=== PATIENT | female | born 1955 | race African-American/Black ===

== ENCOUNTER 2016-12-08 09:07 | Day surgery (SDC) | payer OTHER ==
[~2016-12-08] VITALS: Ht 172.7 cm; Wt 68.2 kg
[~2016-12-08 09:07] MED LIST: PERC5TAB12 PO
[2016-12-08 09:21] VITALS: BP 139/84; PULSE 86; RESP 20; TEMP 98.1; O2SAT 94
[2016-12-08] MEDS ORDERED: SODIUM CHLOR 0.9% 1000 ML INJ 1,000 ML IV SCH (10:30)
[2016-12-08] MEDS ORDERED: LIDOCAINE 1%/EPINEPHrine 1:100,000 SOLN 20 ML VIAL ONE (10:45)
[2016-12-08] MEDS ORDERED: fentaNYL CITRATE 250 MCG/5 ML AMP ONE (10:57)
[2016-12-08] MEDS ORDERED: MIDAZOLAM HCL 5 MG/5 ML VIAL ONE (10:58)
[2016-12-08] MEDS ORDERED: GELATIN 12 MM/7 MM FOAM ONE ×2 (11:31→13:24)
--- NOTE | 2016-12-08 11:42 | PD.RAD ---
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 Full dictated report to follow See PACS Report for procedural detail/treatment Néstor Grubbs MD Dec 08, 2016 11:42
[2016-12-08] MEDS ORDERED: THROMBIN (TOPICAL) 5,000 UNIT VIAL ONE (11:46)
[2016-12-08 12:00] VITALS: BP 127/79; PULSE 79; RESP 20; TEMP 98; O2SAT 91
[2016-12-08 12:15] VITALS: BP 130/76; PULSE 89; RESP 20; O2SAT 92
[2016-12-08 12:45] VITALS: BP 109/62; PULSE 86; RESP 20; O2SAT 90
[2016-12-08] MEDS: MORPHINE SULFATE 4 MG/ML INJ IV PRN ×2 (12:49→13:45)
[2016-12-08 13:15] VITALS: BP 124/80; PULSE 85; RESP 20; O2SAT 92
--- NOTE | 2016-12-08 13:23 | RADRPT ---
EXAM DATE/TIME: 12/08/2016 11:05 [facility] COMPARISON: CT SIMULATION, July 16, 2014, 15:09. INDICATIONS : Pelvic mass. History of endometrial cancer. SEDATION TIME: 15 minutes BIOPSY SITE: Left Pelvis MEDICATION(S): 1.) 2.5 mg midazolam (Versed) IV 2.) 150 mcg fentanyl (Sublimaze) IV DEVICE(S): 1.) 18 gauge Carrillo blunt needle 2.) 20 gauge Temno core biopsy needle 3.) Gelfoam MEDICAL HISTORY : Endometrial cancer. SURGICAL HISTORY : Open heart surgery for congenital defect. ENCOUNTER: Initial ACUITY: 1 day PAIN SCORE: 0/10 LOCATION: Left pelvis A total of three core specimen(s) were obtained and sent to the laboratory for pathologic evaluation. PROCEDURE: 1. CT guided pelvic biopsy. 2. Conscious sedation with continuous EKG and oximetry monitoring. 3. EKG and oximetry remained stable throughout the procedure. Prior to the procedure informed consent was obtained. Any appropriate prior imaging studies were rev iewed. Using automated exposure control and adjustment of the mA and/or kV according to patient size, radiat ion dose was kept as low as reasonably achievable to obtain optimal diagnostic quality images. The site was prepped in a sterile fashion. Full sterile technique was used, including cap, mask, niki rile gloves and gown and a large sterile sheet. Hand hygiene and 2% chlorhexidine and/or betadine/al cohol prep was utilized per protocol for cutaneous antisepsis. The skin and subcutaneous tissues wer e infiltrated with local anesthetic solution. With CT guidance the previously identified target was localized. An 18 gauge Carrillo blunt was advanc ed down to the surface of the pelvic mass in the left lower quadrant. A 20 gauge Temno needle was adv anced through the Carrillo blunt. Multiple core biopsies were taken. There was a small amount of hemor rhage emanating from the Carrillo blunt needle cannula. Approximately 3 cc of Gelfoam and thrombin wer e administered through the cannula along the surface of the mass. Adequate hemostasis was obtained w ith compression at the puncture site. Follow-up CT scan reveals no hemorrhage. The patient tolerated the procedure well and there were no complications. The patient was returned to the Radiology Outpatient Unit in stable condition. CONCLUSION: Uncomplicated CT guided biopsy. Néstor Grubbs MD on December 08, 2016 at 13:21 Board Certified Radiologist. This report was verified electronically.
== END 2016-12-08 16:00 | disposition home or self-care (01) ==
LOC: HRAD 09:07 → HRIP 09:11 → HRAD 16:00
PROVIDERS: ATTEND Obstetrics & Gynecology Gynecologic Oncology
DX: C55 Malignant neoplasm of uterus, part unspecified (principal); Z85.42 Personal history of malignant neoplasm of other parts of uterus
CPT/HCPCS: 49180; 77012; 88305; 88341; 88342; 99151; J2250; J2270; J3010; J7030; 99152

== ENCOUNTER 2017-05-21 16:46 | Inpatient (IN) | payer OTHER ==
[~2017-05-21] VITALS: Ht 172.7 cm; Wt 69.6 kg
[2017-05-21 16:49] VITALS: BP 117/65; PULSE 115; RESP 17; TEMP 98.4; O2SAT 96
--- NOTE | 2017-05-21 17:42 | PD ---
HPI Chief Complaint: GI Complaint Time Seen by Provider: 17:41 Travel History International Travel<30 days: No Contact w/Intl Traveler<30days: No Traveled to known affect area: No History of Present Illness HPI 61 YO F with PMH of PFSH Past Medical History Arthritis: Yes (right knee) Anxiety: No Depression: No Cancer: Yes (uterine or ovarian (pt unsure)) Cardiovascular Problems: No Diabetes: No Endocrine: No Genitourinary: No Hepatitis: No Hiatal Hernia: No Immune Disorder: No Musculoskeletal: Yes (OCCASIONAL PAIN IN KNEES) Neurologic: No Psychiatric: No Reproductive: No Respiratory: No Immunizations Current: No Thyroid Disease: No ?: Not : 0 Para: 0 Past Surgical History AICD: No Cardiac Surgery: Yes (at age 11, pt had a hole fixed in her heart) Hysterectomy: Yes Joint Replacement: No Pacemaker: No Social History Alcohol Use: No Tobacco Use: No Substance Use: No Allergies-Medications (Allergen,Severity, Reaction): Coded Allergies: No Known Allergies (Verified , 12/08/16) Reported Meds & Prescriptions Reported Meds & Active Scripts Active Reported Potassium Chloride ER (Potassium Chloride) 20 Meq Tab 20 Meq PO DAILY [place] (Hydrocodone-Acetaminophen) 10-325 Mg Tab 1 Tab PO Q4H PRN Tramadol (Tramadol HCl) 50 Mg Tab 50 Mg PO Q8H PRN Miralax Powder (Polyethylene Glycol 3350 Powder) 17 Gm Powd 17 Gm PO DAILY Mix and dissolve one measuring cap-ful (17 grams) in water or juice. Data Data Last Documented VS Vital Signs Date Time Temp Pulse Resp B/P (MAP) Pulse Ox O2 Delivery O2 Flow Rate FiO2 05/21/17 17:47 18 05/21/17 17:46 98 Room Air 05/21/17 17:46 05/21/17 16:49 98.4 115 Orders Orders Complete Blood Count With Diff (05/21/17 17:06) Comprehensive Metabolic Panel (05/21/17 17:06) Urinalysis - C+S If Indicated (05/21/17 17:06) Iv Access Insert/Monitor (05/21/17 17:06) Oxygen Administration (05/21/17 17:06) Oximetry (05/21/17 17:06) Lipase (05/21/17 17:06) Urine Culture (05/21/17 17:25) Ct Abd/Pel W Iv Contrast(Rout) (05/21/17 18:00) Ondansetron Inj (Zofran Inj) (05/21/17 18:00) Hydromorphone Pf Inj (Dilaudid Pf Inj) (05/21/17 18:00) Labs Laboratory Tests Test 05/21/17 17:25 05/21/17 17:40 Urine Color YELLOW Urine Turbidity HAZY Urine pH 5.5 Urine Specific [place] 1.021 Urine Protein 30 mg/dL Urine Glucose (UA) NEG mg/dL Urine Ketones NEG mg/dL Urine Occult Blood NEG Urine Nitrite NEG Urine Bilirubin NEG Urine Urobilinogen 2.0 MG/DL Urine Leukocyte Esterase LARGE Urine RBC 1 /hpf Urine WBC 12 /hpf Urine Squamous Epithelial Cells 3 /hpf Urine Transitional Epithelial Cells <1 /hpf Urine Bacteria OCC /hpf Urine Hyaline Casts 10 /lpf Urine Mucus FEW /lpf Microscopic Urinalysis Comment CULTURE INDICATED White Blood Count 8.6 TH/MM3 Red Blood Count 4.10 MIL/MM3 Hemoglobin 10.1 GM/DL Hematocrit 31.2 % Mean Corpuscular Volume 76.1 FL Mean Corpuscular Hemoglobin 24.5 PG Mean Corpuscular Hemoglobin Concent 32.3 % Red Cell Distribution Width 21.1 % Platelet Count 472 TH/MM3 Mean Platelet Volume 8.1 FL Neutrophils (%) (Auto) 69.7 % Lymphocytes (%) (Auto) 15.5 % Monocytes (%) (Auto) 14.1 % Eosinophils (%) (Auto) 0.2 % Basophils (%) (Auto) 0.5 % Neutrophils # (Auto) 6.0 TH/MM3 Lymphocytes # (Auto) 1.3 TH/MM3 Monocytes # (Auto) 1.2 TH/MM3 Eosinophils # (Auto) 0.0 TH/MM3 Basophils # (Auto) 0.0 TH/MM3 CBC Comment AUTO DIFF Conchita Barba May 21, 2017 17:42
[2017-05-21 17:46] VITALS: RESP 18; O2SAT 98
[2017-05-21] MEDS ORDERED: MIRA3350 PO (17:50)
[2017-05-21 17:52] LABS: BACTERIA, URINE OCC /hpf; BLOOD, URINE NEG (NEG); COMMENT (UR) CULTURE INDICATED; CULTURE IF INDICATED CULTURE INDICATED; GLUCOSE,URINE NEG (NEG); HYALINE CAST, URINE 10 /lpf (RARE); KETONE, URINE NEG (NEG); MUCUS URINE FEW /lpf (OCC); NITRITE,URINE NEG (NEG); PH, URINE 5.5 (5.0-8.5); SQUAMOUS EPITHELIAL CELL URINE 3 /hpf (0-5); TRANSITIONAL EPI CELLS, URINE <1 /hpf; URINE COLOR YELLOW (YELLW/STRAW)
[2017-05-21] MEDS ORDERED: POTA-163 PO (17:53)
[2017-05-21] MEDS ORDERED: TRAM50TA PO (17:53)
[2017-05-21] MEDS ORDERED: HYDR-3366 PO (17:53)
[2017-05-21 17:59] LABS: BASOPHIL % 0.5 % (0.0-2.0); EOSINOPHIL % 0.2 % (0.0-4.0); HEMATOCRIT 31.2 % (35.0-46.0); LYMPH % 15.5 % (9.0-44.0); LYMPHOCYTE # 1.3 TH/MM3 (1.0-4.8); MEAN CELL VOLUME 76.1 FL (80.0-100.0); MEAN CORPUSCULAR HEMOGLOBIN 24.5 PG (27.0-34.0); MEAN CORPUSCULAR HGB CONC 32.3 % (32.0-36.0); MONO % 14.1 % (0.0-8.0); NEUT % 69.7 % (16.0-70.0); PLATELET COUNT 472 TH/MM3 (150-450); RED CELL DISTRIBUTION WIDTH 21.1 % (11.6-17.2); WHITE BLOOD COUNT 8.6 TH/MM3 (4.0-11.0)
[2017-05-21] MEDS ORDERED: HYDROmorphone HCL PF 1 MG/ML VIAL IVS ONE (18:00)
[2017-05-21] MEDS ORDERED: ONDANSETRON HCL 4 MG/2 ML VIAL IVP ONE (18:00)
[2017-05-21 18:03] LABS: HEMO FLAGS AUTO DIFF
[2017-05-21 18:24] LABS: ALKALINE PHOSPHATASE 114 U/L (45-117); ALT (GPT) 20 U/L (10-53); ANION GAP 10 MEQ/L (5-15); AST (GOT) 30 U/L (15-37); BICARBONATE 26.6 MEQ/L (21.0-32.0); BLOOD UREA NITROGEN 24 MG/DL (7-18); CHLORIDE 98 MEQ/L (98-107); GLOMERULAR FILTRATION RATE 55 ML/MIN (>89); SODIUM (NA) 135 MEQ/L (136-145); TOTAL BILIRUBIN ADULT 0.6 MG/DL (0.2-1.0)
--- NOTE | 2017-05-21 18:50 | PD ---
HPI Chief Complaint: GI Complaint Time Seen by Provider: 17:41 Travel History International Travel<30 days: No Contact w/Intl Traveler<30days: No Traveled to known affect area: No History of Present Illness HPI Miss Boston is a very pleasant 61-year-old female in unfortunate history of recurrent uterine cancer, who presents here today with complaint of abdominal pain with associated nausea vomiting. She states that she is currently having nausea with lower abdominal pain. She denies any fevers, chills and she states that this morning she had pain in her lower abdomen. She states she tried heat however shortly thereafter she threw up the surgical that she had eaten earlier. She reports minimal bowel movement this morning. She denies any dysuria, urgency, frequency. She is status post hysterectomy and denies any vaginal bleeding or vaginal discharge. There are no other complaints time my examination. 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[place], port upper rt chest) Anxiety: No Depression: No Cancer: Yes (uterine or ovarian (pt unsure)) Cardiovascular Problems: No Diabetes: No Endocrine: No Gastrointestinal Disorders: No Genitourinary: No Hepatitis: No Hiatal Hernia: No Hypertension: No Immune Disorder: No Medical other: No Musculoskeletal: Yes (OCCASIONAL PAIN IN KNEES) Neurologic: No Psychiatric: No Reproductive: No Respiratory: No Immunizations Current: No Thyroid Disease: No ?: Not : 0 Para: 0 Past Surgical History AICD: No Cardiac Surgery: Yes (at age 11, pt had a hole fixed in her heart) Hysterectomy: Yes Joint Replacement: No Pacemaker: No Other Surgery: Yes Social History Alcohol Use: No Tobacco Use: No Substance Use: No Allergies-Medications (Allergen,Severity, Reaction): Coded Allergies: No Known Allergies (Verified , 12/08/16) Reported Meds & Prescriptions Reported Meds & Active Scripts Active Reported Potassium Chloride ER (Potassium Chloride) 20 Meq Tab 20 Meq PO DAILY [place] (Hydrocodone-Acetaminophen) 10-325 Mg Tab 1 Tab PO Q4H PRN Tramadol (Tramadol HCl) 50 Mg Tab 50 Mg PO Q8H PRN Miralax Powder (Polyethylene Glycol 3350 Powder) 17 Gm Powd 17 Gm PO DAILY Mix and dissolve one measuring cap-ful (17 grams) in water or juice. Review of Systems General / Constitutional: No: Fever, Chills HENT: No: Headaches, Lightheadedness Cardiovascular: No: Chest Pain or Discomfort, Palpitations Respiratory: No: Cough, Shortness of Breath Gastrointestinal: Positive: Nausea, Vomiting, Abdominal Pain, Constipation, No : Diarrhea Genitourinary: No: Frequency, Dysuria Musculoskeletal: Positive: Weakness, No: Pain Neurologic: Positive: Weakness (generalized generalized), No: Dizziness, Headache Physical Exam Narrative GENERAL: Thin ill appearing female in no acute respiratory distress. SKIN: Focused skin assessment warm/dry. HEAD: Atraumatic. Normocephalic. EYES: No scleral icterus. No injection or drainage. ENT: No nasal bleeding or discharge. Mucous membranes pink and moist. NECK: Trachea midline. Supple. CARDIOVASCULAR: Regular rate and rhythm. No murmur appreciated. RESPIRATORY: No accessory muscle use. Clear to auscultation. Breath sounds equal bilaterally. GASTROINTESTINAL: Abdomen thin cachectic. The patient has tenderness to palpation in her lower pelvic segment. There is no rebound or guarding. MUSCULOSKELETAL: No obvious deformities. No clubbing. No cyanosis. No edema. NEUROLOGICAL: Awake and alert. No obvious cranial nerve deficits. Motor grossly within normal limits. Normal speech. Data Data Last Documented VS Vital Signs Date Time Temp Pulse Resp B/P (MAP) Pulse Ox O2 Delivery O2 Flow Rate FiO2 05/21/17 17:47 18 05/21/17 17:46 98 Room Air 05/21/17 17:46 05/21/17 16:49 98.4 115 Orders Orders Complete Blood Count With Diff (05/21/17 17:06) Comprehensive Metabolic Panel (05/21/17 17:06) Urinalysis - C+S If Indicated (05/21/17 17:06) Iv Access Insert/Monitor (05/21/17 17:06) Oxygen Administration (05/21/17 17:06) Oximetry (05/21/17 17:06) Lipase (05/21/17 17:06) Urine Culture (05/21/17 17:25) Ct Abd/Pel W Iv Contrast(Rout) (05/21/17 18:00) Ondansetron Inj (Zofran Inj) (05/21/17 18:00) Hydromorphone Pf Inj (Dilaudid Pf Inj) (05/21/17 18:00) Labs Laboratory Tests Test 05/21/17 17:25 05/21/17 17:40 Urine Color YELLOW Urine Turbidity HAZY Urine pH 5.5 Urine Specific [place] 1.021 Urine Protein 30 mg/dL Urine Glucose (UA) NEG mg/dL Urine Ketones NEG mg/dL Urine Occult Blood NEG Urine Nitrite NEG Urine Bilirubin NEG Urine Urobilinogen 2.0 MG/DL Urine Leukocyte Esterase LARGE Urine RBC 1 /hpf Urine WBC 12 /hpf Urine Squamous Epithelial Cells 3 /hpf Urine Transitional Epithelial Cells <1 /hpf Urine Bacteria OCC /hpf Urine Hyaline Casts 10 /lpf Urine Mucus FEW /lpf Microscopic Urinalysis Comment CULTURE INDICATED White Blood Count 8.6 TH/MM3 Red Blood Count 4.10 MIL/MM3 Hemoglobin 10.1 GM/DL Hematocrit 31.2 % Mean Corpuscular Volume 76.1 FL Mean Corpuscular Hemoglobin 24.5 PG Mean Corpuscular Hemoglobin Concent 32.3 % Red Cell Distribution Width 21.1 % Platelet Count 472 TH/MM3 Mean Platelet Volume 8.1 FL Neutrophils (%) (Auto) 69.7 % Lymphocytes (%) (Auto) 15.5 % Monocytes (%) (Auto) 14.1 % Eosinophils (%) (Auto) 0.2 % Basophils (%) (Auto) 0.5 % Neutrophils # (Auto) 6.0 TH/MM3 Lymphocytes # (Auto) 1.3 TH/MM3 Monocytes # (Auto) 1.2 TH/MM3 Eosinophils # (Auto) 0.0 TH/MM3 Basophils # (Auto) 0.0 TH/MM3 CBC Comment AUTO DIFF Blood Urea Nitrogen 24 MG/DL Creatinine 1.20 MG/DL Random Glucose 100 MG/DL Total Protein 8.8 GM/DL Albumin 4.3 GM/DL Calcium Level 10.4 MG/DL Alkaline Phosphatase 114 U/L Aspartate Amino Transf (AST/SGOT) 30 U/L Alanine Aminotransferase (ALT/SGPT) 20 U/L Total Bilirubin 0.6 MG/DL Sodium Level 135 MEQ/L Potassium Level 4.0 MEQ/L Chloride Level 98 MEQ/L Carbon Dioxide Level 26.6 MEQ/L Anion Gap 10 MEQ/L Estimat Glomerular Filtration Rate 55 ML/MIN Lipase 87 U/L MDM Medical Decision Making Medical Screen Exam Complete: Yes Emergency Medical Condition: Yes Differential Diagnosis Bowel obstruction versus obstipation versus constipation versus ileus. Narrative Course 61-year-old female with history of recurrent uterine cancer, presents today with lower abdominal pain with associated nausea vomiting. The patient states that she had a small bowel movement this morning but shortly thereafter threw up her breakfast which was cereal. She denies any fevers, chills. She denies any dysuria, urgency, frequency. Labs and CT scan are pending. She'll be signed out to Dr. Ross who was replacing me at change of shift. Disposition will be per her. Diagnosis Primary Impression: Abdominal pain Additional Impressions: Nausea & vomiting History of uterine cancer Wolfgang Wray MD May 21, 2017 18:50
[2017-05-21 19:14] LABS: PLATELET ESTIMATE SMEAR HIGH (NORMAL); PLATELET MORPHOLOGY NORMAL (NORMAL); SCAN/DIFF AUTO DIFF CONFIRMED
--- NOTE | 2017-05-21 19:21 | RADRPT ---
EXAM DATE/TIME: 05/21/2017 18:51 [facility] COMPARISON: CT ABDOMEN & PELVIS W CONTRAST, July 11, 2014, 21:34. INDICATIONS : Constipation and lower abdomen pain for two days. IV CONTRAST: 75 cc Omnipaque 350 (iohexol) IV ORAL CONTRAST: No oral contrast ingested. RADIATION DOSE: 4.51 CTDIvol (mGy) MEDICAL HISTORY : uterine/ovarian cancer SURGICAL HISTORY : Hysterectomy. ENCOUNTER: Initial ACUITY: 2 days PAIN SCALE: 7/10 LOCATION: Bilateral lower quadrant TECHNIQUE: Volumetric scanning of the abdomen and pelvis was performed. Using automated exposure control and ad justment of the mA and/or kV according to patient size, radiation dose was kept as low as reasonably achievable to obtain optimal diagnostic quality images. DICOM format image data is available electro nically for review and comparison. FINDINGS: 6.4 cm heterogeneously enhancing mass in the left hepatic lobe new and compatible with a metastatic l esion. There is also extensive omental/peritoneal/serosal metastatic disease. Anteriorly in the left lower quadrant is a 6.2 x 14.6 cm area of peritoneal caking. In the posterior pelvic cavity is an felipe roximately 6.2 x 11.2 cm area and with associated moderate right hydronephrosis/hydroureter. In the l ateral left midabdomen is a 3.6 x 5.2 cm peritoneal mass. Interestingly, no ascites. Moderately distended fluid and air-filled small bowel seen but I believe a fairly normal caliber term inal ileum. The colon is decompressed. Stool is present in the rectum. Lung bases are clear. No lytic or sclerotic lesion seen of the visualized osseous structures. Chronic L5 pars defects with grade 2 L5/S1 spondylolisthesis again noted. CONCLUSION: 1. Liver and widespread peritoneal/omental/serosal metastatic disease. 2. Apparent early or partial distal small bowel obstruction. 3. Obstruction of the distal right ureter. 4. Clear lung bases. Estiven Boyd MD on May 21, 2017 at 19:12 Board Certified Radiologist. This report was verified electronically.
--- NOTE | 2017-05-21 19:39 | PD ---
Physical Exam Narrative General: The patient is a well-developed thin appearing female in no acute distress. Head and Neck exam: Head is normocephalic atraumatic. Eyes: EOMI, pupils are equal round and reactive to light. Nose: Midline septum with pink mucous membranes Mouth: Moist mucus membranes. Posterior oropharynx is not erythematous. No tonsillar hypertrophy. Uvula midline. Airway patent. Neck: No palpable lymphadenopathy. No nuchal rigidity. No thyromegaly. Cardiovascular: Regular rate and rhythm with a 2/6 systolic murmur. No gallops or rubs. The patient reports a history of a heart murmur. Lungs: Clear to auscultation bilaterally. No wheezes, rhonchi, or rales. Abdomen: Soft, with tenderness on palpation along the suprapubic area and left lower quadrant of the abdomen with a palpable mass/area of firmness. No guarding, rebound, or rigidity. Normal bowel sounds are audible. No tenderness on palpation of McBurney's point. Extremities: No clubbing, cyanosis, or edema. 2+ pulses in all 4 extremities. No calf tenderness on palpation. Back: No costovertebral angle tenderness to palpation. Neurologic Exam: Grossly nonfocal. Skin Exam: No rash noted. Intact skin that is warm and dry. Data Data Last Documented VS Vital Signs Date Time Temp Pulse Resp B/P (MAP) Pulse Ox O2 Delivery O2 Flow Rate FiO2 05/21/17 17:47 18 05/21/17 17:46 98 Room Air 05/21/17 17:46 05/21/17 16:49 98.4 115 Orders Orders Complete Blood Count With Diff (05/21/17 17:06) Comprehensive Metabolic Panel (05/21/17 17:06) Urinalysis - C+S If Indicated (05/21/17 17:06) Iv Access Insert/Monitor (05/21/17 17:06) Oxygen Administration (05/21/17 17:06) Oximetry (05/21/17 17:06) Lipase (05/21/17 17:06) Urine Culture (05/21/17 17:25) Ct Abd/Pel W Iv Contrast(Rout) (05/21/17 18:00) Ondansetron Inj (Zofran Inj) (05/21/17 18:00) Hydromorphone Pf Inj (Dilaudid Pf Inj) (05/21/17 18:00) Iohexol 350 Inj (Omnipaque 350 Inj) (05/21/17 19:40) Sodium Chlor 0.9% 1000 Ml Inj (Ns 1000 M (05/21/17 19:45) Admit Order (Ed Use Only) (05/21/17 19:56) Labs Laboratory Tests Test 05/21/17 17:25 05/21/17 17:40 Urine Color YELLOW Urine Turbidity HAZY Urine pH 5.5 Urine Specific [place] 1.021 Urine Protein 30 mg/dL Urine Glucose (UA) NEG mg/dL Urine Ketones NEG mg/dL Urine Occult Blood NEG Urine Nitrite NEG Urine Bilirubin NEG Urine Urobilinogen 2.0 MG/DL Urine Leukocyte Esterase LARGE Urine RBC 1 /hpf Urine WBC 12 /hpf Urine Squamous Epithelial Cells 3 /hpf Urine Transitional Epithelial Cells <1 /hpf Urine Bacteria OCC /hpf Urine Hyaline Casts 10 /lpf Urine Mucus FEW /lpf Microscopic Urinalysis Comment CULTURE INDICATED White Blood Count 8.6 TH/MM3 Red Blood Count 4.10 MIL/MM3 Hemoglobin 10.1 GM/DL Hematocrit 31.2 % Mean Corpuscular Volume 76.1 FL Mean Corpuscular Hemoglobin 24.5 PG Mean Corpuscular Hemoglobin Concent 32.3 % Red Cell Distribution Width 21.1 % Platelet Count 472 TH/MM3 Mean Platelet Volume 8.1 FL Neutrophils (%) (Auto) 69.7 % Lymphocytes (%) (Auto) 15.5 % Monocytes (%) (Auto) 14.1 % Eosinophils (%) (Auto) 0.2 % Basophils (%) (Auto) 0.5 % Neutrophils # (Auto) 6.0 TH/MM3 Lymphocytes # (Auto) 1.3 TH/MM3 Monocytes # (Auto) 1.2 TH/MM3 Eosinophils # (Auto) 0.0 TH/MM3 Basophils # (Auto) 0.0 TH/MM3 CBC Comment AUTO DIFF Differential Comment AUTO DIFF CONFIRMED Platelet Estimate HIGH Platelet Morphology Comment NORMAL Red Cell Morphology Comment NORMAL Blood Urea Nitrogen 24 MG/DL Creatinine 1.20 MG/DL Random Glucose 100 MG/DL Total Protein 8.8 GM/DL Albumin 4.3 GM/DL Calcium Level 10.4 MG/DL Alkaline Phosphatase 114 U/L Aspartate Amino Transf (AST/SGOT) 30 U/L Alanine Aminotransferase (ALT/SGPT) 20 U/L Total Bilirubin 0.6 MG/DL Sodium Level 135 MEQ/L Potassium Level 4.0 MEQ/L Chloride Level 98 MEQ/L Carbon Dioxide Level 26.6 MEQ/L Anion Gap 10 MEQ/L Estimat Glomerular Filtration Rate 55 ML/MIN Lipase 87 U/L [facility] Medical Record Reviewed: Yes Supervised Visit with CANDI: No Interpretation(s) Last Impressions Abdomen/Pelvis CT 05/21/17 1800 Signed Impressions: Service Date/Time: Sunday, May 21, 2017 18:51 - CONCLUSION: 1. Liver and widespread peritoneal/omental/serosal metastatic disease. 2. Apparent early or partial distal small bowel obstruction. 3. Obstruction of the distal right ureter. 4. Clear lung bases. Estiven Boyd MD Narrative Course During the course of the patients emergency department visit, the patients history, examination, and differential diagnosis were reviewed with the patient. The patient had IV access obtained and blood work sent for analysis. The patient's case is checked out to me by Dr. Wray. Please see his complete history and physical. The patient's case was checked out to me at the conclusion of his shift. The patient was initially provided hydromorphone 0.5 mg IV, Zofran 4 mg IV provided for pain and nausea by Dr. Wray. The patients laboratory studies were reviewed and remarkable for a white count of 8.6, hemoglobin 10.1, platelets 472 with 14.1 monocytes, CMP is remarkable for sodium of 135, BUN 24, creatinine 1.20, calcium 10.4, total protein 8.8, lipase 87, urinalysis shows 30 protein, large leukocyte esterase, 12 wbc's, occasional bacteria, culture indicated per Radiology studies were reviewed and remarkable for a CT scan of the abdomen and pelvis that reveals liver and widespread peritoneal omental serosal metastatic disease, apparent early or partial distal small bowel obstruction. Obstruction of the distal right ureter, clear lung bases. Given these findings, the patient will be admitted to the hospital for bowel rest, IV fluids, pain medication and consultation with her oncologist. The patients results were discussed with the patient, including the plan of care. I explained that further testing and/ or monitoring is indicated based on the patients history, examination, and/ or laboratory findings. Therefore, I recommended admission for additional evaluation. The patient expressed understanding and was agreeable with this plan. The patient was admitted to the hospital in stable condition and [facility] Physician Communication Physician Communication The patient's case is discussed with Dr. Fraga who did agree to admit the patient for further evaluation and treatment at this time. Diagnosis Primary Impression: Abdominal pain Qualified Codes: R10.30 - Lower abdominal pain, unspecified Additional Impressions: Nausea & vomiting Qualified Codes: R11.2 - Nausea with vomiting, unspecified History of uterine cancer Small bowel obstruction, partial Admitting Information Admitting Physician Requests: Brooklyn Storey MD May 21, 2017 19:39
[2017-05-21] MEDS ORDERED: IOHEXOL 350 MG/ML 10 ML VIAL (for RAD DIAG) IVCONTRAST ONE (19:40)
[2017-05-21] MEDS: SODIUM CHLOR 0.9% 1000 ML INJ 1,000 ML IV SCH ×2 (19:45→21:46)
--- NOTE | 2017-05-21 20:14 | HHI.HP ---
[facility] Service [facility] Primary Care Physician Stephie Chandler MD Admission Diagnosis Partial SBO, recurrence of gynecologic CA on chemotherapy Diagnoses: (1) Partial small bowel obstruction Diagnosis: Principal (2) Uterine cancer Diagnosis: Principal (3) Renal insufficiency Diagnosis: Principal (4) UTI (urinary tract infection) Diagnosis: Principal Travel History International Travel<30 Days: No Contact w/Intl Traveler <30 Da: No Traveled to Known Affected Are: No History of Present Illness This is a 61-year-old female with a PMH of Metastatic Uterine CA following with Dr. Saravia who presented to the ER w/ complaints of abdominal pain, nausea and vomiting starting earlier today. No fever, chills or diarrhea. On arrival, BP 117/65, HR 150, O2 sat 96% on RA, Afebrile. WBC normal. Cranial 1.20, previously 1.30 on 05/18/17. UA positive for UTI. CT Abd/Pelvis w/ liver and widespread peritoneal/omental/serosal metastatic disease, early or partial small bowel obstruction, obstruction of distal right ureter. NGT to be placed in ER, however nausea/vomiting resolved at this time. Review of Systems Except as stated in HPI: all other systems reviewed are Neg ROS: 14 point review of systems otherwise negative. Past Family Social History Past Medical History PMH: Metastatic Uterine CA Past Surgical History PAST SURGICAL HISTORY: Hysterectomy Allergies: Coded Allergies: No Known Allergies (Verified , 12/08/16) Family History PAST FAMILY HISTORY: Reviewed. No h/o DM or CAD Social History PAST SOCIAL HISTORY: Negative for alcohol, tobacco or drugs. Physical Exam Vital Signs Vital Signs Date Time Temp Pulse Resp B/P (MAP) Pulse Ox O2 Delivery O2 Flow Rate FiO2 05/21/17 17:47 18 05/21/17 17:46 98 Room Air 05/21/17 17:46 18 98 Room Air 05/21/17 16:49 98.4 115 17 117/65 (82) 96 Physical Exam PE: GENERAL: Middle-aged black female in no acute distress. HEENT: PERRLA, EOMI. No scleral icterus or conjunctival pallor. No lid lag or facial droop. CARDIOVASCULAR: Regular rate and rhythm. No obvious murmurs to auscultation. No chest tenderness to palpation. RESPIRATORY: No obvious rhonchi or wheezing. Clear to auscultation. Breath sounds equal bilaterally. GASTROINTESTINAL: Abdomen soft, generalized tenderness palpation, nondistended. BS normal. MUSCULOSKELETAL: Extremities without clubbing, cyanosis, or edema. No obvious deformities. NEUROLOGICAL: Awake, alert and oriented x4. No focal neurologic deficits. Moving both upper and lower extremities spontaneously. Laboratory Laboratory Tests Test 05/21/17 17:25 05/21/17 17:40 Urine Color YELLOW Urine Turbidity HAZY Urine pH 5.5 Urine Specific [place] 1.021 Urine Protein 30 Urine Glucose (UA) NEG Urine Ketones NEG Urine Occult Blood NEG Urine Nitrite NEG Urine Bilirubin NEG Urine Urobilinogen 2.0 Urine Leukocyte Esterase LARGE Urine RBC 1 Urine WBC 12 Urine Squamous Epithelial Cells 3 Urine Transitional Epithelial Cells <1 Urine Bacteria OCC Urine Hyaline Casts 10 Urine Mucus FEW Microscopic Urinalysis Comment CULTURE INDICATED White Blood Count 8.6 Red Blood Count 4.10 Hemoglobin 10.1 Hematocrit 31.2 Mean Corpuscular Volume 76.1 Mean Corpuscular Hemoglobin 24.5 Mean Corpuscular Hemoglobin Concent 32.3 Red Cell Distribution Width 21.1 Platelet Count 472 Mean Platelet Volume 8.1 Neutrophils (%) (Auto) 69.7 Lymphocytes (%) (Auto) 15.5 Monocytes (%) (Auto) 14.1 Eosinophils (%) (Auto) 0.2 Basophils (%) (Auto) 0.5 Neutrophils # (Auto) 6.0 Lymphocytes # (Auto) 1.3 Monocytes # (Auto) 1.2 Eosinophils # (Auto) 0.0 Basophils # (Auto) 0.0 CBC Comment AUTO DIFF Differential Comment AUTO DIFF CONFIRMED Platelet Estimate HIGH Platelet Morphology Comment NORMAL Red Cell Morphology Comment NORMAL Blood Urea Nitrogen 24 Creatinine 1.20 Random Glucose 100 Total Protein 8.8 Albumin 4.3 Calcium Level 10.4 Alkaline Phosphatase 114 Aspartate Amino Transf (AST/SGOT) 30 Alanine Aminotransferase (ALT/SGPT) 20 Total Bilirubin 0.6 Sodium Level 135 Potassium Level 4.0 Chloride Level 98 Carbon Dioxide Level 26.6 Anion Gap 10 Estimat Glomerular Filtration Rate 55 Lipase 87 Date/Time Source Procedure Growth Status 05/21/17 17:25 Urine Clean Catch Urine Culture Pending Worksheet Result Diagram: 05/21/17173905/21/171739 Caprini VTE Risk Assessment Caprini VTE Risk Assessment: Mod/High Risk (score >= 2) Caprini Risk Assessment Model Point Value = 1 Point Value = 2 Point Value = 3 Point Value = 5 Age 41-60 Minor surgery BMI > 25 kg/m2 Swollen legs Varicose veins or History of unexplained or recurrent spontaneous Oral contraceptives or hormone replacement Sepsis (< 1 month) Serious lung disease, including pneumonia (< 1 month) Abnormal pulmonary function Acute myocardial infarction Congestive heart failure (< 1 month) History of inflammatory bowel disease Medical patient at bed rest Age 61-74 Arthroscopic surgery Major open surgery (> 45 min) Laparoscopic surgery (> 45 min) Malignancy Confined to bed (> 72 hours) Immobilizing plaster cast Central venous access Age >= 75 History of VTE Family history of VTE Factor V Leiden Prothrombin [id number] Lupus anticoagulant Anticardiolipin antibodies Elevated serum homocysteine Heparin-induced thrombocytopenia Other congenital or acquired thrombophilia Stroke (< 1 month) Elective arthroplasty Hip, pelvis, or leg fracture Acute spinal cord injury (< 1 month) Prophylaxis Regimen Total Risk Factor Score Risk Level Prophylaxis Regimen 0-1 Low Early ambulation 2 Moderate Order ONE of the following: *Sequential Compression Device (SCD) *Heparin 5000 units SQ BID 3-4 Higher Order ONE of the following medications: *Heparin 5000 units SQ TID *Enoxaparin/Lovenox 40 mg SQ daily (WT < 150 kg, CrCl > 30 mL/min) *Enoxaparin/Lovenox 30 mg SQ daily (WT < 150 kg, CrCl > 10-29 mL/min) *Enoxaparin/Lovenox 30 mg SQ BID (WT < 150 kg, CrCl > 30 mL/min) AND/OR *Sequential Compression Device (SCD) 5 or more Highest Order ONE of the following medications: *Heparin 5000 units SQ TID (Preferred with Epidurals) *Enoxaparin/Lovenox 40 mg SQ daily (WT < 150 kg, CrCl > 30 mL/min) *Enoxaparin/Lovenox 30 mg SQ daily (WT < 150 kg, CrCl > 10-29 mL/min) *Enoxaparin/Lovenox 30 mg SQ BID (WT < 150 kg, CrCl > 30 mL/min) AND *Sequential Compression Device (SCD) Assessment and Plan Problem List: (1) Partial small bowel obstruction ICD Code: K56.69 - Other intestinal obstruction (2) Uterine cancer ICD Code: C55 - Malignant neoplasm of uterus, part unspecified (3) UTI (urinary tract infection) ICD Code: N39.0 - Urinary tract infection, site not specified (4) Renal insufficiency ICD Code: N28.9 - Disorder of kidney and ureter, unspecified Assessment and Plan A/P: 1. Partial SBO: acute onset of abdominal pain, nausea/vomiting, now resolved. CT Abd/Pelvis w/ extensive metastatic disease, early partial small bowel obstruction and obstructed distal right ureter, images reviewed by me. NPO, IVF. NGT to be placed in ER, however nausea/vomiting resolved, will monitor. Consult Gen Sx for further eval. Analgesics/antiemetics as needed. 2. Uterine CA: Metastatic. Following w/ Dr. Saravia as outpatient, will consult for further evaluation as SBO due to extensive metastatic disease. 3. Renal Insufficiency: Chronic. Creatinine 1.20, producing 1.30 on 05/18/17. IVF hydration. Repeat labs in a.m. 4. UTI: UA with UTI. Start on IV Cipro, IVF for hydration as above. 5. DVT Prophylaxis: SCD/teds. 6. line worker DC planning as needed. 7. Case discussed at length with ER physician. Physician Certification 2 Midnight Certification Type: Admission for Inpatient Services Order for Inpatient Services The services are ordered in accordance with Medicare regulations or non- Medicare payer requirements, as applicable. In the case of services not specified as inpatient-only, they are appropriately provided as inpatient services in accordance with the 2-midnight benchmark. Estimated LOS (days): 2 days is the estimated time the patient will need to remain in the hospital, assuming treatment plan goals are met and no additional complications. Post-Hospital Plan: Not yet determined Norma Fraga MD May 21, 2017 20:14
[2017-05-21] MEDS ORDERED: BISACODYL 10 MG SUPP RECTAL PRN (20:15)
[2017-05-21] MEDS ORDERED: MAGNESIUM HYDROXIDE SUSP 30 ML CUP PO PRN (20:15)
[2017-05-21] MEDS ORDERED: SENNOSIDES 8.6 MG TAB PO PRN (20:15)
[2017-05-21 21:46] VITALS: BP 118/66; PULSE 95; RESP 16; O2SAT 97
[2017-05-21] MEDS: SODIUM CHLORIDE 0.9% FLUSH 10 ML FLUSH IV FLUSH SCH (21:46)
[2017-05-21] MEDS: CIPROFLOXACIN 400 MG PREMIX 200 ML IV SCH (21:46)
[2017-05-21 23:00] VITALS: BP 125/76; PULSE 100; PULSE 101; RESP 16; TEMP 98.4; O2SAT 100
[2017-05-21] MEDS: DOCUSATE SODIUM 50 MG/SENNA 8.6 MG TAB PO SCH (23:10)
[2017-05-21] MEDS: MORPHINE SULFATE 4 MG/ML INJ IV PUSH PRN (23:11)
[2017-05-22] VITALS (23 sets, daily range): BP systolic 104–124; BP diastolic 69–80; PULSE 84–116; RESP 18–20; TEMP 98.3–99; O2SAT 95–100
[2017-05-22] MEDS: SODIUM CHLOR 0.9% 1000 ML INJ 1,000 ML IV SCH (05:45)
[2017-05-22 06:49] LABS: BASOPHIL % 0.4 % (0.0-2.0); EOSINOPHIL % 0.7 % (0.0-4.0); HEMATOCRIT 25.9 % (35.0-46.0); HEMO FLAGS DIFF FINAL; LYMPH % 18.8 % (9.0-44.0); LYMPHOCYTE # 1.2 TH/MM3 (1.0-4.8); MEAN CELL VOLUME 75.6 FL (80.0-100.0); MEAN CORPUSCULAR HEMOGLOBIN 24.5 PG (27.0-34.0); MEAN CORPUSCULAR HGB CONC 32.5 % (32.0-36.0); MONO % 16.9 % (0.0-8.0); NEUT % 63.2 % (16.0-70.0); PLATELET COUNT 384 TH/MM3 (150-450); RED BLOOD COUNT 3.43 MIL/MM3 (4.00-5.30); RED CELL DISTRIBUTION WIDTH 20.8 % (11.6-17.2); WHITE BLOOD COUNT 6.3 TH/MM3 (4.0-11.0)
[2017-05-22 07:08] LABS: ALKALINE PHOSPHATASE 86 U/L (45-117); ALT (GPT) 16 U/L (10-53); ANION GAP 7 MEQ/L (5-15); AST (GOT) 23 U/L (15-37); BICARBONATE 26.9 MEQ/L (21.0-32.0); BLOOD UREA NITROGEN 22 MG/DL (7-18); CHLORIDE 103 MEQ/L (98-107); GLOMERULAR FILTRATION RATE 67 ML/MIN (>89); POTASSIUM 3.5 MEQ/L (3.5-5.1); SODIUM (NA) 137 MEQ/L (136-145); TOTAL BILIRUBIN ADULT 0.5 MG/DL (0.2-1.0)
[2017-05-22] MEDS: SODIUM CHLORIDE 0.9% FLUSH 10 ML FLUSH IV FLUSH SCH ×2 (09:00→21:04)
--- NOTE | 2017-05-22 09:08 | RADRPT ---
EXAM DATE/TIME: 05/22/2017 08:10 [place] COMPARISON: CT ABDOMEN & PELVIS W CONTRAST, May 21, 2017, 18:51. INDICATIONS : Abdomen pain midline to left low quadrant pain since yesterday. MEDICAL HISTORY : Arthritis. Uterine/ovarian cancer. Anemia SURGICAL HISTORY : Cardiac surgery to fix hole in heart. ENCOUNTER: Subsequent ACUITY: 2 days PAIN SCORE: 9/10 LOCATION: Left lower quadrant FINDINGS: Contrast in right kidney with obstruction. Contrast in the bladder. Nonspecific bowel gas pattern. CONCLUSION: 1. Hydronephrosis right kidney 2. Nonspecific bowel gas pattern. Garcia Grubbs MD FACR on May 22, 2017 at 9:06 Board Certified Radiologist. This report was verified electronically.
[2017-05-22] MEDS: DOCUSATE SODIUM 50 MG/SENNA 8.6 MG TAB PO SCH ×2 (10:19→21:02)
[2017-05-22] MEDS: CIPROFLOXACIN 400 MG PREMIX 200 ML IV SCH ×2 (10:54→21:04)
--- NOTE | 2017-05-22 13:23 | HHI.PR ---
Subjective Subjective Notes Resting in bed Reports no BM or flatus Objective Vitals/I&O Vital Signs Date Time Temp Pulse Resp B/P (MAP) Pulse Ox O2 Delivery O2 Flow Rate FiO2 05/22/17 07:00 96 05/22/17 07:00 98.4 18 104/69 (81) 95 05/21/17 21:46 Room Air Labs Laboratory Tests Test 05/21/17 17:25 05/21/17 17:40 05/22/17 06:00 Urine Color YELLOW Urine Turbidity HAZY Urine pH 5.5 Urine Specific [place] 1.021 Urine Protein 30 Urine Glucose (UA) NEG Urine Ketones NEG Urine Occult Blood NEG Urine Nitrite NEG Urine Bilirubin NEG Urine Urobilinogen 2.0 Urine Leukocyte Esterase LARGE Urine RBC 1 Urine WBC 12 Urine Squamous Epithelial Cells 3 Urine Transitional Epithelial Cells <1 Urine Bacteria OCC Urine Hyaline Casts 10 Urine Mucus FEW Microscopic Urinalysis Comment CULTURE INDICATED White Blood Count 8.6 6.3 Red Blood Count 4.10 3.43 Hemoglobin 10.1 8.4 Hematocrit 31.2 25.9 Mean Corpuscular Volume 76.1 75.6 Mean Corpuscular Hemoglobin 24.5 24.5 Mean Corpuscular Hemoglobin Concent 32.3 32.5 Red Cell Distribution Width 21.1 20.8 Platelet Count 472 384 Mean Platelet Volume 8.1 7.7 Neutrophils (%) (Auto) 69.7 63.2 Lymphocytes (%) (Auto) 15.5 18.8 Monocytes (%) (Auto) 14.1 16.9 Eosinophils (%) (Auto) 0.2 0.7 Basophils (%) (Auto) 0.5 0.4 Neutrophils # (Auto) 6.0 4.0 Lymphocytes # (Auto) 1.3 1.2 Monocytes # (Auto) 1.2 1.1 Eosinophils # (Auto) 0.0 0.0 Basophils # (Auto) 0.0 0.0 CBC Comment AUTO DIFF DIFF FINAL Differential Comment AUTO DIFF CONFIRMED Platelet Estimate HIGH Platelet Morphology Comment NORMAL Red Cell Morphology Comment NORMAL Blood Urea Nitrogen 24 22 Creatinine 1.20 1.02 Random Glucose 100 75 Total Protein 8.8 7.0 Albumin 4.3 3.2 Calcium Level 10.4 8.9 Alkaline Phosphatase 114 86 Aspartate Amino Transf (AST/SGOT) 30 23 Alanine Aminotransferase (ALT/SGPT) 20 16 Total Bilirubin 0.6 0.5 Sodium Level 135 137 Potassium Level 4.0 3.5 Chloride Level 98 103 Carbon Dioxide Level 26.6 26.9 Anion Gap 10 7 Estimat Glomerular Filtration Rate 55 67 Lipase 87 Date/Time Source Procedure Growth Status 05/21/17 17:25 Urine Clean Catch Urine Culture - Preliminary IMMATURE GROWTH - REINCUBATE Resulted Cardiovascular: Regular Lungs: Clear Abdomen: Other (LLQ tenderness; non distended ) Extremities: No edema A/P Assessment and Plan 61 year old female with uterine cancer; SBO -KUB reviewed---shows some mildly dilated loops of small bowel -NPO -No NGT indicated unless n/v occur -Labs reviewed -Will follow---if patient's GI tract does not open on its own will look into dx lap -We will continue to follow Attending Statement patient seen at bedside advanced cancer, need to consider tx options encourage ng if continued vomiting Attestation The exam, history, and the medical decision-making described in the above note were completed with the assistance of the mid-level provider. I reviewed and agree with the findings presented. I attest that I had a [id number] encounter with the patient on the same day, and personally performed and documented my assessment and findings in the medical record. Yumiko Bolaños May 22, 2017 13:23 Octaviano Arcos MD May 25, 2017 21:41
--- NOTE | 2017-05-22 14:15 | HHI.PR ---
Subjective Remarks Follow up for partial SBO. Patient is resting in bed. No BM or flatus. Objective Vitals Vital Signs Date Time Temp Pulse Resp B/P (MAP) Pulse Ox O2 Delivery O2 Flow Rate FiO2 05/22/17 11:00 95 05/22/17 11:00 98.7 99 18 114/72 (86) 100 05/22/17 07:00 96 05/22/17 07:00 98.4 97 18 104/69 (81) 95 05/22/17 06:00 94 05/22/17 05:00 96 05/22/17 04:00 96 05/22/17 03:00 101 05/22/17 03:00 98.4 98 18 113/72 (86) 97 05/22/17 02:00 98 05/22/17 01:00 100 05/21/17 23:00 101 05/21/17 23:00 98.4 100 16 125/76 (92) 100 05/21/17 21:57 05/21/17 21:46 95 16 118/66 (83) 97 Room Air 05/21/17 17:47 18 05/21/17 17:46 98 Room Air 05/21/17 17:46 18 98 Room Air 05/21/17 16:49 98.4 115 17 117/65 (82) 96 I/O 05/21/17 05/21/17 05/21/17 05/22/17 05/22/17 05/22/17 07:00 15:00 23:00 07:00 15:00 23:00 Intake Total 940 ml Output Total 200 ml Balance 740 ml Intake Oral 240 ml IV Total 700 ml Output Urine Total 200 ml Result Diagram: 05/22/17 0600 05/22/17 0600 Imaging Last Impressions Abdomen X-Ray 05/22/17 0000 Signed Impressions: Service Date/Time: Monday, May 22, 2017 08:10 - CONCLUSION: 1. Hydronephrosis right kidney 2. Nonspecific bowel gas pattern. Garcia Grubbs MD FACR Abdomen/Pelvis CT 05/21/17 1800 Signed Impressions: Service Date/Time: Sunday, May 21, 2017 18:51 - CONCLUSION: 1. Liver and widespread peritoneal/omental/serosal metastatic disease. 2. Apparent early or partial distal small bowel obstruction. 3. Obstruction of the distal right ureter. 4. Clear lung bases. Estiven Boyd MD Objective Remarks GENERAL: Alert, NAD. SKIN: Warm and dry. HEAD: Normocephalic. EYES: No scleral icterus. No injection or drainage. NECK: Supple, trachea midline. No JVD or lymphadenopathy. CARDIOVASCULAR: Regular rate and rhythm without murmurs, gallops, or rubs. RESPIRATORY: Breath sounds equal bilaterally. No accessory muscle use. GASTROINTESTINAL: Abdomen distended, tender to palpation. MUSCULOSKELETAL: No cyanosis, or edema. BACK: Nontender without obvious deformity. No CVA tenderness. Procedures None. A/P Problem List: (1) Partial small bowel obstruction ICD Code: K56.69 - Other intestinal obstruction (2) Uterine cancer ICD Code: C55 - Malignant neoplasm of uterus, part unspecified (3) UTI (urinary tract infection) ICD Code: N39.0 - Urinary tract infection, site not specified (4) Renal insufficiency ICD Code: N28.9 - Disorder of kidney and ureter, unspecified Assessment and Plan This is a 61-year-old female with a PMH of Metastatic Uterine CA following with Dr. Saravia who presented to the ER w/ complaints of abdominal pain, nausea and vomiting. CT Abd/Pelvis w/ liver and widespread peritoneal/omental/serosal metastatic disease, early or partial small bowel obstruction, obstruction of distal right ureter. - Partial SBO - General surgery is following. - Continue normal saline at 100 cc per hour. - Electrolytes are within reasonable range - Na 137, K 3.5. - Uterine cancer - Dr. Saravia follows patient in the outpatient setting. - Acute kidney injury - Likely pre-renal.Creatinine improved from 1.20 --> 1.02. - Urinary tract infection - Continue Cipro IV Full code. Ambulation, Jack. Clarice Keith DO May 22, 2017 2:15 pm
--- NOTE | 2017-05-22 15:24 | MB ---
cc: SHERMAN CARTAGENA MD DATE OF CONSULTATION: 05/22/2017 REASON FOR CONSULTATION Partial bowel obstruction. HISTORY OF PRESENT ILLNESS The patient is a 61-year-old female with past medical history of metastatic uterine cancer status post resection in 2013 followed by chemotherapy with Dr. Saravia. The patient did relatively well; however, developed recurrence of her uterine cancer and is currently on chemotherapy with three more cycles to go. The patient developed acute onset of nausea, vomiting and abdominal pain which started 24 hours ago. The patient states the pain was 6/10, currently 7/10. It is located in the bilateral lower quadrants and midportion of the abdomen. It has continued to get worse, is dull in nature. She has vomited several times and has decreased p.o. intake. She has had several bowel movements, however, they had been very small in caliber. Surgery was consulted for further evaluation and management. On my exam the patient is resting comfortably. She is not currently vomiting but still has persistent pain. She denied any other obstruction previously. PAST MEDICAL HISTORY 1. Metastatic uterine cancer. 2. Rheumatoid arthritis. PAST SURGICAL HISTORY 1. Cardiac surgery. 2. Hysterectomy for uterine cancer. SOCIAL HISTORY Denies smoking, ETOH or IVDA. ALLERGIES Denies any allergies. MEDICATIONS See EMR. FAMILY HISTORY Denies diabetes or hypertension. REVIEW OF SYSTEMS GENERAL: Complains of metastatic cancer. HEENT: The patient denies eye pain or ear pain. NECK: Denies swelling or pain. LUNGS: Denies cough or wheeze. HEART: Denies palpitations, history of heart surgery. GI: Complaining of nausea, vomiting, abdominal pain. : Denies dysuria or hematuria. ENDOCRINE: Denies polyuria or polydipsia. MUSCULOSKELETAL: Denies arthralgias or myalgias. NEUROLOGIC: Denies numbness or tingling. PSYCH: Denies change in mood or sensorium. PHYSICAL EXAMINATION GENERAL: Patient in no acute distress. VITAL SIGNS: Temperature 98.4, pulse 115, respirations 17, blood pressure 117/65. Saturation 96% on room air. HEENT: Pupils equal, round and reactive. Normocephalic, atraumatic. NECK: Supple. Trachea midline. LUNGS: Bilateral expansion. Clear. HEART: S1, S2, regular. ABDOMEN: Soft. Positive tenderness to palpation in the bilateral lower quadrants. Positive palpable hard mass in the inferior lower quadrant. No rebound. No guarding. EXTREMITIES: Cachectic. Well-perfused. 5/5 motor in all extremities. GCS 15. LABORATORY DATA WBC 8.6, hemoglobin 10.1, hematocrit 31.2, platelets 472. Sodium 135, potassium 4, chloride 98, BUN 24, creatinine 1.2, calcium 10.4, AST 30, ALT 20, alk phos 114, lipase 87. IMAGING DATA CT scan reviewed by myself: Widespread peritoneal omental serosal metastatic disease, early partial distal small bowel obstruction noted. Obstructed right ureter ASSESSMENT The patient is a 61-year-old female with recurrence of metastatic uterine cancer on chemotherapy, now with partial bowel obstruction. PLAN After full clinical, radiologic and laboratory work-up, patient with above-named issues. The patient does have evidence of significant tumor burden with recurrence of metastatic uterine cancer. She does also have partial bowel obstruction. At this point if the patient's vomiting continues recommend NG tube placement. Check and correct electrolytes. Will obtain abdominal x-ray for tomorrow. We will initially try to treat this nonoperatively. If the patient becomes completely obstructed, of course we will consider operative intervention. Discussed with the patient regarding attempt at nonoperative management because surgery will involve multiple lysis of adhesions and given the significant tumor burden and the fact the patient is currently on chemotherapy it would delay treatment. Further discussion need to be considered regarding end of life and prognosis and possible palliation. She states understanding, agrees and would like to proceed. MD ALEXIS Rodriguez/SHERLYN /1:52 PM /3:10 PM MTDD
[2017-05-22] MEDS: MORPHINE SULFATE 4 MG/ML INJ IV PUSH PRN ×2 (21:03→23:53)
[2017-05-22] MEDS: LACTULOSE SYRUP 20 GM/30 ML CUP PO PRN (21:03)
[2017-05-22] MEDS: ONDANSETRON HCL 4 MG/2 ML VIAL IVP PRN (21:03)
[2017-05-23] VITALS (18 sets, daily range): BP systolic 117–140; BP diastolic 70–84; PULSE 96–108; RESP 14–18; TEMP 97–99.4; O2SAT 95–100
[2017-05-23] MEDS: MORPHINE SULFATE 4 MG/ML INJ IV PUSH PRN ×4 (04:25→20:05)
[2017-05-23] MEDS: ONDANSETRON HCL 4 MG/2 ML VIAL IVP PRN (07:00)
--- NOTE | 2017-05-23 08:35 | HHI.PR ---
Subjective Remarks Follow-up for small bowel obstruction, uterine cancer. Patient reports nausea but not much vomiting. She still has significant abdominal pain especially on her left side. No bowel movement or flatus. Objective Vitals Vital Signs Date Time Temp Pulse Resp B/P (MAP) Pulse Ox O2 Delivery O2 Flow Rate FiO2 05/23/17 08:06 18 05/23/17 07:54 98.5 102 18 126/79 (95) 95 05/23/17 07:00 103 05/23/17 06:00 100 05/23/17 05:00 102 05/23/17 04:00 99.1 101 14 126/84 (98) 97 05/23/17 04:00 99 05/23/17 03:00 98 05/23/17 02:00 102 05/23/17 01:00 102 05/23/17 00:00 100 05/22/17 23:00 101 05/22/17 23:00 99.0 104 20 119/80 (93) 96 05/22/17 22:00 102 05/22/17 21:00 106 05/22/17 20:00 116 05/22/17 19:00 100 05/22/17 19:00 98.3 101 18 124/77 (93) 98 05/22/17 18:00 95 05/22/17 17:00 102 05/22/17 16:00 100 05/22/17 15:00 101 05/22/17 15:00 98.5 98 18 113/71 (85) 97 05/22/17 14:00 94 05/22/17 13:00 94 05/22/17 12:00 98 05/22/17 11:00 95 05/22/17 11:00 98.7 99 18 114/72 (86) 100 05/22/17 10:00 94 05/22/17 09:00 92 I/O 05/22/17 05/22/17 05/22/17 05/23/17 05/23/17 05/23/17 07:00 15:00 23:00 07:00 15:00 23:00 Intake Total 940 ml 2327 ml 1000 ml Output Total 200 ml 590 ml 850 ml Balance 740 ml 1737 ml 150 ml Intake Oral 240 ml 200 ml IV Total 700 ml 2127 ml 1000 ml Output Urine Total 200 ml 590 ml 850 ml # Bowel Movements 0 Result Diagram: 05/22/17 0600 05/22/17 0600 Imaging Last Impressions Abdomen X-Ray 05/22/17 0000 Signed Impressions: Service Date/Time: Monday, May 22, 2017 08:10 - CONCLUSION: 1. Hydronephrosis right kidney 2. Nonspecific bowel gas pattern. Garcia Grubbs MD FACR Abdomen/Pelvis CT 05/21/17 1800 Signed Impressions: Service Date/Time: Sunday, May 21, 2017 18:51 - CONCLUSION: 1. Liver and widespread peritoneal/omental/serosal metastatic disease. 2. Apparent early or partial distal small bowel obstruction. 3. Obstruction of the distal right ureter. 4. Clear lung bases. Estiven Boyd MD Objective Remarks GENERAL: Alert, NAD SKIN: Warm and dry. HEAD: Normocephalic. EYES: No scleral icterus. No injection or drainage. NECK: Supple, trachea midline. No JVD or lymphadenopathy. CARDIOVASCULAR: Regular rhythm, tachycardic without murmurs, gallops, or rubs. RESPIRATORY: Breath sounds equal bilaterally. No accessory muscle use. GASTROINTESTINAL: Abdomen somewhat distended, exquisitely tender to palpation. MUSCULOSKELETAL: No cyanosis, or edema. BACK: Nontender without obvious deformity. No CVA tenderness. Procedures None. A/P Problem List: (1) Partial small bowel obstruction ICD Code: K56.69 - Other intestinal obstruction (2) Uterine cancer ICD Code: C55 - Malignant neoplasm of uterus, part unspecified (3) UTI (urinary tract infection) ICD Code: N39.0 - Urinary tract infection, site not specified (4) Renal insufficiency ICD Code: N28.9 - Disorder of kidney and ureter, unspecified Assessment and Plan This is a 61-year-old female with a PMH of Metastatic Uterine CA following with Dr. Saravia who presented to the ER w/ complaints of abdominal pain, nausea and vomiting. CT Abd/Pelvis w/ liver and widespread peritoneal/omental/serosal metastatic disease, early or partial small bowel obstruction, obstruction of distal right ureter. - Partial SBO - General surgery is following. - Continue normal saline at 100 cc per hour. - Electrolytes are within reasonable range - Na 137, K 3.5. - Uterine cancer - Dr. Saravia follows patient in the outpatient setting. - If indicated by General surgery, Dr. Saravia can be consulted as well. - Acute kidney injury - Likely pre-renal.Creatinine improved from 1.20 --> 1.02. - Urinary tract infection - Continue Cipro IV Full code. SCDs. If there is no immediate plan for surgery, we will consider pharmacological DVT prophylaxis with Enoxaparin. Clarice Keith DO May 23, 2017 8:35 am
[2017-05-23] MEDS: SODIUM CHLORIDE 0.9% FLUSH 10 ML FLUSH IV FLUSH SCH ×2 (08:49→19:48)
[2017-05-23] MEDS: DOCUSATE SODIUM 50 MG/SENNA 8.6 MG TAB PO SCH ×2 (08:49→19:50)
[2017-05-23] MEDS: CIPROFLOXACIN 400 MG PREMIX 200 ML IV SCH ×2 (09:09→23:41)
--- NOTE | 2017-05-23 09:35 | MB ---
cc: RALEIGH SNELL D.O., LARS S. MD MAZAL,NICOLE REYES,BILL THOMPSON,MONTY Loyd M.D. DATE OF CONSULTATION 05/23/[address] Nicole Fraga REASON FOR CONSULTATION Patient known to us with metastatic uterine sarcoma. REASON FOR ADMISSION Partial small-bowel obstruction, pain, weight loss, dehydration and failure to thrive. Additional findings of right ureteral obstruction due to extrinsic compression from significant tumor. HISTORY This is a 61-year-old delightful woman with an unfortunate set of circumstances. She had previously had surgery for uterine sarcoma, underwent postoperative Taxol and carboplatin chemotherapy and was without evidence of disease for a period of time. She now has known recurrent disease that fortunately has progressed despite ongoing chemotherapy with a large central fixed pelvic mass, mass in the left lower quadrant, left upper quadrant, also approximately 6-7 cm area in the left lobe of the liver consistent with recurrent metastatic disease. Updated imaging confirms the aforementioned findings. There is also significant right ureteral dilation due to distal obstruction and hydronephrosis. She is admitted after going a number of days with worsening abdominal pain, back pain, some nausea with occasional vomiting, decreased appetite and when she does eat she will often have emesis that may follow that either immediately or several hours later. She has had minimal flatus and gone a number of days without bowel movement. 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 She is admitted to the hospital. Imaging shows the findings as described above. Abdominal x-ray shows some dilated loops of small bowel but nonspecific bowel gas pattern. No intraperitoneal free air. There is some stool and gas in the rectum. OBJECTIVE Most recent labs - Yesterday H&H 8.4 and 25.9, white count 6.3, platelets 384. BUN and creatinine 22 and 1.02. Transaminase is normal. Electrolytes otherwise normal. Recent urinary culture is no growth to date. PAST MEDICAL HISTORY 1. Most significant for this known recurrent uterine sarcoma. 2. Congenital heart defect. 3. Arthritis. PAST SURGICAL HISTORY 1. She had open heart surgery for repair of a congenital defect in 1956. 2. She has undergone previous hysterectomy and bilateral salpingo-oophorectomy for primary resection of sarcoma. FAMILY HISTORY Father is from coronary artery disease. Mother is alive. Family history of diabetes. SOCIAL HISTORY Ms. Boston is unmarried. She is hard-working, works full-time. No smoking or alcohol. GYNECOLOGIC HISTORY Two pregnancies. Menopause estimated at age 57. ALLERGIES No known drug allergies. MEDICATIONS As listed in the chart. REVIEW OF SYSTEMS As per History of Present Illness. PHYSICAL EXAMINATION VITAL SIGNS: Afebrile, pulse 100-103, blood pressure 126/79, O2 saturations greater than or equal to 95%, respirations 14-18. GENERAL: She is alert and oriented x 3. She is uncomfortable but in no cardiac or pulmonary distress. She appears to have lost some more weight with some peripheral and central wasting. HEENT: Mucous membranes are dry. Her sclerae are nonicteric. Conjunctivae are pale. LUNGS: Clear to auscultation bilaterally. CARDIOVASCULAR: Has a 4/6 systolic ejection murmur most noted along the left upper sternal border with a regular rate and rhythm. BACK: No spinal tenderness. There is some mild to moderate bilateral CVA tenderness. ABDOMEN: Distended clearly with a mass effect. There is a palpable central mass in the lower midabdomen/pelvis that it is prominent over toward the left lower quadrant and there is a palpable mass in the left upper quadrant extending to the epigastrium but her abdomen is nonacute. No rebound or guarding. Bowel sounds are hypoactive. Previous surgical incisions are healed. 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 EXTREMITIES: No palpable cords. Some peripheral muscle wasting. Neurovascular intact. DISCUSSION Time is spent discussing with her, reviewing the findings in her case to date. I am sorry she is feeling poorly. She has been consistent with her bowel regimen as an outpatient taking MiraLax at least a couple times a day. She periodically will use mag citrate. She understands that there are multiple areas where the tumor is causing some restriction to the normal peristalsis of the bowel. She has a lot of pain. She takes narcotics was further of slows down the bowel function and so that an ongoing GI regimen is important. It does not appear as though she has a full on or complete bowel obstruction. We did discuss the potential symptomatic relief as well as more rapid recovery from an ileus or partial small-bowel obstruction with a nasogastric tube. She has thus far declined a nasogastric tube and she continues to state that she would not where she would not be accepting of a nasogastric tube. With respect to the obstructed right ureter, I explained that it is the underlying tumor that is contributing to this problem and likely contributing to all of her symptoms either directly or indirectly. Placement of a stent may or may not help alleviate some of her back pain and it maybe may allow some preservation of renal function on that side. It will not, however, alleviate all of her symptoms given the extensive nature of her tumor. Nevertheless she is in favor of urology consult to consider stent placement. With respect to the tumor, chemotherapy may have slowed the growth to some extent but the tumor seems more prominent despite chemotherapy. When she feels better and is in the outpatient setting again, I would like to see her back in my office and we could discuss considering changing chemotherapy versus shifting to palliative care and/or Hospice. At the time of this discussion she remains steadfast in her wish to continue treating the cancer and is not ready to consider palliative care/Hospice only. Discussion ensued. Questions were answered. I am certainly sorry she is feeling so poorly and I hope she can get some improvement and I am grateful for all of the caregivers who are helping provide excellent care. ASSESSMENT 1. Recurrent metastatic uterine carcinosarcoma. 2. Partial small-bowel obstruction. 3. Right ureteral obstruction. 4. Malnutrition, dehydration, poor oral intake, failure to thrive and pain, all directly or indirectly associated to recurrent tumor. 5. Discussion. PLAN 1. Continue supportive care, treating symptomatology. 2. Consult Urology for evaluation and management to determine if placement of a right ureteral stent is advisable for palliation and protection of renal function. 3. We will try to continue management without a nasogastric tube as she has declined but if she has recurrent persistent emesis, this may need to be re-addressed or even the possibility of a gastric tube placement, but at the present time no overt complete obstruction and I think continued GI regimen with MiraLax and other cathartics as needed would be accceptable. 4. Follow-up with me as an outpatient within the next 1-2 weeks after discharge for reevaluation of treatment and/or supportive care. We will follow along. Thank for the consultation. MD MARITO Treviño /8:17 AM /9:11 AM
--- NOTE | 2017-05-23 12:43 | MB ---
cc: ISAAC OWUSU MD DATE OF CONSULTATION 05/23/2017 REASON FOR CONSULTATION 1. Right hydronephrosis 2. Lower back pain HISTORY OF PRESENT ILLNESS This patient is a 61-year-old -[place] female with a past history of metastatic uterine carcinoma who presented to the ER with complaints of lower abdominal pain, nausea and vomiting that started earlier for approximate 24 hours. She denied any fevers, chills or diarrhea. She also complained of constipation. She had not had a bowel movement or passing gas for several days. On workup, she was found to have a slightly elevated creatinine of 1.3. She had a CT of the abdomen and pelvis done with contrast which showed widespread peritoneal omental metastatic disease as well as a partial small-bowel obstruction and right hydronephrosis likely from extrinsic compression from her large pelvic mass. She was subsequently admitted for further evaluation and urology was consulted for right hydronephrosis. The patient currently complains of lower abdominal pain 8/10 and describes it as achy in nature. She also is complaining of right-sided lower back pain. She denies fevers or chills, dysuria or hematuria. She denies history of kidney stones as well. She denies any issues with urination. REVIEW OF SYSTEMS See HPI, otherwise all systems reviewed otherwise are negative. PAST HISTORY Metastatic uterine cancer. SURGICAL HISTORY She has had a hysterectomy. ALLERGIES No known drug allergies. FAMILY HISTORY Denies urolithiasis or genitourinary malignancies. SOCIAL HISTORY Negative for alcohol, tobacco or drugs. MEDICATIONS Include: 1. Arthur 2. Tramadol 3. Potassium chloride 4. MiraLax PHYSICAL EXAMINATION VITAL SIGNS: Temperature 98.6+, respiratory rate 18, pulse 105, blood pressure 119/70, sating 100% on room air. GENERAL: She is alert and oriented times three in no apparent distress, pleasant and cooperative lady who appears older than her stated age. HEAD: Normocephalic, atraumatic. EYES: No scleral icterus. Extraocular muscles intact. NECK: Supple. Trachea is midline. No JVD. SKIN: No ulcers or rashes. It is pink and moist. LUNGS: Clear auscultation bilaterally. No wheezes, rales or rhonchi. HEART: Regular rhythm. No murmurs, gallops or rubs. ABDOMEN: Soft, but protuberant and distended and nontender. No peritoneal signs. GENITOURINARY: No CVA tenderness bilaterally. PELVIC: Exam not indicated at this time. EXTREMITIES: Nontender. No clubbing, cyanosis, edema. PSYCH: Normal affect. NEUROLOGIC: Cranial nerves II-XII. Strength 05/05 in all four extremities. LABS Show a white count of 6.3, hemoglobin 8.4, platelet count 384. Sodium 137, potassium 3.5, chloride 103, bicarb 26.9, BUN 22, creatinine 1.02, GFR 67. Urine showed large leukocyte esterase and protein. Culture is currently pending. IMAGING STUDIES CT of the abdomen and pelvis with and without contrast images were reviewed. Agree with radiologist report. The patient has mild right-sided hydronephrosis secondary to extrinsic compression from pelvic mass as well as a partial small obstruction. ASSESSMENT AND PLAN The patient is a 61-year-old -[place] female with metastatic uterine cancer who presented with abdominal pain, nausea and vomiting and was found to have a partial small-bowel obstruction, as well as right hydronephrosis secondary to extrinsic compression. The plan, we will repeat her BMP today to monitor her renal function. I recommend observing over the next 24-48 hours as it was unclear whether this lower back pain is actually from right-sided hydronephrosis or from her small bowel obstruction. If she continues to have flank pain and/or her kidney function begins to worsen, then likely, we will set up for a cystoscopy and stent placement. Thank you for this consult. We will follow along with you. Please call with any questions. Isaac Owusu MD EMJami/FRANCES /11:33 AM /12:30 PM
[2017-05-23 14:02] LABS: BICARBONATE 22.8 MEQ/L (21.0-32.0); POTASSIUM 3.3 MEQ/L (3.5-5.1)
[2017-05-23] MEDS: POTASSIUM CHLOR 20 MEQ PREMIX 100 ML IV SCH ×2 (15:39→20:04)
--- NOTE | 2017-05-23 18:38 | HHI.PR ---
Subjective Subjective Notes Resting in bed Reports emesis about 1030 this AM still with mild nausea Objective Vitals/I&O Vital Signs Date Time Temp Pulse Resp B/P (MAP) Pulse Ox O2 Delivery O2 Flow Rate FiO2 05/23/17 16:30 97.7 101 18 117/73 (88) 95 05/21/17 21:46 Room Air Labs Laboratory Tests Test 05/23/17 13:07 Blood Urea Nitrogen 14 Creatinine 0.79 Random Glucose 77 Calcium Level 9.3 Sodium Level 135 Potassium Level 3.3 Chloride Level 100 Carbon Dioxide Level 22.8 Anion Gap 12 Estimat Glomerular Filtration Rate 90 Magnesium Level 1.7 Date/Time Source Procedure Growth Status 05/21/17 17:25 Urine Clean Catch Urine Culture - Final 50-100,000 CFU/ML MIXED GRAM POSITIVE... Complete Cardiovascular: Regular Lungs: Clear Abdomen: Other (minimally tender; distended ) Extremities: No edema A/P Assessment and Plan 61 year old female with uterine cancer; SBO -Recommend the placement of NGT; patient currently refusing -NPO -Labs reviewed -Will follow---if patient's GI tract does not open on its own will look into dx lap -We will continue to follow Attending Statement attempt non op mgnt pt seen at bedside poor prognosis give stage 4 disease Attestation The exam, history, and the medical decision-making described in the above note were completed with the assistance of the mid-level provider. I reviewed and agree with the findings presented. I attest that I had a [id number] encounter with the patient on the same day, and personally performed and documented my assessment and findings in the medical record. Yumiko Bolaños May 23, 2017 18:38 Octaviano Arcos MD May 29, 2017 14:50
[2017-05-23] MEDS: SODIUM CHLOR 0.9% 1000 ML INJ 1,000 ML IV SCH ×2 (19:49→19:50)
[2017-05-24 00:15] VITALS: BP 126/78; PULSE 109; RESP 17; TEMP 99.1; O2SAT 95
[2017-05-24] MEDS: MORPHINE SULFATE 4 MG/ML INJ IV PUSH PRN ×5 (01:09→22:38)
[2017-05-24 04:15] VITALS: BP 120/72; PULSE 111; RESP 17; TEMP 98.5; O2SAT 96
[2017-05-24] MEDS: SODIUM CHLOR 0.9% 1000 ML INJ 1,000 ML IV SCH ×3 (05:19→22:31)
[2017-05-24 07:50] VITALS: BP 116/66; PULSE 101; RESP 20; TEMP 98.3; O2SAT 96
--- NOTE | 2017-05-24 08:26 | PD.ONC.PN ---
Subjective Subjective Remarks pt is resting in bed was OOB to ambulate yesterday pt states passed flatus X 1 yesterday denies any N/V since yesterday morning NPO declines NG tube discussed with her consideration of Palliative Care consult to establish DNR status and health care surrogate...pt declined at this time Objective Data Date Time Temp Pulse Resp B/P (MAP) Pulse Ox O2 Delivery O2 Flow Rate FiO2 05/24/17 04:15 98.5 111 17 120/72 (88) 96 05/24/17 00:15 99.1 109 17 126/78 (94) 95 05/23/17 20:10 99.4 101 16 125/81 (96) 96 05/23/17 16:30 97.7 101 18 117/73 (88) 95 05/23/17 15:16 97.0 108 18 140/73 (95) 05/23/17 15:16 101 05/23/17 14:00 100 05/23/17 11:26 18 05/23/17 11:24 105 05/23/17 11:22 98.6 107 18 119/70 (86) 100 05/23/17 10:00 100 05/23/17 09:00 96 Result Diagram: 05/22/17 0600 05/23/17 1307 Laboratory Results Laboratory Tests Test 05/23/17 13:07 Blood Urea Nitrogen 14 MG/DL Creatinine 0.79 MG/DL Random Glucose 77 MG/DL Calcium Level 9.3 MG/DL Sodium Level 135 MEQ/L Potassium Level 3.3 MEQ/L Chloride Level 100 MEQ/L Carbon Dioxide Level 22.8 MEQ/L Anion Gap 12 MEQ/L Estimat Glomerular Filtration Rate 90 ML/MIN Magnesium Level 1.7 MG/DL Culture Results Microbiology Date/Time Source Procedure Growth Status 05/21/17 17:25 Urine Clean Catch Urine Culture - Final 50-100,000 CFU/ML MIXED GRAM POSITIVE... Complete Administered Medications Medications (Trade) Dose Ordered Sig/Rena Route PRN Reason Start Time Stop Time Status Last Admin Dose Admin Ciprofloxacin/ Dextrose 200 ml @ 200 mls/hr Q12HR IV 05/21/17 21:00 05/23/17 23:41 Sodium Chloride 1,000 ml @ 100 mls/hr Q10H IV 05/21/17 20:10 05/23/17 19:49 Sodium Chloride (NS Flush) 2 ml BID IV FLUSH 05/21/17 21:00 05/23/17 08:49 Ondansetron HCl (Zofran Inj) 4 mg Q6H PRN IVP NAUSEA OR VOMITING 05/21/17 20:15 05/23/17 07:00 Morphine Sulfate (Morphine Inj) 2 mg Q3H PRN IV PUSH Pain 6-10 05/21/17 20:15 05/24/17 01:09 Senna/Docusate Sodium (Lindy-Colace) 1 tab BID PO 05/21/17 21:00 05/23/17 19:50 Sennosides (Senokot) 17.2 mg Q12H PRN PO MODERATE - SEVERE CONSTIPATION 05/21/17 20:15 05/23/17 10:48 Lactulose (Lactulose Liq) 30 ml DAILY PRN PO SEVERE CONSITIPATION 05/21/17 20:15 05/22/17 21:03 Objective Remarks GENERAL: Well-nourished, well-developed patient. SKIN: Warm and dry. HEAD: Normocephalic. EYES: No scleral icterus. No injection or drainage. CARDIOVASCULAR: Regular rate and rhythm RESPIRATORY: Breath sounds equal bilaterally. No accessory muscle use. GASTROINTESTINAL: Abdomen firm and mild tenderness to palpation BS X 4 EXTREMITIES: teds and scds MUSCULOSKELETAL: Adequate muscle tone. NEUROLOGICAL: No obvious focal deficit. Awake, alert, and oriented x3. PSYCHIATRIC: Appropriate mood and affect; insight and judgment normal. Assessment/Plan Problem List: (1) Uterine cancer ICD Codes: C55 - Malignant neoplasm of uterus, part unspecified Status: Chronic Plan: Dr. Saravia discussed with Ms. Boston results of CT scan worse disease with liver mets consideration of changing treatment regime as pt still desires treatment (2) Partial small bowel obstruction ICD Codes: K56.69 - Other intestinal obstruction Status: Acute Plan: general surgery following pt declines NG tube denies N/V since yesterday encourage OOB to ambulate bowel regimen per EMR, no BM Problem Qualifiers (1) Uterine cancer: Qualified Codes: C55 - Malignant neoplasm of uterus, part unspecified Michael Roche May 24, 2017 08:26
[2017-05-24] MEDS: DOCUSATE SODIUM 50 MG/SENNA 8.6 MG TAB PO SCH ×2 (08:34→22:30)
[2017-05-24] MEDS: CIPROFLOXACIN 400 MG PREMIX 200 ML IV SCH ×2 (08:35→22:30)
[2017-05-24] MEDS: MAGNESIUM SULFATE 1 GM PREMIX 100 ML IV SCH ×2 (08:36→15:14)
[2017-05-24] MEDS: SODIUM CHLORIDE 0.9% FLUSH 10 ML FLUSH IV FLUSH SCH ×2 (08:36→22:30)
--- NOTE | 2017-05-24 08:59 | HHI.PR ---
Subjective Remarks Follow up for small bowel obstruction in a patient with a history of uterine cancer. Patient is doing well. No chest pain, SOB, fever, chills. She ambulated some and passed gas. She would like to ambulate more today. No further N/V. No BM yet. Objective Vitals Vital Signs Date Time Temp Pulse Resp B/P (MAP) Pulse Ox O2 Delivery O2 Flow Rate FiO2 05/24/17 04:15 98.5 111 17 120/72 (88) 96 05/24/17 00:15 99.1 109 17 126/78 (94) 95 05/23/17 20:10 99.4 101 16 125/81 (96) 96 05/23/17 16:30 97.7 101 18 117/73 (88) 95 05/23/17 15:16 97.0 108 18 140/73 (95) 05/23/17 15:16 101 05/23/17 14:00 100 05/23/17 11:26 18 05/23/17 11:24 105 05/23/17 11:22 98.6 107 18 119/70 (86) 100 05/23/17 10:00 100 05/23/17 09:00 96 I/O 05/23/17 05/23/17 05/23/17 05/24/17 05/24/17 05/24/17 07:00 15:00 23:00 07:00 15:00 23:00 Intake Total 1000 ml 200 ml 240 ml Output Total 850 ml Balance 150 ml 200 ml 240 ml Intake Oral 240 ml IV Total 1000 ml 200 ml Output Urine Total 850 ml # Voids 1 1 1 Result Diagram: 05/22/17 0600 05/23/17 1307 Imaging Last Impressions Abdomen X-Ray 05/22/17 0000 Signed Impressions: Service Date/Time: Monday, May 22, 2017 08:10 - CONCLUSION: 1. Hydronephrosis right kidney 2. Nonspecific bowel gas pattern. Garcia Grubbs MD FACR Abdomen/Pelvis CT 05/21/17 1800 Signed Impressions: Service Date/Time: Sunday, May 21, 2017 18:51 - CONCLUSION: 1. Liver and widespread peritoneal/omental/serosal metastatic disease. 2. Apparent early or partial distal small bowel obstruction. 3. Obstruction of the distal right ureter. 4. Clear lung bases. Estiven Boyd MD Objective Remarks GENERAL: Alert, NAD. SKIN: Warm and dry. HEAD: Normocephalic. EYES: No scleral icterus. No injection or drainage. NECK: Supple, trachea midline. No JVD or lymphadenopathy. CARDIOVASCULAR: Regular rate and rhythm without murmurs, gallops, or rubs. RESPIRATORY: Breath sounds equal bilaterally. No accessory muscle use. GASTROINTESTINAL: Abdomen distended, tender to palpation. MUSCULOSKELETAL: No cyanosis, or edema. BACK: Nontender without obvious deformity. No CVA tenderness. Procedures None. A/P Problem List: (1) Partial small bowel obstruction ICD Code: K56.69 - Other intestinal obstruction Status: Acute (2) Uterine cancer ICD Code: C55 - Malignant neoplasm of uterus, part unspecified Status: Chronic (3) UTI (urinary tract infection) ICD Code: N39.0 - Urinary tract infection, site not specified (4) Renal insufficiency ICD Code: N28.9 - Disorder of kidney and ureter, unspecified Assessment and Plan This is a 61-year-old female with a PMH of Metastatic Uterine CA following with Dr. Saravia who presented to the ER w/ complaints of abdominal pain, nausea and vomiting. CT Abd/Pelvis w/ liver and widespread peritoneal/omental/serosal metastatic disease, early or partial small bowel obstruction, obstruction of distal right ureter. - Small bowel obstruction - General surgery is following. - Continue normal saline at 100 cc per hour. - Electrolytes are within reasonable range - Na 137, K 3.5. - Encouraged patient to get up and move more. - General surgery plans to do small bowel follow-through today. - Uterine cancer - Dr. Saravia follows patient in the outpatient setting. - Acute kidney injury, resolved. - Likely pre-renal.Creatinine improved from 1.20 --> 1.02 --> 0.74. - Urinary tract infection - Continue Cipro IV Full code. Ambulation, KYLE. Discussed with general surgery. Problem Qualifiers (1) Uterine cancer: Qualified Codes: C55 - Malignant neoplasm of uterus, part unspecified Clarice Keith DO May 24, 2017 8:59 am
--- NOTE | 2017-05-24 09:31 | RADRPT ---
EXAM DATE/TIME: 05/24/2017 08:41 [facility] COMPARISON: ABDOMEN KUB ONLY, May 22, 2017, 8:10. INDICATIONS : Abdominal pain. MEDICAL HISTORY : Arthritis. Uterine/ovarian cancer. Anemia SURGICAL HISTORY : Cardiac surgery to fix hole in heart. ENCOUNTER: Subsequent ACUITY: 4 - 6 days PAIN SCORE: 5/10 LOCATION: abdomen FINDINGS: There is moderate gaseous distention of large and small bowel progressed in the interval. I don't se e evidence for obstruction. Radiopaque contrast is no longer seen in the right kidney or bladder. CONCLUSION: Minimal increase in nonspecific bowel dilatation. Contrast is mobile no evident righ t kidney or bladder. Garcia Grubbs MD FACR on May 24, 2017 at 9:29 Board Certified Radiologist. This report was verified electronically.
[2017-05-24 09:42] LABS: BICARBONATE 20.9 MEQ/L (21.0-32.0); POTASSIUM 3.8 MEQ/L (3.5-5.1)
[2017-05-24 11:50] VITALS: BP 154/78; PULSE 87; RESP 20; TEMP 97.1; O2SAT 100
--- NOTE | 2017-05-24 14:46 | HHI.PR ---
Subjective Subjective Notes no acute issues, no vomiting overnight, small flatus no bm Objective Vitals/I&O Vital Signs Date Time Temp Pulse Resp B/P (MAP) Pulse Ox O2 Delivery O2 Flow Rate FiO2 05/24/17 07:50 98.3 101 20 116/66 (83) 96 05/21/17 21:46 Room Air Labs Laboratory Tests Test 05/24/17 08:41 Blood Urea Nitrogen 13 Creatinine 0.74 Random Glucose 74 Calcium Level 8.9 Sodium Level 135 Potassium Level 3.8 Chloride Level 103 Carbon Dioxide Level 20.9 Anion Gap 11 Estimat Glomerular Filtration Rate 97 Date/Time Source Procedure Growth Status 05/21/17 17:25 Urine Clean Catch Urine Culture - Final 50-100,000 CFU/ML MIXED GRAM POSITIVE... Complete Abdomen: Other (non distended, mass in llq, mild ttp) A/P Assessment and Plan 61 year old female with uterine cancer; SBO -Recommend the placement of NGT; if vomits -NPO -Labs reviewed - will obtain SBFT - consider tpn -We will continue to follow Octaviano Arcos MD May 24, 2017 14:46
[2017-05-24] MEDS ORDERED: DIATRIZOATE MEGLUM/DIATRIZOATE SOD 120 ML BTL (for RAD DIAG) PO ONE (15:03)
[2017-05-24] MEDS: ONDANSETRON HCL 4 MG/2 ML VIAL IVP PRN ×2 (15:09→22:38)
[2017-05-24 15:50] VITALS: BP 140/60; PULSE 111; RESP 20; TEMP 96.9; O2SAT 95
--- NOTE | 2017-05-24 17:45 | RADRPT ---
EXAM DATE/TIME: 05/24/2017 11:55 [facility] COMPARISON: CT ABDOMEN & PELVIS W CONTRAST, May 21, 2017, 18:51. INDICATIONS : Small bowel obstsruction. FLUORO TIME: 1.3 minutes IMAGE COUNT: 16 CONTRAST: MD Simpson IMAGING TIME(S): 15 min, 30 min, 45 min, 1 hr, 1.5 hrs2 hr, 2.5 hrs MEDICAL HISTORY : Uterine/ovarian cancer. Anemia. SURGICAL HISTORY : Cardiac surgery to fix hole in heart. ENCOUNTER: Subsequent ACUITY: 3 days PAIN SCORE: 10/10 LOCATION: abdomen FINDINGS: Patient is known to have bulky peritoneal and mesenteric disease. This is most apparent in the mid t ransverse and descending colon extending into the pelvis. Compliance Clerk film shows dilatation of proximal small bowel compared to distal. On oral ingestion of Gastrog rafin the proximal small bowel loops remain somewhat more dilated than distal with contrast not in th e colon at 2 hours. On a 2 hour 30 minute film contrast is throughout the entire colon. Spot films reveal no point of o bstruction. CONCLUSION: Continued continued disparity in proximal small bowel compared to distal. Site of ob struction is not identified. There is no complete obstruction. Garcia Grubbs MD FACR on May 24, 2017 at 17:40 Board Certified Radiologist. This report was verified electronically.
[2017-05-24 20:00] VITALS: BP 116/68; PULSE 100; RESP 18; TEMP 98.4; O2SAT 96
[2017-05-25] VITALS: BP 129/75; PULSE 105; RESP 18; TEMP 98; O2SAT 95
[2017-05-25 04:00] VITALS: BP 129/72; PULSE 101; RESP 18; TEMP 98.1; O2SAT 97
[2017-05-25] MEDS: SODIUM CHLOR 0.9% 1000 ML INJ 1,000 ML IV SCH (04:15)
[2017-05-25] MEDS: ONDANSETRON HCL 4 MG/2 ML VIAL IVP PRN ×2 (06:03→20:33)
[2017-05-25] MEDS: MORPHINE SULFATE 4 MG/ML INJ IV PUSH PRN ×3 (06:03→17:44)
[2017-05-25 07:50] VITALS: BP 121/72; PULSE 96; RESP 20; TEMP 97.8; O2SAT 94
--- NOTE | 2017-05-25 07:58 | HHI.PR ---
Subjective Subjective Notes no acute issues, still small flatus, no bm, vomited some contrast yesterday Objective Vitals/I&O Vital Signs Date Time Temp Pulse Resp B/P (MAP) Pulse Ox O2 Delivery O2 Flow Rate FiO2 05/25/17 04:00 98.1 101 18 129/72 (91) 97 05/21/17 21:46 Room Air Labs Laboratory Tests Test 05/24/17 08:41 Blood Urea Nitrogen 13 Creatinine 0.74 Random Glucose 74 Calcium Level 8.9 Sodium Level 135 Potassium Level 3.8 Chloride Level 103 Carbon Dioxide Level 20.9 Anion Gap 11 Estimat Glomerular Filtration Rate 97 Date/Time Source Procedure Growth Status 05/21/17 17:25 Urine Clean Catch Urine Culture - Final 50-100,000 CFU/ML MIXED GRAM POSITIVE... Complete Cardiovascular: Regular Abdomen: Other (soft mild distension, +ttp llq) A/P Assessment and Plan 61 year old female with uterine cancer; SBO -Recommend the placement of NGT; discussed with pt -NPO -Labs reviewed - SBFT will check axr to see if contrast has reached the colon - consider tpn -We will continue to follow - Dr. Cisneros covering - Need to discuss prognosis and further care goals Octaviano Arcos MD May 25, 2017 07:58
--- NOTE | 2017-05-25 08:41 | PD.ONC.PN ---
Subjective Subjective Remarks Pt seen resting in bed states had vomiting yesterday, the oral contrast and an episode overnight +flatus small amount no BMs Pt agrees to NG tube to LIWS Dr. Arcos also into see pt and he agrees that this would give her the best chance to avoid surgery I discussed with Ms. Boston again the severity of her disease and although she may desire additional IV chemo at this time she is too ill...she would have to improve clinically, taking in nutrition, moving her bowels and keeping her strength up, I talked with her again about Palliative Care and she is in agreement to talk with them. Objective Data Date Time Temp Pulse Resp B/P (MAP) Pulse Ox O2 Delivery O2 Flow Rate FiO2 05/25/17 04:00 98.1 101 18 129/72 (91) 97 05/25/17 00:00 98.0 105 18 129/75 (93) 95 05/24/17 20:00 98.4 100 18 116/68 (84) 96 05/24/17 15:50 96.9 111 20 140/60 (86) 95 Result Diagram: 05/22/17 0600 05/24/17 0841 Laboratory Results Laboratory Tests Test 05/24/17 08:41 Blood Urea Nitrogen 13 MG/DL Creatinine 0.74 MG/DL Random Glucose 74 MG/DL Calcium Level 8.9 MG/DL Sodium Level 135 MEQ/L Potassium Level 3.8 MEQ/L Chloride Level 103 MEQ/L Carbon Dioxide Level 20.9 MEQ/L Anion Gap 11 MEQ/L Estimat Glomerular Filtration Rate 97 ML/MIN Administered Medications Medications (Trade) Dose Ordered Sig/Rena Route PRN Reason Start Time Stop Time Status Last Admin Dose Admin Ciprofloxacin/ Dextrose 200 ml @ 200 mls/hr Q12HR IV 05/21/17 21:00 05/24/17 22:30 Sodium Chloride 1,000 ml @ 100 mls/hr Q10H IV 05/21/17 20:10 05/25/17 04:15 Sodium Chloride (NS Flush) 2 ml BID IV FLUSH 05/21/17 21:00 05/23/17 08:49 Ondansetron HCl (Zofran Inj) 4 mg Q6H PRN IVP NAUSEA OR VOMITING 05/21/17 20:15 05/25/17 06:03 Morphine Sulfate (Morphine Inj) 2 mg Q3H PRN IV PUSH Pain 6-10 05/21/17 20:15 05/25/17 06:03 Senna/Docusate Sodium (Lindy-Colace) 1 tab BID PO 05/21/17 21:00 05/24/17 22:30 Sennosides (Senokot) 17.2 mg Q12H PRN PO MODERATE - SEVERE CONSTIPATION 05/21/17 20:15 05/23/17 10:48 Lactulose (Lactulose Liq) 30 ml DAILY PRN PO SEVERE CONSITIPATION 05/21/17 20:15 05/22/17 21:03 Objective Remarks GENERAL: frail SKIN: Warm and dry. HEAD: Normocephalic. EYES: No scleral icterus. No injection or drainage. CARDIOVASCULAR: Regular rate and rhythm RESPIRATORY: Breath sounds equal bilaterally. No accessory muscle use. GASTROINTESTINAL: Abdomen distended and firm EXTREMITIES: teds and scds MUSCULOSKELETAL: Adequate muscle tone. NEUROLOGICAL: No obvious focal deficit. Awake, alert, and oriented x3. PSYCHIATRIC: Appropriate mood and affect; insight and judgment normal. Assessment/Plan Problem List: (1) Uterine cancer ICD Codes: C55 - Malignant neoplasm of uterus, part unspecified Status: Chronic Plan: Dr. Saravia discussed with Ms. Boston results of CT scan worse disease with liver mets consideration of changing treatment regime as pt still desires treatment discussed with pt the critical situation she is in. She needs to get stronger, start being able to intake nutrition, and move her bowels to restart IV chemo. I explained that despite out best efforts this disease has continued to advance. I explained this type of cancer tends to be very aggressive and readily spread and most likely will continue to advance despite treatment. Consider starting TPN to help support nutrition. will consult Palliative Care to assist with clarifying goals, establish DNR status and help with health care surrogate. (2) Partial small bowel obstruction ICD Codes: K56.69 - Other intestinal obstruction Status: Acute Plan: n/v yesterday and last night Dr. Arcos into see pt agrees for NG tube to LIWS at this time general surgery continues to follow in care Attending Statement Discussed with Dr. Saravia, general surgery and RN Problem Qualifiers (1) Uterine cancer: Qualified Codes: C55 - Malignant neoplasm of uterus, part unspecified Michael Roche May 25, 2017 08:40
[2017-05-25] MEDS: DOCUSATE SODIUM 50 MG/SENNA 8.6 MG TAB PO SCH ×2 (09:00→20:30)
[2017-05-25] MEDS: SODIUM CHLORIDE 0.9% FLUSH 10 ML FLUSH IV FLUSH SCH ×2 (09:00→20:31)
[2017-05-25] MEDS: CIPROFLOXACIN 400 MG PREMIX 200 ML IV SCH ×2 (10:59→20:29)
[2017-05-25 11:50] VITALS: BP 123/76; PULSE 109; RESP 20; TEMP 97.7; O2SAT 95
--- NOTE | 2017-05-25 13:51 | HHI.PR ---
Subjective Remarks Follow up for small bowel obstruction in a patient with a history of uterine cancer. Patient continues to have some nausea and abdominal pain. She passes flatus occasionally but no bowel movements. Objective Vitals Vital Signs Date Time Temp Pulse Resp B/P (MAP) Pulse Ox O2 Delivery O2 Flow Rate FiO2 05/25/17 07:50 97.8 96 20 121/72 (88) 94 05/25/17 04:00 98.1 101 18 129/72 (91) 97 05/25/17 00:00 98.0 105 18 129/75 (93) 95 05/24/17 20:00 98.4 100 18 116/68 (84) 96 05/24/17 15:50 96.9 111 20 140/60 (86) 95 I/O 05/24/17 05/24/17 05/24/17 05/25/17 05/25/17 05/25/17 07:00 15:00 23:00 07:00 15:00 23:00 Intake Total 300 ml 2148 ml Balance 300 ml 2148 ml Intake Oral 360 ml IV Total 300 ml 1788 ml # Voids 1 1 1 2 Result Diagram: 05/22/17 0600 05/24/17 0841 Imaging Last Impressions Small Bowel X-Ray 05/24/17 0000 Signed Impressions: Service Date/Time: Wednesday, May 24, 2017 11:55 - CONCLUSION: Continued continued disparity in proximal small bowel compared to distal. Site of obstruction is not identified. There is no complete obstruction. Garcia Grubbs MD FACR Abdomen X-Ray 05/24/17 0000 Signed Impressions: Service Date/Time: Wednesday, May 24, 2017 08:41 - CONCLUSION: Minimal increase in nonspecific bowel dilatation. Contrast is mobile no evident right kidney or bladder. Garcia Grubbs MD FACR Abdomen/Pelvis CT 05/21/17 1800 Signed Impressions: Service Date/Time: Sunday, May 21, 2017 18:51 - CONCLUSION: 1. Liver and widespread peritoneal/omental/serosal metastatic disease. 2. Apparent early or partial distal small bowel obstruction. 3. Obstruction of the distal right ureter. 4. Clear lung bases. Estiven Boyd MD Objective Remarks GENERAL: Alert, NAD. SKIN: Warm and dry. HEAD: Normocephalic. EYES: No scleral icterus. No injection or drainage. NECK: Supple, trachea midline. No JVD or lymphadenopathy. CARDIOVASCULAR: Regular rate and rhythm without murmurs, gallops, or rubs. RESPIRATORY: Breath sounds equal bilaterally. No accessory muscle use. GASTROINTESTINAL: Abdomen distended, tender to palpation. MUSCULOSKELETAL: No cyanosis, or edema. BACK: Nontender without obvious deformity. No CVA tenderness. Procedures None. A/P Problem List: (1) Partial small bowel obstruction ICD Code: K56.69 - Other intestinal obstruction Status: Acute (2) Uterine cancer ICD Code: C55 - Malignant neoplasm of uterus, part unspecified Status: Chronic (3) UTI (urinary tract infection) ICD Code: N39.0 - Urinary tract infection, site not specified (4) Renal insufficiency ICD Code: N28.9 - Disorder of kidney and ureter, unspecified Assessment and Plan This is a 61-year-old female with a PMH of Metastatic Uterine CA following with Dr. Saravia who presented to the ER w/ complaints of abdominal pain, nausea and vomiting. CT Abd/Pelvis w/ liver and widespread peritoneal/omental/serosal metastatic disease, early or partial small bowel obstruction, obstruction of distal right ureter. - Small bowel obstruction - General surgery is following. - Continue normal saline at 100 cc per hour. - Electrolytes are within reasonable range - Na 137, K 3.5. - Encouraged patient to get up and move more. - May need NG tube for decompression. - Uterine cancer - Dr. Saravia follows patient in the outpatient setting. - Acute kidney injury, resolved. - Likely pre-renal.Creatinine improved from 1.20 --> 1.02 --> 0.74. - Urinary tract infection - Continue Cipro IV Full code. Ambulation, KYLE. Problem Qualifiers (1) Uterine cancer: Qualified Codes: C55 - Malignant neoplasm of uterus, part unspecified Clarice Keith DO May 25, 2017 1:51 pm
--- NOTE | 2017-05-25 13:51 | RADRPT ---
EXAM DATE/TIME: 05/25/2017 12:46 [facility] COMPARISON: No previous studies available for comparison. INDICATIONS : NG tube placement. MEDICAL HISTORY : Uterine/ovarian cancer. Anemia. SURGICAL HISTORY : Hysterectomy. ENCOUNTER: Subsequent ACUITY: 1 day PAIN SCORE: 8/10 LOCATION: Abdomen. FINDINGS: Nasogastric tube is coiled in the stomach. There is gaseous distention small bowel. There is gas and feces in the colon. No free air. CONCLUSION: 1. Nasogastric tube coiled in stomach. Ileus versus partial destruction. Derek Whittaker MD on May 25, 2017 at 13:49 Board Certified Radiologist. This report was verified electronically.
--- NOTE | 2017-05-25 13:52 | PD.CONS ---
Consult Service Palliative Care Consult Requested By ANDREW Alexis . Primary Care Physician Stephie Chandler MD Reason for Consultation a. To assist with evaluation and management of symptoms including: nausea, pain, malnutrition b. To assist medical decision maker(s) with: better understanding of current medical conditions; weighing benefits/burdens of medical treatment options; making medical treatment decisions. . HPI History of Present Illness Patient is a 61 year old female with a past medical history significant for recurrent uterine cancer who presented to the ED on 05/21/17 for abdominal pain and nausea. She reported vomiting following eating with associated abdominal pain. On presentation patient denied any fevers, chills, dysuria, or frequency. Patient is status post hysterectomy, she denied any vaginal bleeding or discharge. * ED workup: Significant laboratory data: BUN:22, creatinine:1.02, GFR:67, albumin:3.2, UA: Pos UTI. CT abdomen: Liver and widespread peritoneal/omental/ serosal metastatic disease. Apparent early or partial distal small bowel obstruction. Obstruction of distal right ureter. IV fluids ordered and antibiotics. Patient admitted for evaluation, patient known to as outpatient, surgery consulted for evaluation of SBO. * 05/22/17: Abd XR: Hydronephrosis right kidney. Nonspecific bowel gas pattern. Surgery evaluated patient, no NGT indicated unless N/V occurrence, monitor bowel function, possible diagnostic lap if no improvement. * 05/23/17: Dr. Saravia consulted, plan to continue supportive care, consult urology to determine if ureteral stent is indicated. * 05/23/17: Urology evaluated patient, plan to monitor patient, increased flank pain and/or renal function worsens will plan cystoscopy and stent placement. * 05/24/17: Patient has had waxing and waning nausea, declines NGT at this time. Small Bowel XR: Continued disparity in proximal small bowel compared to distal. Site of obstruction is not identified. There is no complete obstruction. * 05/25/17: Palliative care consulted to assist with clarifying goals, establish code status, and assist with completing health care surrogate. Patient examined in room today, she is sitting up in bed, appears to be resting comfortably, she is alert, oriented x 3, and very pleasant. During initial conversation patient endorsed that she was not experiencing and nausea or vomiting. She stated the NGT was very uncomfortable, "I can feel it in the back of my throat", she rates the pain from the NGT as 10/10. The patient reported she is continuing to experience abdominal pain, she states it is a constant ache that is more pronounced on her left side, she rates her abdominal pain 9/10 , she states that after she receives her dose of PRN IV morphine her pain level is only brought down to about 8/10. As we continued our conversation regarding her current clinical status we began to discuss the status of her cancer, we discussed the fact that unfortunately her cancer has not responded to chemotherapy as well as it was hoped and that it has now spread to other areas. Ms. Boston was extremely upset and distraught when told this information, she became tearful and stated "No one has told me that", "I didn't know my cancer has spread", she subsequently became nauseous and began vomiting. She stated she was feeling nauseous because she was "so shocked" to learn her cancer had spread. Palliative care consulted to assist with goals of care to provide support/ guidance regarding medical treatment benefit/burden medical treatment options. Function/Cognitive Trajectory Patient diagnosed with uterine sarcoma status post resection, hysterectomy, and bilateral salpingo-oophorectomy in 2013. 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 Review of Systems Constitutional: COMPLAINS OF: Weight loss (Over 30 pounds within the past 3 months), Change in appetite, Pain, Generalized weakness Respiratory: DENIES: Shortness of breath Cardiovascular: DENIES: Chest pain, Syncope, Dyspnea on Exertion, Lower Extremity Edema Gastrointestinal: COMPLAINS OF: Constipation (No BM for over 2 weeks), Nausea, Vomiting Genitourinary: COMPLAINS OF: Urinary frequency, DENIES: Abnormal vaginal bleeding, Vaginal discharge Musculoskeletal: COMPLAINS OF: Back pain Integumentary: DENIES: Excessive dryness Hematologic/Lymphatics: DENIES: Lymphadenopathy Psychiatric: DENIES: Depression Past Family Social History Coded Allergies: No Known Allergies (Verified , 12/08/16) Past Medical History Recurrent uterine sarcoma Congenital heart defect Rheumatoid arthritis . Past Surgical History Open heart surgery in 1957 for congenital heart defect Hysterectomy with bilateral salpingo-oophorectomy for primary resection of sarcoma . Current Medications Medications (Trade) Dose Ordered Sig/Rena Route Start Time Stop Time Status Last Admin Ciprofloxacin/ Dextrose 200 ml @ 200 mls/hr Q12HR IV 05/21/17 21:00 05/25/17 10:59 Sodium Chloride 1,000 ml @ 100 mls/hr Q10H IV 05/21/17 20:10 05/25/17 04:15 (NS Flush) 2 ml UNSCH PRN IV FLUSH 05/21/17 20:15 (NS Flush) 2 ml BID IV FLUSH 05/21/17 21:00 05/23/17 08:49 (Zofran Inj) 4 mg Q6H PRN IVP 05/21/17 20:15 05/25/17 06:03 (Morphine Inj) 1 mg Q3H PRN IV PUSH 05/21/17 20:15 (Morphine Inj) 2 mg Q3H PRN IV PUSH 05/21/17 20:15 05/25/17 10:56 (Ofirmev 1000 Mg/ 100 ml Inj) 1,000 mg Q6H PRN IV 05/21/17 20:15 (Lindy-Colace) 1 tab BID PO 05/21/17 21:00 05/25/17 09:00 (Milk Of Magnesia Liq) 30 ml Q12H PRN PO 05/21/17 20:15 (Senokot) 17.2 mg Q12H PRN PO 05/21/17 20:15 05/23/17 10:48 (Dulcolax Supp) 10 mg DAILY PRN RECTAL 05/21/17 20:15 (Lactulose Liq) 30 ml DAILY PRN PO 05/21/17 20:15 05/22/17 21:03 Family History Father from coronary artery disease. Mother is alive. Family history of diabetes. Substance Use Tobacco: Denies. Alcohol: Denies. Prescription med abuse: Denies. Illicits: Denies. . Psychosocial History Patient was born and raised in [place], [place]. She is unmarried, no children. 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 She lives with a room mate but states she is essentially alone and does not have a good support system locally as all of her family still live in [place]. . Spiritual/Cultural Factors Mosque. . Living Will: Never completed Health Care Surrogate: Copy in medical record Date completed: 05/25/17. . Health Care Surrogate(s): Jake Boston (mother) Alternate [facility] Jessenia Boston (sister) . Ethical and Legal Issues None known. . Physical Exam Vital Signs Date Time Temp Pulse Resp B/P (MAP) Pulse Ox O2 Delivery O2 Flow Rate FiO2 05/25/17 07:50 97.8 96 20 121/72 (88) 94 05/25/17 04:00 98.1 101 18 129/72 (91) 97 05/25/17 00:00 98.0 105 18 129/75 (93) 95 05/24/17 20:00 98.4 100 18 116/68 (84) 96 05/24/17 15:50 96.9 111 20 140/60 (86) 95 . Exam CONSTITUTIONAL/GENERAL: This is a thin, frail female patient, very pleasant, in no apparent distress. TUBES/LINES/DRAINS: PIV x1, NGT SKIN: No jaundice, rashes, or lesions. No wounds seen anteriorly. Skin temperature appropriate. Not diaphoretic. HEAD: Atraumatic. Normocephalic. EYES: Pupils equal and round and reactive. Extraocular motions intact. No scleral icterus. No injection or drainage. Fundi not examined. ENT: Hearing grossly normal. Nose without bleeding or purulent drainage. Throat without visible erythema, exudates, masses, or lesions. NECK: Trachea midline. Supple, nontender. CARDIOVASCULAR: Regular rate and rhythm without murmurs, gallops, or rubs. No JVD. Peripheral pulses symmetric. RESPIRATORY/CHEST: Symmetric, unlabored respirations. Clear to auscultation. Breath sounds equal bilaterally. No wheezes, rales, or rhonchi. GASTROINTESTINAL: Abdomen firm, tender, distended. Limited palpitation secondary to tenderness. Bowel sounds hypoactive. GENITOURINARY: Without palpable bladder distension. Yao catheter in place. MUSCULOSKELETAL: Extremities without clubbing, cyanosis, or edema. No mottling or clubbing. NEUROLOGICAL: Awake and alert. Motor and sensory grossly within normal limits. Follows commands. Cognitively sharp. Moves all extremities. PSYCHIATRIC: No obvious anxiety/depression. no apparent hallucinations or other psychotic thought process. . Diagnostic Tests Laboratory Laboratory Tests Test 05/23/17 13:07 05/24/17 08:41 05/25/17 13:23 Blood Urea Nitrogen 14 MG/DL (7-18) 13 MG/DL (7-18) Creatinine 0.79 MG/DL (0.50-1.00) 0.74 MG/DL (0.50-1.00) Random Glucose 77 MG/DL (74-106) 74 MG/DL (74-106) Calcium Level 9.3 MG/DL (8.5-10.1) 8.9 MG/DL (8.5-10.1) Sodium Level 135 MEQ/L (136-145) 135 MEQ/L (136-145) Potassium Level 3.3 MEQ/L (3.5-5.1) 3.8 MEQ/L (3.5-5.1) Chloride Level 100 MEQ/L (98-107) 103 MEQ/L (98-107) Carbon Dioxide Level 22.8 MEQ/L (21.0-32.0) 20.9 MEQ/L (21.0-32.0) Anion Gap 12 MEQ/L (5-15) 11 MEQ/L (5-15) Estimat Glomerular Filtration Rate 90 ML/MIN (>89) 97 ML/MIN (>89) Magnesium Level 1.7 MG/DL (1.5-2.5) . Result Diagram: 05/22/17 0600 05/24/17 0841 Imaging Last 72 hours Impressions Small Bowel X-Ray 05/24/17 0000 Signed Impressions: Service Date/Time: Wednesday, May 24, 2017 11:55 - CONCLUSION: Continued continued disparity in proximal small bowel compared to distal. Site of obstruction is not identified. There is no complete obstruction. Garcia Grubbs MD FACR Abdomen X-Ray 05/24/17 0000 Signed Impressions: Service Date/Time: Wednesday, May 24, 2017 08:41 - CONCLUSION: Minimal increase in nonspecific bowel dilatation. Contrast is mobile no evident right kidney or bladder. Garcia Grubbs MD FACR Patient/Family Conference Issues Discussed: * Palliative care role, purpose, approach * Additional medical, psychosocial, and spiritual history * Patients general health, functional status, and cognitive changes in the months leading up to the current hospitalization * Patient understanding of the current medical problems * Current medical treatment options and benefits/burdens of those options * Likely scenarios comparing ongoing aggressive care with a transition to comfort measures only * Code status * Questions answered to the best of my ability * Palliative care contact information provided Assessment and Plan Disease Oriented Problem List: (1) Carcinosarcoma of uterus (2) Small bowel obstruction, partial (3) Renal insufficiency (4) UTI (urinary tract infection) Symptom Scale: (1) Pain (2) Nausea (3) Malnutrition Pertinent Non-Medical Issues Psychosocial: Spiritual: Mosque. Legal: None known. Ethical issues impacting care: None known. . Important Contacts Jake Boston (mother): [phone], Jessenia Boston (sister) [phone] Roger Laura (friend): [phone] . Prognosis Patient diagnosed with uterine sarcoma status post resection, hysterectomy, and bilateral salpingo-oophorectomy in 2014. Despite recent outpatient chemotherapy for uterine CA recurrence the patient CT Abd/Pelvis during this hospitalization revealed liver and widespread peritoneal/omental/serosal metastatic disease, early or partial small bowel obstruction, obstruction of distal right ureter. Patient is currently too debilitated to receive any chemotherapy. Due to her advanced disease and debilitated status she is at ongoing risk for setbacks and complications. Code Status: Full Code Plan * Legal decision maker: Patient currently has the capacity to make her own health care decisions. She designated her mother Jake Boston: [phone], as her HCS and her sister Jessenia Boston: [phone] as her alternate HCS today. * CODE STATUS: FULL CODE. Ms. Boston opted to remain a full code today, however she did state she would not want to be kept alive on "machines" for an extended period of time, we discussed risks, benefits, and limitations of cardiopulmonary resuscitation given patient's overall prognosis and progressive metastatic disease. * GOALS: AGGRESSIVE. Pending further discussion over the coming days, Ms. Boston was tearful during our conversation today and stated she needed time to think further about everything. * Ms. Boston was tearful during our discussion today, we discussed the status of her cancer, we discussed the fact that unfortunately her cancer has not responded to chemotherapy as well as it was originally hoped and that it has now spread to other areas throughout her abdomen. Ms. Boston was extremely upset and distraught when told this information, she became tearful and stated "No one has told me that", "I didn't know my cancer has spread", she subsequently became nauseous and began vomiting. She stated she was feeling nauseous because she was "so shocked" to learn her cancer had spread. * SYMPTOM MANAGEMENT: * --pain: Likely secondary to widespread metastatic disease, SBO. Morphine 2mg IV q 2hr PRN for pain ordered, 5 doses utilized in the past 24 hours. Patient at ongoing risk for opiate induced constipation that would compound preexisting issues with SBO, patient would benefit from daily bowel regimen. * --nausea: Secondary to SBO, progression of metastatic disease. Ondansetron IV q 6hr PRN for nausea ordered. Patient could benefit from PRN metoclopramide. * --malnutrition: Patient at ongoing risk for malnutrition secondary to N/V, NPO , SBO. Albumin:3.2. Oncology recommending initiating TPN until resolution of SBO. No further recommendations at this time. * Palliative care will continue to follow during hospital course as condition evolves, to assist patient/family/decision-maker with understanding of medical conditions, weighing benefit/burdens of treatment options, for clarification of goals of treatment. Additionally will assist with symptoms of palliative concern. Thank you for the opportunity to participate in the care of Ms. Boston. Lucila Muse May 25, 2017 13:52
[2017-05-25 15:50] VITALS: BP 126/77; PULSE 105; RESP 20; TEMP 98.1; O2SAT 95
--- NOTE | 2017-05-25 16:46 | RADRPT ---
EXAM DATE/TIME: 05/25/2017 16:15 [place] COMPARISON: ABDOMEN SINGLE VIEW, May 25, 2017, 12:46. INDICATIONS : Nasograstic tube placement. MEDICAL HISTORY : uterine/ovarian cancer SURGICAL HISTORY : Hysterectomy. ENCOUNTER: Initial ACUITY: 1 day PAIN SCORE: 9/10 LOCATION: all over FINDINGS: Examination of the abdomen demonstrates gaseous distention of small bowel loops in the midabdomen. Th is may be slightly improved when compared to the exam earlier today. Nasogastric tube remains curled in the gastric fundus. CONCLUSION: 1. Air distention of small bowel loops in the midabdomen may be slightly improved. Diagnostic conside rations include a hypodynamic ileus versus partial obstruction. 2. Stable position of the nasogastric tube, curled in the gastric fundus Mario Alberto Brumfield MD on May 25, 2017 at 16:44 Board Certified Radiologist. This report was verified electronically.
[2017-05-25 20:00] VITALS: BP 131/78; PULSE 108; RESP 18; TEMP 98.5; O2SAT 96
[2017-05-26] VITALS: BP 121/72; PULSE 111; RESP 20; TEMP 98.5; O2SAT 94
[2017-05-26] MEDS: MORPHINE SULFATE 4 MG/ML INJ IV PUSH PRN ×5 (01:17→22:20)
[2017-05-26 04:00] VITALS: BP 123/74; PULSE 109; RESP 18; TEMP 99; O2SAT 95
[2017-05-26] MEDS: SODIUM CHLOR 0.9% 1000 ML INJ 1,000 ML IV SCH ×2 (06:53→22:20)
[2017-05-26 08:00] VITALS: BP 127/79; PULSE 103; RESP 14; TEMP 98.2; O2SAT 94
--- NOTE | 2017-05-26 08:45 | HHI.PR ---
Subjective Remarks Follow up for small bowel obstruction in a patient with a history of uterine cancer. Ms. Boston is doing slightly better. NG tube in place for decompression. Still has some abdominal pain. No BM yet. Objective Vitals Vital Signs Date Time Temp Pulse Resp B/P (MAP) Pulse Ox O2 Delivery O2 Flow Rate FiO2 05/26/17 07:00 20 05/26/17 04:00 99.0 109 18 123/74 (90) 95 05/26/17 00:00 98.5 111 20 121/72 (88) 94 05/25/17 20:00 98.5 108 18 131/78 (95) 96 05/25/17 15:50 98.1 105 20 126/77 (93) 95 05/25/17 11:50 97.7 109 20 123/76 (92) 95 I/O 05/25/17 05/25/17 05/25/17 05/26/17 05/26/17 05/26/17 07:00 15:00 23:00 07:00 15:00 23:00 Intake Total 0 ml 2387 ml Output Total 700 ml Balance 0 ml 1687 ml Intake Oral 0 ml IV Total 2387 ml Gastric Drainage Total 700 ml # Voids 2 3 2 # Bowel Movements 0 Result Diagram: 05/22/17 0600 05/24/17 0841 Imaging Last Impressions Abdomen X-Ray 05/25/17 0000 Signed Impressions: Service Date/Time: May 16:15 - CONCLUSION: 1. Air distention of small bowel loops in the midabdomen may be slightly improved. Diagnostic considerations include a hypodynamic ileus versus partial obstruction. 2. Stable position of the nasogastric tube, curled in the gastric fundus Mario Alberto Brumfield MD Small Bowel X-Ray 05/24/17 0000 Signed Impressions: Service Date/Time: Wednesday, May 24, 2017 11:55 - CONCLUSION: Continued continued disparity in proximal small bowel compared to distal. Site of obstruction is not identified. There is no complete obstruction. Garcia Grubbs MD FACR Abdomen/Pelvis CT 05/21/17 1800 Signed Impressions: Service Date/Time: Sunday, May 21, 2017 18:51 - CONCLUSION: 1. Liver and widespread peritoneal/omental/serosal metastatic disease. 2. Apparent early or partial distal small bowel obstruction. 3. Obstruction of the distal right ureter. 4. Clear lung bases. Estiven Boyd MD Objective Remarks GENERAL: Alert, NAD. SKIN: Warm and dry. HEAD: Normocephalic. EYES: No scleral icterus. No injection or drainage. NECK: Supple, trachea midline. No JVD or lymphadenopathy. CARDIOVASCULAR: Regular rate and rhythm without murmurs, gallops, or rubs. RESPIRATORY: Breath sounds equal bilaterally. No accessory muscle use. GASTROINTESTINAL: Abdomen non-distended, tender to palpation. MUSCULOSKELETAL: No cyanosis, or edema. BACK: Nontender without obvious deformity. No CVA tenderness. Procedures None. A/P Problem List: (1) Partial small bowel obstruction ICD Code: K56.69 - Other intestinal obstruction Status: Acute (2) Uterine cancer ICD Code: C55 - Malignant neoplasm of uterus, part unspecified Status: Chronic (3) UTI (urinary tract infection) ICD Code: N39.0 - Urinary tract infection, site not specified (4) Renal insufficiency ICD Code: N28.9 - Disorder of kidney and ureter, unspecified Status: Chronic Assessment and Plan This is a 61-year-old female with a PMH of Metastatic Uterine CA following with Dr. Saravia who presented to the ER w/ complaints of abdominal pain, nausea and vomiting. CT Abd/Pelvis w/ liver and widespread peritoneal/omental/serosal metastatic disease, early or partial small bowel obstruction, obstruction of distal right ureter. - Small bowel obstruction - General surgery is following. - Continue normal saline at 100 cc per hour. - Electrolytes are within reasonable range - Na 137, K 3.5. - Encouraged patient to get up and move more. - Currently on NG tube for decompression, patient is feeling a little better. - Uterine cancer - Dr. Saravia follows patient in the outpatient setting. - Acute kidney injury, resolved. - Likely pre-renal.Creatinine improved from 1.20 --> 1.02 --> 0.74. - Urinary tract infection - Continue Cipro IV Full code. Ambulation, KYLE. Problem Qualifiers (1) Uterine cancer: Qualified Codes: C55 - Malignant neoplasm of uterus, part unspecified Clarice Keith DO May 26, 2017 08:45
[2017-05-26] MEDS: CIPROFLOXACIN 400 MG PREMIX 200 ML IV SCH ×2 (08:49→20:08)
[2017-05-26] MEDS: DOCUSATE SODIUM 50 MG/SENNA 8.6 MG TAB PO SCH ×2 (08:52→20:08)
[2017-05-26] MEDS: SODIUM CHLORIDE 0.9% FLUSH 10 ML FLUSH IV FLUSH SCH ×2 (08:52→20:12)
[2017-05-26] MEDS ORDERED: PHENOL 1.4% SOLN 180 ML BTL OROPHARYNG PRN (09:30)
--- NOTE | 2017-05-26 10:08 | HHI.PR ---
cc: Derek Cisneros MD Subjective Subjective Notes DAILY PROGRESS NOTE FOR SURGICAL ATTENDING, DR. DEREK CISNEROS Resting in bed c/o throat discomfort from NGT + flatus Objective Vitals/I&O Vital Signs Date Time Temp Pulse Resp B/P (MAP) Pulse Ox O2 Delivery O2 Flow Rate FiO2 05/26/17 07:00 20 05/26/17 04:00 99.0 109 123/74 (90) 95 Labs Laboratory Tests Test 05/25/17 13:23 Prealbumin 6 Date/Time Source Procedure Growth Status 05/21/17 17:25 Urine Clean Catch Urine Culture - Final 50-100,000 CFU/ML MIXED GRAM POSITIVE... Complete Radiology Last Impressions Abdomen X-Ray 05/25/17 0000 Signed Impressions: Service Date/Time: May 16:15 - CONCLUSION: 1. Air distention of small bowel loops in the midabdomen may be slightly improved. Diagnostic considerations include a hypodynamic ileus versus partial obstruction. 2. Stable position of the nasogastric tube, curled in the gastric fundus Mario Alberto Brumfield MD Small Bowel X-Ray 05/24/17 0000 Signed Impressions: Service Date/Time: Wednesday, May 24, 2017 11:55 - CONCLUSION: Continued continued disparity in proximal small bowel compared to distal. Site of obstruction is not identified. There is no complete obstruction. Garcia Grubbs MD FACR Abdomen/Pelvis CT 05/21/17 1800 Signed Impressions: Service Date/Time: Sunday, May 21, 2017 18:51 - CONCLUSION: 1. Liver and widespread peritoneal/omental/serosal metastatic disease. 2. Apparent early or partial distal small bowel obstruction. 3. Obstruction of the distal right ureter. 4. Clear lung bases. 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 DEREK CISNEROS Patient seen and examined Reviewed imaging studies. Patient has chronic nausea. Abdomen soft and less distended by report No surgical intervention contemplated at this point I agree with above assessment and plan. The exam, history, and the medical decision-making described in the above note were completed with the assistance of the mid-level provider. I reviewed and agree with the findings presented. I attest that I had a [id number] encounter with the patient on the same day, and personally performed and documented my assessment and findings in the medical record. The following services were provided during this hospital visit: Chart data review, vital sign assessments/reviewing monitor data Review of consultations notes if present. Medication orders/review and/or management Ordering and/or reviewing lab tests Ordering and/or interpreting/reviewing x-rays and/or diagnostic studies Care of the patient and discussion of the patient with the care team Documentation time To help prompt me to consider important information that might be impacting today's encounter and assessment, information from prior notes written by myself or my colleagues may have been "brought forward/copy and pasted" into today's note. Yumiko Bolaños May 26, 2017 10:08 Derek Cisneros MD May 26, 2017 11:14
--- NOTE | 2017-05-26 10:32 | HHI.HCPN ---
Reason for visit a. To assist with evaluation and management of symptoms including: nausea, pain, malnutrition b. To assist medical decision maker(s) with: better understanding of current medical conditions; weighing benefits/burdens of medical treatment options; making medical treatment decisions. . Subjective/Interval History Patient is a 61 year old female with a past medical history significant for recurrent uterine cancer status post resection, hysterectomy, and bilateral salpingo-oophorectomy in 2013 who presented to the ED on 05/21/17 for abdominal pain and nausea. CT Abd/Pelvis during this hospitalization revealed liver and widespread peritoneal/omental/serosal metastatic disease, early or partial small bowel obstruction, obstruction of distal right ureter. Patient examined in room today, awake, alert, oriented x3, very pleasant, appears more comfortable today, endorses she feels much better today. NGT to LIS , patient stated she has now "gotten used to the tube", she states she is already on the "second container" and her nausea has improved greatly since suctioning had been initiated. She states her abdomen is less painful and does not feel as "tight' as it did previously. Palliative care consulted to assist with goals of care to provide support/ guidance regarding medical treatment benefit/burden medical treatment options. Advance Directives Living Will: Never completed Health Care Surrogate: Copy in medical record Advance Directive Specifics Date completed: 05/25/17. . Health Care Surrogate(s): Jake Ludy (mother) Alternate HCS Jessenia Boston (sister) . Objective Vital Signs Date Time Temp Pulse Resp B/P (MAP) Pulse Ox O2 Delivery O2 Flow Rate FiO2 05/26/17 07:00 20 05/26/17 04:00 99.0 109 18 123/74 (90) 95 05/26/17 00:00 98.5 111 20 121/72 (88) 94 05/25/17 20:00 98.5 108 18 131/78 (95) 96 05/25/17 15:50 98.1 105 20 126/77 (93) 95 05/25/17 11:50 97.7 109 20 123/76 (92) 95 Intake & Output 05/26/17 05/26/17 07:00 19:00 Intake Total 2387 ml Output Total 700 ml Balance 1687 ml IV Total 2387 ml Gastric Drainage Total 700 ml # Voids 2 Physical Exam CONSTITUTIONAL/GENERAL: This is a thin, frail female patient, very pleasant, in no apparent distress. TUBES/LINES/DRAINS: PIV x1, NGT to LIS SKIN: No jaundice, rashes, or lesions. No wounds seen anteriorly. Skin temperature appropriate. Not diaphoretic. EYES: Pupils equal and round and reactive. Extraocular motions intact. No scleral icterus. No injection or drainage. Fundi not examined. ENT: Hearing grossly normal. Nose without bleeding or purulent drainage. NECK: Trachea midline. Supple, nontender. CARDIOVASCULAR: Regular rate and rhythm without murmurs, gallops, or rubs. No JVD. Peripheral pulses symmetric. RESPIRATORY/CHEST: Symmetric, unlabored respirations. Clear to auscultation. Breath sounds equal bilaterally. No wheezes, rales, or rhonchi. GASTROINTESTINAL: Abdomen firm but improved from yesterday, tender. Limited palpitation secondary to tenderness. Bowel sounds hypoactive. GENITOURINARY: Without palpable bladder distension. MUSCULOSKELETAL: Extremities without clubbing, cyanosis, or edema. No mottling or clubbing. NEUROLOGICAL: Awake and alert. Motor and sensory grossly within normal limits. Follows commands. Cognitively sharp. Moves all extremities. PSYCHIATRIC: No obvious anxiety/depression. no apparent hallucinations or other psychotic thought process. . Diagnostic Tests Laboratory Laboratory Tests Test 05/23/17 13:07 05/24/17 08:41 05/25/17 13:23 Blood Urea Nitrogen 14 MG/DL (7-18) 13 MG/DL (7-18) Creatinine 0.79 MG/DL (0.50-1.00) 0.74 MG/DL (0.50-1.00) Random Glucose 77 MG/DL (74-106) 74 MG/DL (74-106) Calcium Level 9.3 MG/DL (8.5-10.1) 8.9 MG/DL (8.5-10.1) Sodium Level 135 MEQ/L (136-145) 135 MEQ/L (136-145) Potassium Level 3.3 MEQ/L (3.5-5.1) 3.8 MEQ/L (3.5-5.1) Chloride Level 100 MEQ/L (98-107) 103 MEQ/L (98-107) Carbon Dioxide Level 22.8 MEQ/L (21.0-32.0) 20.9 MEQ/L (21.0-32.0) Anion Gap 12 MEQ/L (5-15) 11 MEQ/L (5-15) Estimat Glomerular Filtration Rate 90 ML/MIN (>89) 97 ML/MIN (>89) Magnesium Level 1.7 MG/DL (1.5-2.5) Prealbumin 6 MG/DL (20-40) Result Diagram: 05/22/17 0600 05/24/17 0841 Imaging Last 72 hours Impressions Abdomen X-Ray 05/25/17 0000 Signed Impressions: Service Date/Time: May 16:15 - CONCLUSION: 1. Air distention of small bowel loops in the midabdomen may be slightly improved. Diagnostic considerations include a hypodynamic ileus versus partial obstruction. 2. Stable position of the nasogastric tube, curled in the gastric fundus Mario Alberto Brumfield MD Abdomen X-Ray 05/25/17 0000 Signed Impressions: Service Date/Time: May 12:46 - CONCLUSION: 1. Nasogastric tube coiled in stomach. Ileus versus partial destruction. Derek Whittaker MD Small Bowel X-Ray 05/24/17 0000 Signed Impressions: Service Date/Time: Wednesday, May 24, 2017 11:55 - CONCLUSION: Continued continued disparity in proximal small bowel compared to distal. Site of obstruction is not identified. There is no complete obstruction. Garcia Grubbs MD FACR Abdomen X-Ray 05/24/17 0000 Signed Impressions: Service Date/Time: Wednesday, May 24, 2017 08:41 - CONCLUSION: Minimal increase in nonspecific bowel dilatation. Contrast is mobile no evident right kidney or bladder. Garcia Grubbs MD FACR Assessment and Plan Disease Oriented Problem List: (1) Carcinosarcoma of uterus (2) Small bowel obstruction, partial (3) Renal insufficiency (4) UTI (urinary tract infection) Symptom Scale: (1) Pain (2) Nausea (3) Malnutrition Pertinent Non-Medical Issues Psychosocial: Spiritual: Oriental [employer]. Legal: None known. Ethical issues impacting care: None known. . Important Contacts Jake Boston (mother): [phone], Jessenia Boston (sister) [phone] Roger Laura (friend): [phone] . Prognosis Patient diagnosed with uterine sarcoma status post resection, hysterectomy, and bilateral salpingo-oophorectomy in 2014. Despite recent outpatient chemotherapy for uterine CA recurrence the patient CT Abd/Pelvis during this hospitalization revealed liver and widespread peritoneal/omental/serosal metastatic disease, early or partial small bowel obstruction, obstruction of distal right ureter. Patient is currently too debilitated to receive any chemotherapy. Due to her advanced disease and debilitated status she is at ongoing risk for setbacks and complications. Code Status: No Code Plan * Legal decision maker: Patient currently has the capacity to make her own health care decisions. She designated her mother Jake Boston: [phone], as her HCS and her sister Jessenia Boston: [phone] as her alternate HCS today. * CODE STATUS: DNR. Further discussion today regarding code status, following our discussion again today regarding risks, benefits, and limitations of cardiopulmonary resuscitation given patient's overall prognosis and progressive metastatic disease, Ms. Boston determined she would like to change her code status to DNR. * GOALS: AGGRESSIVE short of cardiopulmonary resuscitation. Ms. Boston stated she would still like to pursue outpatient chemotherapy if she gets well enough to be discharge. Her goal is to finish her remaining prescribed rounds of outpatient chemotherapy and then return to [place] to be close to her family. * SYMPTOM MANAGEMENT: * --pain: Likely secondary to widespread metastatic disease, SBO. Morphine 2mg IV q 2hr PRN for pain ordered, 5 doses utilized again in the past 24 hours. Patient at ongoing risk for opiate induced constipation that would compound preexisting issues with SBO. * --nausea: Secondary to SBO, progression of metastatic disease. Ondansetron IV q 6hr PRN for nausea ordered. Patient could benefit from PRN metoclopramide. * --malnutrition: Patient at ongoing risk for malnutrition secondary to N/V, NPO , SBO. Albumin:3.2. Oncology recommending initiating TPN until resolution of SBO. No further recommendations at this time. * Palliative care will continue to follow during hospital course as condition evolves, to assist patient/family/decision-maker with understanding of medical conditions, weighing benefit/burdens of treatment options, for clarification of goals of treatment. Additionally will assist with symptoms of palliative concern. Attestation To help prompt me to consider important information that might be impacting today's encounter and assessment, information from prior notes written by myself or my colleagues may have been "brought forward" into today's note. My signature on this note, however, is an attestation that I personally performed the exam, history, and/or decision-making noted today, and, unless otherwise indicated, the interactions with patient, family, and staff as well as the review of records all occurred today. I also attest that the listed assessment and stated plan reflect my best clinical judgment today based on the combination of historical information, prior notes, and today's exam/ interactions. When time spent is documented, it refers only to time spent today by the signer, or if indicated, combined time spent today by collaborating physician/nurse practitioner. Lucila Muse May 26, 2017 10:32
[2017-05-26 12:00] VITALS: BP 119/74; PULSE 111; RESP 12; TEMP 98.1; O2SAT 96
[2017-05-26 16:00] VITALS: BP 128/74; PULSE 108; RESP 14; TEMP 98.6; O2SAT 97
[2017-05-26 21:55] VITALS: BP 112/76; PULSE 87; RESP 18; TEMP 98.4; O2SAT 94
[2017-05-27] VITALS: BP 133/66; PULSE 103; RESP 17; TEMP 97.9; O2SAT 97
[2017-05-27] MEDS: MORPHINE SULFATE 4 MG/ML INJ IV PUSH PRN ×5 (02:45→22:21)
[2017-05-27 04:00] VITALS: BP 131/76; PULSE 102; RESP 16; TEMP 95.6; O2SAT 96
[2017-05-27 07:30] VITALS: BP 119/70; PULSE 105; RESP 20; TEMP 98.9; O2SAT 94
[2017-05-27] MEDS: SODIUM CHLORIDE 0.9% FLUSH 10 ML FLUSH IV FLUSH SCH ×2 (09:00→19:40)
[2017-05-27] MEDS: DOCUSATE SODIUM 50 MG/SENNA 8.6 MG TAB PO SCH ×2 (09:05→19:40)
[2017-05-27] MEDS: CIPROFLOXACIN 400 MG PREMIX 200 ML IV SCH ×2 (09:05→19:39)
[2017-05-27 11:45] VITALS: BP 125/70; PULSE 102; RESP 20; TEMP 97.7; O2SAT 96
--- NOTE | 2017-05-27 12:13 | HHI.PR ---
Subjective Remarks Follow up for small bowel obstruction in a patient with a history of uterine cancer. Patient is sitting in her chair. No acute concerns. Continues to have a lot of drainage via NG tube. No fever/chills. No BM yet. Objective Vitals Vital Signs Date Time Temp Pulse Resp B/P (MAP) Pulse Ox O2 Delivery O2 Flow Rate FiO2 05/27/17 07:30 98.9 105 20 119/70 (86) 94 05/27/17 04:00 95.6 102 16 131/76 (94) 96 05/27/17 03:29 20 05/27/17 00:00 97.9 103 17 133/66 (88) 97 05/26/17 21:55 98.4 87 18 112/76 (88) 94 05/26/17 16:00 98.6 108 14 128/74 (92) 97 I/O 05/26/17 05/26/17 05/26/17 05/27/17 05/27/17 05/27/17 07:00 15:00 23:00 07:00 15:00 23:00 Intake Total 2387 ml 200 ml 1070 ml 1264 ml Output Total 700 ml 220 ml 650 ml Balance 1687 ml 200 ml 850 ml 614 ml Intake Oral 120 ml IV Total 2387 ml 200 ml 1070 ml 1144 ml Output Urine Total 0 ml Gastric Drainage Total 700 ml 220 ml 650 ml # Voids 2 3 1 # Bowel Movements 0 0 Result Diagram: 05/24/17 0841 Imaging Last Impressions Abdomen X-Ray 05/25/17 0000 Signed Impressions: Service Date/Time: May 16:15 - CONCLUSION: 1. Air distention of small bowel loops in the midabdomen may be slightly improved. Diagnostic considerations include a hypodynamic ileus versus partial obstruction. 2. Stable position of the nasogastric tube, curled in the gastric fundus Mario Alberto Brumfield MD Small Bowel X-Ray 05/24/17 0000 Signed Impressions: Service Date/Time: Wednesday, May 24, 2017 11:55 - CONCLUSION: Continued continued disparity in proximal small bowel compared to distal. Site of obstruction is not identified. There is no complete obstruction. Garcia Grubbs MD FACR Abdomen/Pelvis CT 05/21/17 1800 Signed Impressions: Service Date/Time: Sunday, May 21, 2017 18:51 - CONCLUSION: 1. Liver and widespread peritoneal/omental/serosal metastatic disease. 2. Apparent early or partial distal small bowel obstruction. 3. Obstruction of the distal right ureter. 4. Clear lung bases. Estiven Boyd MD Objective Remarks GENERAL: Alert, NAD. SKIN: Warm and dry. HEAD: Normocephalic. EYES: No scleral icterus. No injection or drainage. NECK: Supple, trachea midline. No JVD or lymphadenopathy. CARDIOVASCULAR: Regular rate and rhythm without murmurs, gallops, or rubs. RESPIRATORY: Breath sounds equal bilaterally. No accessory muscle use. GASTROINTESTINAL: Abdomen non-distended and softer now. MUSCULOSKELETAL: No cyanosis, or edema. BACK: Nontender without obvious deformity. No CVA tenderness. Procedures None. A/P Problem List: (1) Partial small bowel obstruction ICD Code: K56.69 - Other intestinal obstruction Status: Acute (2) Uterine cancer ICD Code: C55 - Malignant neoplasm of uterus, part unspecified Status: Chronic (3) UTI (urinary tract infection) ICD Code: N39.0 - Urinary tract infection, site not specified (4) Renal insufficiency ICD Code: N28.9 - Disorder of kidney and ureter, unspecified Status: Chronic Assessment and Plan This is a 61-year-old female with a PMH of Metastatic Uterine CA following with Dr. Saravia who presented to the ER w/ complaints of abdominal pain, nausea and vomiting. CT Abd/Pelvis w/ liver and widespread peritoneal/omental/serosal metastatic disease, early or partial small bowel obstruction, obstruction of distal right ureter. - Small bowel obstruction - General surgery is following. - Continue normal saline at 100 cc per hour. - Electrolytes are within reasonable range - Na 137, K 3.5. - Encouraged patient to get up and move more. - Currently on NG tube for decompression, feeling better. No BM. - Uterine cancer - Dr. Saravia follows patient in the outpatient setting. - Acute kidney injury, resolved. - Likely pre-renal.Creatinine improved from 1.20 --> 1.02 --> 0.74. - Urinary tract infection - Continue Cipro IV Full code. Ambulation, KYLE. Problem Qualifiers (1) Uterine cancer: Qualified Codes: C55 - Malignant neoplasm of uterus, part unspecified Clarice Keith DO May 27, 2017 12:13
[2017-05-27 15:30] VITALS: BP 134/80; PULSE 98; RESP 20; TEMP 97.4; O2SAT 97
[2017-05-27 20:00] VITALS: BP 130/75; PULSE 101; RESP 20; TEMP 98.7; O2SAT 98
--- NOTE | 2017-05-27 21:34 | HHI.PR ---
cc: Derek Cisneros MD Subjective Subjective Notes DAILY PROGRESS NOTE FOR SURGICAL ATTENDING, DR. DEREK CISNEROS feels better less distention may have passed some gas Objective Vitals/I&O Vital Signs Date Time Temp Pulse Resp B/P (MAP) Pulse Ox O2 Delivery O2 Flow Rate FiO2 05/27/17 20:00 98.7 101 20 130/75 (78) 98 Labs Date/Time Source Procedure Growth Status 05/21/17 17:25 Urine Clean Catch Urine Culture - Final 50-100,000 CFU/ML MIXED GRAM POSITIVE... Complete Radiology Last Impressions Abdomen X-Ray 05/25/17 0000 Signed Impressions: Service Date/Time: May 16:15 - CONCLUSION: 1. Air distention of small bowel loops in the midabdomen may be slightly improved. Diagnostic considerations include a hypodynamic ileus versus partial obstruction. 2. Stable position of the nasogastric tube, curled in the gastric fundus Mario Alberto Brumfield MD Small Bowel X-Ray 05/24/17 0000 Signed Impressions: Service Date/Time: Wednesday, May 24, 2017 11:55 - CONCLUSION: Continued continued disparity in proximal small bowel compared to distal. Site of obstruction is not identified. There is no complete obstruction. Garcia Grubbs MD FACR Abdomen/Pelvis CT 05/21/17 1800 Signed Impressions: Service Date/Time: Sunday, May 21, 2017 18:51 - CONCLUSION: 1. Liver and widespread peritoneal/omental/serosal metastatic disease. 2. Apparent early or partial distal small bowel obstruction. 3. Obstruction of the distal right ureter. 4. Clear lung bases. 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 Patient has chronic nausea. Abdomen soft and less distended No surgical intervention contemplated at this point Attending Statement NOTE FOR SURGICAL ATTENDING, DR. DEREK CISNEROS I attest that I had a [id number] encounter with the patient on the same day, and personally performed and documented my assessment and findings in the medical record. The following services were provided during this hospital visit: Chart data review, vital sign assessments/reviewing monitor data Review of consultations notes if present. Medication orders/review and/or management Ordering and/or reviewing lab tests Ordering and/or interpreting/reviewing x-rays and/or diagnostic studies Care of the patient and discussion of the patient with the care team Documentation time To help prompt me to consider important information that might be impacting today's encounter and assessment, information from prior notes written by myself or my colleagues may have been "brought forward/copy and pasted" into today's note. Derek Cisneros MD May 27, 2017 21:34
[2017-05-28] VITALS: BP 131/74; PULSE 103; RESP 18; TEMP 98.6; O2SAT 97
[2017-05-28] MEDS: SODIUM CHLOR 0.9% 1000 ML INJ 1,000 ML IV SCH ×3 (00:45→22:17)
[2017-05-28 04:00] VITALS: BP 123/60; PULSE 101; RESP 18; TEMP 98.6; O2SAT 95
[2017-05-28] MEDS: MORPHINE SULFATE 4 MG/ML INJ IV PUSH PRN ×4 (04:13→22:39)
[2017-05-28 07:30] VITALS: BP 125/71; PULSE 101; RESP 20; TEMP 98.3; O2SAT 94
[2017-05-28] MEDS: CIPROFLOXACIN 400 MG PREMIX 200 ML IV SCH ×2 (08:13→20:15)
[2017-05-28] MEDS: SODIUM CHLORIDE 0.9% FLUSH 10 ML FLUSH IV FLUSH SCH ×2 (08:14→20:16)
[2017-05-28] MEDS: DOCUSATE SODIUM 50 MG/SENNA 8.6 MG TAB PO SCH ×2 (08:14→19:59)
[2017-05-28 11:30] VITALS: BP 118/70; PULSE 97; RESP 20; TEMP 98; O2SAT 97
--- NOTE | 2017-05-28 12:32 | HHI.PR ---
Subjective Remarks Follow up for small bowel obstruction in a patient with a history of uterine cancer. Patient is sitting in her chair. Complains of mild abdominal pain. No bowel movement yet. NG tube on suction. Objective Vitals Vital Signs Date Time Temp Pulse Resp B/P (MAP) Pulse Ox O2 Delivery O2 Flow Rate FiO2 05/28/17 07:30 98.3 101 20 125/71 (89) 94 05/28/17 04:44 19 05/28/17 04:00 98.6 101 18 123/60 (81) 95 05/28/17 00:00 98.6 103 18 131/74 (93) 97 05/27/17 20:00 98.7 101 20 130/75 (93) 98 05/27/17 15:30 97.4 98 20 134/80 (98) 97 I/O 05/27/17 05/27/17 05/27/17 05/28/17 05/28/17 05/28/17 07:00 15:00 23:00 07:00 15:00 23:00 Intake Total 1264 ml 0 ml 480 ml 2215 ml Output Total 650 ml 600 ml 150 ml Balance 614 ml -600 ml 480 ml 2065 ml Intake Oral 120 ml 0 ml 480 ml IV Total 1144 ml 2215 ml Output Urine Total 0 ml Gastric Drainage Total 650 ml 600 ml 150 ml # Voids 1 4 2 # Bowel Movements 0 0 Result Diagram: 05/24/17 0841 Imaging Last Impressions Abdomen X-Ray 05/25/17 0000 Signed Impressions: Service Date/Time: May 16:15 - CONCLUSION: 1. Air distention of small bowel loops in the midabdomen may be slightly improved. Diagnostic considerations include a hypodynamic ileus versus partial obstruction. 2. Stable position of the nasogastric tube, curled in the gastric fundus Mario Alberto Brumfield MD Small Bowel X-Ray 05/24/17 0000 Signed Impressions: Service Date/Time: Wednesday, May 24, 2017 11:55 - CONCLUSION: Continued continued disparity in proximal small bowel compared to distal. Site of obstruction is not identified. There is no complete obstruction. Garcia Grubbs MD FACR Abdomen/Pelvis CT 05/21/17 1800 Signed Impressions: Service Date/Time: Sunday, May 21, 2017 18:51 - CONCLUSION: 1. Liver and widespread peritoneal/omental/serosal metastatic disease. 2. Apparent early or partial distal small bowel obstruction. 3. Obstruction of the distal right ureter. 4. Clear lung bases. Estiven Boyd MD Objective Remarks GENERAL: Alert, NAD. SKIN: Warm and dry. HEAD: Normocephalic. EYES: No scleral icterus. No injection or drainage. NECK: Supple, trachea midline. No JVD or lymphadenopathy. CARDIOVASCULAR: Regular rate and rhythm without murmurs, gallops, or rubs. RESPIRATORY: Breath sounds equal bilaterally. No accessory muscle use. GASTROINTESTINAL: Abdomen non-distended and softer now. MUSCULOSKELETAL: No cyanosis, or edema. BACK: Nontender without obvious deformity. No CVA tenderness. Procedures None. A/P Problem List: (1) Partial small bowel obstruction ICD Code: K56.69 - Other intestinal obstruction Status: Acute (2) Uterine cancer ICD Code: C55 - Malignant neoplasm of uterus, part unspecified Status: Chronic (3) UTI (urinary tract infection) ICD Code: N39.0 - Urinary tract infection, site not specified (4) Renal insufficiency ICD Code: N28.9 - Disorder of kidney and ureter, unspecified Status: Chronic Assessment and Plan This is a 61-year-old female with a PMH of Metastatic Uterine CA following with Dr. Saravia who presented to the ER w/ complaints of abdominal pain, nausea and vomiting. CT Abd/Pelvis w/ liver and widespread peritoneal/omental/serosal metastatic disease, early or partial small bowel obstruction, obstruction of distal right ureter. - Small bowel obstruction - General surgery is following. - Continue normal saline at 100 cc per hour. - Electrolytes are within reasonable range - Na 135, K 3.8. - Encouraged patient to get up and move more. - Currently on NG tube for decompression, feeling better. No BM. - Uterine cancer - Dr. Saravia follows patient in the outpatient setting. - Acute kidney injury, resolved. - Likely pre-renal.Creatinine improved from 1.20 --> 1.02 --> 0.74. - Urinary tract infection - Continue Cipro IV Full code. Ambulation, KYLE. Problem Qualifiers (1) Uterine cancer: Qualified Codes: C55 - Malignant neoplasm of uterus, part unspecified Clarice Keith DO May 28, 2017 12:32 pm
--- NOTE | 2017-05-28 13:31 | HHI.PR ---
Subjective Subjective Notes Tolerating clears; trying ensure now Objective Vitals/I&O Vital Signs Date Time Temp Pulse Resp B/P (MAP) Pulse Ox O2 Delivery O2 Flow Rate FiO2 05/28/17 07:30 98.3 101 20 125/71 (89) 94 Labs Date/Time Source Procedure Growth Status 05/21/17 17:25 Urine Clean Catch Urine Culture - Final 50-100,000 CFU/ML MIXED GRAM POSITIVE... Complete Radiology Last Impressions Abdomen X-Ray 05/25/17 0000 Signed Impressions: Service Date/Time: May 16:15 - CONCLUSION: 1. Air distention of small bowel loops in the midabdomen may be slightly improved. Diagnostic considerations include a hypodynamic ileus versus partial obstruction. 2. Stable position of the nasogastric tube, curled in the gastric fundus Mario Alberto Brumfield MD Small Bowel X-Ray 05/24/17 0000 Signed Impressions: Service Date/Time: Wednesday, May 24, 2017 11:55 - CONCLUSION: Continued continued disparity in proximal small bowel compared to distal. Site of obstruction is not identified. There is no complete obstruction. Garcia Grubbs MD FACR Abdomen/Pelvis CT 05/21/17 1800 Signed Impressions: Service Date/Time: Sunday, May 21, 2017 18:51 - CONCLUSION: 1. Liver and widespread peritoneal/omental/serosal metastatic disease. 2. Apparent early or partial distal small bowel obstruction. 3. Obstruction of the distal right ureter. 4. Clear lung bases. 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 (5) Nausea ICD Codes: R11.0 - Nausea Status: Chronic Assessment and Plan A/P Problem List: (1) History of uterine cancer ICD Codes: Z85.42 - Personal history of malignant neoplasm of other parts of uterus Status: Chronic (2) Renal insufficiency ICD Codes: N28.9 - Disorder of kidney and ureter, unspecified Status: Chronic (3) Malnutrition ICD Codes: E46 - Unspecified protein-calorie malnutrition Status: Chronic (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 Patient has chronic nausea. Abdomen soft and less distended No surgical intervention contemplated at this point Vinay Chen MD May 28, 2017 13:31
[2017-05-28 15:30] VITALS: BP 119/68; PULSE 101; RESP 20; TEMP 98.1; O2SAT 96
[2017-05-28 20:20] VITALS: BP 139/84; PULSE 103; RESP 17; TEMP 98.7; O2SAT 100
[2017-05-29] VITALS (7 sets, daily range): BP systolic 117–182; BP diastolic 64–75; PULSE 95–102; RESP 14–17; TEMP 96.4–98.7; O2SAT 94–96
[2017-05-29] MEDS: MORPHINE SULFATE 4 MG/ML INJ IV PUSH PRN ×5 (03:48→21:12)
--- NOTE | 2017-05-29 08:15 | PD.ONC.PN ---
Subjective Subjective Remarks patient is resting in bed NG tube to LIWS pt states + flatus no BM has been on liquid diet and tolerating well without any N/V has been OOB to chair and ambulating Palliative Care following and pt is DNR Objective Data Date Time Temp Pulse Resp B/P (MAP) Pulse Ox O2 Delivery O2 Flow Rate FiO2 05/29/17 06:00 100 117/64 (81) 05/29/17 04:30 98.1 101 16 182/75 (110) 95 05/29/17 00:21 98.7 99 17 131/73 (92) 95 05/28/17 20:20 98.7 103 17 139/84 (102) 100 05/28/17 15:30 98.1 101 20 119/68 (85) 96 05/28/17 11:30 98.0 97 20 118/70 (86) 97 05/29/17 05/29/17 05/29/17 07:00 15:00 23:00 Intake Total 50 ml Output Total 150 ml Balance -100 ml Imaging Studies Last Impressions Abdomen X-Ray 05/25/17 0000 Signed Impressions: Service Date/Time: May 16:15 - CONCLUSION: 1. Air distention of small bowel loops in the midabdomen may be slightly improved. Diagnostic considerations include a hypodynamic ileus versus partial obstruction. 2. Stable position of the nasogastric tube, curled in the gastric fundus Mario Alberto Brumfield MD Small Bowel X-Ray 05/24/17 0000 Signed Impressions: Service Date/Time: Wednesday, May 24, 2017 11:55 - CONCLUSION: Continued continued disparity in proximal small bowel compared to distal. Site of obstruction is not identified. There is no complete obstruction. Garcia Grubbs MD FACR Abdomen/Pelvis CT 05/21/17 1800 Signed Impressions: Service Date/Time: Sunday, May 21, 2017 18:51 - CONCLUSION: 1. Liver and widespread peritoneal/omental/serosal metastatic disease. 2. Apparent early or partial distal small bowel obstruction. 3. Obstruction of the distal right ureter. 4. Clear lung bases. Estiven Boyd MD Administered Medications Medications (Trade) Dose Ordered Sig/Rena Route PRN Reason Start Time Stop Time Status Last Admin Dose Admin Ciprofloxacin/ Dextrose 200 ml @ 200 mls/hr Q12HR IV 05/21/17 21:00 05/28/17 20:15 Sodium Chloride 1,000 ml @ 100 mls/hr Q10H IV 05/21/17 20:10 05/28/17 22:17 Sodium Chloride (NS Flush) 2 ml BID IV FLUSH 05/21/17 21:00 05/27/17 19:40 Ondansetron HCl (Zofran Inj) 4 mg Q6H PRN IVP NAUSEA OR VOMITING 05/21/17 20:15 05/25/17 20:33 Morphine Sulfate (Morphine Inj) 1 mg Q3H PRN IV PUSH Pain 3-5 05/21/17 20:15 05/27/17 08:59 Morphine Sulfate (Morphine Inj) 2 mg Q3H PRN IV PUSH Pain 6-10 05/21/17 20:15 05/29/17 03:48 Senna/Docusate Sodium (Lindy-Colace) 1 tab BID PO 05/21/17 21:00 05/27/17 09:05 Magnesium Hydroxide (Milk Of Magnesia Liq) 30 ml Q12H PRN PO MILD - MODERATE CONSTIPATION 05/21/17 20:15 05/26/17 20:06 Sennosides (Senokot) 17.2 mg Q12H PRN PO MODERATE - SEVERE CONSTIPATION 05/21/17 20:15 05/23/17 10:48 Lactulose (Lactulose Liq) 30 ml DAILY PRN PO SEVERE CONSITIPATION 05/21/17 20:15 05/22/17 21:03 Objective Remarks GENERAL: frail with NG tube from right nare SKIN: Warm and dry. HEAD: Normocephalic. EYES: No scleral icterus. No injection or drainage. CARDIOVASCULAR: Regular rate and rhythm without murmurs. RESPIRATORY: Breath sounds equal bilaterally. No accessory muscle use. GASTROINTESTINAL: Abdomen soft, non-tender, nondistended. decreased BS EXTREMITIES: No cyanosis, or edema. MUSCULOSKELETAL: Adequate muscle tone. NEUROLOGICAL: No obvious focal deficit. Awake, alert, and oriented x3. PSYCHIATRIC: Appropriate mood and affect; insight and judgment normal. Assessment/Plan Problem List: (1) Uterine cancer ICD Codes: C55 - Malignant neoplasm of uterus, part unspecified Status: Chronic Plan: Dr. Saravia, myself and Palliative Care have discussed with Ms. Boston results of CT scan worse disease with liver mets consideration of changing treatment regime, pt still wishing aggressive care for cancer she has elected for DNR Patient is taking in clear liquids without any N/V drinking ensure to help increase caloric intake and hopes to gain some weight back and continue treatment. (2) Partial small bowel obstruction ICD Codes: K56.69 - Other intestinal obstruction Status: Acute Plan: n/v yesterday and last night Dr. Arcos into see pt agrees for NG tube to LIWS at this time general surgery continues to follow in care Problem Qualifiers (1) Uterine cancer: Qualified Codes: C55 - Malignant neoplasm of uterus, part unspecified Michael Roche May 29, 2017 08:15
[2017-05-29] MEDS: SODIUM CHLOR 0.9% 1000 ML INJ 1,000 ML IV SCH ×2 (08:46→21:10)
[2017-05-29] MEDS: CIPROFLOXACIN 400 MG PREMIX 200 ML IV SCH ×2 (08:47→21:10)
[2017-05-29] MEDS: DOCUSATE SODIUM 50 MG/SENNA 8.6 MG TAB PO SCH ×2 (08:51→21:00)
[2017-05-29] MEDS: SODIUM CHLORIDE 0.9% FLUSH 10 ML FLUSH IV FLUSH SCH ×2 (08:51→21:00)
--- NOTE | 2017-05-29 10:28 | HHI.HCPN ---
Reason for visit a. To assist with evaluation and management of symptoms including: nausea, pain, malnutrition b. To assist medical decision maker(s) with: better understanding of current medical conditions; weighing benefits/burdens of medical treatment options; making medical treatment decisions. . Subjective/Interval History Patient examined in room today, sitting up in chair, she endorses she feels more comfortable today. She denies any nausea or vomiting, NGT to LIWS. She states she has been taking in clear liquids and was able to drink an ensure yesterday. Patient states her abdomen feels better, she has been experiencing pain intermittently, but states her PRN morphine has been relieving her pain. Palliative care consulted to assist with goals of care to provide support/ guidance regarding medical treatment benefit/burden medical treatment options. Advance Directives Living Will: Never completed Health Care Surrogate: Copy in medical record Advance Directive Specifics Date completed: 05/25/17. . Health Care Surrogate(s): Jake Ludy (mother) Alternate [facility] Jessenia Boston (sister) . Objective Vital Signs Date Time Temp Pulse Resp B/P (MAP) Pulse Ox O2 Delivery O2 Flow Rate FiO2 05/29/17 08:00 98.3 97 16 124/75 (91) 95 05/29/17 06:00 100 117/64 (81) 05/29/17 04:30 98.1 101 16 182/75 (110) 95 05/29/17 00:21 98.7 99 17 131/73 (92) 95 05/28/17 20:20 98.7 103 17 139/84 (102) 100 05/28/17 15:30 98.1 101 20 119/68 (85) 96 05/28/17 11:30 98.0 97 20 118/70 (86) 97 Intake & Output 05/29/17 05/29/17 07:00 19:00 Intake Total 50 ml Output Total 150 ml Balance -100 ml Intake Oral 50 ml Gastric Drainage Total 150 ml # Voids 3 . Physical Exam CONSTITUTIONAL/GENERAL: This is a thin, frail female patient, very pleasant, in no apparent distress. TUBES/LINES/DRAINS: PIV x1, NGT to LIS SKIN: No jaundice, rashes, or lesions. No wounds seen anteriorly. Skin temperature appropriate. Not diaphoretic. EYES: Pupils equal and round and reactive. Extraocular motions intact. No scleral icterus. No injection or drainage. Fundi not examined. CARDIOVASCULAR: Regular rate and rhythm without murmurs, gallops, or rubs. No JVD. Peripheral pulses symmetric. RESPIRATORY/CHEST: Symmetric, unlabored respirations. Clear to auscultation. Breath sounds equal bilaterally. No wheezes, rales, or rhonchi. GASTROINTESTINAL: Abdomen soft, tender LLQ and LUQ. Light palpitation secondary to tenderness. Bowel sounds hypoactive. MUSCULOSKELETAL: Extremities without clubbing, cyanosis, or edema. No mottling or clubbing. NEUROLOGICAL: Awake and alert. Motor and sensory grossly within normal limits. Follows commands. Cognitively sharp. Moves all extremities. PSYCHIATRIC: No obvious anxiety/depression. no apparent hallucinations or other psychotic thought process. . Diagnostic Tests Laboratory Reported Meds & Active Scripts Active Reported Potassium Chloride ER (Potassium Chloride) 20 Meq Tab 20 Meq PO DAILY [place] (Hydrocodone-Acetaminophen) 10-325 Mg Tab 1 Tab PO Q4H PRN Tramadol (Tramadol HCl) 50 Mg Tab 50 Mg PO Q8H PRN Miralax Powder (Polyethylene Glycol 3350 Powder) 17 Gm Powd 17 Gm PO DAILY Mix and dissolve one measuring cap-ful (17 grams) in water or juice. Assessment and Plan Disease Oriented Problem List: (1) Carcinosarcoma of uterus (2) Small bowel obstruction, partial (3) Renal insufficiency (4) UTI (urinary tract infection) Symptom Scale: (1) Pain (2) Nausea (3) Malnutrition Pertinent Non-Medical Issues Psychosocial: Patient was born and raised in [place], [place]. She is unmarried, no children. 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 She lives with a room mate but states she is essentially alone and does not have a good support system locally as all of her family still live in [place]. Spiritual: Jewish. Legal: None known. Ethical issues impacting care: None known. . Important Contacts Jake Boston (mother): [phone], Jessenia Boston (sister) [phone] Roger Laura (friend): [phone] . Prognosis Patient diagnosed with uterine sarcoma status post resection, hysterectomy, and bilateral salpingo-oophorectomy in 2013. Despite recent outpatient chemotherapy for uterine CA recurrence the patient CT Abd/Pelvis during this hospitalization revealed liver and widespread peritoneal/omental/serosal metastatic disease, early or partial small bowel obstruction, obstruction of distal right ureter. Patient is currently too debilitated to receive any chemotherapy. Due to her advanced disease and debilitated status she is at ongoing risk for setbacks and complications. Code Status: No Code Plan * Legal decision maker: Patient currently has the capacity to make her own health care decisions. She designated her mother Jake Boston: [phone], as her HCS and her sister Jessenia Boston: [phone] as her alternate HCS today. * CODE STATUS: DNR. * GOALS: AGGRESSIVE short of cardiopulmonary resuscitation. Ms. Boston stated she would still like to pursue chemotherapy treatment and her goal is to get well enough to be discharged. * SYMPTOM MANAGEMENT: * --pain: Likely secondary to widespread metastatic disease, SBO. Morphine 2mg IV q 2hr PRN for pain ordered, 4 doses utilized in the past 24 hours. Patient at ongoing risk for opiate induced constipation that would compound preexisting issues with SBO. * --nausea: Resolved. Last dose of ondansetron IV q 6hr PRN for nausea utilized 05/25/17. * --malnutrition: Patient at ongoing risk for malnutrition secondary to N/V, NPO , SBO. Currently on clear liquid diet. No further recommendations at this time. * Palliative care will continue to follow during hospital course as condition evolves, to assist patient/family/decision-maker with understanding of medical conditions, weighing benefit/burdens of treatment options, for clarification of goals of treatment. Additionally will assist with symptoms of palliative concern. Lucila Muse May 29, 2017 10:28
--- NOTE | 2017-05-29 11:27 | HHI.PR ---
Subjective Subjective Notes Ambulating in room Getting ready to walk in the hallways Feels better No BM yet Objective Vitals/I&O Vital Signs Date Time Temp Pulse Resp B/P (MAP) Pulse Ox O2 Delivery O2 Flow Rate FiO2 05/29/17 08:00 98.3 97 16 124/75 (91) 95 Labs Date/Time Source Procedure Growth Status 05/21/17 17:25 Urine Clean Catch Urine Culture - Final 50-100,000 CFU/ML MIXED GRAM POSITIVE... Complete Radiology Last Impressions Abdomen X-Ray 05/25/17 0000 Signed Impressions: Service Date/Time: May 16:15 - CONCLUSION: 1. Air distention of small bowel loops in the midabdomen may be slightly improved. Diagnostic considerations include a hypodynamic ileus versus partial obstruction. 2. Stable position of the nasogastric tube, curled in the gastric fundus Mario Alberto Brumfield MD Small Bowel X-Ray 05/24/17 0000 Signed Impressions: Service Date/Time: Wednesday, May 24, 2017 11:55 - CONCLUSION: Continued continued disparity in proximal small bowel compared to distal. Site of obstruction is not identified. There is no complete obstruction. Garcia Grubbs MD FACR Abdomen/Pelvis CT 05/21/17 1800 Signed Impressions: Service Date/Time: Sunday, May 21, 2017 18:51 - CONCLUSION: 1. Liver and widespread peritoneal/omental/serosal metastatic disease. 2. Apparent early or partial distal small bowel obstruction. 3. Obstruction of the distal right ureter. 4. Clear lung bases. 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
--- NOTE | 2017-05-29 14:22 | HHI.PR ---
Subjective Remarks Follow up for small bowel obstruction in a patient with a history of uterine cancer. No BM. Abdominal pain is somewhat improved. Currently NG tube in placed , on suction. Objective Vitals Vital Signs Date Time Temp Pulse Resp B/P (MAP) Pulse Ox O2 Delivery O2 Flow Rate FiO2 05/29/17 12:00 96.6 95 14 123/75 (91) 94 05/29/17 08:00 98.3 97 16 124/75 (91) 95 05/29/17 06:00 100 117/64 (81) 05/29/17 04:30 98.1 101 16 182/75 (110) 95 05/29/17 00:21 98.7 99 17 131/73 (92) 95 05/28/17 20:20 98.7 103 17 139/84 (102) 100 05/28/17 15:30 98.1 101 20 119/68 (85) 96 I/O 05/28/17 05/28/17 05/28/17 05/29/17 05/29/17 05/29/17 07:00 15:00 23:00 07:00 15:00 23:00 Intake Total 480 ml 2215 ml 1076 ml 50 ml Output Total 150 ml 700 ml 150 ml Balance 480 ml 2065 ml 376 ml -100 ml Intake Oral 480 ml 1076 ml 50 ml IV Total 2215 ml Gastric Drainage Total 150 ml 700 ml 150 ml # Voids 2 2 3 # Bowel Movements 0 Imaging Last Impressions Abdomen X-Ray 05/25/17 0000 Signed Impressions: Service Date/Time: May 16:15 - CONCLUSION: 1. Air distention of small bowel loops in the midabdomen may be slightly improved. Diagnostic considerations include a hypodynamic ileus versus partial obstruction. 2. Stable position of the nasogastric tube, curled in the gastric fundus Mario Alberto Brumfield MD Small Bowel X-Ray 05/24/17 0000 Signed Impressions: Service Date/Time: Wednesday, May 24, 2017 11:55 - CONCLUSION: Continued continued disparity in proximal small bowel compared to distal. Site of obstruction is not identified. There is no complete obstruction. Garcia Grubbs MD FACR Abdomen/Pelvis CT 05/21/17 1800 Signed Impressions: Service Date/Time: Sunday, May 21, 2017 18:51 - CONCLUSION: 1. Liver and widespread peritoneal/omental/serosal metastatic disease. 2. Apparent early or partial distal small bowel obstruction. 3. Obstruction of the distal right ureter. 4. Clear lung bases. Estiven Boyd MD Objective Remarks GENERAL: Alert, NAD. SKIN: Warm and dry. HEAD: Normocephalic. EYES: No scleral icterus. No injection or drainage. NECK: Supple, trachea midline. No JVD or lymphadenopathy. CARDIOVASCULAR: Regular rate and rhythm without murmurs, gallops, or rubs. RESPIRATORY: Breath sounds equal bilaterally. No accessory muscle use. GASTROINTESTINAL: Abdomen non-distended and softer now. MUSCULOSKELETAL: No cyanosis, or edema. BACK: Nontender without obvious deformity. No CVA tenderness. Procedures None. A/P Problem List: (1) Partial small bowel obstruction ICD Code: K56.69 - Other intestinal obstruction Status: Acute (2) Uterine cancer ICD Code: C55 - Malignant neoplasm of uterus, part unspecified Status: Chronic (3) UTI (urinary tract infection) ICD Code: N39.0 - Urinary tract infection, site not specified (4) Renal insufficiency ICD Code: N28.9 - Disorder of kidney and ureter, unspecified Status: Chronic Assessment and Plan This is a 61-year-old female with a PMH of Metastatic Uterine CA following with Dr. Saravia who presented to the ER w/ complaints of abdominal pain, nausea and vomiting. CT Abd/Pelvis w/ liver and widespread peritoneal/omental/serosal metastatic disease, early or partial small bowel obstruction, obstruction of distal right ureter. - Small bowel obstruction - General surgery is following. - Continue normal saline at 100 cc per hour. - Electrolytes are within reasonable range - Na 135, K 3.8. - Encouraged patient to get up and move more. - Currently on NG tube for decompression, feeling better. No BM. - No Ensure supplements for now. - Uterine cancer - Dr. Saravia follows patient in the outpatient setting. - Acute kidney injury, resolved. - Likely pre-renal.Creatinine improved from 1.20 --> 1.02 --> 0.74. - Urinary tract infection - Continue Cipro IV Full code. Ambulation, KYLE. Problem Qualifiers (1) Uterine cancer: Qualified Codes: C55 - Malignant neoplasm of uterus, part unspecified Clarice Keith DO May 29, 2017 14:21
[2017-05-30 00:30] VITALS: BP 122/75; PULSE 103; RESP 17; TEMP 98.8; O2SAT 94
[2017-05-30] MEDS: MORPHINE SULFATE 4 MG/ML INJ IV PUSH PRN ×3 (03:04→20:09)
[2017-05-30 04:25] VITALS: BP 123/70; PULSE 109; RESP 16; TEMP 99.4; O2SAT 94
[2017-05-30 08:00] VITALS: BP 125/70; PULSE 107; RESP 18; TEMP 99.2; O2SAT 93
--- NOTE | 2017-05-30 08:02 | MB ---
cc: SHERMAN CARTAGENA MD,NANCY REYES,BILL DOW,FILOMENA DATE OF CONSULTATION: 05/30/2017 A follow-up discussion with Nathalie Boston as has been held previously. Most recently she was seen on Monday05/28/2017 and we had a series of discussions regarding the difficult nature of her situation. 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 I explained again that the intense symptomatology, the large central pelvic mass, other measurable disease including the large tumor in the liver, are all either directly or indirectly contributing to her symptoms, all are consistent with progression of disease despite chemotherapy. I explained the improbability and unlikelihood that additional treatment would provide any substantial or sustained response. She has met with Palliative Care. She has apparently established a DNR/DNI status. I again discussed with her the potential value of meeting with Hospice and to learn the services that are available to her. I explained that the bowel obstruction for which she is now hospitalized has not yet improved despite multiple days of bowel rest and nasogastric drainage and it is certainly related to the underlying tumor. Some type of intervention to alleviate it such as a gastric tube or some type of bypass with ostomy has been discussed but she is not interested in considering any intervention of this nature. She remains hopeful and optimistic. She has great wendie and wishes to consider additional treatment for her underlying cancer. I tried to answer questions as best as possible and emphasized the irreversible nature of her tumor. We are grateful for the excellent medical care and the input from other services. We are going to continue to encourage consideration of at least meeting with Hospice. In the interim will continue the current management and provide palliation of her symptoms. MD ANGELA Treviño/SHERLYN /7:42 AM /7:51 AM
[2017-05-30] MEDS: CIPROFLOXACIN 400 MG PREMIX 200 ML IV SCH ×2 (08:44→20:09)
[2017-05-30] MEDS: SODIUM CHLORIDE 0.9% FLUSH 10 ML FLUSH IV FLUSH SCH ×2 (08:53→20:06)
[2017-05-30] MEDS: DOCUSATE SODIUM 50 MG/SENNA 8.6 MG TAB PO SCH ×2 (08:58→20:06)
--- NOTE | 2017-05-30 09:50 | HHI.PR ---
Subjective Remarks Follow up for small bowel obstruction in a patient with a history of uterine cancer. Patient is currently doing well. Her abdominal pain is somewhat better. No bowel movement yet. Objective Vitals Vital Signs Date Time Temp Pulse Resp B/P (MAP) Pulse Ox O2 Delivery O2 Flow Rate FiO2 05/30/17 08:00 99.2 107 18 125/70 (88) 93 05/30/17 04:25 99.4 109 16 123/70 (87) 94 05/30/17 00:30 98.8 103 17 122/75 (91) 94 05/29/17 20:25 97.5 102 16 131/74 (93) 96 05/29/17 16:00 96.4 97 16 126/73 (90) 96 05/29/17 12:00 96.6 95 14 123/75 (91) 94 I/O 05/29/17 05/29/17 05/29/17 05/30/17 05/30/17 05/30/17 07:00 15:00 23:00 07:00 15:00 23:00 Intake Total 50 ml 655 ml Output Total 150 ml 250 ml 125 ml Balance -100 ml 405 ml -125 ml Intake Oral 50 ml 655 ml Gastric Drainage Total 150 ml 250 ml 125 ml # Voids 3 2 2 # Bowel Movements 0 Objective Remarks GENERAL: Alert, NAD. SKIN: Warm and dry. HEAD: Normocephalic. EYES: No scleral icterus. No injection or drainage. NECK: Supple, trachea midline. No JVD or lymphadenopathy. CARDIOVASCULAR: Regular rate and rhythm without murmurs, gallops, or rubs. RESPIRATORY: Breath sounds equal bilaterally. No accessory muscle use. GASTROINTESTINAL: Abdomen non-distended and softer now. MUSCULOSKELETAL: No cyanosis, or edema. BACK: Nontender without obvious deformity. No CVA tenderness. Procedures None. A/P Problem List: (1) Partial small bowel obstruction ICD Code: K56.69 - Other intestinal obstruction Status: Acute (2) Uterine cancer ICD Code: C55 - Malignant neoplasm of uterus, part unspecified Status: Chronic (3) UTI (urinary tract infection) ICD Code: N39.0 - Urinary tract infection, site not specified (4) Renal insufficiency ICD Code: N28.9 - Disorder of kidney and ureter, unspecified Status: Chronic Assessment and Plan This is a 61-year-old female with a PMH of Metastatic Uterine CA following with Dr. Saravia who presented to the ER w/ complaints of abdominal pain, nausea and vomiting. CT Abd/Pelvis w/ liver and widespread peritoneal/omental/serosal metastatic disease, early or partial small bowel obstruction, obstruction of distal right ureter. - Small bowel obstruction - General surgery is following. - Continue normal saline at 100 cc per hour. - Electrolytes are within reasonable range - Na 135, K 3.8. - Encouraged patient to get up and move more. - Currently on NG tube for decompression, feeling better. No BM. - No Ensure supplements for now. - Uterine cancer - Dr. Saravia follows patient in the outpatient setting. - Discussed with Dr. Saravia who is going to place a hospice consult. He has discussed with patient. - Acute kidney injury, resolved. - Likely pre-renal.Creatinine improved from 1.20 --> 1.02 --> 0.74. - Urinary tract infection - Continue Cipro IV Full code. Ambulation, KYLE. Discussed with gynecological oncology, general surgery. Problem Qualifiers (1) Uterine cancer: Qualified Codes: C55 - Malignant neoplasm of uterus, part unspecified Clarice Keith DO May 30, 2017 09:50
[2017-05-30] MEDS: SODIUM CHLOR 0.9% 1000 ML INJ 1,000 ML IV SCH ×3 (10:55→23:20)
[2017-05-30 12:00] VITALS: BP 121/63; PULSE 103; RESP 16; TEMP 98.8; O2SAT 96
--- NOTE | 2017-05-30 13:10 | HHI.PR ---
Subjective Subjective Notes Resting in bed No issues overnight Has been ambulating in the hallways Objective Vitals/I&O Vital Signs Date Time Temp Pulse Resp B/P (MAP) Pulse Ox O2 Delivery O2 Flow Rate FiO2 05/30/17 12:00 98.8 103 16 121/63 (82) 96 Labs Date/Time Source Procedure Growth Status 05/21/17 17:25 Urine Clean Catch Urine Culture - Final 50-100,000 CFU/ML MIXED GRAM POSITIVE... Complete Radiology Last Impressions Abdomen X-Ray 05/25/17 0000 Signed Impressions: Service Date/Time: May 16:15 - CONCLUSION: 1. Air distention of small bowel loops in the midabdomen may be slightly improved. Diagnostic considerations include a hypodynamic ileus versus partial obstruction. 2. Stable position of the nasogastric tube, curled in the gastric fundus Mario Alberto Brumfield MD Small Bowel X-Ray 05/24/17 0000 Signed Impressions: Service Date/Time: Wednesday, May 24, 2017 11:55 - CONCLUSION: Continued continued disparity in proximal small bowel compared to distal. Site of obstruction is not identified. There is no complete obstruction. Garcia Grubbs MD FACR Abdomen/Pelvis CT 05/21/17 1800 Signed Impressions: Service Date/Time: Sunday, May 21, 2017 18:51 - CONCLUSION: 1. Liver and widespread peritoneal/omental/serosal metastatic disease. 2. Apparent early or partial distal small bowel obstruction. 3. Obstruction of the distal right ureter. 4. Clear lung bases. Estiven Boyd MD Cardiovascular: Regular Lungs: Clear Abdomen: Non-distended, Non-tender Extremities: No edema Narrative Exam NGT in place---clamped A/P Problem List: (1) History of uterine cancer ICD Codes: Z85.42 - Personal history of malignant neoplasm of other parts of uterus Status: Chronic (2) Renal insufficiency ICD Codes: N28.9 - Disorder of kidney and ureter, unspecified Status: Chronic (3) Malnutrition ICD Codes: E46 - Unspecified protein-calorie malnutrition Status: Chronic (4) Carcinosarcoma of uterus ICD Codes: C55 - Carcinosarcoma of uterus Status: Chronic (5) Nausea ICD Codes: R11.0 - Nausea Status: Chronic Assessment and Plan 61 year old female with uterine cancer; SBO -Continue to clamp NGT--- connect to [facility] if nausea/vomiting occur -Continue mobilization -Clears + Ensure -Palliative Care following -Hospice is going to meet with patient per recommendations of Dr. Saravia -If decided against Hospice Care will plan to have PICC placed and start TPN -Discussed with Dr. Keith -We will continue to follow Attending Statement Patient seen at bedside clamp NG tube await hospice recs pt is high risk, discussed with pt in detail. Pt to discuss with family next week with their arrival. Attestation The exam, history, and the medical decision-making described in the above note were completed with the assistance of the mid-level provider. I reviewed and agree with the findings presented. I attest that I had a [id number] encounter with the patient on the same day, and personally performed and documented my assessment and findings in the medical record. Yumiko Bolaños May 30, 2017 13:09 Octaviano Arcos MD May 31, 2017 16:35
[2017-05-30 16:00] VITALS: BP 126/73; PULSE 102; RESP 18; TEMP 99.2; O2SAT 100
[2017-05-30 20:25] VITALS: BP 135/74; PULSE 102; RESP 16; TEMP 97.2; O2SAT 94
[2017-05-31 00:20] VITALS: BP 126/72; PULSE 106; RESP 17; TEMP 97.2; O2SAT 93
[2017-05-31] MEDS: MORPHINE SULFATE 4 MG/ML INJ IV PUSH PRN ×6 (00:33→22:27)
[2017-05-31 04:25] VITALS: BP 123/76; PULSE 100; RESP 16; TEMP 96.9; O2SAT 94
[2017-05-31 08:00] VITALS: BP 129/80; PULSE 103; RESP 16; TEMP 98.3; O2SAT 94
--- NOTE | 2017-05-31 08:23 | PD.ONC.PN ---
Subjective Subjective Remarks pt resting in bed denies any n/v, NG tube clamped has been OOB to ambulate denies BM declined Hospice Objective Data Date Time Temp Pulse Resp B/P (MAP) Pulse Ox O2 Delivery O2 Flow Rate FiO2 05/31/17 04:25 96.9 100 16 123/76 (92) 94 05/31/17 00:20 97.2 106 17 126/72 (90) 93 05/30/17 20:25 97.2 102 16 135/74 (94) 94 05/30/17 16:00 99.2 102 18 126/73 (90) 100 05/30/17 12:00 98.8 103 16 121/63 (82) 96 Imaging Studies Last Impressions Abdomen X-Ray 05/25/17 0000 Signed Impressions: Service Date/Time: May 16:15 - CONCLUSION: 1. Air distention of small bowel loops in the midabdomen may be slightly improved. Diagnostic considerations include a hypodynamic ileus versus partial obstruction. 2. Stable position of the nasogastric tube, curled in the gastric fundus Mario Alberto Brumfield MD Small Bowel X-Ray 05/24/17 0000 Signed Impressions: Service Date/Time: Wednesday, May 24, 2017 11:55 - CONCLUSION: Continued continued disparity in proximal small bowel compared to distal. Site of obstruction is not identified. There is no complete obstruction. Gracia Grubbs MD FACR Abdomen/Pelvis CT 05/21/17 1800 Signed Impressions: Service Date/Time: Sunday, May 21, 2017 18:51 - CONCLUSION: 1. Liver and widespread peritoneal/omental/serosal metastatic disease. 2. Apparent early or partial distal small bowel obstruction. 3. Obstruction of the distal right ureter. 4. Clear lung bases. Estiven Boyd MD Administered Medications Medications (Trade) Dose Ordered Sig/Rena Route PRN Reason Start Time Stop Time Status Last Admin Dose Admin Ciprofloxacin/ Dextrose 200 ml @ 200 mls/hr Q12HR IV 05/21/17 21:00 05/30/17 20:09 Sodium Chloride 1,000 ml @ 100 mls/hr Q10H IV 05/21/17 20:10 05/30/17 23:01 Sodium Chloride (NS Flush) 2 ml BID IV FLUSH 05/21/17 21:00 05/30/17 08:53 Ondansetron HCl (Zofran Inj) 4 mg Q6H PRN IVP NAUSEA OR VOMITING 05/21/17 20:15 05/25/17 20:33 Morphine Sulfate (Morphine Inj) 1 mg Q3H PRN IV PUSH Pain 3-5 05/21/17 20:15 05/27/17 08:59 Morphine Sulfate (Morphine Inj) 2 mg Q3H PRN IV PUSH Pain 6-10 05/21/17 20:15 05/31/17 04:28 Senna/Docusate Sodium (Lindy-Colace) 1 tab BID PO 05/21/17 21:00 05/27/17 09:05 Magnesium Hydroxide (Milk Of Magnesia Liq) 30 ml Q12H PRN PO MILD - MODERATE CONSTIPATION 05/21/17 20:15 05/26/17 20:06 Sennosides (Senokot) 17.2 mg Q12H PRN PO MODERATE - SEVERE CONSTIPATION 05/21/17 20:15 05/23/17 10:48 Lactulose (Lactulose Liq) 30 ml DAILY PRN PO SEVERE CONSITIPATION 05/21/17 20:15 05/22/17 21:03 Objective Remarks GENERAL: thin, frail SKIN: Warm and dry. HEAD: Normocephalic. EYES: No scleral icterus. No injection or drainage. CARDIOVASCULAR: Regular rate and rhythm +MMR RESPIRATORY: Breath sounds equal bilaterally. No accessory muscle use. GASTROINTESTINAL: abd distended, no BS X 4 EXTREMITIES: No cyanosis, or edema. NEUROLOGICAL: No obvious focal deficit. Awake, alert, and oriented x3. PSYCHIATRIC: Appropriate mood and affect; insight and judgment normal. Assessment/Plan Problem List: (1) Uterine cancer ICD Codes: C55 - Malignant neoplasm of uterus, part unspecified Status: Chronic Plan: Advancement of disease despite IV chemotherapy I explained to Ms. Boston that despite treatment this cancer has spread throughout her abdomen and into her liver. I encouraged her to consider Hospice as she tells me that she does not want surgery or colostomy. I explained that the SBO may not be reversible with medical management...and that is when she needs to consider quality of life over quantity and Hospice can assist with that...they can visit her in her home and help with pain control, ADLs and anything else she may need. I encouraged her to think about our discussion and if she wants to continue on with medical management vs. supportive care. (2) Partial small bowel obstruction ICD Codes: K56.69 - Other intestinal obstruction Status: Acute Plan: NG tube clamped no N/V no BS denies BM general surgery following pt does not appear to be getting better despite medical management..at this time pt wishes to continue treatment medically and declined Hospice. Problem Qualifiers (1) Uterine cancer: Qualified Codes: C55 - Malignant neoplasm of uterus, part unspecified Michael Roche May 31, 2017 08:23
[2017-05-31] MEDS: DOCUSATE SODIUM 50 MG/SENNA 8.6 MG TAB PO SCH ×2 (09:00→20:02)
[2017-05-31] MEDS: CIPROFLOXACIN 400 MG PREMIX 200 ML IV SCH (09:08)
--- NOTE | 2017-05-31 11:14 | HHI.PR ---
Subjective Remarks Follow up SBO. Patient denies abdominal pain, nausea, vomiting. Flatus "once in a blue christensen". No chest pain, dyspnea. Objective Vitals Vital Signs Date Time Temp Pulse Resp B/P (MAP) Pulse Ox O2 Delivery O2 Flow Rate FiO2 05/31/17 08:00 98.3 103 16 129/80 (96) 94 05/31/17 04:25 96.9 100 16 123/76 (92) 94 05/31/17 00:20 97.2 106 17 126/72 (90) 93 05/30/17 20:25 97.2 102 16 135/74 (94) 94 05/30/17 16:00 99.2 102 18 126/73 (90) 100 05/30/17 12:00 98.8 103 16 121/63 (82) 96 I/O 05/30/17 05/30/17 05/30/17 05/31/17 05/31/17 05/31/17 07:00 15:00 23:00 07:00 15:00 23:00 Intake Total 200 ml 720 ml Output Total 125 ml 1000 ml 300 ml Balance -125 ml -800 ml 420 ml Intake Oral 720 ml IV Total 200 ml Output Urine Total 1000 ml 300 ml Gastric Drainage Total 125 ml # Voids 2 4 Imaging Last Impressions Abdomen X-Ray 05/25/17 0000 Signed Impressions: Service Date/Time: May 16:15 - CONCLUSION: 1. Air distention of small bowel loops in the midabdomen may be slightly improved. Diagnostic considerations include a hypodynamic ileus versus partial obstruction. 2. Stable position of the nasogastric tube, curled in the gastric fundus Mario Alberto Brumfield MD Small Bowel X-Ray 05/24/17 0000 Signed Impressions: Service Date/Time: Wednesday, May 24, 2017 11:55 - CONCLUSION: Continued continued disparity in proximal small bowel compared to distal. Site of obstruction is not identified. There is no complete obstruction. Garcia Grubbs MD FACR Abdomen/Pelvis CT 05/21/17 1800 Signed Impressions: Service Date/Time: Sunday, May 21, 2017 18:51 - CONCLUSION: 1. Liver and widespread peritoneal/omental/serosal metastatic disease. 2. Apparent early or partial distal small bowel obstruction. 3. Obstruction of the distal right ureter. 4. Clear lung bases. Estiven Boyd MD Objective Remarks General: Thin female in no acute distress. NG tube in place. Heart: Regular rate and rhythm. No murmur. Lungs: Clear to auscultation bilaterally. No wheezes, rales, or rhonchi. Breathing is nonlabored. Abdomen: Soft, nontender, nondistended. Decreased bowel sounds. Extremities: No lower extremity edema. Psych: Alert and oriented. Procedures None. Urinary Catheter: No Vascular Central Line Catheter: No A/P Problem List: (1) Partial small bowel obstruction ICD Code: K56.69 - Other intestinal obstruction Status: Acute (2) Uterine cancer ICD Code: C55 - Malignant neoplasm of uterus, part unspecified Status: Chronic (3) UTI (urinary tract infection) ICD Code: N39.0 - Urinary tract infection, site not specified (4) Renal insufficiency ICD Code: N28.9 - Disorder of kidney and ureter, unspecified Status: Chronic Assessment and Plan 1. Small bowel obstruction: Appreciate general surgery recommendations. NG tube in place. No bowel movements, little flatus. Patient continues to want aggressive care. General surgery to order TPN. 2. Uterine cancer: Appreciate gynecologic oncology recommendations. Hospice recommended. Patient not ready to accept hospice care at this time. 3. Acute kidney injury: Resolved. 4. UTI: Treated with ciprofloxacin. 5. DVT prophylaxis: Ambulation, KYLE hose. Problem Qualifiers (1) Uterine cancer: Qualified Codes: C55 - Malignant neoplasm of uterus, part unspecified Giovanni Schumacher MD May 31, 2017 11:14
[2017-05-31] MEDS: SODIUM CHLOR 0.9% 1000 ML INJ 1,000 ML IV SCH ×2 (11:22→20:45)
[2017-05-31 12:00] VITALS: BP 131/81; PULSE 77; RESP 16; TEMP 98.3; O2SAT 94
--- NOTE | 2017-05-31 14:19 | HHI.HCPN ---
Attempted to visit with Ms. Boston. She currently has a friend at bedside. She denies any questions or concerns at time of visit. Presents alert, oriented, and able to make her needs known. Continues with NG suction. Verbalizes continued discomfort with her stomach. Ms. Boston did not wish to engage much in conversation, possibly due to visitor. She is appreciative of ongoing palliative care visits and support. Palliative care will continue to follow throughout hospitalization. Mona Smart, [employer]ING WRING[employer] OPERATOR May 31, 2017 14:19
[2017-05-31] MEDS: SODIUM CHLORIDE 0.9% FLUSH 10 ML FLUSH IV FLUSH SCH ×2 (14:55→20:01)
--- NOTE | 2017-05-31 15:32 | HHI.HCPN ---
Reason for visit a. To assist with evaluation and management of symptoms including: nausea, pain, malnutrition b. To assist medical decision maker(s) with: better understanding of current medical conditions; weighing benefits/burdens of medical treatment options; making medical treatment decisions. . Subjective/Interval History Patient examined in room today, sitting up in chair, she states she is still experiencing abdominal pain. She continues to utilize her PRN morphine for pain every 3 to 4 hours. NGT is currently clamped, monitoring for any nausea or vomiting. She remains on a clear liquid diet, she states that the medical team is considering starting her on TPN, and she just "wants to get well". She now states she has not had any flatulence recently and the last time she had any flatulence was Monday. Palliative care continues to follow to assist with goals of care to provide support/guidance regarding medical treatment benefit/burden medical treatment options. Advance Directives Living Will: Never completed Health Care Surrogate: Copy in medical record Advance Directive Specifics Date completed: 05/25/17. . Health Care Surrogate(s): Jake Ludy (mother) Alternate [facility] Jessenia Boston (sister) . Objective Vital Signs Date Time Temp Pulse Resp B/P (MAP) Pulse Ox O2 Delivery O2 Flow Rate FiO2 05/31/17 12:00 98.3 77 16 131/81 (98) 94 05/31/17 08:00 98.3 103 16 129/80 (96) 94 05/31/17 04:25 96.9 100 16 123/76 (92) 94 05/31/17 00:20 97.2 106 17 126/72 (90) 93 05/30/17 20:25 97.2 102 16 135/74 (94) 94 05/30/17 16:00 99.2 102 18 126/73 (90) 100 Intake & Output 05/31/17 05/31/17 07:00 19:00 Intake Total 200 ml Balance 200 ml IV Total 200 ml # Voids 4 Physical Exam CONSTITUTIONAL/GENERAL: This is a thin, frail female patient, very pleasant, in no apparent distress. TUBES/LINES/DRAINS: PIV x1, NGT clamped SKIN: No jaundice, rashes, or lesions. No wounds seen anteriorly. Skin temperature appropriate. Not diaphoretic. EYES: Pupils equal and round and reactive. Extraocular motions intact. No scleral icterus. No injection or drainage. Fundi not examined. CARDIOVASCULAR: Regular rate and rhythm without murmurs, gallops, or rubs. No JVD. Peripheral pulses symmetric. RESPIRATORY/CHEST: Symmetric, unlabored respirations. Clear to auscultation. Breath sounds equal bilaterally. No wheezes, rales, or rhonchi. GASTROINTESTINAL: Abdomen soft, tender LLQ and LUQ. Light palpitation secondary to tenderness. Bowel sounds hypoactive. MUSCULOSKELETAL: Extremities without clubbing, cyanosis, or edema. No mottling or clubbing. NEUROLOGICAL: Awake and alert. Motor and sensory grossly within normal limits. Follows commands. Cognitively sharp. Moves all extremities. PSYCHIATRIC: No obvious anxiety/depression. no apparent hallucinations or other psychotic thought process. . Assessment and Plan Disease Oriented Problem List: (1) Carcinosarcoma of uterus (2) Small bowel obstruction, partial (3) Renal insufficiency (4) UTI (urinary tract infection) Symptom Scale: (1) Pain (2) Nausea (3) Malnutrition Pertinent Non-Medical Issues Psychosocial: Patient was born and raised in [place], [place]. She is unmarried, no children. 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 She lives with a room mate but states she is essentially alone and does not have a good support system locally as all of her family still live in [place]. Spiritual: Religious. Legal: None known. Ethical issues impacting care: None known. . Important Contacts Jake Boston (mother): [phone], Jessenia Boston (sister) [phone] Roger Laura (friend): [phone] . Prognosis Patient diagnosed with uterine sarcoma status post resection, hysterectomy, and bilateral salpingo-oophorectomy in 2013. Despite recent outpatient chemotherapy for uterine CA recurrence the patient CT Abd/Pelvis during this hospitalization revealed liver and widespread peritoneal/omental/serosal metastatic disease, early or partial small bowel obstruction, obstruction of distal right ureter. Due to her advanced disease and debilitated status she is at ongoing risk for setbacks and complications. Hospice is appropriate if goals compatible. Code Status: No Code Plan * Legal decision maker: Patient currently has the capacity to make her own health care decisions. She designated her mother Jake Boston: [phone], as her HCS and her sister Jessenia Boston: [phone] as her alternate HCS today. * CODE STATUS: DNR. * GOALS: AGGRESSIVE short of cardiopulmonary resuscitation. In depth conversation with Ms. Boston today regarding the lack of treatment options at this point and her prognosis. She continues to state she just wants to get "well ". Ms. Boston seems to be struggling with accepting that there are limited options at this point. Discussion regarding Hospice and transitioning to comfort focused goals was completed, however she does not seem to be processing or grasping the gravity of the situation. Palliative will continue to provide ongoing discussions/clarification of treatment goals and support. * SYMPTOM MANAGEMENT: * --pain: Likely secondary to widespread metastatic disease, SBO. Morphine 2mg IV q 2hr PRN for pain ordered, 4 doses utilized in the past 24 hours. Patient at ongoing risk for opiate induced constipation that would compound preexisting issues with SBO. * --nausea: Resolved. Last dose of ondansetron IV q 6hr PRN for nausea utilized 05/25/17. * --malnutrition: Patient at ongoing risk for malnutrition secondary to N/V, NPO , SBO. Currently on clear liquid diet. Medical team considering initiating TPN. No further recommendations at this time. * Palliative care will continue to follow during hospital course as condition evolves, to assist patient/family/decision-maker with understanding of medical conditions, weighing benefit/burdens of treatment options, for clarification of goals of treatment. Additionally will assist with symptoms of palliative concern. Lucila Muse May 31, 2017 15:32
--- NOTE | 2017-05-31 15:55 | HHI.PR ---
Subjective Subjective Notes Up to chair No issues; tolerating clears Objective Vitals/I&O Vital Signs Date Time Temp Pulse Resp B/P (MAP) Pulse Ox O2 Delivery O2 Flow Rate FiO2 05/31/17 12:00 98.3 77 16 131/81 (98) 94 Labs Date/Time Source Procedure Growth Status 05/21/17 17:25 Urine Clean Catch Urine Culture - Final 50-100,000 CFU/ML MIXED GRAM POSITIVE... Complete Radiology Last Impressions Abdomen X-Ray 05/25/17 0000 Signed Impressions: Service Date/Time: May 16:15 - CONCLUSION: 1. Air distention of small bowel loops in the midabdomen may be slightly improved. Diagnostic considerations include a hypodynamic ileus versus partial obstruction. 2. Stable position of the nasogastric tube, curled in the gastric fundus Mario Alberto Brumfield MD Small Bowel X-Ray 05/24/17 0000 Signed Impressions: Service Date/Time: Wednesday, May 24, 2017 11:55 - CONCLUSION: Continued continued disparity in proximal small bowel compared to distal. Site of obstruction is not identified. There is no complete obstruction. Garcia Grubbs MD FACR Abdomen/Pelvis CT 05/21/17 1800 Signed Impressions: Service Date/Time: Sunday, May 21, 2017 18:51 - CONCLUSION: 1. Liver and widespread peritoneal/omental/serosal metastatic disease. 2. Apparent early or partial distal small bowel obstruction. 3. Obstruction of the distal right ureter. 4. Clear lung bases. Estiven Boyd MD Cardiovascular: Regular Lungs: Clear Abdomen: Non-distended, Non-tender Extremities: No edema Narrative Exam NGT in place---clamped A/P Problem List: (1) History of uterine cancer ICD Codes: Z85.42 - Personal history of malignant neoplasm of other parts of uterus Status: Chronic (2) Renal insufficiency ICD Codes: N28.9 - Disorder of kidney and ureter, unspecified Status: Chronic (3) Malnutrition ICD Codes: E46 - Unspecified protein-calorie malnutrition Status: Chronic (4) Carcinosarcoma of uterus ICD Codes: C55 - Carcinosarcoma of uterus Status: Chronic (5) Nausea ICD Codes: R11.0 - Nausea Status: Chronic Assessment and Plan 61 year old female with uterine cancer; SBO -Continue to clamp NGT--- connect to LIWS if nausea/vomiting occur -Consult for PICC placement and start TPN -Continue mobilization -Clears + Ensure -Palliative Care following -We will continue to follow Attending Statement Patient seen at bedside await palliative care encourage po if tolerating, TPN Attestation The exam, history, and the medical decision-making described in the above note were completed with the assistance of the mid-level provider. I reviewed and agree with the findings presented. I attest that I had a [id number] encounter with the patient on the same day, and personally performed and documented my assessment and findings in the medical record. Yumiko Bolaños May 31, 2017 15:55 Octaviano Arcos MD Jun 05, 2017 10:22
[2017-05-31 16:22] LABS: AUTOMATED NEUTROPHIL # 7.2 TH/MM3 (1.8-7.7); BASOPHIL % 0.4 % (0.0-2.0); EOSINOPHIL % 0.3 % (0.0-4.0); HEMATOCRIT 25.8 % (35.0-46.0); HEMO FLAGS DIFF FINAL; LYMPH % 8.5 % (9.0-44.0); LYMPHOCYTE # 0.8 TH/MM3 (1.0-4.8); MEAN CELL VOLUME 74.8 FL (80.0-100.0); MEAN CORPUSCULAR HEMOGLOBIN 24.2 PG (27.0-34.0); MEAN CORPUSCULAR HGB CONC 32.3 % (32.0-36.0); MONO % 11.6 % (0.0-8.0); NEUT % 79.2 % (16.0-70.0); PLATELET COUNT 224 TH/MM3 (150-450); RED BLOOD COUNT 3.45 MIL/MM3 (4.00-5.30); RED CELL DISTRIBUTION WIDTH 19.8 % (11.6-17.2); WHITE BLOOD COUNT 9.1 TH/MM3 (4.0-11.0)
[2017-05-31 16:26] LABS: INTERNATIONAL NORMALIZED RATIO 1.1 RATIO; PROTHROMBIN TIME - PATIENT 12.5 SEC (9.8-11.6)
[2017-05-31 16:51] VITALS: BP 123/73; PULSE 98; RESP 16; TEMP 98.3; O2SAT 96
[2017-05-31 16:53] LABS: BICARBONATE 29.9 MEQ/L (21.0-32.0)
[2017-05-31 16:57] LABS: POTASSIUM 2.6 MEQ/L (3.5-5.1)
[2017-05-31] MEDS: POTASSIUM CHLOR 20 MEQ PREMIX 100 ML IV SCH ×2 (19:06→21:12)
[2017-05-31 20:51] VITALS: BP 149/87; PULSE 105; RESP 16; TEMP 98.2; O2SAT 97
[2017-06-01 00:51] VITALS: BP 145/84; PULSE 105; RESP 16; TEMP 98; O2SAT 97
[2017-06-01] MEDS: MORPHINE SULFATE 4 MG/ML INJ IV PUSH PRN ×7 (03:55→23:49)
[2017-06-01] MEDS ORDERED: ALTEPLASE RECOMBINANT 2 MG VIAL INTRACATH PRN (05:15)
[2017-06-01] MEDS ORDERED: ALTEPLASE RECOMBINANT 2 MG VIAL INTRACATH SCH (05:15)
[2017-06-01 05:25] VITALS: BP 134/85; PULSE 107; RESP 16; TEMP 98.2; O2SAT 95
[2017-06-01 06:25] LABS: AUTOMATED NEUTROPHIL # 6.3 TH/MM3 (1.8-7.7); BASOPHIL % 0.4 % (0.0-2.0); EOSINOPHIL % 0.2 % (0.0-4.0); HEMATOCRIT 23.2 % (35.0-46.0); HEMO FLAGS DIFF FINAL; LYMPH % 10.1 % (9.0-44.0); LYMPHOCYTE # 0.8 TH/MM3 (1.0-4.8); MEAN CELL VOLUME 74.3 FL (80.0-100.0); MEAN CORPUSCULAR HEMOGLOBIN 23.9 PG (27.0-34.0); MEAN CORPUSCULAR HGB CONC 32.1 % (32.0-36.0); MONO % 13.2 % (0.0-8.0); NEUT % 76.1 % (16.0-70.0); PLATELET COUNT 207 TH/MM3 (150-450); RED BLOOD COUNT 3.13 MIL/MM3 (4.00-5.30); RED CELL DISTRIBUTION WIDTH 19.6 % (11.6-17.2); WHITE BLOOD COUNT 8.3 TH/MM3 (4.0-11.0)
[2017-06-01 07:06] LABS: BICARBONATE 28.3 MEQ/L (21.0-32.0); MAGNESIUM 1.5 MG/DL (1.5-2.5)
[2017-06-01] MEDS: SODIUM CHLOR 0.9% 1000 ML INJ 1,000 ML IV SCH (07:30)
[2017-06-01 07:42] LABS: POTASSIUM 2.6 MEQ/L (3.5-5.1)
[2017-06-01 08:48] VITALS: BP 120/73; PULSE 115; RESP 18; TEMP 98.5; O2SAT 96
[2017-06-01] MEDS: DOCUSATE SODIUM 50 MG/SENNA 8.6 MG TAB PO SCH ×2 (11:30→19:58)
[2017-06-01] MEDS: SODIUM CHLORIDE 0.9% FLUSH 10 ML FLUSH IV FLUSH SCH ×2 (11:31→20:02)
[2017-06-01 12:04] VITALS: BP 128/77; PULSE 106; RESP 18; TEMP 98; O2SAT 97
[2017-06-01] MEDS ORDERED: MAGNESIUM SULFATE 1 GM PREMIX 100 ML IV ONE (12:15)
[2017-06-01] MEDS ORDERED: POTASSIUM CHLOR 40 MEQ PREMIX 100 ML IV ONE (12:15)
--- NOTE | 2017-06-01 12:19 | HHI.PR ---
Subjective Remarks Reports some mild lower abdominal discomfort. Not having bowel movements no nausea or vomiting. Not passing gas. Is tolerating clear liquids. Would like to try chicken noodle and full liquids. Denies any muscle aches or cramps. Objective Vitals Vital Signs Date Time Temp Pulse Resp B/P (MAP) Pulse Ox O2 Delivery O2 Flow Rate FiO2 06/01/17 08:48 98.5 115 18 120/73 (89) 96 06/01/17 07:10 18 06/01/17 05:25 98.2 107 16 134/85 (101) 95 06/01/17 00:51 98.0 105 16 145/84 (104) 97 05/31/17 20:51 98.2 105 16 149/87 (107) 97 05/31/17 16:51 98.3 98 16 123/73 (90) 96 05/31/17 12:00 98.3 77 16 131/81 (98) 94 I/O 05/31/17 05/31/17 05/31/17 06/01/17 06/01/17 06/01/17 07:00 15:00 23:00 07:00 15:00 23:00 Intake Total 200 ml 2300 ml 1300 ml Balance 200 ml 2300 ml 1300 ml Intake Oral 1200 ml IV Total 200 ml 1100 ml 1300 ml # Voids 4 3 Result Diagram: 06/01/17 0600 06/01/17 0600 Objective Remarks GENERAL: This is thin, well-developed patient, in no apparent distress with NG tube tube in place. CARDIOVASCULAR: Regular rate and rhythm RESPIRATORY: Clear to auscultation. Breath sounds equal bilaterally. No wheezes , rales, or rhonchi. GASTROINTESTINAL: Abdomen soft, mild left lower abdomen tenderness, no rebound or guarding, nondistended. Few bowel sounds. MUSCULOSKELETAL: Extremities without clubbing, cyanosis, or edema. NEURO: Alert & Oriented x4 to person, place, time, situation. Moves all ext x4 Procedures None. A/P Problem List: (1) Partial small bowel obstruction ICD Code: K56.69 - Other intestinal obstruction Status: Acute (2) Uterine cancer ICD Code: C55 - Malignant neoplasm of uterus, part unspecified Status: Chronic (3) UTI (urinary tract infection) ICD Code: N39.0 - Urinary tract infection, site not specified (4) Renal insufficiency ICD Code: N28.9 - Disorder of kidney and ureter, unspecified Status: Chronic Assessment and Plan 1. Small bowel obstruction: Appreciate general surgery recommendations, declined surgical intervention. NG tube in place and clamp and on suction. No bowel movements, little flatus. Patient continues to want aggressive care. She has received TPN overnight. She is tolerant clear liquids, defer to surgery to determine progression of diet. Continue pain control and encourage activity. 2. Uterine cancer: Appreciate gynecologic oncology recommendations. Hospice recommended. Patient not ready to accept hospice care at this time. 3. Acute kidney injury: Resolved. 4. UTI: Treated with ciprofloxacin. 5. DVT prophylaxis: Ambulation, KYLE hose. Lovenox on hold due to drop in hemoglobin 6. Hypokalemia- replete, increase potassium in TPN from 30 mEQ to 40 mEq IV 7. Severe malnutrition due to BMI, poor intake, pre-albumin albumin levels reviewed.TPN. 8. Acute on chronic anemia-monitor hemoglobin, no signs of active bleeding at this time. PPI. Discharge Planning home when stable. Problem Qualifiers (1) Uterine cancer: Qualified Codes: C55 - Malignant neoplasm of uterus, part unspecified Leora Moreno MD Jun 01, 2017 12:19
[2017-06-01 16:27] VITALS: BP 131/84; PULSE 100; RESP 18; TEMP 98.1; O2SAT 97
[2017-06-01] MEDS: LACTULOSE SYRUP 20 GM/30 ML CUP PO PRN (17:39)
[2017-06-01 20:00] VITALS: BP 141/86; PULSE 112; RESP 18; TEMP 97.6; O2SAT 99
[2017-06-01] MEDS ORDERED: SODIUM CHLORIDE IV-CENTRAL SCH ×9 (20:00)
[2017-06-01] MEDS: FAT EMULSION 20% INJ 250 ML (Daily over 8 hours) IV-CENTRAL SCH (20:00)
[2017-06-01] MEDS ORDERED: [UNRECOGNIZED DRUG - OTHER] IV-CENTRAL SCH ×9 (20:00)
[2017-06-01] MEDS ORDERED: CLINIMIX E 4.25/25 2000 mL- >42 mls/hr IV-CENTRAL SCH ×3 (20:00)
[2017-06-01] MEDS ORDERED: SODIUM ACETATE IV-CENTRAL SCH ×9 (20:00)
--- NOTE | 2017-06-01 21:14 | HHI.PR ---
Subjective Subjective Notes No bm, no vomiting, tolerating ng clamp Objective Vitals/I&O Vital Signs Date Time Temp Pulse Resp B/P (MAP) Pulse Ox O2 Delivery O2 Flow Rate FiO2 06/01/17 16:27 98.1 100 18 131/84 (100) 97 Labs Laboratory Tests Test 06/01/17 06:00 White Blood Count 8.3 Red Blood Count 3.13 Hemoglobin 7.5 Hematocrit 23.2 Mean Corpuscular Volume 74.3 Mean Corpuscular Hemoglobin 23.9 Mean Corpuscular Hemoglobin Concent 32.1 Red Cell Distribution Width 19.6 Platelet Count 207 Mean Platelet Volume 8.2 Neutrophils (%) (Auto) 76.1 Lymphocytes (%) (Auto) 10.1 Monocytes (%) (Auto) 13.2 Eosinophils (%) (Auto) 0.2 Basophils (%) (Auto) 0.4 Neutrophils # (Auto) 6.3 Lymphocytes # (Auto) 0.8 Monocytes # (Auto) 1.1 Eosinophils # (Auto) 0.0 Basophils # (Auto) 0.0 CBC Comment DIFF FINAL Differential Comment Blood Urea Nitrogen 6 Creatinine 0.52 Random Glucose 72 Calcium Level 8.2 Phosphorus Level 2.6 Magnesium Level 1.5 Sodium Level 138 Potassium Level 2.6 Chloride Level 102 Carbon Dioxide Level 28.3 Anion Gap 8 Estimat Glomerular Filtration Rate 146 Date/Time Source Procedure Growth Status 05/21/17 17:25 Urine Clean Catch Urine Culture - Final 50-100,000 CFU/ML MIXED GRAM POSITIVE... Complete Radiology Last Impressions Abdomen X-Ray 05/25/17 0000 Signed Impressions: Service Date/Time: May 16:15 - CONCLUSION: 1. Air distention of small bowel loops in the midabdomen may be slightly improved. Diagnostic considerations include a hypodynamic ileus versus partial obstruction. 2. Stable position of the nasogastric tube, curled in the gastric fundus Mario Alberto Brumfield MD Small Bowel X-Ray 05/24/17 0000 Signed Impressions: Service Date/Time: Wednesday, May 24, 2017 11:55 - CONCLUSION: Continued continued disparity in proximal small bowel compared to distal. Site of obstruction is not identified. There is no complete obstruction. Garcia Grubbs MD FACR Abdomen/Pelvis CT 05/21/17 1800 Signed Impressions: Service Date/Time: Sunday, May 21, 2017 18:51 - CONCLUSION: 1. Liver and widespread peritoneal/omental/serosal metastatic disease. 2. Apparent early or partial distal small bowel obstruction. 3. Obstruction of the distal right ureter. 4. Clear lung bases. Estiven Boyd MD Abdomen: Other (soft mild ttp, palpable tumor) A/P Problem List: (1) History of uterine cancer ICD Codes: Z85.42 - Personal history of malignant neoplasm of other parts of uterus Status: Chronic (2) Renal insufficiency ICD Codes: N28.9 - Disorder of kidney and ureter, unspecified Status: Chronic (3) Malnutrition ICD Codes: E46 - Unspecified protein-calorie malnutrition Status: Chronic (4) Carcinosarcoma of uterus ICD Codes: C55 - Carcinosarcoma of uterus Status: Chronic (5) Nausea ICD Codes: R11.0 - Nausea Status: Chronic Assessment and Plan 61 year old female with uterine cancer; SBO -Continue to clamp NGT--- connect to LIWS if nausea/vomiting occur -Consult for PICC placement and start TPN -Continue mobilization -Clears + Ensure -Palliative Care following -We will continue to follow, continue with nonop mgnt, pt still not wanting to entertain surgical intervention. pt is also high risk. Octaviano Arcos MD Jun 01, 2017 21:14
[2017-06-02 01:17] VITALS: BP 143/89; PULSE 124; RESP 17; TEMP 99.5; O2SAT 97
[2017-06-02] MEDS: MORPHINE SULFATE 4 MG/ML INJ IV PUSH PRN ×7 (02:52→22:18)
[2017-06-02 06:19] VITALS: BP 131/77; PULSE 132; RESP 20; TEMP 98.5; O2SAT 96
[2017-06-02 07:38] LABS: BICARBONATE 29.2 MEQ/L (21.0-32.0)
[2017-06-02 07:44] LABS: POTASSIUM 2.7 MEQ/L (3.5-5.1)
[2017-06-02 08:00] VITALS: BP 136/84; PULSE 124; RESP 20; TEMP 98.4; O2SAT 95
--- NOTE | 2017-06-02 08:45 | PD.ONC.PN ---
Subjective Subjective Remarks patient is resting in bed no complaints denies BM small amounts of flatus has been OOB to ambulate getting TPN declined Hospice Again I discussed with Ms. Boston that she does not seem to be getting better despite medical management of bowel obstruction. General surgery is following but she has declined surgery and Dr. Arcos does not feels she is a good surgical candidate because she has poor performance status. I explained that this cancer is going to continue to spread, and we know she has a strong will and wants to continue treatment but I do not see that this is possible as medically she is not improving. I again encouraged her to think about Hospice care. Objective Data Date Time Temp Pulse Resp B/P (MAP) Pulse Ox O2 Delivery O2 Flow Rate FiO2 06/02/17 06:19 98.5 132 20 131/77 (95) 96 06/02/17 01:17 99.5 124 17 143/89 (107) 97 06/01/17 20:00 97.6 112 18 141/86 (104) 99 06/01/17 16:27 98.1 100 18 131/84 (100) 97 06/01/17 12:04 98.0 106 18 128/77 (94) 97 06/01/17 08:48 98.5 115 18 120/73 (89) 96 06/02/17 06/02/17 06/02/17 07:00 15:00 23:00 Intake Total 200 ml Balance 200 ml Result Diagram: 06/01/17 0600 06/02/17 0545 Laboratory Results Laboratory Tests Test 06/02/17 05:45 Blood Urea Nitrogen 10 MG/DL Creatinine 0.80 MG/DL Random Glucose 233 MG/DL Calcium Level 8.4 MG/DL Sodium Level 140 MEQ/L Potassium Level 2.7 MEQ/L Chloride Level 103 MEQ/L Carbon Dioxide Level 29.2 MEQ/L Anion Gap 8 MEQ/L Estimat Glomerular Filtration Rate 89 ML/MIN Administered Medications Medications (Trade) Dose Ordered Sig/Rena Route PRN Reason Start Time Stop Time Status Last Admin Dose Admin Sodium Chloride 1,000 ml @ 100 mls/hr Q10H IV 05/21/17 20:10 06/01/17 07:30 Sodium Chloride (NS Flush) 2 ml BID IV FLUSH 05/21/17 21:00 06/01/17 20:02 Ondansetron HCl (Zofran Inj) 4 mg Q6H PRN IVP NAUSEA OR VOMITING 05/21/17 20:15 05/25/17 20:33 Morphine Sulfate (Morphine Inj) 1 mg Q3H PRN IV PUSH Pain 3-5 05/21/17 20:15 05/27/17 08:59 Morphine Sulfate (Morphine Inj) 2 mg Q3H PRN IV PUSH Pain 6-10 05/21/17 20:15 06/02/17 05:50 Senna/Docusate Sodium (Lindy-Colace) 1 tab BID PO 05/21/17 21:00 06/01/17 19:58 Magnesium Hydroxide (Milk Of Magnesia Liq) 30 ml Q12H PRN PO MILD - MODERATE CONSTIPATION 05/21/17 20:15 05/26/17 20:06 Sennosides (Senokot) 17.2 mg Q12H PRN PO MODERATE - SEVERE CONSTIPATION 05/21/17 20:15 05/23/17 10:48 Lactulose (Lactulose Liq) 30 ml DAILY PRN PO SEVERE CONSITIPATION 05/21/17 20:15 06/01/17 17:39 Fat Emulsion Intravenous 250 ml @ 31.25 mls/ hr Q24H IV-CENTRAL 06/01/17 20:00 06/01/17 20:00 Sodium Chloride 11 meq/Sodium Acetate 59 meq/ Potassium Chloride 80 meq/ Sodium Phosphate 40 meq/Magnesium Chloride 10 meq/ Calcium Chloride 9 meq/ Multivitamins 10 ml/Folic Acid 1 mg/Amino Acids/ Dextrose 2,104.1437 ml @ 83 mls/hr Q24H IV-CENTRAL 06/01/17 20:00 06/01/17 19:59 Objective Remarks GENERAL: frail SKIN: Warm and dry. HEAD: Normocephalic. EYES: No scleral icterus. No injection or drainage. CARDIOVASCULAR: Regular rate and rhythm , MMR RESPIRATORY: Breath sounds equal bilaterally. No accessory muscle use. GASTROINTESTINAL: Abdomen firm and distended. + BS X 4 EXTREMITIES: No cyanosis, or edema. MUSCULOSKELETAL: deconditioned NEUROLOGICAL: No obvious focal deficit. Awake, alert, and oriented x3. PSYCHIATRIC: Appropriate mood and affect; insight and judgment normal. Assessment/Plan Problem List: (1) Uterine cancer ICD Codes: C55 - Malignant neoplasm of uterus, part unspecified Status: Chronic Plan: Advancement of disease despite IV chemotherapy. I discussed with Ms. Ludy that she does not seem to be getting better despite medical management of bowel obstruction. General surgery is following but she has declined surgery and Dr. Arcos does not feels she is a good surgical candidate because she has poor performance status. I explained that this cancer is going to continue to spread, and we know she has a strong will and wants to continue treatment but I do not see that this is possible as medically she is not improving. I again encouraged her to think about Hospice care. (2) Partial small bowel obstruction ICD Codes: K56.69 - Other intestinal obstruction Status: Acute Plan: NG tube clamped no N/V denies BM small amount of flatus general surgery following pt does not appear to be getting better despite medical management..at this time pt wishes to continue treatment medically and declined Hospice. Problem Qualifiers (1) Uterine cancer: Qualified Codes: C55 - Malignant neoplasm of uterus, part unspecified Michael Roche Jun 02, 2017 08:45
[2017-06-02] MEDS: DOCUSATE SODIUM 50 MG/SENNA 8.6 MG TAB PO SCH ×2 (09:08→21:03)
[2017-06-02] MEDS: SODIUM CHLORIDE 0.9% FLUSH 10 ML FLUSH IV FLUSH SCH ×2 (09:14→21:03)
[2017-06-02] MEDS ORDERED: POTASSIUM CHLOR 40 MEQ PREMIX 100 ML IV ONE (10:00)
--- NOTE | 2017-06-02 10:11 | HHI.PR ---
Subjective Subjective Notes Sad today Wants to try the Ensure again today REA Arguelles at bedside Objective Vitals/I&O Vital Signs Date Time Temp Pulse Resp B/P (MAP) Pulse Ox O2 Delivery O2 Flow Rate FiO2 06/02/17 06:19 98.5 132 20 131/77 (95) 96 Labs Laboratory Tests Test 06/02/17 05:45 Blood Urea Nitrogen 10 Creatinine 0.80 Random Glucose 233 Calcium Level 8.4 Sodium Level 140 Potassium Level 2.7 Chloride Level 103 Carbon Dioxide Level 29.2 Anion Gap 8 Estimat Glomerular Filtration Rate 89 Date/Time Source Procedure Growth Status 05/21/17 17:25 Urine Clean Catch Urine Culture - Final 50-100,000 CFU/ML MIXED GRAM POSITIVE... Complete Radiology Last Impressions Abdomen X-Ray 05/25/17 0000 Signed Impressions: Service Date/Time: May 16:15 - CONCLUSION: 1. Air distention of small bowel loops in the midabdomen may be slightly improved. Diagnostic considerations include a hypodynamic ileus versus partial obstruction. 2. Stable position of the nasogastric tube, curled in the gastric fundus Mario Alberto Brumfield MD Small Bowel X-Ray 05/24/17 0000 Signed Impressions: Service Date/Time: Wednesday, May 24, 2017 11:55 - CONCLUSION: Continued continued disparity in proximal small bowel compared to distal. Site of obstruction is not identified. There is no complete obstruction. Garcia Grubbs MD FACR Abdomen/Pelvis CT 05/21/17 1800 Signed Impressions: Service Date/Time: Sunday, May 21, 2017 18:51 - CONCLUSION: 1. Liver and widespread peritoneal/omental/serosal metastatic disease. 2. Apparent early or partial distal small bowel obstruction. 3. Obstruction of the distal right ureter. 4. Clear lung bases. Estiven Boyd MD Cardiovascular: Regular Lungs: Clear Abdomen: Other (mildly distended; pain with tenderness is pelvis ) Extremities: No edema Narrative Exam NGT in place---clamped A/P Problem List: (1) History of uterine cancer ICD Codes: Z85.42 - Personal history of malignant neoplasm of other parts of uterus Status: Chronic (2) Renal insufficiency ICD Codes: N28.9 - Disorder of kidney and ureter, unspecified Status: Chronic (3) Malnutrition ICD Codes: E46 - Unspecified protein-calorie malnutrition Status: Chronic (4) Carcinosarcoma of uterus ICD Codes: C55 - Carcinosarcoma of uterus Status: Chronic (5) Nausea ICD Codes: R11.0 - Nausea Status: Chronic Assessment and Plan 61 year old female with uterine cancer; SBO -Continue to clamp NGT--- connect to LIWS if nausea/vomiting occur -Port accessed and TPN started -Continue to monitor electrolytes and replace as needed -Continue mobilization -Clears + Ensure -Palliative Care following -Has declined Hospice -Mother and sister coming Monday to visit -We will continue to follow although patient is a poor candidate for any surgical procedure Attending Statement Patient seen at bedside await family arrival to determine next course in treatment keep ng in place for now TPN Attestation The exam, history, and the medical decision-making described in the above note were completed with the assistance of the mid-level provider. I reviewed and agree with the findings presented. I attest that I had a [id number] encounter with the patient on the same day, and personally performed and documented my assessment and findings in the medical record. Yumiko Bolaños Jun 02, 2017 10:11 Octaviano Arcos MD Jun 05, 2017 10:44
--- NOTE | 2017-06-02 11:54 | HHI.PR ---
Subjective Remarks Passing gas no bowel movements. No chest pain. States that she does tolerate clear liquids once a try more food. She is still declining surgery. Pain is controlled. Objective Vitals Vital Signs Date Time Temp Pulse Resp B/P (MAP) Pulse Ox O2 Delivery O2 Flow Rate FiO2 06/02/17 06:19 98.5 132 20 131/77 (95) 96 06/02/17 01:17 99.5 124 17 143/89 (107) 97 06/01/17 20:00 97.6 112 18 141/86 (104) 99 06/01/17 16:27 98.1 100 18 131/84 (100) 97 06/01/17 12:04 98.0 106 18 128/77 (94) 97 I/O 06/01/17 06/01/17 06/01/17 06/02/17 06/02/17 06/02/17 07:00 15:00 23:00 07:00 15:00 23:00 Intake Total 1300 ml 100 ml 994 ml 200 ml Balance 1300 ml 100 ml 994 ml 200 ml Intake Oral 200 ml IV Total 1300 ml 100 ml 994 ml # Voids 2 4 4 Result Diagram: 06/01/17 0600 06/02/17 0545 Other Results Microbiology Date/Time Source Procedure Growth Status 05/21/17 17:25 Urine Clean Catch Urine Culture - Final 50-100,000 CFU/ML MIXED GRAM POSITIVE... Complete Objective Remarks GENERAL: This is thin, well-developed patient, in no apparent distress with NG tube in place and clamped CARDIOVASCULAR: Mild tachycardic rate and rhythm RESPIRATORY: Clear to auscultation. Breath sounds equal bilaterally. No wheezes , rales, or rhonchi. GASTROINTESTINAL: Abdomen soft, mild left lower abdomen tenderness, no rebound or guarding, nondistended. Few positive bowel sounds. MUSCULOSKELETAL: Extremities without clubbing, cyanosis, or edema. NEURO: Alert & Oriented x4 to person, place, time, situation. Moves all ext x4 Procedures None. A/P Problem List: (1) Partial small bowel obstruction ICD Code: K56.69 - Other intestinal obstruction Status: Acute (2) Uterine cancer ICD Code: C55 - Malignant neoplasm of uterus, part unspecified Status: Chronic (3) UTI (urinary tract infection) ICD Code: N39.0 - Urinary tract infection, site not specified (4) Renal insufficiency ICD Code: N28.9 - Disorder of kidney and ureter, unspecified Status: Chronic Assessment and Plan 1. Small bowel obstruction: Appreciate general surgery recommendations, declined surgical intervention. NG tube in place and clamp and not on suction. No bowel movements, little flatus. Patient continues to want aggressive care but declines surgical intervention. She has received TPN overnight. She is tolerant clear liquids, defer to surgery to determine progression of diet. Continue pain control and encourage activity. 2. Uterine cancer: Appreciate gynecologic oncology recommendations. Hospice recommended. Patient not ready to accept hospice care at this time. 3. Acute kidney injury: Resolved. 4. UTI: Treated with ciprofloxacin. 5. DVT prophylaxis: Ambulation, KYLE hose. Lovenox on hold due to drop in hemoglobin 6. Hypokalemia- replete, increase potassium in TPN from 40 mEQ to 80 mEq IV, with this change will need to monitor potassium closely. Will not give extra 40 mEq today due to increasing it in the TPN. 7. Severe malnutrition due to BMI, poor intake, pre-albumin albumin levels reviewed.TPN. 8. Acute on chronic anemia-monitor hemoglobin, no signs of active bleeding at this time. PPI. Repeat hemoglobin in the morning. Her tachycardia may be due to her anemia and hypovolemia. 9. hyperglycemia due to TPN given and insulin will be placed in TPN; we'll continue monitor blood glucose levels closely. Discharge Planning home when stable. Problem Qualifiers (1) Uterine cancer: Qualified Codes: C55 - Malignant neoplasm of uterus, part unspecified Leora Moreno MD Jun 02, 2017 11:54
[2017-06-02 12:00] VITALS: BP 130/83; PULSE 118; RESP 20; TEMP 98.5; O2SAT 98
--- NOTE | 2017-06-02 15:17 | HHI.HCPN ---
Reason for visit a. To assist with evaluation and management of symptoms including: nausea, pain, malnutrition b. To assist medical decision maker(s) with: better understanding of current medical conditions; weighing benefits/burdens of medical treatment options; making medical treatment decisions. . Subjective/Interval History Patient examined in room today, resting in bed. Patient states her abdominal pain is constant and she has not been getting much relief, she continues to utilize her PRN morphine for pain every 3 to 4 hours. NGT remains clamped, she stated she attempted to eat chicken broth for lunch but was unable to eat much and felt very full. She states she just wants "to get her health on track". She states she is now having some flatus, still with no bowel movement. Palliative care continues to follow to assist with goals of care to provide support/guidance regarding medical treatment benefit/burden medical treatment options. Advance Directives Living Will: Never completed Health Care Surrogate: Copy in medical record Advance Directive Specifics Date completed: 05/25/17. . Health Care Surrogate(s): Jake Boston (mother) Alternate [facility] Jessenia Boston (sister) . Objective Vital Signs Date Time Temp Pulse Resp B/P (MAP) Pulse Ox O2 Delivery O2 Flow Rate FiO2 06/02/17 12:00 98.5 118 20 130/83 (99) 98 06/02/17 08:00 98.4 124 20 136/84 (101) 95 06/02/17 06:19 98.5 132 20 131/77 (95) 96 06/02/17 01:17 99.5 124 17 143/89 (107) 97 06/01/17 20:00 97.6 112 18 141/86 (104) 99 06/01/17 16:27 98.1 100 18 131/84 (100) 97 Intake & Output 06/02/17 06/02/17 07:00 19:00 Intake Total 1194 ml Balance 1194 ml Intake Oral 200 ml IV Total 994 ml # Voids 8 Physical Exam CONSTITUTIONAL/GENERAL: This is a thin, frail female patient, very pleasant, in no apparent distress. TUBES/LINES/DRAINS: PIV x1, Right subclavian port accessed, NGT clamped SKIN: No jaundice, rashes, or lesions. No wounds seen anteriorly. Skin temperature appropriate. Not diaphoretic. EYES: Pupils equal and round and reactive. Extraocular motions intact. No scleral icterus. No injection or drainage. Fundi not examined. CARDIOVASCULAR: Regular rate and rhythm without murmurs, gallops, or rubs. No JVD. Peripheral pulses symmetric. RESPIRATORY/CHEST: Symmetric, unlabored respirations. Clear to auscultation. Breath sounds equal bilaterally. No wheezes, rales, or rhonchi. GASTROINTESTINAL: Abdomen firm, tender. Light palpitation secondary to tenderness. Bowel sounds hypoactive. MUSCULOSKELETAL: Extremities without clubbing, cyanosis, or edema. No mottling or clubbing. NEUROLOGICAL: Awake and alert. Motor and sensory grossly within normal limits. Follows commands. Cognitively sharp. Moves all extremities. PSYCHIATRIC: No obvious anxiety/depression. no apparent hallucinations or other psychotic thought process. . Diagnostic Tests Laboratory Laboratory Tests Test 05/31/17 15:14 06/01/17 06:00 06/02/17 05:45 White Blood Count 9.1 TH/MM3 (4.0-11.0) 8.3 TH/MM3 (4.0-11.0) Red Blood Count 3.45 MIL/MM3 (4.00-5.30) 3.13 MIL/MM3 (4.00-5.30) Hemoglobin 8.4 GM/DL (11.6-15.3) 7.5 GM/DL (11.6-15.3) Hematocrit 25.8 % (35.0-46.0) 23.2 % (35.0-46.0) Mean Corpuscular Volume 74.8 FL (80.0-100.0) 74.3 FL (80.0-100.0) Mean Corpuscular Hemoglobin 24.2 PG (27.0-34.0) 23.9 PG (27.0-34.0) Mean Corpuscular Hemoglobin Concent 32.3 % (32.0-36.0) 32.1 % (32.0-36.0) Red Cell Distribution Width 19.8 % (11.6-17.2) 19.6 % (11.6-17.2) Platelet Count 224 TH/MM3 (150-450) 207 TH/MM3 (150-450) Mean Platelet Volume 8.8 FL (7.0-11.0) 8.2 FL (7.0-11.0) Neutrophils (%) (Auto) 79.2 % (16.0-70.0) 76.1 % (16.0-70.0) Lymphocytes (%) (Auto) 8.5 % (9.0-44.0) 10.1 % (9.0-44.0) Monocytes (%) (Auto) 11.6 % (0.0-8.0) 13.2 % (0.0-8.0) Eosinophils (%) (Auto) 0.3 % (0.0-4.0) 0.2 % (0.0-4.0) Basophils (%) (Auto) 0.4 % (0.0-2.0) 0.4 % (0.0-2.0) Neutrophils # (Auto) 7.2 TH/MM3 (1.8-7.7) 6.3 TH/MM3 (1.8-7.7) Lymphocytes # (Auto) 0.8 TH/MM3 (1.0-4.8) 0.8 TH/MM3 (1.0-4.8) Monocytes # (Auto) 1.1 TH/MM3 (0-0.9) 1.1 TH/MM3 (0-0.9) Eosinophils # (Auto) 0.0 TH/MM3 (0-0.4) 0.0 TH/MM3 (0-0.4) Basophils # (Auto) 0.0 TH/MM3 (0-0.2) 0.0 TH/MM3 (0-0.2) CBC Comment DIFF FINAL DIFF FINAL Differential Comment Prothrombin Time 12.5 SEC (9.8-11.6) Prothromb Time International Ratio 1.1 RATIO Blood Urea Nitrogen 6 MG/DL (7-18) 6 MG/DL (7-18) 10 MG/DL (7-18) Creatinine 0.55 MG/DL (0.50-1.00) 0.52 MG/DL (0.50-1.00) 0.80 MG/DL (0.50-1.00) Random Glucose 82 MG/DL (74-106) 72 MG/DL (74-106) 233 MG/DL (74-106) Calcium Level 8.8 MG/DL (8.5-10.1) 8.2 MG/DL (8.5-10.1) 8.4 MG/DL (8.5-10.1) Sodium Level 138 MEQ/L (136-145) 138 MEQ/L (136-145) 140 MEQ/L (136-145) Potassium Level 2.6 MEQ/L (3.5-5.1) 2.6 MEQ/L (3.5-5.1) 2.7 MEQ/L (3.5-5.1) Chloride Level 101 MEQ/L (98-107) 102 MEQ/L (98-107) 103 MEQ/L (98-107) Carbon Dioxide Level 29.9 MEQ/L (21.0-32.0) 28.3 MEQ/L (21.0-32.0) 29.2 MEQ/L (21.0-32.0) Anion Gap 7 MEQ/L (5-15) 8 MEQ/L (5-15) 8 MEQ/L (5-15) Estimat Glomerular Filtration Rate 136 ML/MIN (>89) 146 ML/MIN (>89) 89 ML/MIN (>89) Phosphorus Level 2.6 MG/DL (2.5-4.9) Magnesium Level 1.5 MG/DL (1.5-2.5) Result Diagram: 06/01/17 0600 06/02/17 0545 Assessment and Plan Disease Oriented Problem List: (1) Carcinosarcoma of uterus (2) Small bowel obstruction, partial (3) Renal insufficiency (4) UTI (urinary tract infection) Symptom Scale: (1) Pain (2) Nausea (3) Malnutrition Pertinent Non-Medical Issues Psychosocial: Patient was born and raised in [place], [place]. She is unmarried, no children. 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 She lives with a room mate but states she is essentially alone and does not have a good support system locally as all of her family still live in [place]. Spiritual: Anglican. Legal: None known. Ethical issues impacting care: None known. . Important Contacts Jake Boston (mother): [phone], Jessenia Ludy (sister) [phone] Roger Sanchez (friend): [phone] . Prognosis Patient diagnosed with uterine sarcoma status post resection, hysterectomy, and bilateral salpingo-oophorectomy in 2013. Despite recent outpatient chemotherapy for uterine CA recurrence the patient CT Abd/Pelvis during this hospitalization revealed liver and widespread peritoneal/omental/serosal metastatic disease, early or partial small bowel obstruction, obstruction of distal right ureter. Due to her advanced disease and debilitated status she is at ongoing risk for setbacks and complications. Hospice is appropriate if goals compatible. Code Status: No Code Plan * Legal decision maker: Patient currently has the capacity to make her own health care decisions. She designated her mother Jake Boston: [phone], as her HCS and her sister Jessenia Boston: [phone] as her alternate HCS today. * CODE STATUS: DNR. * GOALS: AGGRESSIVE short of cardiopulmonary resuscitation. Again today had an in depth conversation with Ms. Boston regarding her current clinical status. Ms. Boston continues to struggle with accepting that there are limited options at this point. Discussion regarding Hospice and transitioning to comfort focused goals was addressed again today. She does not seem to be processing or grasping the gravity of the situation. Palliative will continue to provide ongoing discussions/clarification of treatment goals and support. * SYMPTOM MANAGEMENT: * --pain: Likely secondary to widespread metastatic disease, SBO. Morphine 2mg IV q 2hr PRN for pain ordered, 4 doses utilized in the past 24 hours. Patient at ongoing risk for opiate induced constipation that would compound preexisting issues with SBO. * --nausea: Resolved. Last dose of ondansetron IV q 6hr PRN for nausea utilized 05/25/17. * --malnutrition: Patient at ongoing risk for malnutrition secondary to N/V, NPO , SBO. Currently on clear liquid diet. No further recommendations at this time. * Palliative care will continue to follow during hospital course as condition evolves, to assist patient/family/decision-maker with understanding of medical conditions, weighing benefit/burdens of treatment options, for clarification of goals of treatment. Additionally will assist with symptoms of palliative concern. Attestation To help prompt me to consider important information that might be impacting today's encounter and assessment, information from prior notes written by myself or my colleagues may have been "brought forward" into today's note. My signature on this note, however, is an attestation that I personally performed the exam, history, and/or decision-making noted today, and, unless otherwise indicated, the interactions with patient, family, and staff as well as the review of records all occurred today. I also attest that the listed assessment and stated plan reflect my best clinical judgment today based on the combination of historical information, prior notes, and today's exam/ interactions. When time spent is documented, it refers only to time spent today by the signer, or if indicated, combined time spent today by collaborating physician/nurse practitioner. Lucila Muse Jun 02, 2017 15:17
[2017-06-02 16:00] VITALS: BP 131/82; PULSE 126; RESP 18; TEMP 98.2; O2SAT 98
[2017-06-02] MEDS ORDERED: SODIUM ACETATE IV-CENTRAL SCH ×10 (16:00)
[2017-06-02] MEDS ORDERED: SODIUM CHLORIDE IV-CENTRAL SCH ×10 (16:00)
[2017-06-02] MEDS ORDERED: [UNRECOGNIZED DRUG - OTHER] IV-CENTRAL SCH ×10 (16:00)
[2017-06-02 20:00] VITALS: BP 125/82; PULSE 129; RESP 18; TEMP 99.5; O2SAT 98
[2017-06-02] MEDS: FAT EMULSION 20% INJ 250 ML (Daily over 8 hours) IV-CENTRAL SCH (21:03)
[2017-06-02] MEDS: SODIUM CHLOR 0.9% 1000 ML INJ 1,000 ML IV SCH (22:10)
[2017-06-03] VITALS: BP 116/77; PULSE 132; RESP 20; TEMP 99.5; O2SAT 96
[2017-06-03] MEDS: MORPHINE SULFATE 4 MG/ML INJ IV PUSH PRN ×7 (03:05→23:44)
[2017-06-03 04:00] VITALS: BP 121/78; PULSE 137; RESP 18; TEMP 100.8; O2SAT 97
[2017-06-03 05:38] LABS: AUTOMATED NEUTROPHIL # 9.9 TH/MM3 (1.8-7.7); BASOPHIL % 0.2 % (0.0-2.0); EOSINOPHIL % 0.1 % (0.0-4.0); HEMATOCRIT 24.1 % (35.0-46.0); HEMO FLAGS DIFF FINAL; LYMPH % 6.8 % (9.0-44.0); LYMPHOCYTE # 0.8 TH/MM3 (1.0-4.8); MEAN CELL VOLUME 73.8 FL (80.0-100.0); MEAN CORPUSCULAR HEMOGLOBIN 23.8 PG (27.0-34.0); MEAN CORPUSCULAR HGB CONC 32.3 % (32.0-36.0); MONO % 12.2 % (0.0-8.0); NEUT % 80.7 % (16.0-70.0); PLATELET COUNT 199 TH/MM3 (150-450); RED BLOOD COUNT 3.27 MIL/MM3 (4.00-5.30); RED CELL DISTRIBUTION WIDTH 20.1 % (11.6-17.2); WHITE BLOOD COUNT 12.3 TH/MM3 (4.0-11.0)
[2017-06-03 06:25] LABS: BICARBONATE 28.9 MEQ/L (21.0-32.0)
[2017-06-03] MEDS: ACETAMINOPHEN 1000 MG/100 ML VIAL IV PRN ×2 (06:25→23:44)
[2017-06-03 06:27] LABS: POTASSIUM 2.7 MEQ/L (3.5-5.1)
[2017-06-03] MEDS ORDERED: MAGNESIUM SULFATE 1 GM PREMIX 100 ML IV ONE (06:45)
[2017-06-03] MEDS ORDERED: POTASSIUM CHLOR 20 MEQ PREMIX 100 ML IV SCH (06:45)
[2017-06-03] MEDS ORDERED: POTASSIUM PHOSPHATE INJ 30 MMOL in SODIUM CHLOR 0.9% 250 ML INJ 250 ML IV ONE (07:00)
[2017-06-03 08:00] VITALS: BP 97/65; PULSE 123; RESP 18; TEMP 97.3; O2SAT 96
[2017-06-03] MEDS: SODIUM CHLOR 0.9% 1000 ML INJ 1,000 ML IV SCH ×2 (08:27→17:52)
[2017-06-03] MEDS: SODIUM CHLORIDE 0.9% FLUSH 10 ML FLUSH IV FLUSH SCH ×2 (08:27→20:08)
--- NOTE | 2017-06-03 08:55 | HHI.PR ---
Subjective Subjective Notes ng tube fell out this am, vomited yesterday +flatus Objective Vitals/I&O Vital Signs Date Time Temp Pulse Resp B/P (MAP) Pulse Ox O2 Delivery O2 Flow Rate FiO2 06/03/17 04:00 100.8 137 18 121/78 (92) 97 Labs Laboratory Tests Test 06/03/17 05:20 White Blood Count 12.3 Red Blood Count 3.27 Hemoglobin 7.8 Hematocrit 24.1 Mean Corpuscular Volume 73.8 Mean Corpuscular Hemoglobin 23.8 Mean Corpuscular Hemoglobin Concent 32.3 Red Cell Distribution Width 20.1 Platelet Count 199 Mean Platelet Volume 8.0 Neutrophils (%) (Auto) 80.7 Lymphocytes (%) (Auto) 6.8 Monocytes (%) (Auto) 12.2 Eosinophils (%) (Auto) 0.1 Basophils (%) (Auto) 0.2 Neutrophils # (Auto) 9.9 Lymphocytes # (Auto) 0.8 Monocytes # (Auto) 1.5 Eosinophils # (Auto) 0.0 Basophils # (Auto) 0.0 CBC Comment DIFF FINAL Differential Comment Blood Urea Nitrogen 13 Creatinine 0.72 Random Glucose 151 Calcium Level 9.1 Phosphorus Level 1.5 Magnesium Level 2.0 Sodium Level 142 Potassium Level 2.7 Chloride Level 102 Carbon Dioxide Level 28.9 Anion Gap 11 Estimat Glomerular Filtration Rate 100 Date/Time Source Procedure Growth Status 05/21/17 17:25 Urine Clean Catch Urine Culture - Final 50-100,000 CFU/ML MIXED GRAM POSITIVE... Complete Radiology Last Impressions Abdomen X-Ray 05/25/17 0000 Signed Impressions: Service Date/Time: May 16:15 - CONCLUSION: 1. Air distention of small bowel loops in the midabdomen may be slightly improved. Diagnostic considerations include a hypodynamic ileus versus partial obstruction. 2. Stable position of the nasogastric tube, curled in the gastric fundus Mario Alberto Brumfield MD Small Bowel X-Ray 05/24/17 0000 Signed Impressions: Service Date/Time: Wednesday, May 24, 2017 11:55 - CONCLUSION: Continued continued disparity in proximal small bowel compared to distal. Site of obstruction is not identified. There is no complete obstruction. Garcia Grubbs MD FACR Abdomen/Pelvis CT 05/21/17 1800 Signed Impressions: Service Date/Time: Sunday, May 21, 2017 18:51 - CONCLUSION: 1. Liver and widespread peritoneal/omental/serosal metastatic disease. 2. Apparent early or partial distal small bowel obstruction. 3. Obstruction of the distal right ureter. 4. Clear lung bases. Estiven Boyd MD Abdomen: Other (soft distended) A/P Problem List: (1) History of uterine cancer ICD Codes: Z85.42 - Personal history of malignant neoplasm of other parts of uterus Status: Chronic (2) Renal insufficiency ICD Codes: N28.9 - Disorder of kidney and ureter, unspecified Status: Chronic (3) Malnutrition ICD Codes: E46 - Unspecified protein-calorie malnutrition Status: Chronic (4) Carcinosarcoma of uterus ICD Codes: C55 - Carcinosarcoma of uterus Status: Chronic (5) Nausea ICD Codes: R11.0 - Nausea Status: Chronic Assessment and Plan 61 year old female with uterine cancer; SBO -ng out will replaced if vomits again -Consult for PICC placement, TPN -Continue mobilization -clears -Palliative Care following -We will continue to follow, continue with nonop mgnt, pt still not wanting to entertain surgical intervention. pt is also high risk. -await family this week for further discussion Octaviano Arcos MD Jun 03, 2017 08:55
[2017-06-03] MEDS: DOCUSATE SODIUM 50 MG/SENNA 8.6 MG TAB PO SCH ×2 (09:38→20:10)
[2017-06-03] MEDS: LACTULOSE SYRUP 20 GM/30 ML CUP PO PRN (09:38)
--- NOTE | 2017-06-03 09:57 | HHI.PR ---
Subjective Remarks Patient reports she is feeling about the same. Still burping a lot but states she passed some gas. Not much abdominal pain. No nausea or vomiting. Patient states that yesterday she thought she was going to have a bowel movement but had a large episode of vomiting instead. Objective Vitals Vital Signs Date Time Temp Pulse Resp B/P (MAP) Pulse Ox O2 Delivery O2 Flow Rate FiO2 06/03/17 04:00 100.8 137 18 121/78 (92) 97 06/03/17 00:00 99.5 132 20 116/77 (90) 96 06/02/17 20:00 99.5 129 18 125/82 (96) 98 06/02/17 16:00 98.2 126 18 131/82 (98) 98 06/02/17 12:00 98.5 118 20 130/83 (99) 98 I/O 06/02/17 06/02/17 06/02/17 06/03/17 06/03/17 06/03/17 07:00 15:00 23:00 07:00 15:00 23:00 Intake Total 200 ml 2076 ml 480 ml 388 ml Output Total 300 ml 50 ml Balance 200 ml 1776 ml 430 ml 388 ml Intake Oral 200 ml 1080 ml 480 ml IV Total 388 ml TPN/PPN 996 ml Emesis 300 ml 50 ml # Voids 4 6 4 Result Diagram: 06/03/1751906/03/17519 Objective Remarks GENERAL: Cachectic appearing female. CARDIOVASCULAR: Tachycardic rate but regular. RESPIRATORY: Good respiratory efforts. Breath sounds equal and clear to auscultation bilaterally. GASTROINTESTINAL: Abdomen is distended, mildly tender to palpation. Absent bowel sounds. MUSCULOSKELETAL: Extremities without cyanosis, or edema. NEURO: Alert & Oriented x4 to person, place, time, situation. Moves all ext x4 PSYCH: Appropriate mood and affect. Procedures None. A/P Problem List: (1) Partial small bowel obstruction ICD Code: K56.69 - Other intestinal obstruction Status: Acute (2) Uterine cancer ICD Code: C55 - Malignant neoplasm of uterus, part unspecified Status: Chronic (3) UTI (urinary tract infection) ICD Code: N39.0 - Urinary tract infection, site not specified (4) Renal insufficiency ICD Code: N28.9 - Disorder of kidney and ureter, unspecified Status: Chronic Assessment and Plan 61-year-old female with history of uterine cancer, failed chemotherapy treatment admitted with small bowel obstruction with associated complications. Oncology recommended hospice. Patient is a poor surgical candidate but is also refusing surgery at this time for the small bowel obstruction. Palliative care is following. 1. Small bowel obstruction: Appreciate general surgery recommendations, declined surgical intervention. NG tube came out. No bowel movements, little flatus. Patient continues to want aggressive care but declines surgical intervention. She has received TPN overnight. She is tolerant clear liquids, defer to surgery to determine progression of diet. Continue pain control and encourage activity. 2. Uterine cancer: Appreciate gynecologic oncology recommendations. Hospice recommended. Patient not ready to accept hospice care at this time. 3. Acute kidney injury: Resolved. 4. UTI: Treated with ciprofloxacin. 5. DVT prophylaxis: Ambulation, KYLE hose. Start heparin. 6. Hypokalemia- replete, potassium in TPN up to 80 mEq IV. Replace with additional 40 mEq IV 1. 7. Severe malnutrition due to BMI, poor intake, pre-albumin albumin levels reviewed.TPN. 8. Acute on chronic anemia-monitor hemoglobin, no signs of active bleeding at this time. PPI. Follow H&H. 9. hyperglycemia due to TPN given and insulin will be placed in TPN; we'll continue monitor blood glucose levels closely. Problem Qualifiers (1) Uterine cancer: Qualified Codes: C55 - Malignant neoplasm of uterus, part unspecified Elizabeth Pickard MD Jun 03, 2017 09:57
[2017-06-03 12:00] VITALS: BP 96/70; PULSE 123; RESP 16; TEMP 96.4; O2SAT 96
[2017-06-03 16:00] VITALS: BP 114/69; PULSE 133; RESP 20; TEMP 96.8; O2SAT 98
[2017-06-03 19:14] LABS: BICARBONATE 30.6 MEQ/L (21.0-32.0); POTASSIUM 3.2 MEQ/L (3.5-5.1)
[2017-06-03 20:00] VITALS: BP 109/59; PULSE 136; PULSE 137; RESP 20; TEMP 100.3; O2SAT 96
[2017-06-03] MEDS ORDERED: METOPROLOL TARTRATE 25 MG TAB PO ONE (20:00)
[2017-06-03] MEDS: FAT EMULSION 20% INJ 250 ML (Daily over 8 hours) IV-CENTRAL SCH (20:11)
[2017-06-03] MEDS: SODIUM CHLORIDE IV-CENTRAL SCH ×10 (20:12)
[2017-06-03] MEDS: [UNRECOGNIZED DRUG - OTHER] IV-CENTRAL SCH ×10 (20:12)
[2017-06-03] MEDS: SODIUM ACETATE IV-CENTRAL SCH ×10 (20:12)
[2017-06-04] VITALS (10 sets, daily range): BP systolic 93–120; BP diastolic 57–75; PULSE 111–161; RESP 16–20; TEMP 98.1–100.4; O2SAT 95–100
[2017-06-04] MEDS: SODIUM CHLOR 0.9% 1000 ML INJ 1,000 ML IV SCH ×2 (01:02→18:22)
--- NOTE | 2017-06-04 01:18 | EKG ---
Date Performed: 06/03/2017 Time Performed: 16:28:50 PTAGE: 61 years EKG: SINUS TACHYCARDIA RIGHT BUNDLE BRANCH BLOCK NONSPECIFIC ST/T-WAVE ABNORMALITY ABNORMAL ECG PREVIOUS TRACING : 07/21/2014 01.15 No significant change from previous tracing noted. DOCTOR: Dimitrios Escalante Interpretating Date/Time 06/04/2017 01:17:43
[2017-06-04] MEDS: MORPHINE SULFATE 4 MG/ML INJ IV PUSH PRN ×6 (05:13→21:18)
[2017-06-04] MEDS: SODIUM CHLORIDE 0.9% FLUSH 10 ML FLUSH IV FLUSH SCH ×2 (08:02→20:52)
[2017-06-04] MEDS: LACTULOSE SYRUP 20 GM/30 ML CUP PO PRN (08:09)
[2017-06-04] MEDS: DOCUSATE SODIUM 50 MG/SENNA 8.6 MG TAB PO SCH ×2 (08:10→20:52)
[2017-06-04] MEDS ORDERED: METOPROLOL TARTRATE 25 MG TAB PO ONE (09:15)
[2017-06-04] MEDS ORDERED: PILL SPLITTER OTHER PRN (09:15)
--- NOTE | 2017-06-04 10:35 | HHI.PR ---
Subjective Remarks Patient reports some liquid stool last night. No nausea or vomiting this morning. Still undecided about surgical intervention. Has been in sinus tachycardia. Not drinking much. Objective Vitals Vital Signs Date Time Temp Pulse Resp B/P (MAP) Pulse Ox O2 Delivery O2 Flow Rate FiO2 06/04/17 08:00 98.1 111 16 96/60 (72) 95 06/04/17 05:21 98.7 114 20 96/57 (70) 96 06/04/17 04:00 114 06/04/17 00:00 100.4 142 20 120/72 (88) 98 06/04/17 00:00 123 06/03/17 20:00 100.3 136 20 109/59 (76) 96 06/03/17 20:00 137 06/03/17 16:00 96.8 133 20 114/69 (84) 98 06/03/17 12:00 96.4 123 16 96/70 (79) 96 I/O 06/03/17 06/03/17 06/03/17 06/04/17 06/04/17 06/04/17 07:00 15:00 23:00 07:00 15:00 23:00 Intake Total 480 ml 388 ml 1700 ml 240 ml Output Total 50 ml 350 ml Balance 430 ml 388 ml 1350 ml 240 ml Intake Oral 480 ml 1440 ml 240 ml IV Total 388 ml 260 ml Emesis 50 ml 350 ml # Voids 4 4 2 # Bowel Movements 1 Result Diagram: 06/03/17 0520 06/03/17 1800 Objective Remarks GENERAL: Cachectic appearing female. CARDIOVASCULAR: Tachycardic rate but regular. RESPIRATORY: Good respiratory efforts. Breath sounds equal and clear to auscultation bilaterally. GASTROINTESTINAL: Abdomen is distended, mildly tender to palpation. Absent bowel sounds. MUSCULOSKELETAL: Extremities without cyanosis, or edema. NEURO: Alert & Oriented x4 to person, place, time, situation. Moves all ext x4 PSYCH: Appropriate mood and affect. Procedures None. A/P Problem List: (1) Partial small bowel obstruction ICD Code: K56.69 - Other intestinal obstruction Status: Acute (2) Uterine cancer ICD Code: C55 - Malignant neoplasm of uterus, part unspecified Status: Chronic (3) UTI (urinary tract infection) ICD Code: N39.0 - Urinary tract infection, site not specified (4) Renal insufficiency ICD Code: N28.9 - Disorder of kidney and ureter, unspecified Status: Chronic Assessment and Plan 61-year-old female with history of uterine cancer, failed chemotherapy treatment admitted with small bowel obstruction with associated complications. Oncology recommended hospice. Patient is a poor surgical candidate but is also refusing surgery at this time for the small bowel obstruction. Palliative care is following. Small bowel obstruction: Appreciate general surgery recommendations, declined surgical intervention for now. NG tube came out. Patient continues to want aggressive care but declines surgical intervention. Continue TPN. Clear liquids as tolerated, defer to surgery to determine progression of diet. Continue pain control and encourage activity. Uterine cancer: Appreciate gynecologic oncology recommendations. Hospice recommended. Patient not ready to accept hospice care at this time. Sinus tachycardia: May be secondary to dehydration, restart IVF. Low dose Metoprolol. Improving. Severe malnutrition: Continue TPN. Ekg Monitor Tech following. Diet as tolerated Acute on chronic anemia-monitor hemoglobin, no signs of active bleeding at this time. PPI. Follow H&H. Hypokalemia- replete and follow Hyperglycemia due to TPN given and insulin will be placed in TPN; we'll continue monitor blood glucose levels closely. DVT prophylaxis: Ambulation, KYLE hose. Heparin. Problem Qualifiers (1) Uterine cancer: Qualified Codes: C55 - Malignant neoplasm of uterus, part unspecified Elizabeth Pickard MD Jun 04, 2017 10:35
--- NOTE | 2017-06-04 12:53 | HHI.PR ---
Subjective Subjective Notes Tolerating sips liquids Had a small BM yesterday Objective Vitals/I&O Vital Signs Date Time Temp Pulse Resp B/P (MAP) Pulse Ox O2 Delivery O2 Flow Rate FiO2 06/04/17 12:00 98.7 114 18 93/59 (70) 95 Labs Laboratory Tests Test 06/03/17 18:00 Blood Urea Nitrogen 16 Creatinine 0.72 Random Glucose 108 Calcium Level 9.2 Sodium Level 142 Potassium Level 3.2 Chloride Level 101 Carbon Dioxide Level 30.6 Anion Gap 10 Estimat Glomerular Filtration Rate 100 Date/Time Source Procedure Growth Status 05/21/17 17:25 Urine Clean Catch Urine Culture - Final 50-100,000 CFU/ML MIXED GRAM POSITIVE... Complete Radiology Last Impressions Abdomen X-Ray 05/25/17 0000 Signed Impressions: Service Date/Time: May 16:15 - CONCLUSION: 1. Air distention of small bowel loops in the midabdomen may be slightly improved. Diagnostic considerations include a hypodynamic ileus versus partial obstruction. 2. Stable position of the nasogastric tube, curled in the gastric fundus Mario Alberto Brumfield MD Small Bowel X-Ray 05/24/17 0000 Signed Impressions: Service Date/Time: Wednesday, May 24, 2017 11:55 - CONCLUSION: Continued continued disparity in proximal small bowel compared to distal. Site of obstruction is not identified. There is no complete obstruction. Garcia Grubbs MD FACR Abdomen/Pelvis CT 05/21/17 1800 Signed Impressions: Service Date/Time: Sunday, May 21, 2017 18:51 - CONCLUSION: 1. Liver and widespread peritoneal/omental/serosal metastatic disease. 2. Apparent early or partial distal small bowel obstruction. 3. Obstruction of the distal right ureter. 4. Clear lung bases. 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 (5) Nausea ICD Codes: R11.0 - Nausea Status: Chronic Assessment and Plan A/P Problem List: (1) History of uterine cancer ICD Codes: Z85.42 - Personal history of malignant neoplasm of other parts of uterus Status: Chronic (2) Renal insufficiency ICD Codes: N28.9 - Disorder of kidney and ureter, unspecified Status: Chronic (3) Malnutrition ICD Codes: E46 - Unspecified protein-calorie malnutrition Status: Chronic (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 Patient has chronic nausea. Abdomen soft and less distended No surgical intervention contemplated at this point Long discussion with patient regarding exploration vs. Hospice; her main concern is permanent colostomy. I explained this may be necessary if there is a large tumor/cancer in the pelvis so she can eat. Family coming Wed; she will discuss with them and surgeon to make a definitive plan of care. I attest that I had a [id number] encounter with the patient on the same day, and personally performed and documented my assessment and findings in the medical record. The following services were provided during this hospital visit: Chart data review, vital sign assessments/reviewing monitor data Review of consultations notes if present. Medication orders/review and/or management Ordering and/or reviewing lab tests Ordering and/or interpreting/reviewing x-rays and/or diagnostic studies Care of the patient and discussion of the patient with the care team Documentation time To help prompt me to consider important information that might be impacting today's encounter and assessment, information from prior notes written by myself or my colleagues may have been "brought forward/copy and pasted" into today's note. Vinay Chen MD Jun 04, 2017 12:53
[2017-06-04 19:44] LABS: AUTOMATED NEUTROPHIL # 15.3 TH/MM3 (1.8-7.7); BASOPHIL # 0.1 TH/MM3 (0-0.2); BASOPHIL % 0.3 % (0.0-2.0); EOSINOPHIL % 0.2 % (0.0-4.0); HEMO FLAGS DIFF FINAL; LYMPH % 5.1 % (9.0-44.0); LYMPHOCYTE # 0.9 TH/MM3 (1.0-4.8); MEAN CELL VOLUME 75.4 FL (80.0-100.0); MEAN CORPUSCULAR HEMOGLOBIN 22.9 PG (27.0-34.0); MEAN CORPUSCULAR HGB CONC 30.3 % (32.0-36.0); MONO % 10.5 % (0.0-8.0); NEUT % 83.9 % (16.0-70.0); PLATELET COUNT 194 TH/MM3 (150-450); RED BLOOD COUNT 3.18 MIL/MM3 (4.00-5.30); RED CELL DISTRIBUTION WIDTH 20.2 % (11.6-17.2); WHITE BLOOD COUNT 18.2 TH/MM3 (4.0-11.0)
[2017-06-04 20:07] LABS: BICARBONATE 28.9 MEQ/L (21.0-32.0); MAGNESIUM 1.9 MG/DL (1.5-2.5)
[2017-06-04 20:20] LABS: POTASSIUM 2.8 MEQ/L (3.5-5.1)
[2017-06-04] MEDS: FAT EMULSION 20% INJ 250 ML (Daily over 8 hours) IV-CENTRAL SCH (20:52)
[2017-06-04] MEDS: SODIUM CHLORIDE IV-CENTRAL SCH ×10 (20:52)
[2017-06-04] MEDS: [UNRECOGNIZED DRUG - OTHER] IV-CENTRAL SCH ×10 (20:52)
[2017-06-04] MEDS: METOPROLOL TARTRATE 25 MG TAB PO SCH (20:52)
[2017-06-04] MEDS: SODIUM ACETATE IV-CENTRAL SCH ×10 (20:52)
[2017-06-04] MEDS ORDERED: POTASSIUM PHOSPHATE INJ 30 MMOL in SODIUM CHLOR 0.9% 250 ML INJ 250 ML IV ONE (21:00)
[2017-06-04] MEDS: ONDANSETRON HCL 4 MG/2 ML VIAL IVP PRN (23:28)
[2017-06-05] VITALS (17 sets, daily range): BP systolic 90–135; BP diastolic 64–86; PULSE 87–160; RESP 16–34; TEMP 97.8–99.5; O2SAT 90–100
[2017-06-05] MEDS: MORPHINE SULFATE 4 MG/ML INJ IV PUSH PRN ×3 (00:11→22:42)
[2017-06-05] MEDS ORDERED: METOPROLOL SUCCINATE 25 MG EXTENDED RELEASE TAB PO ONE (00:45)
[2017-06-05] MEDS ORDERED: METOPROLOL TARTRATE 5 MG/5 ML VIAL IV PUSH ONE (02:00)
[2017-06-05] MEDS ORDERED: SODIUM CHLORID 0.9% 500 ML INJ 500 ML IV ONE ×2 (02:15→04:00)
--- NOTE | 2017-06-05 05:47 | HHI.PR ---
Objective Vitals Vital Signs Date Time Temp Pulse Resp B/P (MAP) Pulse Ox O2 Delivery O2 Flow Rate FiO2 06/05/17 05:10 98.4 160 16 94/67 (76) 92 06/05/17 03:30 99.1 155 16 90/73 (79) 93 06/05/17 02:10 91/71 (78) 06/05/17 00:30 99.5 160 16 94/72 (79) 90 06/05/17 00:00 122 06/04/17 20:30 99.4 120 17 103/75 (84) 96 06/04/17 20:00 119 06/04/17 16:00 98.1 117 18 102/68 (79) 100 06/04/17 13:23 124 06/04/17 13:23 161 06/04/17 12:00 98.7 114 18 93/59 (70) 95 06/04/17 08:04 112 06/04/17 08:00 98.1 111 16 96/60 (72) 95 I/O 06/04/17 06/04/17 06/04/17 06/05/17 06/05/17 06/05/17 07:00 15:00 23:00 07:00 15:00 23:00 Intake Total 240 ml 2310 ml Balance 240 ml 2310 ml Intake Oral 240 ml 1560 ml IV Total 750 ml # Voids 2 5 3 # Bowel Movements 2 3 Result Diagram: 06/04/17191206/04/171916 Procedures None. A/P Problem List: (1) Partial small bowel obstruction ICD Code: K56.69 - Other intestinal obstruction Status: Acute (2) Uterine cancer ICD Code: C55 - Malignant neoplasm of uterus, part unspecified Status: Chronic (3) UTI (urinary tract infection) ICD Code: N39.0 - Urinary tract infection, site not specified (4) Renal insufficiency ICD Code: N28.9 - Disorder of kidney and ureter, unspecified Status: Chronic Problem Qualifiers (1) Uterine cancer: Qualified Codes: C55 - Malignant neoplasm of uterus, part unspecified EvelinLuclialorraine MORALES Jun 05, 2017 05:47
[2017-06-05] MEDS: PIPERACIL-TAZO 3.375 GM PREMIX 50 ML IV SCH ×4 (06:18→23:41)
[2017-06-05] MEDS ORDERED: DIGOXIN 0.5 MG/2 ML VIAL IV PUSH ONE (06:30)
--- NOTE | 2017-06-05 06:35 | RADRPT ---
EXAM DATE/TIME: 06/05/2017 06:06 [facility] COMPARISON: CT THORAX W CONTRAST, July 11, 2014, 21:34. INDICATIONS : Short of breath, patient feels heart beating too fast MEDICAL HISTORY : uterine/ovarian carcinoma SURGICAL HISTORY : Hysterectomy. infusaport ENCOUNTER: Initial ACUITY: 1 day PAIN SCORE: 0/10 LOCATION: Bilateral chest FINDINGS: No infiltrates seen. No pleural effusion or pneumothorax. Heart size upper limits of normal. There is a right internal jugular Pyvtti-g-Vwtu catheter with tip at the atriocaval junction. CONCLUSION: No acute cardiopulmonary disease demonstrated. Estiven Boyd MD on June 05, 2017 at 6:34 Board Certified Radiologist. This report was verified electronically.
--- NOTE | 2017-06-05 08:02 | PD.ONC.PN ---
Subjective Subjective Remarks patient resting in bed preparing to be transferred to cardiac ICU for afib RVR needs to be on Cardizem gtt denies cp NG out pt denies any N/V and states she has had 2 liquid BMs over the weekend is drinking fluids has been OOB to ambulate Objective Data Date Time Temp Pulse Resp B/P (MAP) Pulse Ox O2 Delivery O2 Flow Rate FiO2 06/05/17 05:10 98.4 160 16 94/67 (76) 92 06/05/17 04:00 154 06/05/17 03:30 99.1 155 16 90/73 (79) 93 06/05/17 02:10 91/71 (78) 06/05/17 00:30 99.5 160 16 94/72 (79) 90 06/05/17 00:00 122 06/04/17 20:30 99.4 120 17 103/75 (84) 96 06/04/17 20:00 119 06/04/17 16:00 98.1 117 18 102/68 (79) 100 06/04/17 13:23 124 06/04/17 13:23 161 06/04/17 12:00 98.7 114 18 93/59 (70) 95 06/04/17 08:04 112 06/04/17 08:00 98.1 111 16 96/60 (72) 95 Result Diagram: 06/04/17191206/04/171916 Laboratory Results Laboratory Tests Test 06/04/17 19:13 06/04/17 19:17 06/05/17 05:35 White Blood Count 18.2 TH/MM3 Red Blood Count 3.18 MIL/MM3 Hemoglobin 7.3 GM/DL Hematocrit 24.0 % Mean Corpuscular Volume 75.4 FL Mean Corpuscular Hemoglobin 22.9 PG Mean Corpuscular Hemoglobin Concent 30.3 % Red Cell Distribution Width 20.2 % Platelet Count 194 TH/MM3 Mean Platelet Volume 9.2 FL Neutrophils (%) (Auto) 83.9 % Lymphocytes (%) (Auto) 5.1 % Monocytes (%) (Auto) 10.5 % Eosinophils (%) (Auto) 0.2 % Basophils (%) (Auto) 0.3 % Neutrophils # (Auto) 15.3 TH/MM3 Lymphocytes # (Auto) 0.9 TH/MM3 Monocytes # (Auto) 1.9 TH/MM3 Eosinophils # (Auto) 0.0 TH/MM3 Basophils # (Auto) 0.1 TH/MM3 CBC Comment DIFF FINAL Differential Comment Blood Urea Nitrogen 16 MG/DL Creatinine 0.70 MG/DL Random Glucose 111 MG/DL Calcium Level 8.6 MG/DL Phosphorus Level 2.0 MG/DL Magnesium Level 1.9 MG/DL Sodium Level 142 MEQ/L Potassium Level 2.8 MEQ/L Chloride Level 103 MEQ/L Carbon Dioxide Level 28.9 MEQ/L Anion Gap 10 MEQ/L Estimat Glomerular Filtration Rate 103 ML/MIN Lactic Acid Level 3.3 mmol/L Imaging Studies Last Impressions Abdomen X-Ray 05/25/17 0000 Signed Impressions: Service Date/Time: May 16:15 - CONCLUSION: 1. Air distention of small bowel loops in the midabdomen may be slightly improved. Diagnostic considerations include a hypodynamic ileus versus partial obstruction. 2. Stable position of the nasogastric tube, curled in the gastric fundus Mario Alberto Brumfield MD Small Bowel X-Ray 05/24/17 0000 Signed Impressions: Service Date/Time: Wednesday, May 24, 2017 11:55 - CONCLUSION: Continued continued disparity in proximal small bowel compared to distal. Site of obstruction is not identified. There is no complete obstruction. Garcia Grubbs MD FACR Abdomen/Pelvis CT 05/21/17 1800 Signed Impressions: Service Date/Time: Sunday, May 21, 2017 18:51 - CONCLUSION: 1. Liver and widespread peritoneal/omental/serosal metastatic disease. 2. Apparent early or partial distal small bowel obstruction. 3. Obstruction of the distal right ureter. 4. Clear lung bases. Estiven Boyd MD Administered Medications Medications (Trade) Dose Ordered Sig/Rena Route PRN Reason Start Time Stop Time Status Last Admin Dose Admin Sodium Chloride 1,000 ml @ 100 mls/hr Q10H IV 05/21/17 20:10 06/04/17 18:22 Sodium Chloride (NS Flush) 2 ml BID IV FLUSH 05/21/17 21:00 06/04/17 20:52 Ondansetron HCl (Zofran Inj) 4 mg Q6H PRN IVP NAUSEA OR VOMITING 05/21/17 20:15 06/04/17 23:28 Morphine Sulfate (Morphine Inj) 1 mg Q3H PRN IV PUSH Pain 3-5 05/21/17 20:15 05/27/17 08:59 Morphine Sulfate (Morphine Inj) 2 mg Q3H PRN IV PUSH Pain 6-10 05/21/17 20:15 06/05/17 00:11 Acetaminophen (Ofirmev 1000 Mg/ 100 ml Inj) 1,000 mg Q6H PRN IV FEVER 05/21/17 20:15 06/03/17 23:44 Senna/Docusate Sodium (Lindy-Colace) 1 tab BID PO 05/21/17 21:00 06/04/17 20:52 Magnesium Hydroxide (Milk Of Magnesia Liq) 30 ml Q12H PRN PO MILD - MODERATE CONSTIPATION 05/21/17 20:15 05/26/17 20:06 Sennosides (Senokot) 17.2 mg Q12H PRN PO MODERATE - SEVERE CONSTIPATION 05/21/17 20:15 05/23/17 10:48 Lactulose (Lactulose Liq) 30 ml DAILY PRN PO SEVERE CONSITIPATION 05/21/17 20:15 06/04/17 08:09 Fat Emulsion Intravenous 250 ml @ 31.25 mls/ hr Q24H IV-CENTRAL 06/01/17 20:00 06/04/17 20:52 Sodium Chloride 11 meq/Sodium Acetate 59 meq/ Potassium Chloride 80 meq/ Sodium Phosphate 40 meq/Magnesium Chloride 10 meq/ Calcium Chloride 9 meq/ Multivitamins 10 ml/Folic Acid 1 mg/Insulin Human Regular 6 units/ Amino Acids/ Dextrose 2,104.2037 ml @ 83 mls/hr Q24H IV-CENTRAL 06/03/17 20:00 06/04/17 20:52 Metoprolol Tartrate (Lopressor) 25 mg Q12HR PO 06/04/17 21:00 06/04/17 20:52 Piperacillin Sod/ Tazobactam Sod 50 ml @ 100 mls/hr Q6H IV 06/05/17 06:00 06/05/17 06:18 Objective Remarks GENERAL: frail and thin SKIN: Warm and dry. HEAD: Normocephalic. EYES: No scleral icterus. No injection or drainage. CARDIOVASCULAR: tachycardia RESPIRATORY: Breath sounds equal bilaterally. No accessory muscle use. GASTROINTESTINAL: Abdomen firm with distention, + hyperactive BS x 4 EXTREMITIES: No cyanosis, or edema. MUSCULOSKELETAL: deconditioned NEUROLOGICAL: No obvious focal deficit. Awake, alert, and oriented x3. PSYCHIATRIC: Appropriate mood Assessment/Plan Problem List: (1) Uterine cancer ICD Codes: C55 - Malignant neoplasm of uterus, part unspecified Status: Chronic Plan: Advancement of disease despite IV chemotherapy. Patient is DNR Palliative Care following, pt not grasping the severe nature of her disease and the limited options at this time. Patient's family is coming this week and will help with the decision making. Bus Driver/onc recommending Hospice, pt declined. (2) Partial small bowel obstruction ICD Codes: K56.69 - Other intestinal obstruction Status: Acute Plan: NG tube out no N/V + BM x 2 small amount of flatus general surgery following and she is a poor surgical candidate, pt declines surgery at this time d/t concern over colostomy. (3) Atrial fibrillation with rapid ventricular response ICD Codes: I48.91 - Unspecified atrial fibrillation Status: Acute Plan: patient is being transferred to cardiac unit for Cardizem gtt. Problem Qualifiers (1) Uterine cancer: Qualified Codes: C55 - Malignant neoplasm of uterus, part unspecified Michael Roche Jun 05, 2017 08:02
--- NOTE | 2017-06-05 08:58 | HHI.PR ---
Subjective Subjective Notes Resting in bed Emotional Increase pain overnight Tachycardiac/Hypotensive [facility] Objective Vitals/I&O Vital Signs Date Time Temp Pulse Resp B/P (MAP) Pulse Ox O2 Delivery O2 Flow Rate FiO2 06/05/17 08:20 99.2 137 16 103/74 (84) 92 Labs Laboratory Tests Test 06/04/17 19:13 06/04/17 19:17 06/05/17 05:35 White Blood Count 18.2 Red Blood Count 3.18 Hemoglobin 7.3 Hematocrit 24.0 Mean Corpuscular Volume 75.4 Mean Corpuscular Hemoglobin 22.9 Mean Corpuscular Hemoglobin Concent 30.3 Red Cell Distribution Width 20.2 Platelet Count 194 Mean Platelet Volume 9.2 Neutrophils (%) (Auto) 83.9 Lymphocytes (%) (Auto) 5.1 Monocytes (%) (Auto) 10.5 Eosinophils (%) (Auto) 0.2 Basophils (%) (Auto) 0.3 Neutrophils # (Auto) 15.3 Lymphocytes # (Auto) 0.9 Monocytes # (Auto) 1.9 Eosinophils # (Auto) 0.0 Basophils # (Auto) 0.1 CBC Comment DIFF FINAL Differential Comment Blood Urea Nitrogen 16 Creatinine 0.70 Random Glucose 111 Calcium Level 8.6 Phosphorus Level 2.0 Magnesium Level 1.9 Sodium Level 142 Potassium Level 2.8 Chloride Level 103 Carbon Dioxide Level 28.9 Anion Gap 10 Estimat Glomerular Filtration Rate 103 Lactic Acid Level 3.3 Date/Time Source Procedure Growth Status 05/21/17 17:25 Urine Clean Catch Urine Culture - Final 50-100,000 CFU/ML MIXED GRAM POSITIVE... Complete Radiology Last Impressions Abdomen X-Ray 05/25/17 0000 Signed Impressions: Service Date/Time: May 16:15 - CONCLUSION: 1. Air distention of small bowel loops in the midabdomen may be slightly improved. Diagnostic considerations include a hypodynamic ileus versus partial obstruction. 2. Stable position of the nasogastric tube, curled in the gastric fundus Mario Alberto Brumfield MD Small Bowel X-Ray 05/24/17 0000 Signed Impressions: Service Date/Time: Wednesday, May 24, 2017 11:55 - CONCLUSION: Continued continued disparity in proximal small bowel compared to distal. Site of obstruction is not identified. There is no complete obstruction. Garcia Grubbs MD FACR Abdomen/Pelvis CT 05/21/17 1800 Signed Impressions: Service Date/Time: Sunday, May 21, 2017 18:51 - CONCLUSION: 1. Liver and widespread peritoneal/omental/serosal metastatic disease. 2. Apparent early or partial distal small bowel obstruction. 3. Obstruction of the distal right ureter. 4. Clear lung bases. 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 Boston as well as Jessenia Boston (sister) by phone -RN updated Attending Statement patient seen at bedside she is tachy p 150s wbc 18k My concern is for perforation or intraabominal sepsis I discussed with the patient and family. They both agree with going to the OR for exploration. I discussed the patient would likely need a diverting ostomy due to the obstruction I discussed the risks of the procedure She would like to proceed with surgery. Attestation The exam, history, and the medical decision-making described in the above note were completed with the assistance of the mid-level provider. I reviewed and agree with the findings presented. I attest that I had a [id number] encounter with the patient on the same day, and personally performed and documented my assessment and findings in the medical record. Yumiko Bolaños Jun 05, 2017 08:58 Octaviano Arcos MD Jun 06, 2017 10:14
[2017-06-05] MEDS ORDERED: SUGAMMADEX SODIUM 200 MG/2 ML VIAL IV PUSH ONE ×2 (09:31)
[2017-06-05] MEDS ORDERED: FLUCONAZOLE 400 MG PREMIX BAG 200 ML IV SCH (10:00)
[2017-06-05 10:21] LABS: AUTOMATED NEUTROPHIL # 14.4 TH/MM3 (1.8-7.7); BASOPHIL % 0.2 % (0.0-2.0); EOSINOPHIL % 0.1 % (0.0-4.0); HEMATOCRIT 21.5 % (35.0-46.0); MEAN CELL VOLUME 75.3 FL (80.0-100.0); MEAN CORPUSCULAR HEMOGLOBIN 23.4 PG (27.0-34.0); MEAN CORPUSCULAR HGB CONC 31.1 % (32.0-36.0); MONO % 9.5 % (0.0-8.0); NEUT % 84.2 % (16.0-70.0); PLATELET COUNT 176 TH/MM3 (150-450); RED BLOOD COUNT 2.85 MIL/MM3 (4.00-5.30); RED CELL DISTRIBUTION WIDTH 20.6 % (11.6-17.2); WHITE BLOOD COUNT 17.1 TH/MM3 (4.0-11.0)
[2017-06-05 10:23] LABS: HEMO FLAGS AUTO DIFF
[2017-06-05 10:42] LABS: PROTHROMBIN TIME - PATIENT 11.4 SEC (9.8-11.6)
[2017-06-05 10:44] LABS: POTASSIUM 3.7 MEQ/L (3.5-5.1)
[2017-06-05 11:18] LABS: SCAN/DIFF AUTO DIFF CONFIRMED
[2017-06-05] MEDS ORDERED: DIGOXIN 0.5 MG/2 ML VIAL IV PUSH SCH (12:30)
[2017-06-05] MEDS ORDERED: BUPIVACAINE/EPINEPHRINE 0.25% 50 ML VIAL ONE (12:52)
[2017-06-05] MEDS ORDERED: SODIUM CHLOR 0.9% 250 ML INJ 500 ML IV ONE (13:00)
[2017-06-05] MEDS ORDERED: PHENYLEPH/NS 1000 MCG/10 ML SYR IV ONE (13:00)
[2017-06-05] MEDS ORDERED: ONDANSETRON HCL 4 MG/2 ML VIAL IV PUSH ONE (13:00)
[2017-06-05] MEDS ORDERED: LIDOCAINE HCL 1% PF 5 ML AMPULE OTHER ONE (13:00)
[2017-06-05] MEDS ORDERED: ROCURONIUM INJ 50 MG/5 ML SYRINGE IV PUSH ONE (13:00)
[2017-06-05] MEDS ORDERED: PROPOFOL 200 MG/20 ML AMP IV ONE (13:00)
[2017-06-05] MEDS ORDERED: SODIUM CHLOR 0.9% 1000 ML INJ 1,000 ML IV ONE (13:00)
[2017-06-05] MEDS ORDERED: BUPIVACAINE LIPOSOME PF 1.3% 20 ML VIAL INFIL ONE (13:15)
[2017-06-05] MEDS ORDERED: DILTIAZEM HCL 25 MG/5 ML VIAL ONE (14:24)
[2017-06-05] MEDS ORDERED: *HYDROmorphone PF 1 MG VIAL PERIprocedural Use ONLY ONE (14:33)
[2017-06-05] MEDS ORDERED: DO NOT ADM ANY ANTICOAGULANT DRUGS PRN (14:45)
--- NOTE | 2017-06-05 15:11 | HHI.PR ---
Subjective Remarks Patient emergently taken to the OR this morning due to concern for perforation given increased abdominal pain, tachycardic, hypotensive. Hemoglobin had dropped to 6.7. She underwent laparotomy with loop ileostomy. The patient is seen immediately postoperatively in the recovery area. She is sedated and on BiPAP, tachypnea. BP borderline low. Objective Vitals Vital Signs Date Time Temp Pulse Resp B/P (MAP) Pulse Ox O2 Delivery O2 Flow Rate FiO2 06/05/17 14:55 98.7 87 21 113/64 98 06/05/17 14:18 97 50 06/05/17 08:30 137 06/05/17 08:30 99.2 138 16 103/74 (84) 92 06/05/17 08:20 99.2 137 16 103/74 (84) 92 06/05/17 05:10 98.4 160 16 94/67 (76) 92 06/05/17 04:00 154 06/05/17 03:30 99.1 155 16 90/73 (79) 93 06/05/17 02:10 91/71 (78) 06/05/17 00:30 99.5 160 16 94/72 (79) 90 06/05/17 00:00 122 06/04/17 20:30 99.4 120 17 103/75 (84) 96 06/04/17 20:00 119 06/04/17 16:00 98.1 117 18 102/68 (79) 100 I/O 06/04/17 06/04/17 06/04/17 06/05/17 06/05/17 06/05/17 07:00 15:00 23:00 07:00 15:00 23:00 Intake Total 240 ml 2310 ml 3210 ml Output Total 250 ml Balance 240 ml 2310 ml 2960 ml Intake Oral 240 ml 1560 ml IV Total 750 ml Packed Cells 800 ml Blood Product IV Normal Saline Flush 210 ml Other 2200 ml Output Urine Total 100 ml Estimated Blood Loss 150 ml # Voids 2 5 3 # Bowel Movements 2 3 Result Diagram: 06/05/1753 06/05/17952 Objective Remarks GENERAL: Sedated CARDIOVASCULAR: Normal rate, regular rhythm. RESPIRATORY: On BiPAP, tachypneic. Coarse breath sounds bilaterally.. GASTROINTESTINAL: Abdomen is mildly distended, ostomy appear clean. MUSCULOSKELETAL: Extremities without cyanosis, or edema. NEURO: Sedated Procedures None. A/P Problem List: (1) Partial small bowel obstruction ICD Code: K56.69 - Other intestinal obstruction Status: Acute (2) Uterine cancer ICD Code: C55 - Malignant neoplasm of uterus, part unspecified Status: Chronic (3) UTI (urinary tract infection) ICD Code: N39.0 - Urinary tract infection, site not specified (4) Renal insufficiency ICD Code: N28.9 - Disorder of kidney and ureter, unspecified Status: Chronic Assessment and Plan 61-year-old female with history of uterine cancer, failed chemotherapy treatment admitted with small bowel obstruction with associated complications. Oncology recommended hospice. Patient has been refusing surgery until today when her condition deteriorated. She is status post emergent laparotomy with ileostomy. Patient remained critically ill, in respiratory failure requiring BiPAP, tachypneic, blood pressure is borderline low. Resuscitation with blood and IV fluid ongoing. I discussed the case with hotel manager Dr. Braswell who will consult on the patient. Small bowel obstruction: Concern for perforation today. Patient emergently taken to the OR. -Status post laparotomy with ileostomy today. Operative report pending. - Further plans per general surgery - Continue TPN. - Nothing by mouth Hypovolemic shock/severe anemia: H&H dropped to 6.7 today, patient became tachypneic, hypotensive, went into A. fib with RVR. - Status post resuscitation. 2 units of PRBC given in the OR. A third unit is running. Patient to get a total of 4 units. - Back in sinus rhythm. Discontinue Cardizem drip given hypotension. Continue IV fluid. - Top Lift Scourer consulted, discussed with Dr. Braswell. A. fib with RVR: Status post IV digoxin, Cardizem drip. Patient currently on metoprolol twice a day. - Back in sinus rhythm. Discontinue Cardizem drip. Continue metoprolol. Resuscitation efforts as above. Respiratory failure requiring BiPAP: - Patient is still tachypneic. Discuss with Dr. Braswell. ABG will be obtained. At risk for worsening respiratory failure and reintubation. Uterine cancer: Appreciate gynecologic oncology recommendations. Hospice recommended. Patient not ready to accept hospice care at this time. Severe malnutrition: Continue TPN. Ob Nurse following. Diet as tolerated Acute on chronic anemia-monitor hemoglobin, no signs of active bleeding at this time. PPI. Follow H&H. Hypokalemia- replete and follow Hyperglycemia: adjustment to TPN; we'll continue monitor blood glucose levels closely. DVT prophylaxis: Heparin. Palliative care following. Discussed with them. Problem Qualifiers (1) Uterine cancer: Qualified Codes: C55 - Malignant neoplasm of uterus, part unspecified Elizabeth Pickard MD Jun 05, 2017 15:11
[2017-06-05] MEDS ORDERED: DILTIAZEM 125 MG/NS 100 ML IV SCH ×2 (15:15)
[2017-06-05] MEDS ORDERED: D5-1/2 NS + KCL 20 MEQ INJ 1,000 ML IV SCH (15:30)
[2017-06-05] MEDS ORDERED: D5-1/2 NS + KCL 20 MEQ INJ 1,000 ML ONE (15:32)
--- NOTE | 2017-06-05 15:48 | RADRPT ---
EXAM DATE/TIME: 06/05/2017 14:59 [facility] COMPARISON: CHEST SINGLE AP, June 05, 2017, 6:06. INDICATIONS : Central line placement. MEDICAL HISTORY : None. uterine/ovarian carcinoma SURGICAL HISTORY : Hysterectomy. ENCOUNTER: Initial ACUITY: 1 day PAIN SCORE: Non-responsive. LOCATION: Bilateral chest FINDINGS: Stable right IJ [id number]. Interval placement of left IJ central line with tip at the confluence of the brachiocephalic and SVC. Bilateral perihilar airspace consolidation, more prominent on the lef t. Cardiomediastinal contours are stable. Pulmonary vascularity is slightly indistinct. Remainder of the exam is unchanged. CONCLUSION: 1. Left IJ central line with tip in the brachiocephalic SVC junction. No pneumothorax. 2. Developing bilateral perihilar central airspace consolidation which may reflect pulmonary vascular congestion versus less likely aspiration given the acuity. Derek Robbins MD on June 05, 2017 at 15:43 Board Certified Radiologist. This report was verified electronically.
[2017-06-05 16:06] LABS: BLOOD GAS BASE EXCESS -4.3 mmol/L (-2-2); BLOOD GAS CARBOXYHEMOGLOBIN 1.6 % (0-4); BLOOD GAS HCO3 20 mmol/L (22-26); BLOOD GAS METHEMOGLOBIN 1.2 % (0-2); BLOOD GAS O2 HGB SATURATION 89 % (90-100); BLOOD GAS OXYGEN CONTENT 15.4 Vol % (12.0-20.0); BLOOD GAS PCO2 38 mmHg (38-42); BLOOD GAS PO2 68 mmHg (61-120); BLOOD GAS TOTAL HGB 12.4 G/DL (12.0-16.0); TEMP CORR TO 98.6
[2017-06-05 16:10] LABS: CRITICAL VALUE YES; OXYGEN DEVICE BiPAP
[2017-06-05 16:11] LABS: DRAW SITE RT BRACHIAL; FIO2 50 %; NUMBER OF ARTERIAL PUNCTURES 1; STAT YES; ULNAR PULSE PRESENT; VENT SETTINGS IPAP10/EPAP+5
[2017-06-05] MEDS ORDERED: MAGNESIUM HYDROXIDE SUSP 30 ML CUP PO PRN (17:00)
[2017-06-05] MEDS ORDERED: SENNOSIDES 8.6 MG TAB PO PRN (17:00)
[2017-06-05] MEDS: LACTATED RINGER'S 1000 ML INJ 1,000 ML IV SCH (17:00)
[2017-06-05] MEDS ORDERED: RESP: ALBUTEROL 2.5 MG/IPRATROPIUM 0.5 MG NEB (PRN) INH (17:00)
[2017-06-05] MEDS ORDERED: BISACODYL 10 MG SUPP RECTAL PRN (17:00)
[2017-06-05] MEDS ORDERED: MISCELLANEOUS NURSING INFORMATION XX SCH (17:00)
[2017-06-05] MEDS ORDERED: CHLORHEXIDINE GLUCONATE 2 % 1 PACK (2 CLOTHS) TOP PRN (17:00)
[2017-06-05] MEDS ORDERED: LACTULOSE SYRUP 20 GM/30 ML CUP PO PRN (17:00)
[2017-06-05] MEDS ORDERED: ONDANSETRON HCL 4 MG/2 ML VIAL IV PUSH PRN (17:00)
[2017-06-05] MEDS ORDERED: GLUCAGON 1 MG/ML VIAL OTHER PRN (17:15)
[2017-06-05] MEDS ORDERED: DEXTROSE 50% IN WATER 50 ML VIAL(D50) IV PUSH PRN (17:15)
--- NOTE | 2017-06-05 17:18 | HHI.HP ---
HPI Service Critical Care Medicine Primary Care Physician Reymundo Black, DO Admission Diagnosis Partial SBO, recurrence of gynecologic CA on chemotherapy Diagnosis: (1) Partial small bowel obstruction (2) Uterine cancer (3) UTI (urinary tract infection) (4) Renal insufficiency Travel History International Travel<30 Days: No Contact w/Intl Traveler <30 Da: No Traveled to Known Affected Are: No History of Present Illness This is a 61-year-old female with a PMH of Metastatic Uterine CA following with Dr. Saravia who presented to the ER w/ complaints of abdominal pain, nausea and vomiting and was admitted. CT Abd/Pelvis w/ liver and widespread peritoneal/ omental/serosal metastatic disease, early or partial small bowel obstruction, obstruction of distal right ureter. The patient per report has been refusing surgical intervention for bowel obstruction. Today the patient was noted to have A. fib with RVR, hypotension and severe anemia with a hemoglobin of 6.8 and emergently went to the OR for exploratory laparotomy, for bowel obstruction. In PACU the patient was noted to be tachypneic, and initially hypotensive. Critical care medicine was consulted for management. Upon my arrival to the PACU respiratory rate was 30 on BiPAP 07/09, patient able to speak without respiratory difficulty. Arterial line malfunctioning, BP cuff pressure 117/73->126/75. Patient was receiving third unit of PRBCs. The patient was noted to be in sinus rhythm. Review of Systems ROS Limitations: Clinical Condition Past Family Social History Allergies: Coded Allergies: No Known Allergies (Verified , 12/08/16) Reported Medications see MAR Active Ordered Medications see MAR Family History Unable to obtain secondary to patient's clinical condition of tachypnea and postoperative pain Social History Unable to obtain Physical Exam Vital Signs Vital Signs Date Time Temp Pulse Resp B/P (MAP) Pulse Ox O2 Delivery O2 Flow Rate FiO2 06/05/17 16:30 97.9 96 19 123/80 100 06/05/17 16:23 97.9 93 20 121/74 100 06/05/17 15:15 98.0 90 22 106/70 100 06/05/17 14:55 98.7 87 21 113/64 98 06/05/17 14:18 97 50 06/05/17 14:15 97.8 91 24 132/84 (100) 98 Bi-Pap 06/05/17 08:30 137 06/05/17 08:30 99.2 138 16 103/74 (84) 92 06/05/17 08:20 99.2 137 16 103/74 (84) 92 06/05/17 05:10 98.4 160 16 94/67 (76) 92 06/05/17 04:00 154 06/05/17 03:30 99.1 155 16 90/73 (79) 93 06/05/17 02:10 91/71 (78) 06/05/17 00:30 99.5 160 16 94/72 (79) 90 06/05/17 00:00 122 06/04/17 20:30 99.4 120 17 103/75 (84) 96 06/04/17 20:00 119 Physical Exam GENERAL: He is a cachectic Afro-[place] female in moderate distress SKIN: Warm and dry. HEAD: Atraumatic. Normocephalic. EYES: Pupils equal and round. No scleral icterus. No injection or drainage. ENT: No nasal bleeding or discharge. Mucous membranes pink and moist. NECK: Trachea midline. No JVD. CARDIOVASCULAR: Normal rate, regular rhythm. Telemetry sinus rhythm. Port noted right chest RESPIRATORY: No accessory muscle use. Clear to auscultation. Breath sounds equal bilaterally. GASTROINTESTINAL: Abdomen soft, non-tender, slight distension. No guarding. Ileostomy right lower quadrant pink, midline abdominal dressing C/D/I MUSCULOSKELETAL: Extremities without clubbing, cyanosis, or edema. No obvious deformities. NEUROLOGICAL: Awake and alert. RASS 0. No gross focal/sensory deficits. Follows commands in all 4 extremities. Laboratory Laboratory Tests Test 06/04/17 19:13 06/04/17 19:17 06/05/17 05:35 06/05/17 09:53 White Blood Count 18.2 17.1 Red Blood Count 3.18 2.85 Hemoglobin 7.3 6.7 Hematocrit 24.0 21.5 Mean Corpuscular Volume 75.4 75.3 Mean Corpuscular Hemoglobin 22.9 23.4 Mean Corpuscular Hemoglobin Concent 30.3 31.1 Red Cell Distribution Width 20.2 20.6 Platelet Count 194 176 Mean Platelet Volume 9.2 9.2 Neutrophils (%) (Auto) 83.9 84.2 Lymphocytes (%) (Auto) 5.1 6.0 Monocytes (%) (Auto) 10.5 9.5 Eosinophils (%) (Auto) 0.2 0.1 Basophils (%) (Auto) 0.3 0.2 Neutrophils # (Auto) 15.3 14.4 Lymphocytes # (Auto) 0.9 1.0 Monocytes # (Auto) 1.9 1.6 Eosinophils # (Auto) 0.0 0.0 Basophils # (Auto) 0.1 0.0 CBC Comment DIFF FINAL AUTO DIFF Differential Comment AUTO DIFF CONFIRMED Blood Urea Nitrogen 16 18 Creatinine 0.70 0.70 Random Glucose 111 159 Calcium Level 8.6 7.8 Phosphorus Level 2.0 Magnesium Level 1.9 Sodium Level 142 143 Potassium Level 2.8 3.7 Chloride Level 103 108 Carbon Dioxide Level 28.9 27.0 Anion Gap 10 8 Estimat Glomerular Filtration Rate 103 103 Lactic Acid Level 3.3 Prothrombin Time 11.4 Prothromb Time International Ratio 1.0 Test 06/05/17 15:40 Blood Gas Puncture Site RT BRACHIAL Blood Gas Patient Temperature 98.6 Blood Gas HCO3 20 Blood Gas Base Excess -4.3 Blood Gas Oxygen Saturation 89 Arterial Blood pH 7.35 Arterial Blood Partial Pressure CO2 38 Arterial Blood Partial Pressure O2 68 Arterial Blood Oxygen Content 15.4 Arterial Blood Carboxyhemoglobin 1.6 Arterial Blood Methemoglobin 1.2 Blood Gas Hemoglobin 12.4 Oxygen Delivery Device BiPAP Blood Gas Ventilator Setting IPAP10/EPAP+5 Blood Gas Inspired Oxygen 50 Date/Time Source Procedure Growth Status 06/05/17 10:00 Blood Peripheral Aerobic Blood Culture Pending Received 06/05/17 10:00 Blood Peripheral Anaerobic Blood Culture Pending Received 05/21/17 17:25 Urine Clean Catch Urine Culture - Final 50-100,000 CFU/ML MIXED GRAM POSITIVE... Complete Result Diagram: 06/05/17 0953 06/05/17 0953 Imaging Last Impressions Chest X-Ray 06/05/17 0000 Signed Impressions: Service Date/Time: Monday, June 05, 2017 14:59 - CONCLUSION: 1. Left IJ central line with tip in the brachiocephalic SVC junction. No pneumothorax. 2. Developing bilateral perihilar central airspace consolidation which may reflect pulmonary vascular congestion versus less likely aspiration given the acuity. Derek Robbins MD Abdomen X-Ray 05/25/17 0000 Signed Impressions: Service Date/Time: May 16:15 - CONCLUSION: 1. Air distention of small bowel loops in the midabdomen may be slightly improved. Diagnostic considerations include a hypodynamic ileus versus partial obstruction. 2. Stable position of the nasogastric tube, curled in the gastric fundus Mario Alberto Brumfield MD Small Bowel X-Ray 05/24/17 0000 Signed Impressions: Service Date/Time: Wednesday, May 24, 2017 11:55 - CONCLUSION: Continued continued disparity in proximal small bowel compared to distal. Site of obstruction is not identified. There is no complete obstruction. Garcia Grubbs MD FACR Abdomen/Pelvis CT 05/21/17 1800 Signed Impressions: Service Date/Time: Sunday, May 21, 2017 18:51 - CONCLUSION: 1. Liver and widespread peritoneal/omental/serosal metastatic disease. 2. Apparent early or partial distal small bowel obstruction. 3. Obstruction of the distal right ureter. 4. Clear lung bases. Estiven Boyd MD Septic Shock Reassessment Heart: Regular rate and rhythm Lungs: Clear Skin: Warm Peripheral Pulses: Bounding Right Radial Bounding Left Radial Capillary Refill: Brisk Caprini VTE Risk Assessment Caprini VTE Risk Assessment: Mod/High Risk (score >= 2) VTE Pharm Contraindication: Postop bleeding Caprini Risk Assessment Model Point Value = 1 Point Value = 2 Point Value = 3 Point Value = 5 Age 41-60 Minor surgery BMI > 25 kg/m2 Swollen legs Varicose veins or History of unexplained or recurrent spontaneous Oral contraceptives or hormone replacement Sepsis (< 1 month) Serious lung disease, including pneumonia (< 1 month) Abnormal pulmonary function Acute myocardial infarction Congestive heart failure (< 1 month) History of inflammatory bowel disease Medical patient at bed rest Age 61-74 Arthroscopic surgery Major open surgery (> 45 min) Laparoscopic surgery (> 45 min) Malignancy Confined to bed (> 72 hours) Immobilizing plaster cast Central venous access Age >= 75 History of VTE Family history of VTE Factor V Leiden Prothrombin [id number] Lupus anticoagulant Anticardiolipin antibodies Elevated serum homocysteine Heparin-induced thrombocytopenia Other congenital or acquired thrombophilia Stroke (< 1 month) Elective arthroplasty Hip, pelvis, or leg fracture Acute spinal cord injury (< 1 month) Prophylaxis Regimen Total Risk Factor Score Risk Level Prophylaxis Regimen 0-1 Low Early ambulation 2 Moderate Order ONE of the following: *Sequential Compression Device (SCD) *Heparin 5000 units SQ BID 3-4 Higher Order ONE of the following medications: *Heparin 5000 units SQ TID *Enoxaparin/Lovenox 40 mg SQ daily (WT < 150 kg, CrCl > 30 mL/min) *Enoxaparin/Lovenox 30 mg SQ daily (WT < 150 kg, CrCl > 10-29 mL/min) *Enoxaparin/Lovenox 30 mg SQ BID (WT < 150 kg, CrCl > 30 mL/min) AND/OR *Sequential Compression Device (SCD) 5 or more Highest Order ONE of the following medications: *Heparin 5000 units SQ TID (Preferred with Epidurals) *Enoxaparin/Lovenox 40 mg SQ daily (WT < 150 kg, CrCl > 30 mL/min) *Enoxaparin/Lovenox 30 mg SQ daily (WT < 150 kg, CrCl > 10-29 mL/min) *Enoxaparin/Lovenox 30 mg SQ BID (WT < 150 kg, CrCl > 30 mL/min) AND *Sequential Compression Device (SCD) Assessment and Plan Assessment and Plan Assessment This is a 61-year-old female with uterine cancer with metastatic disease. S/P emergent exploratory laparotomy with loop ileostomy for bowel obstruction. DNR rescinded for 24 hours per palliative care medicine team. Patient tachypneic at high risk for intubation. Admit to ICU. Assessment Uterine cancer with metastasis SBO S/P exploratory laparotomy with loop ileostomy Plan Plan by systems: Neurologic: Postoperative pain Ofirmev 1 g every 6 hours 24 hours Morphine for breakthrough pain Neurochecks per ICU protocol Respiratory: Respiratory insufficiency Maintain O2 sat greater than 92% Postop chest x-ray-clear,NAD Continue BiPAP increased to 15/5, FIO2 .50 Bronchodilators every 4 hours when necessary Obtain ABG Cardiovascular: A. fib RVR-resolved Hypotension-resolved Maintain MAP greater than 65mmHg Obtain EKG, telemetry sinus rhythm Renal: Maintain Yao -- Strict I/Os FEN/GI: Pain postop BMP Maintain NPO status Discontinue D5W 1/2 NS w/ 20 meq 100cc/hr Begin LR 100 cc/hour TPN 83cc/hr Lipids daily Heme/ID: Acute blood loss anemia Obtain postoperative CBC, posttransfusion 06/05 Patient transfused 3 units PRBCs Endocrine: Hyperglycemia of critical illness Glucose monitoring per ICU protocol, low dose regimen -- SSI Prophylaxis: GI Prophylaxis Zofran for nausea DVT Prophylaxis -- SCDs Pharmacological prophylaxis management per general surgery Lines: Peripheral IVs 2. Left IJ central line. Left radial A-line to be discontinued -malfunctioning Dispo: This patient remains critically ill with one or more organ systems which are or may become a threat to life. I have spent in excess of 50 minutes discontinuously in the care and management of this patient. This time is exclusive of procedures, and includes, but is not limited to, evaluation of the patient, review of the medical record, discussions with family, consultants, nursing staff, or respiratory therapy, and documentation in the medical record. Code Status FULL Discussed Condition With 102-Patient previously CODE STATUS DNR, rescinded for emergent surgery, for 24 hours. To be reinitiated at the 24-hour time. Patient has a high risk for intubation, explained risk and regarding DNR status via palliative care team. All questions answered. The patient remains a full code for [address] Douglas, Lucila Muse, patient and SHIPPING SUPPORT CLERK at bedside Problem Qualifiers (1) Uterine cancer: Qualified Codes: C55 - Malignant neoplasm of uterus, part unspecified Kayla Braswell MD Jun 05, 2017 17:18
--- NOTE | 2017-06-05 17:19 | HHI.HCPN ---
Spoke with Dr. Braswell regarding request for Palliative care to see patient urgently as she is on BiPAP in PACU post laparotomy with loop ileostomy. Called to speak with Dr. Arcos, he feels patient is in post op window of time and should be reintubated if needed. ANDREW Powell and I went to speak with patient. She agrees to reintubation if needed. She again indicates she does not want to be kept alive by machines and would want us to speak with her mother and sister if unable to be weaned from vent. Code status changed to FULL CODE for now. Will readdress 06/06/17. PACU nurse witnessed conversation. Dr. Pickard and Dr. Braswell notified. Palliative care will continue to follow to assist with clarification of treatment goals in the coming days as clinical course evolves. . Verena Dorsey Jun 05, 2017 17:19
--- NOTE | 2017-06-05 19:23 | EKG ---
Date Performed: 06/05/2017 Time Performed: 06:13:28 PTAGE: 61 years EKG: ATRIAL FIBRILLATION WITH RAPID VENTRICULAR RESPONSE RIGHT BUNDLE BRANCH BLOCK ABNORMAL ECG PREVIOUS TRACING : 06/03/2017 16.28 compared to the previous EKG atrial fibrillation with rapi d ventricular responses new DOCTOR: Karthik Pozo Interpretating Date/Time 06/05/2017 19:21:01
[2017-06-05] MEDS: [UNRECOGNIZED DRUG - OTHER] IV-CENTRAL SCH ×10 (19:53)
[2017-06-05] MEDS: SODIUM CHLORIDE IV-CENTRAL SCH ×10 (19:53)
[2017-06-05] MEDS: SODIUM ACETATE IV-CENTRAL SCH ×10 (19:53)
[2017-06-05] MEDS: METOPROLOL TARTRATE 25 MG TAB PO SCH (20:01)
[2017-06-05] MEDS: FAMOTIDINE 20 MG/2 ML VIAL IV PUSH SCH (20:01)
[2017-06-05] MEDS: INSULIN ASPART SUPPLEMENTAL SCALE SQ SCH (21:00)
[2017-06-05] MEDS ORDERED: DOCUSATE SODIUM 50 MG/SENNA 8.6 MG TAB PO SCH (21:00)
[2017-06-05] MEDS: FAT EMULSION 20% INJ 250 ML (Daily over 8 hours) IV-CENTRAL SCH (21:22)
[2017-06-05] MEDS: SODIUM CHLORIDE 0.9% FLUSH 10 ML FLUSH IV FLUSH SCH (22:42)
[2017-06-05 22:50] LABS: HEMATOCRIT 37.2 % (35.0-46.0); MEAN CELL VOLUME 79.1 FL (80.0-100.0); MEAN CORPUSCULAR HEMOGLOBIN 26.3 PG (27.0-34.0); MEAN CORPUSCULAR HGB CONC 33.2 % (32.0-36.0); PLATELET COUNT 172 TH/MM3 (150-450); RED CELL DISTRIBUTION WIDTH 19.7 % (11.6-17.2); REVIEW FLAG FINAL; WHITE BLOOD COUNT 17.4 TH/MM3 (4.0-11.0)
[2017-06-05 22:56] LABS: BLOOD, URINE MOD (NEG); COMMENT (UR) CULTURE INDICATED; CULTURE IF INDICATED CULTURE INDICATED; GLUCOSE,URINE 70 mg/dL (NEG); KETONE, URINE NEG (NEG); MUCUS URINE FEW /lpf (OCC); NITRITE,URINE NEG (NEG); SQUAMOUS EPITHELIAL CELL URINE <1 /hpf (0-5); URINE COLOR YELLOW (YELLW/STRAW)
[2017-06-05 23:18] LABS: BICARBONATE 23.1 MEQ/L (21.0-32.0); MAGNESIUM 1.8 MG/DL (1.5-2.5); POTASSIUM 4.2 MEQ/L (3.5-5.1)
[2017-06-05] MEDS: oxyCODONE/ACETAMINOPHEN 10 MG/325 MG TAB PO PRN (23:41)
[2017-06-06] VITALS (13 sets, daily range): BP systolic 120–133; BP diastolic 74–90; PULSE 105–120; RESP 16–26; TEMP 97.6–98.8; O2SAT 92–98
[2017-06-06] MEDS: LORazepam 2 MG/ML VIAL IV PRN (01:46)
[2017-06-06] MEDS: MORPHINE SULFATE 4 MG/ML INJ IV PUSH PRN ×5 (01:46→23:59)
[2017-06-06] MEDS: CHLORHEXIDINE GLUCONATE 2 % 1 PACK (2 CLOTHS) TOP SCH (03:36)
[2017-06-06] MEDS: LACTATED RINGER'S 1000 ML INJ 1,000 ML IV SCH ×2 (03:36→12:27)
[2017-06-06 04:10] LABS: HEMATOCRIT 35.1 % (35.0-46.0); MEAN CELL VOLUME 78.9 FL (80.0-100.0); MEAN CORPUSCULAR HEMOGLOBIN 26.6 PG (27.0-34.0); MEAN CORPUSCULAR HGB CONC 33.7 % (32.0-36.0); PLATELET COUNT 151 TH/MM3 (150-450); RED BLOOD COUNT 4.45 MIL/MM3 (4.00-5.30); RED CELL DISTRIBUTION WIDTH 19.8 % (11.6-17.2); REVIEW FLAG FINAL
[2017-06-06 04:43] LABS: BICARBONATE 24.6 MEQ/L (21.0-32.0); MAGNESIUM 1.7 MG/DL (1.5-2.5)
--- NOTE | 2017-06-06 05:15 | RADRPT ---
EXAM DATE/TIME: 06/06/2017 03:37 [facility] COMPARISON: CHEST SINGLE AP, June 05, 2017, 14:59. INDICATIONS : Respiratory distress. MEDICAL HISTORY : uterine/ovarian carcinoma SURGICAL HISTORY : Hysterectomy. Port placement. ENCOUNTER: Subsequent ACUITY: 2 days PAIN SCORE: Non-responsive. LOCATION: Bilateral chest FINDINGS: Diffuse hazy infiltrate persists on the right without significant change. Basilar and suprahilar cons olidation on the left slightly improved. No large effusion seen. No pneumothorax. Heart size stable, upper limits of normal. There is a right internal jugular [id number] catheter with tip in the superior vena cava and a lef t internal jugular central venous catheter with tip at the junction of the superior vena cava with th e left brachiocephalic vein. CONCLUSION: Bilateral airspace disease, unchanged on the right and slightly improved on the left. Estiven Boyd MD on June 06, 2017 at 5:12 Board Certified Radiologist. This report was verified electronically.
[2017-06-06] MEDS: PIPERACIL-TAZO 3.375 GM PREMIX 50 ML IV SCH ×4 (05:52→23:59)
[2017-06-06] MEDS: oxyCODONE/ACETAMINOPHEN 10 MG/325 MG TAB PO PRN ×2 (06:09→15:04)
[2017-06-06] MEDS: INSULIN ASPART SUPPLEMENTAL SCALE SQ SCH ×4 (08:00→21:33)
--- NOTE | 2017-06-06 08:11 | EKG ---
Date Performed: 06/05/2017 Time Performed: 17:48:07 PTAGE: 61 years EKG: Sinus rhythm WITH OCCASIONAL SUPRAVENTRICULAR PREMATURE COMPLEXES RIGHT BUNDLE BRANCH BLOCK ABNORMAL ECG Compared to prior tracing no significant change PREVIOUS TRACING : 06/05/2017 06.13 DOCTOR: Mya Still Interpretating Date/Time 06/06/2017 08:10:13
--- NOTE | 2017-06-06 10:00 | HHI.PR ---
Subjective Subjective Notes Shortness of breath while talking Off BiPAP Pain tolerated Objective Vitals/I&O Vital Signs Date Time Temp Pulse Resp B/P (MAP) Pulse Ox O2 Delivery O2 Flow Rate FiO2 06/06/17 06:00 111 06/06/17 04:00 98.8 26 129/90 (103) 95 06/05/17 18:35 35 06/05/17 18:15 Bi-Pap Labs Laboratory Tests Test 06/05/17 09:53 06/05/17 15:40 06/05/17 18:45 06/05/17 22:00 White Blood Count 17.1 17.4 Red Blood Count 2.85 4.70 Hemoglobin 6.7 12.4 Hematocrit 21.5 37.2 Mean Corpuscular Volume 75.3 79.1 Mean Corpuscular Hemoglobin 23.4 26.3 Mean Corpuscular Hemoglobin Concent 31.1 33.2 Red Cell Distribution Width 20.6 19.7 Platelet Count 176 172 Mean Platelet Volume 9.2 10.1 Neutrophils (%) (Auto) 84.2 Lymphocytes (%) (Auto) 6.0 Monocytes (%) (Auto) 9.5 Eosinophils (%) (Auto) 0.1 Basophils (%) (Auto) 0.2 Neutrophils # (Auto) 14.4 Lymphocytes # (Auto) 1.0 Monocytes # (Auto) 1.6 Eosinophils # (Auto) 0.0 Basophils # (Auto) 0.0 CBC Comment AUTO DIFF Differential Comment AUTO DIFF CONFIRMED Prothrombin Time 11.4 Prothromb Time International Ratio 1.0 Blood Urea Nitrogen 18 19 Creatinine 0.70 0.78 Random Glucose 159 201 Calcium Level 7.8 7.5 Sodium Level 143 142 Potassium Level 3.7 4.2 Chloride Level 108 109 Carbon Dioxide Level 27.0 23.1 Anion Gap 8 10 Estimat Glomerular Filtration Rate 103 91 Blood Gas Puncture Site RT BRACHIAL Blood Gas Patient Temperature 98.6 Blood Gas HCO3 20 Blood Gas Base Excess -4.3 Blood Gas Oxygen Saturation 89 Arterial Blood pH 7.35 Arterial Blood Partial Pressure CO2 38 Arterial Blood Partial Pressure O2 68 Arterial Blood Oxygen Content 15.4 Arterial Blood Carboxyhemoglobin 1.6 Arterial Blood Methemoglobin 1.2 Blood Gas Hemoglobin 12.4 Oxygen Delivery Device BiPAP Blood Gas Ventilator Setting IPAP10/EPAP+5 Blood Gas Inspired Oxygen 50 Nasal Screen MRSA (PCR) MRSA NOT DETECTED Urine Color YELLOW Urine Turbidity HAZY Urine pH 6.0 Urine Specific Maxwell 1.025 Urine Protein 30 Urine Glucose (UA) 70 Urine Ketones NEG Urine Occult Blood MOD Urine Nitrite NEG Urine Bilirubin NEG Urine Urobilinogen 2.0 Urine Leukocyte Esterase LARGE Urine RBC 6 Urine WBC 43 Urine WBC Clumps RARE Urine Squamous Epithelial Cells <1 Urine Mucus FEW Microscopic Urinalysis Comment CULTURE INDICATED Phosphorus Level 3.3 Magnesium Level 1.8 Test 06/06/17 04:00 White Blood Count 17.0 Red Blood Count 4.45 Hemoglobin 11.9 Hematocrit 35.1 Mean Corpuscular Volume 78.9 Mean Corpuscular Hemoglobin 26.6 Mean Corpuscular Hemoglobin Concent 33.7 Red Cell Distribution Width 19.8 Platelet Count 151 Mean Platelet Volume 9.2 Blood Urea Nitrogen 19 Creatinine 0.86 Random Glucose 218 Calcium Level 7.5 Phosphorus Level 2.6 Magnesium Level 1.7 Sodium Level 141 Potassium Level 4.0 Chloride Level 107 Carbon Dioxide Level 24.6 Anion Gap 9 Estimat Glomerular Filtration Rate 81 Date/Time Source Procedure Growth Status 06/05/17 10:00 Blood Peripheral Aerobic Blood Culture Pending Received 06/05/17 10:00 Blood Peripheral Anaerobic Blood Culture Pending Received 06/05/17 22:00 Urine Random Urine Urine Culture Pending Received Radiology Last Impressions Abdomen X-Ray 05/25/17 0000 Signed Impressions: Service Date/Time: May 16:15 - CONCLUSION: 1. Air distention of small bowel loops in the midabdomen may be slightly improved. Diagnostic considerations include a hypodynamic ileus versus partial obstruction. 2. Stable position of the nasogastric tube, curled in the gastric fundus Mario Alberto Brumfield MD Small Bowel X-Ray 05/24/17 0000 Signed Impressions: Service Date/Time: Wednesday, May 24, 2017 11:55 - CONCLUSION: Continued continued disparity in proximal small bowel compared to distal. Site of obstruction is not identified. There is no complete obstruction. Garcia Grubbs MD FACR Abdomen/Pelvis CT 05/21/17 1800 Signed Impressions: Service Date/Time: Sunday, May 21, 2017 18:51 - CONCLUSION: 1. Liver and widespread peritoneal/omental/serosal metastatic disease. 2. Apparent early or partial distal small bowel obstruction. 3. Obstruction of the distal right ureter. 4. Clear lung bases. 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 I reviewed and agree with the findings presented. I attest that I had a [id number] encounter with the patient on the same day, and personally performed and documented my assessment and findings in the medical record. Yumiko Bolaños Jun 06, 2017 10:00 Octaviano Arcos MD Jun 09, 2017 15:39
--- NOTE | 2017-06-06 10:20 | HHI.CCPN ---
Subjective Remarks/Hospital Course This is a 61-year-old female with a PMH of Metastatic Uterine CA following with Dr. Saravia who presented to the ER w/ complaints of abdominal pain, nausea and vomiting and was admitted. CT Abd/Pelvis w/ liver and widespread peritoneal/ omental/serosal metastatic disease, early or partial small bowel obstruction, obstruction of distal right ureter. The patient per report has been refusing surgical intervention for bowel obstruction. Today the patient was noted to have A. fib with RVR, hypotension and severe anemia with a hemoglobin of 6.8 and emergently went to the OR for exploratory laparotomy, for bowel obstruction. In PACU the patient was noted to be tachypneic, and initially hypotensive. Critical care medicine was consulted for management. Upon my arrival to the PACU respiratory rate was 30 on BiPAP 07/09, patient able to speak without respiratory difficulty. Arterial line malfunctioning, BP cuff pressure 117/73->126/75. Patient was receiving third unit of PRBCs. The patient was noted to be in sinus rhythm. Subjective: 06/06: The patient was weaned to nasal cannula at 3 L at approximately 3 AM. O2 saturation 97%. Patient awake and alert pain well controlled, in no acute distress. Objective Vital Signs Date Time Temp Pulse Resp B/P (MAP) Pulse Ox O2 Delivery O2 Flow Rate FiO2 06/06/17 06:00 111 06/06/17 04:00 98.8 26 129/90 (103) 95 06/05/17 18:35 35 06/05/17 18:15 Bi-Pap Intake and Output 06/06/17 06/06/17 06/07/17 08:00 16:00 00:00 Intake Total 1344 ml Output Total 905 ml Balance 439 ml Result Diagram: 06/06/17 0400 06/06/17 0400 Other Results Laboratory Tests Test 06/05/17 15:40 Blood Gas Puncture Site RT BRACHIAL Blood Gas Patient Temperature 98.6 Blood Gas HCO3 20 mmol/L (22-26) Blood Gas Base Excess -4.3 mmol/L (-2-2) Blood Gas Oxygen Saturation 89 % (90-100) Arterial Blood pH 7.35 (7.380-7.420) Arterial Blood Partial Pressure CO2 38 mmHg (38-42) Arterial Blood Partial Pressure O2 68 mmHg (61-120) Arterial Blood Oxygen Content 15.4 Vol % (12.0-20.0) Arterial Blood Carboxyhemoglobin 1.6 % (0-4) Arterial Blood Methemoglobin 1.2 % (0-2) Blood Gas Hemoglobin 12.4 G/DL (12.0-16.0) Oxygen Delivery Device BiPAP Blood Gas Ventilator Setting IPAP10/EPAP+5 Blood Gas Inspired Oxygen 50 % Imaging Last Impressions Chest X-Ray 06/05/17 0000 Signed Impressions: Service Date/Time: Monday, June 05, 2017 14:59 - CONCLUSION: 1. Left IJ central line with tip in the brachiocephalic SVC junction. No pneumothorax. 2. Developing bilateral perihilar central airspace consolidation which may reflect pulmonary vascular congestion versus less likely aspiration given the acuity. Derek Robbins MD Abdomen X-Ray 05/25/17 0000 Signed Impressions: Service Date/Time: May 16:15 - CONCLUSION: 1. Air distention of small bowel loops in the midabdomen may be slightly improved. Diagnostic considerations include a hypodynamic ileus versus partial obstruction. 2. Stable position of the nasogastric tube, curled in the gastric fundus Mario Alberto Brumfield MD Small Bowel X-Ray 05/24/17 0000 Signed Impressions: Service Date/Time: Wednesday, May 24, 2017 11:55 - CONCLUSION: Continued continued disparity in proximal small bowel compared to distal. Site of obstruction is not identified. There is no complete obstruction. Garcia Grubbs MD FACR Abdomen/Pelvis CT 05/21/17 1800 Signed Impressions: Service Date/Time: Sunday, May 21, 2017 18:51 - CONCLUSION: 1. Liver and widespread peritoneal/omental/serosal metastatic disease. 2. Apparent early or partial distal small bowel obstruction. 3. Obstruction of the distal right ureter. 4. Clear lung bases. Estiven Boyd MD Objective Remarks GENERAL: He is a cachectic [place]ro[place] female on nasal cannula pleasantly conversant SKIN: Warm and dry. HEAD: Atraumatic. Normocephalic. EYES: Pupils equal and round. No scleral icterus. No injection or drainage. ENT: No nasal bleeding or discharge. Mucous membranes pink and moist. NECK: Trachea midline. No JVD. CARDIOVASCULAR: Normal rate, regular rhythm. Telemetry sinus rhythm. Port noted right chest RESPIRATORY: No accessory muscle use. Clear to auscultation. Breath sounds equal bilaterally. GASTROINTESTINAL: Abdomen soft, non-tender, slight distension. No guarding. Ileostomy ,right lower quadrant pink, midline abdominal dressing C/D/I, approximately 300 cc of fluid/succus overnight MUSCULOSKELETAL: Extremities without clubbing, cyanosis, or edema. No obvious deformities. NEUROLOGICAL: Awake and alert. RASS 0. No gross focal/sensory deficits. Follows commands in all 4 extremities. Procedures None. A/P Assessment and Plan Assessment This is a 61-year-old female with uterine cancer with metastatic disease. S/P emergent exploratory laparotomy with loop ileostomy for bowel obstruction. DNR rescinded for 24 hours per palliative care medicine team. Patient tachypneic at high risk for intubation. Admit to ICU. Assessment Uterine cancer with metastasis SBO S/P exploratory laparotomy with loop ileostomy Plan Neurologic: Postoperative pain Ofirmev 1 g every 6 hours 24 hours Morphine for breakthrough pain Neurochecks per ICU protocol Respiratory: Respiratory insufficiency-resolved Maintain O2 sat greater than 92% Postop chest x-ray-clear,NAD Continue BiPAP increased to 15/5, FIO2 .50 Bronchodilators every 4 hours when necessary Obtain ABG Cardiovascular: A. fib RVR-resolved Hypotension-resolved Maintain MAP greater than 65mmHg Obtain EKG, telemetry sinus rhythm Renal: Maintain Yao -- Strict I/Os FEN/GI: Pain postop BMP Maintain NPO status Discontinue D5W 1/2 NS w/ 20 meq 100cc/hr Begin LR 100 cc/hour TPN 83cc/hr Lipids daily Heme/ID: Acute blood loss anemia-resolved Hemoglobin stable 10/2 Patient transfused 3 units PRBCs Endocrine: Hyperglycemia of critical illness Glucose monitoring per ICU protocol, low dose regimen -- SSI Prophylaxis: GI Prophylaxis Zofran for nausea DVT Prophylaxis -- SCDs Pharmacological prophylaxis management per general surgery Lines: Peripheral IVs 2. Left IJ central line. Right chest port Dispo: Discussed with Dr. Arango, plan for reinitiation of DNR at 1400 today. Plan transfer to oncology Med Surg floor today. Thank you for line participation in the care of this patient, critical care will sign off. Level 2 Physician Kayla Mariscal MD Jun 06, 2017 10:20
[2017-06-06] MEDS: METOPROLOL TARTRATE 25 MG TAB PO SCH ×2 (10:31→21:31)
[2017-06-06] MEDS: FAMOTIDINE 20 MG/2 ML VIAL IV PUSH SCH ×2 (10:31→21:32)
[2017-06-06] MEDS: SODIUM CHLORIDE 0.9% FLUSH 10 ML FLUSH IV FLUSH SCH ×2 (10:32→21:33)
--- NOTE | 2017-06-06 10:45 | MP ---
cc: SHERMAN ARCOS MD DATE OF SURGERY: 06/05/2017 PREOPERATIVE DIAGNOSIS: An acute abdomen or malignant bowel obstruction. POSTOPERATIVE DIAGNOSIS An acute abdomen or malignant bowel obstruction. PROCEDURE PERFORMED 1. Diagnostic laparoscopy 2. Lysis of adhesions. 3. Open exploratory laparotomy 4. Diverting loop ileostomy. SURGEON Dr. Sherman Arcos 911 EMERGENCY SERVICES DISPATCHER: OR sheet ANESTHESIA GETA IV fluids 2200 CC ESTIMATED BLOOD LOSS: 150 cc. DRAINS: None. COMPLICATIONS None. WOUND CLASSIFICATION: Wound contaminated. SPECIMENS: Omental biopsies of tumor, peritoneal biopsies of tumor. INDICATION The patient is a 61-year-old female with history of metastatic uterine cancer, status post hysterectomy. The patient developed recurrence of disease and significant stage IV metastatic disease. She came in with no nausea, vomiting and size of obstruction, first we attempted nonoperative management. The patient initially declined any sort of surgical intervention and was wishing to be seen only with attempted medical management. Also consideration for hospice and palliative care. The patient did not fully commit to hospice yet though. The patient was also made a Do not intubate, do not resuscitate, however, the patient declined and clinically she was tachycardiac in the 150s with a leukocytosis and concern with the increased abdominal pain. Therefore decision made for emergent operative intervention. DETAILS OF PROCEDURE: The patient was taken to the operating room, placed in supine position. She was prepped and draped in usual sterile fashion after induction of general trache anesthesia. Brief time-out done stating correct patient, procedure, surgical site we all agreed with this. Attention directed to the left upper quadrant where stab channing incision was made with a 15 blade. Abdomen insufflated to 15 mm pneumoperitoneum with a Veress needle. The Veress needle exchanged for an 5 mm Optiview port and under closer inspection there was no evidence of injury. Upon examination there is noted be multiple perineal implants multiple adhesions. Bowel was significantly dilated. No evidence of free perforation or succus in the abdomen. Again there was a very dilated bowel. At this point decision was made for conversion into exploratory laparotomy. Pneumoperitoneum was removed. The port was removed. The incision made midline with a 15 blade. Further dissection electro Bovie cautery. Brea retractor placed for self retraction. The abdomen was irrigated. The small bowel was run from the ligament of Treitz all the way down to the point of obstruction. There is at least 160 cm noted of proximal bowel. The obstruction was noted primarily in the left lower quadrant. However, trace past midline to the right lower quadrant with some loops of bowel adherent down distally. The colon was noted to be somewhat decompressed as well. After removal of the omental implants and resecting some adhesions and lysing the adhesions in order to free up some the bowel and mobilized this. Decision was then made for a loop ileostomy. A place in the right lower quadrant was identified trocar was grasped. The skin is incised in a circular manner. Further dissection noted the electro Bovie cautery down to the fascia and to the peritoneum. Cruciate incision made two fingers, fit freely in between these. A point of the bowel was grasped that was proximal to the distal obstruction and brought through the incision. The incision was made in the antimesenteric of the bowel. This was done in order to decompress the bowel completely due to significant dilation. Once this was done [place] placed, gloves were changed and we commenced for irrigation of the abdomen. Hemostasis obtained with electro Bovie cautery and closure of the abdomen. Closure was done with #1 looped PDS x2 in a running fashion. Patrick in place. The direction then toward the ileostomy. This was matured in usual sterile fashion. It was responded on to the skin with 3-0 Vicryl sutures. A plastic spacer was placed in between the mesentery as well. Interdigitation noted patent ileostomy, ostomy bag placed, sterile dressings placed. The patient tolerated procedure well was no intraoperative complication. The patient was extubated, taken to the PACU. All lap and instrument counts were then correct at the end of procedure. MD ALEXIS Rodriguez/andres /9:13 PM /9:22 AM TONE
--- NOTE | 2017-06-06 10:46 | HHI.HCPN ---
Reason for visit a. To assist with evaluation and management of symptoms including: nausea, pain, malnutrition b. To assist medical decision maker(s) with: better understanding of current medical conditions; weighing benefits/burdens of medical treatment options; making medical treatment decisions. . (Lucila Muse) Subjective/Interval History Patient examined in [facility] today, post op day 1 exploratory laparotomy with loop ileostomy. Patient was transferred to [facility] following surgery yesterday due to respiratory distress, patient is breathing comfortably on 3L NC this morning. Patient will be transferred out of [facility] to medical/oncology. Patient states she has some post operative discomfort, morphine 2mg q 3 hours 5 doses utilized in the past 24 hours, percocet 10/325 q 6 hours ordered 2 doses utilized in the past 24 hours. Patient endorses although she is experiencing some discomfort her abdomen feels less distended and she is more comfortable than before. Family/friend interactions Telephone conversation with patient's sister Jessenia. Family coming in from [place], [place] tomorrow, plan to have family meeting tomorrow around 1400. . (Lucila Muse) Advance Directives Living Will: Never completed Health Care Surrogate: Copy in medical record (Lucila Muse) Advance Directive Specifics Date completed: 05/25/17. . Health Care Surrogate(s): Jake Ludy (mother) Alternate [facility] Jessenia Ludy (sister) . (Lucila Muse) Objective Vital Signs Date Time Temp Pulse Resp B/P (MAP) Pulse Ox O2 Delivery O2 Flow Rate FiO2 06/06/17 06:00 111 06/06/17 04:00 110 06/06/17 04:00 98.8 108 26 129/90 (103) 95 06/06/17 02:00 106 06/06/17 00:00 98.6 108 26 133/79 (97) 94 06/06/17 00:00 108 06/05/17 22:00 109 06/05/17 20:00 108 06/05/17 20:00 98.1 108 34 135/86 (102) 98 06/05/17 18:35 100 35 06/05/17 18:15 98.2 100 18 121/83 (96) 98 Bi-Pap 50 06/05/17 18:00 100 18 121/86 (98) 98 Bi-Pap 50 06/05/17 17:30 97 18 121/86 (98) 99 Bi-Pap 50 06/05/17 17:00 96 18 122/84 (97) 99 Bi-Pap 50 06/05/17 16:45 97 18 122/85 (97) 99 Bi-Pap 50 06/05/17 16:45 97.8 97 21 122/85 99 06/05/17 16:30 97.9 96 19 123/80 100 06/05/17 16:30 95 18 123/80 (94) 99 Bi-Pap 50 06/05/17 16:23 97.9 93 20 121/74 100 06/05/17 16:00 92 18 120/75 (90) 100 Bi-Pap 50 06/05/17 15:45 95 18 117/73 (88) 99 Bi-Pap 50 06/05/17 15:30 94 18 110/72 (85) 99 Bi-Pap 50 06/05/17 15:15 93 18 106/70 (82) 100 Bi-Pap 50 06/05/17 15:15 98.0 90 22 106/70 100 06/05/17 15:00 91 18 104/69 (81) 99 Bi-Pap 50 06/05/17 14:55 98.7 87 21 113/64 98 06/05/17 14:45 88 19 108/68 (81) 98 Bi-Pap 50 06/05/17 14:30 89 20 119/63 (81) 98 Bi-Pap 50 06/05/17 14:18 97 50 06/05/17 14:15 97.8 91 24 132/84 (100) 98 Bi-Pap Intake & Output 06/06/17 06/06/17 07:00 19:00 Intake Total 3855 ml Output Total 905 ml Balance 2950 ml Intake Oral 60 ml IV Total 3270 ml Packed Cells 400 ml Blood Product IV Normal Saline Flush 125 ml Output Urine Total 600 ml Stool Total 305 ml . Physical Exam CONSTITUTIONAL/GENERAL: This is a thin, frail female patient, very pleasant, in no apparent distress. TUBES/LINES/DRAINS: CVL LIJ, Right subclavian port accessed SKIN: No jaundice, rashes, or lesions. No wounds seen anteriorly. Skin temperature appropriate. Not diaphoretic. EYES: Pupils equal and round and reactive. Extraocular motions intact. No scleral icterus. No injection or drainage. Fundi not examined. CARDIOVASCULAR: Regular rate and rhythm without murmurs, gallops, or rubs. No JVD. Peripheral pulses symmetric. RESPIRATORY/CHEST: Symmetric, unlabored respirations. Clear to auscultation. Breath sounds equal bilaterally. No wheezes, rales, or rhonchi. GASTROINTESTINAL: Abdomen soft, tender. Light palpitation secondary to tenderness. ileostomy with dark pink stoma. Bowel sounds hypoactive. MUSCULOSKELETAL: Extremities without clubbing, cyanosis, or edema. No mottling or clubbing. NEUROLOGICAL: Drowsy. Motor and sensory grossly within normal limits. Follows commands. Cognitively sharp. Moves all extremities. PSYCHIATRIC: No obvious anxiety/depression. no apparent hallucinations or other psychotic thought process. . (Almaz,Lucila MORALES) Diagnostic Tests Laboratory Laboratory Tests Test 06/03/17 18:00 06/04/17 19:13 06/04/17 19:17 06/05/17 05:35 Blood Urea Nitrogen 16 MG/DL (7-18) 16 MG/DL (7-18) Creatinine 0.72 MG/DL (0.50-1.00) 0.70 MG/DL (0.50-1.00) Random Glucose 108 MG/DL (74-106) 111 MG/DL (74-106) Calcium Level 9.2 MG/DL (8.5-10.1) 8.6 MG/DL (8.5-10.1) Sodium Level 142 MEQ/L (136-145) 142 MEQ/L (136-145) Potassium Level 3.2 MEQ/L (3.5-5.1) 2.8 MEQ/L (3.5-5.1) Chloride Level 101 MEQ/L (98-107) 103 MEQ/L (98-107) Carbon Dioxide Level 30.6 MEQ/L (21.0-32.0) 28.9 MEQ/L (21.0-32.0) Anion Gap 10 MEQ/L (5-15) 10 MEQ/L (5-15) Estimat Glomerular Filtration Rate 100 ML/MIN (>89) 103 ML/MIN (>89) White Blood Count 18.2 TH/MM3 (4.0-11.0) Red Blood Count 3.18 MIL/MM3 (4.00-5.30) Hemoglobin 7.3 GM/DL (11.6-15.3) Hematocrit 24.0 % (35.0-46.0) Mean Corpuscular Volume 75.4 FL (80.0-100.0) Mean Corpuscular Hemoglobin 22.9 PG (27.0-34.0) Mean Corpuscular Hemoglobin Concent 30.3 % (32.0-36.0) Red Cell Distribution Width 20.2 % (11.6-17.2) Platelet Count 194 TH/MM3 (150-450) Mean Platelet Volume 9.2 FL (7.0-11.0) Neutrophils (%) (Auto) 83.9 % (16.0-70.0) Lymphocytes (%) (Auto) 5.1 % (9.0-44.0) Monocytes (%) (Auto) 10.5 % (0.0-8.0) Eosinophils (%) (Auto) 0.2 % (0.0-4.0) Basophils (%) (Auto) 0.3 % (0.0-2.0) Neutrophils # (Auto) 15.3 TH/MM3 (1.8-7.7) Lymphocytes # (Auto) 0.9 TH/MM3 (1.0-4.8) Monocytes # (Auto) 1.9 TH/MM3 (0-0.9) Eosinophils # (Auto) 0.0 TH/MM3 (0-0.4) Basophils # (Auto) 0.1 TH/MM3 (0-0.2) CBC Comment DIFF FINAL Differential Comment Phosphorus Level 2.0 MG/DL (2.5-4.9) Magnesium Level 1.9 MG/DL (1.5-2.5) Lactic Acid Level 3.3 mmol/L (0.4-2.0) Test 06/05/17 09:53 06/05/17 15:40 06/05/17 18:45 06/05/17 22:00 White Blood Count 17.1 TH/MM3 (4.0-11.0) 17.4 TH/MM3 (4.0-11.0) Red Blood Count 2.85 MIL/MM3 (4.00-5.30) 4.70 MIL/MM3 (4.00-5.30) Hemoglobin 6.7 GM/DL (11.6-15.3) 12.4 GM/DL (11.6-15.3) Hematocrit 21.5 % (35.0-46.0) 37.2 % (35.0-46.0) Mean Corpuscular Volume 75.3 FL (80.0-100.0) 79.1 FL (80.0-100.0) Mean Corpuscular Hemoglobin 23.4 PG (27.0-34.0) 26.3 PG (27.0-34.0) Mean Corpuscular Hemoglobin Concent 31.1 % (32.0-36.0) 33.2 % (32.0-36.0) Red Cell Distribution Width 20.6 % (11.6-17.2) 19.7 % (11.6-17.2) Platelet Count 176 TH/MM3 (150-450) 172 TH/MM3 (150-450) Mean Platelet Volume 9.2 FL (7.0-11.0) 10.1 FL (7.0-11.0) Neutrophils (%) (Auto) 84.2 % (16.0-70.0) Lymphocytes (%) (Auto) 6.0 % (9.0-44.0) Monocytes (%) (Auto) 9.5 % (0.0-8.0) Eosinophils (%) (Auto) 0.1 % (0.0-4.0) Basophils (%) (Auto) 0.2 % (0.0-2.0) Neutrophils # (Auto) 14.4 TH/MM3 (1.8-7.7) Lymphocytes # (Auto) 1.0 TH/MM3 (1.0-4.8) Monocytes # (Auto) 1.6 TH/MM3 (0-0.9) Eosinophils # (Auto) 0.0 TH/MM3 (0-0.4) Basophils # (Auto) 0.0 TH/MM3 (0-0.2) CBC Comment AUTO DIFF Differential Comment AUTO DIFF CONFIRMED Prothrombin Time 11.4 SEC (9.8-11.6) Prothromb Time International Ratio 1.0 RATIO Blood Urea Nitrogen 18 MG/DL (7-18) 19 MG/DL (7-18) Creatinine 0.70 MG/DL (0.50-1.00) 0.78 MG/DL (0.50-1.00) Random Glucose 159 MG/DL (74-106) 201 MG/DL (74-106) Calcium Level 7.8 MG/DL (8.5-10.1) 7.5 MG/DL (8.5-10.1) Sodium Level 143 MEQ/L (136-145) 142 MEQ/L (136-145) Potassium Level 3.7 MEQ/L (3.5-5.1) 4.2 MEQ/L (3.5-5.1) Chloride Level 108 MEQ/L (98-107) 109 MEQ/L (98-107) Carbon Dioxide Level 27.0 MEQ/L (21.0-32.0) 23.1 MEQ/L (21.0-32.0) Anion Gap 8 MEQ/L (5-15) 10 MEQ/L (5-15) Estimat Glomerular Filtration Rate 103 ML/MIN (>89) 91 ML/MIN (>89) Blood Gas Puncture Site RT BRACHIAL Blood Gas Patient Temperature 98.6 Blood Gas HCO3 20 mmol/L (22-26) Blood Gas Base Excess -4.3 mmol/L (-2-2) Blood Gas Oxygen Saturation 89 % (90-100) Arterial Blood pH 7.35 (7.380-7.420) Arterial Blood Partial Pressure CO2 38 mmHg (38-42) Arterial Blood Partial Pressure O2 68 mmHg (61-120) Arterial Blood Oxygen Content 15.4 Vol % (12.0-20.0) Arterial Blood Carboxyhemoglobin 1.6 % (0-4) Arterial Blood Methemoglobin 1.2 % (0-2) Blood Gas Hemoglobin 12.4 G/DL (12.0-16.0) Oxygen Delivery Device BiPAP Blood Gas Ventilator Setting IPAP10/EPAP+5 Blood Gas Inspired Oxygen 50 % Nasal Screen MRSA (PCR) MRSA NOT DETECTED (NOT Urine Color YELLOW (YELLW/STRAW) Urine Turbidity HAZY (CLEAR) Urine pH 6.0 (5.0-8.5) Urine Specific [place] 1.025 (1.002-1.035) Urine Protein 30 mg/dL (NEG-TRACE) Urine Glucose (UA) 70 mg/dL (NEG) Urine Ketones NEG mg/dL (NEG) Urine Occult Blood MOD (NEG) Urine Nitrite NEG (NEG) Urine Bilirubin NEG (NEG) Urine Urobilinogen 2.0 MG/DL (LESS THAN Urine Leukocyte Esterase LARGE (NEG) Urine RBC 6 /hpf (0-3) Urine WBC 43 /hpf (0-5) Urine WBC Clumps RARE (NONE) Urine Squamous Epithelial Cells <1 /hpf (0-5) Urine Mucus FEW /lpf (OCC) Microscopic Urinalysis Comment CULTURE INDICATED Phosphorus Level 3.3 MG/DL (2.5-4.9) Magnesium Level 1.8 MG/DL (1.5-2.5) Test 06/06/17 04:00 White Blood Count 17.0 TH/MM3 (4.0-11.0) Red Blood Count 4.45 MIL/MM3 (4.00-5.30) Hemoglobin 11.9 GM/DL (11.6-15.3) Hematocrit 35.1 % (35.0-46.0) Mean Corpuscular Volume 78.9 FL (80.0-100.0) Mean Corpuscular Hemoglobin 26.6 PG (27.0-34.0) Mean Corpuscular Hemoglobin Concent 33.7 % (32.0-36.0) Red Cell Distribution Width 19.8 % (11.6-17.2) Platelet Count 151 TH/MM3 (150-450) Mean Platelet Volume 9.2 FL (7.0-11.0) Blood Urea Nitrogen 19 MG/DL (7-18) Creatinine 0.86 MG/DL (0.50-1.00) Random Glucose 218 MG/DL (74-106) Calcium Level 7.5 MG/DL (8.5-10.1) Phosphorus Level 2.6 MG/DL (2.5-4.9) Magnesium Level 1.7 MG/DL (1.5-2.5) Sodium Level 141 MEQ/L (136-145) Potassium Level 4.0 MEQ/L (3.5-5.1) Chloride Level 107 MEQ/L (98-107) Carbon Dioxide Level 24.6 MEQ/L (21.0-32.0) Anion Gap 9 MEQ/L (5-15) Estimat Glomerular Filtration Rate 81 ML/MIN (>89) . (Almaz,Lucila MORALES) Result Diagram: 06/06/17 0400 06/06/17 0400 Microbiology Microbiology Date/Time Source Procedure Growth Status 06/05/17 10:00 Blood Peripheral Aerobic Blood Culture Pending Received 06/05/17 10:00 Blood Peripheral Anaerobic Blood Culture Pending Received 06/05/17 09:53 Blood Peripheral Aerobic Blood Culture Pending Received 06/05/17 09:53 Blood Peripheral Anaerobic Blood Culture Pending Received 06/05/17 22:00 Urine Random Urine Urine Culture Pending Received Imaging Last 72 hours Impressions Chest X-Ray 06/06/17 0600 Signed Impressions: Service Date/Time: Tuesday, June 06, 2017 03:37 - CONCLUSION: Bilateral airspace disease, unchanged on the right and slightly improved on the left. Estiven Boyd MD Chest X-Ray 06/05/17 0000 Signed Impressions: Service Date/Time: Monday, June 05, 2017 14:59 - CONCLUSION: 1. Left IJ central line with tip in the brachiocephalic SVC junction. No pneumothorax. 2. Developing bilateral perihilar central airspace consolidation which may reflect pulmonary vascular congestion versus less likely aspiration given the acuity. Derek Robbins MD Procedures 06/05/17: Exploratory laparotomy with loop ileostomy . ([facility] [address],Lucila Jimenez [facility]) Assessment and Plan Disease Oriented Problem List: (1) Carcinosarcoma of uterus (2) Small bowel obstruction, partial (3) Renal insufficiency (4) UTI (urinary tract infection) Symptom Scale: (1) Pain (2) Nausea (3) Malnutrition Pertinent Non-Medical Issues Psychosocial: Patient was born and raised in [place], [place]. She is unmarried, no children. 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 She lives with a room mate but states she is essentially alone and does not have a good support system locally as all of her family still live in [place]. Spiritual: Mandaen. Legal: None known. Ethical issues impacting care: None known. . Important Contacts Jake Boston (mother): [phone], Jessenia Boston (sister) [phone] Roger Sanchez (friend): [phone] . Prognosis Patient diagnosed with uterine sarcoma status post resection, hysterectomy, and bilateral salpingo-oophorectomy in 2013. Despite recent outpatient chemotherapy for uterine CA recurrence the patient CT Abd/Pelvis during this hospitalization revealed liver and widespread peritoneal/omental/serosal metastatic disease, early or partial small bowel obstruction, obstruction of distal right ureter. Due to her advanced disease and debilitated status she is at ongoing risk for setbacks and complications. Hospice is appropriate if goals compatible. Code Status: No Code Plan * Legal decision maker: Patient currently has the capacity to make her own health care decisions. She designated her mother Jake Boston: [phone], as her HCS and her sister Jessenia Boston: [phone] as her alternate HCS today. * CODE STATUS: DNR. * GOALS: AGGRESSIVE short of cardiopulmonary resuscitation. Following 24 hour window post operatively patient's code status will be changed back to DNR. This was clarified with the patient this morning and she agrees she would like her code status to be DNR, she again verbalized she would not like to be sustained for an extended period of time on artificial life support. Palliative will continue to provide ongoing discussions/clarification of treatment goals and support. * Case discussed with Dr. Braswell, discussed with ANDREW Arcos. * Telephone conversation with patient's sister Jessenia. Family coming in from [place], [place] tomorrow, plan to have family meeting tomorrow around 1400. * SYMPTOM MANAGEMENT: * --pain: Likely secondary to widespread metastatic disease, SBO. Morphine 2mg IV q 2hr PRN for pain ordered, 5 doses utilized in the past 24 hours, percocet 10/325 q 6 hours PRN for pain ordered. Patient at ongoing risk for opiate induced constipation, MOM, lactulose, senokot, and bisacodyl ordered daily PRN for constipation. Patient would benefit from a scheduled daily stool softener and/or laxative. * --nausea: Resolved. Last dose of ondansetron IV q 6hr PRN for nausea utilized 05/25/17. * --malnutrition: Patient at ongoing risk for malnutrition secondary to clinical condition. Patient still NPO following surgery. No further recommendations at this time. * Palliative care will continue to follow during hospital course as condition evolves, to assist patient/family/decision-maker with understanding of medical conditions, weighing benefit/burdens of treatment options, for clarification of goals of treatment. Additionally will assist with symptoms of palliative concern. (Lucila Muse) Attestation To help prompt me to consider important information that might be impacting today's encounter and assessment, information from prior notes written by myself or my colleagues may have been "brought forward" into today's note. My signature on this note, however, is an attestation that I personally performed the exam, history, and/or decision-making noted today, and, unless otherwise indicated, the interactions with patient, family, and staff as well as the review of records all occurred today. I also attest that the listed assessment and stated plan reflect my best clinical judgment today based on the combination of historical information, prior notes, and today's exam/ interactions. When time spent is documented, it refers only to time spent today by the signer, or if indicated, combined time spent today by collaborating physician/nurse practitioner. (Lucila Muse) Collaborating MD Comments Chart reviewed. Case discussed with palliative care SOFTWARE LICENSING ANALYST. Above SOFTWARE LICENSING ANALYST note reviewed and I concur. . (Elias Douglas MD) Lucila Muse Jun 06, 2017 10:46 Elias Douglas MD Jun 11, 2017 15:08
--- NOTE | 2017-06-06 17:35 | PD.WCN.NOT ---
Wound Consult Description: No consult received. RN asked service writer advisor to come see patient for new ileostomy teaching. Communicated with: Patient REA Herman Recommendation: Empty pouch when 09/06-09/05 full Additional Information: Patient seen on 3 for ileostomy assessment and teaching. Ostomy Type: Ileostomy Surgeon: Octaviano Arcos MD Date of Surgery: Jun 05, 2017 Educated patient on: Right Lower Abdomen Loop Ileostomy with osiel in place Appearance of stoma Shape and size of stoma Drainage Open ended pouch Drinking fluids when able Additional information Stoma is noted to be red, moist, moderately protruding, edematous, functioning with mucus from lumen @2 o'clock and liquid brown effluent @ 8o'clock. Osiel in place. Barrier and pouch with out leaks. Loop stoma measures 2". [facility] Jun 06, 2017 17:35
[2017-06-06] MEDS: [UNRECOGNIZED DRUG - OTHER] IV-CENTRAL SCH ×10 (21:32)
[2017-06-06] MEDS: SODIUM ACETATE IV-CENTRAL SCH ×10 (21:32)
[2017-06-06] MEDS: SODIUM CHLORIDE IV-CENTRAL SCH ×10 (21:32)
[2017-06-06] MEDS: FAT EMULSION 20% INJ 250 ML (Daily over 8 hours) IV-CENTRAL SCH (21:33)
[2017-06-07] VITALS (20 sets, daily range): BP systolic 116–133; BP diastolic 79–94; PULSE 92–136; RESP 17–30; TEMP 96–98.3; O2SAT 84–97
[2017-06-07] MEDS: LACTATED RINGER'S 1000 ML INJ 1,000 ML IV SCH ×4 (01:12→22:14)
[2017-06-07] MEDS: MORPHINE SULFATE 4 MG/ML INJ IV PUSH PRN ×3 (03:37→15:18)
[2017-06-07] MEDS: CHLORHEXIDINE GLUCONATE 2 % 1 PACK (2 CLOTHS) TOP SCH (04:00)
[2017-06-07 05:40] LABS: HEMATOCRIT 33.3 % (35.0-46.0); MEAN CELL VOLUME 79.3 FL (80.0-100.0); MEAN CORPUSCULAR HGB CONC 32.8 % (32.0-36.0); PLATELET COUNT 144 TH/MM3 (150-450); RED CELL DISTRIBUTION WIDTH 19.9 % (11.6-17.2); REVIEW FLAG FINAL; WHITE BLOOD COUNT 18.1 TH/MM3 (4.0-11.0)
[2017-06-07] MEDS: PIPERACIL-TAZO 3.375 GM PREMIX 50 ML IV SCH ×3 (05:49→18:00)
[2017-06-07 05:56] LABS: BICARBONATE 25.5 MEQ/L (21.0-32.0); POTASSIUM 3.4 MEQ/L (3.5-5.1)
[2017-06-07] MEDS: INSULIN ASPART SUPPLEMENTAL SCALE SQ SCH ×4 (08:15→22:15)
--- NOTE | 2017-06-07 08:40 | PD.ONC.PN ---
Subjective Subjective Remarks POD # 2 s/p ex lap for bowel obstruction and ileostomy patient resting in bed states pain is controlled she is upset that her belonging have not been returned to her...I spoke with gas charger and she will call around to see if she can track down her backpack pt is awaiting the arrival of her family today I discussed with her that once they arrive that Palliative Care and myself will talk with them about her condition and the hopes of getting her back home to [place] so she is not here alone. I explained that if she does not receive more chemo or even if she does...she needs the support of her family because she will not return to the state of health that she was prior to this admission. Ms. Boston seemed to agree. Although I am still concerned that she does not grasp the severity of her disease. Objective Data Date Time Temp Pulse Resp B/P (MAP) Pulse Ox O2 Delivery O2 Flow Rate FiO2 06/07/17 04:05 96.9 112 18 129/94 (106) 94 06/07/17 04:00 112 06/07/17 01:44 97 Nasal Cannula 4.00 06/07/17 00:05 96.0 114 17 125/82 (96) 92 06/07/17 00:00 112 06/06/17 20:00 111 06/06/17 20:00 97.7 112 16 127/79 (95) 94 06/06/17 18:49 97.6 120 18 125/87 (100) 92 06/06/17 18:00 108 06/06/17 16:00 97.8 108 23 120/74 (89) 95 06/06/17 16:00 106 06/06/17 14:00 105 06/06/17 12:00 98.3 106 22 133/86 (102) 96 06/06/17 12:00 106 06/06/17 10:41 98 Nasal Cannula 4.00 06/06/17 10:00 110 06/07/17 06/07/17 06/07/17 07:00 15:00 23:00 Output Total 450 ml Balance -450 ml Result Diagram: 06/07/17 0500 06/07/17 0500 Laboratory Results Laboratory Tests Test 06/07/17 05:00 White Blood Count 18.1 TH/MM3 Red Blood Count 4.20 MIL/MM3 Hemoglobin 10.9 GM/DL Hematocrit 33.3 % Mean Corpuscular Volume 79.3 FL Mean Corpuscular Hemoglobin 26.0 PG Mean Corpuscular Hemoglobin Concent 32.8 % Red Cell Distribution Width 19.9 % Platelet Count 144 TH/MM3 Mean Platelet Volume 9.5 FL Blood Urea Nitrogen 17 MG/DL Creatinine 0.77 MG/DL Random Glucose 171 MG/DL Calcium Level 8.1 MG/DL Sodium Level 140 MEQ/L Potassium Level 3.4 MEQ/L Chloride Level 106 MEQ/L Carbon Dioxide Level 25.5 MEQ/L Anion Gap 9 MEQ/L Estimat Glomerular Filtration Rate 93 ML/MIN Culture Results Microbiology Date/Time Source Procedure Growth Status 06/05/17 10:00 Blood Peripheral Aerobic Blood Culture - Preliminary NO GROWTH IN 1 DAY Resulted 06/05/17 10:00 Blood Peripheral Anaerobic Blood Culture - Preliminary NO GROWTH IN 1 DAY Resulted 06/05/17 09:53 Blood Peripheral Aerobic Blood Culture - Preliminary NO GROWTH IN 1 DAY Resulted 06/05/17 09:53 Blood Peripheral Anaerobic Blood Culture - Preliminary NO GROWTH IN 1 DAY Resulted 06/05/17 22:00 Urine Random Urine Urine Culture Pending Received Administered Medications Medications (Trade) Dose Ordered Sig/Rena Route PRN Reason Start Time Stop Time Status Last Admin Dose Admin Sodium Chloride (NS Flush) 2 ml BID IV FLUSH 05/21/17 21:00 06/06/17 21:33 Morphine Sulfate (Morphine Inj) 1 mg Q3H PRN IV PUSH Pain 3-5 05/21/17 20:15 05/27/17 08:59 Morphine Sulfate (Morphine Inj) 2 mg Q3H PRN IV PUSH Pain 6-10 05/21/17 20:15 06/07/17 06:38 Acetaminophen (Ofirmev 1000 Mg/ 100 ml Inj) 1,000 mg Q6H PRN IV FEVER 05/21/17 20:15 06/03/17 23:44 Sennosides (Senokot) 17.2 mg Q12H PRN PO MODERATE - SEVERE CONSTIPATION 05/21/17 20:15 05/23/17 10:48 Fat Emulsion Intravenous 250 ml @ 31.25 mls/ hr Q24H IV-CENTRAL 06/01/17 20:00 06/06/17 21:33 Sodium Chloride 11 meq/Sodium Acetate 59 meq/ Potassium Chloride 80 meq/ Sodium Phosphate 40 meq/Magnesium Chloride 10 meq/ Calcium Chloride 9 meq/ Multivitamins 10 ml/Folic Acid 1 mg/Insulin Human Regular 6 units/ Amino Acids/ Dextrose 2,104.2037 ml @ 83 mls/hr Q24H IV-CENTRAL 06/03/17 20:00 06/06/17 21:32 Metoprolol Tartrate (Lopressor) 25 mg Q12HR PO 06/04/17 21:00 06/06/17 21:31 Piperacillin Sod/ Tazobactam Sod 50 ml @ 100 mls/hr Q6H IV 06/05/17 06:00 06/07/17 05:49 Lactated Ringer's 1,000 ml @ 100 mls/hr Q10H IV 06/05/17 17:00 06/07/17 01:12 Famotidine (Pepcid Inj) 20 mg Q12HR IV PUSH 06/05/17 21:00 06/06/17 21:32 Albuterol/ Ipratropium (Duoneb Neb) 1 ampule Q4HR NEB PRN INH WHEEZING 06/05/17 17:00 06/06/17 10:40 Chlorhexidine Gluconate (Chlorhexidine 2% Cloth) 3 pack Taper DAILY@04 TOP 06/06/17 04:00 06/02/18 03:59 06/07/17 04:00 Insulin Aspart (NovoLOG SUPPLEMENTAL SCALE) 1 ACHS SLIDING SCALE SQ 06/05/17 21:00 06/06/17 17:00 Oxycodone/ Acetaminophen (Percocet 10-325 Mg) 1 tab Q6H PRN PO PAIN SCALE 1-5 06/05/17 23:30 06/06/17 15:04 Lorazepam (Ativan Inj) 1 mg Q6H PRN IV ANXIETY 06/06/17 01:45 06/06/17 01:46 Objective Remarks GENERAL: frail SKIN: Warm and dry. HEAD: Normocephalic. EYES: No scleral icterus. No injection or drainage. CARDIOVASCULAR: Regular rate and rhythm RESPIRATORY: Breath sounds equal bilaterally. GASTROINTESTINAL: Abdomen with dry dressing. ileostomy to right abd EXTREMITIES: No cyanosis, or edema. MUSCULOSKELETAL: Adequate muscle tone. NEUROLOGICAL: No obvious focal deficit. Awake, alert, and oriented x3. Assessment/Plan Problem List: (1) Uterine cancer ICD Codes: C55 - Malignant neoplasm of uterus, part unspecified Status: Chronic Plan: Advancement of disease despite IV chemotherapy. Patient is DNR following surgery pt POD #2 Palliative Care following and family is coming into town today, will have family conference today to discuss severity of patient's condition and the hopes to get her back to [place] with her family. (2) Partial small bowel obstruction ICD Codes: K56.69 - Other intestinal obstruction Status: Acute Plan: POD #2 X lap for resection of bowel obstruction and ileostomy general surgery continues to follow patient is healing well pain controlled (3) Atrial fibrillation with rapid ventricular response ICD Codes: I48.91 - Unspecified atrial fibrillation Status: Resolved Problem Qualifiers (1) Uterine cancer: Qualified Codes: C55 - Malignant neoplasm of uterus, part unspecified Michael Roche Jun 07, 2017 08:40
[2017-06-07] MEDS: METOPROLOL TARTRATE 25 MG TAB PO SCH (08:47)
[2017-06-07] MEDS: FAMOTIDINE 20 MG/2 ML VIAL IV PUSH SCH ×2 (08:48→22:15)
[2017-06-07] MEDS: LORazepam 2 MG/ML VIAL IV PRN (08:48)
--- NOTE | 2017-06-07 09:49 | HHI.PR ---
Subjective Remarks Patient is tachypneic and tachycardic. She reports abdominal pain that is 10 out of 10. Objective Vitals Vital Signs Date Time Temp Pulse Resp B/P (MAP) Pulse Ox O2 Delivery O2 Flow Rate FiO2 06/07/17 08:14 94 Nasal Cannula 4.00 06/07/17 04:05 96.9 112 18 129/94 (106) 94 06/07/17 04:00 112 06/07/17 01:44 97 Nasal Cannula 4.00 06/07/17 00:05 96.0 114 17 125/82 (96) 92 06/07/17 00:00 112 06/06/17 20:00 111 06/06/17 20:00 97.7 112 16 127/79 (95) 94 06/06/17 18:49 97.6 120 18 125/87 (100) 92 06/06/17 18:00 108 06/06/17 16:00 97.8 108 23 120/74 (89) 95 06/06/17 16:00 106 06/06/17 14:00 105 06/06/17 12:00 98.3 106 22 133/86 (102) 96 06/06/17 12:00 106 06/06/17 10:41 98 Nasal Cannula 4.00 06/06/17 10:00 110 I/O 06/06/17 06/06/17 06/06/17 06/07/17 06/07/17 06/07/17 07:00 15:00 23:00 07:00 15:00 23:00 Intake Total 1344 ml 50 ml 60 ml Output Total 905 ml 800 ml 450 ml Balance 439 ml 50 ml -740 ml -450 ml Intake Oral 60 ml 60 ml IV Total 1284 ml 50 ml Output Urine Total 600 ml 700 ml 450 ml Stool Total 305 ml 100 ml Result Diagram: 06/07/17 0500 06/07/17 0500 Objective Remarks GENERAL: In some respiratory distress, tachycardic. CARDIOVASCULAR: Tachycardic in the 140s, regular rhythm. RESPIRATORY: Tachypneic, shallow breathing. Coarse breath sounds bilaterally. GASTROINTESTINAL: Abdomen is mildly distended, ostomy appear clean. MUSCULOSKELETAL: Extremities without cyanosis, or edema. NEURO: Somewhat anxious. Procedures None. A/P Problem List: (1) Partial small bowel obstruction ICD Code: K56.69 - Other intestinal obstruction Status: Acute (2) Uterine cancer ICD Code: C55 - Malignant neoplasm of uterus, part unspecified Status: Chronic (3) UTI (urinary tract infection) ICD Code: N39.0 - Urinary tract infection, site not specified (4) Renal insufficiency ICD Code: N28.9 - Disorder of kidney and ureter, unspecified Status: Chronic Assessment and Plan 61-year-old female with history of uterine cancer, failed chemotherapy treatment admitted with small bowel obstruction with associated complications. Oncology recommended hospice. Patient has been refusing, her condition deteriorated. She is status post emergent laparotomy with ileostomy. Patient is still critically ill, she is a DNR, family history and to make it into town today for a conference with palliative care. She is hospice appropriate if her goals changed to comfort care only. Sustained sinus tachycardia: Related to dehydration, pain versus sepsis vs tumor burden: - Stat Chest x-ray ordered. - We'll give a liter bolus of IV normal saline. Increase maintenance fluid to 125 cc/h - Increase metoprolol to 50 mg every 8 hours. Give additional 25 mg 1 now. - Transfer the patient to intermediate care unit where she can receive IV medication for heart rate control as needed. Obtain EKG Respiratory failure/tachypnea: -Obtain stat chest x-ray. Continue with supplemental oxygen. May need BiPAP. - On Zosyn Small bowel obstruction: Concern for perforation. Patient emergently taken to the OR. - Status post laparotomy with low ileostomy. - Further plans per general surgery - Continue TPN. - Nothing by mouth Uterine cancer: Appreciate gynecologic oncology recommendations. Hospice recommended. Patient not ready to accept hospice care at this time. Severe malnutrition: Continue TPN. [employer] Setter following. Diet as tolerated Acute on chronic anemia-monitor hemoglobin, no signs of active bleeding at this time. PPI. Follow H&H. Hypokalemia- replete and follow Hyperglycemia: adjustment to TPN; we'll continue monitor blood glucose levels closely. DVT prophylaxis: Heparin. Discharge Planning Awaiting for family conference. Patient is hospice appropriate. For now will transfer to intermediate care and continue with supportive care hoping family can make it on time to help further clarify goals. Problem Qualifiers (1) Uterine cancer: Qualified Codes: C55 - Malignant neoplasm of uterus, part unspecified Elizabeth Pickard MD Jun 07, 2017 09:49
[2017-06-07] MEDS ORDERED: METOPROLOL TARTRATE 25 MG TAB PO ONE (10:00)
[2017-06-07] MEDS ORDERED: MORPHINE SULFATE 4 MG/ML INJ IV PUSH ONE (10:00)
[2017-06-07] MEDS ORDERED: SODIUM CHLOR 0.9% 1000 ML INJ 1,000 ML IV ONE (10:00)
--- NOTE | 2017-06-07 10:22 | RADRPT ---
EXAM DATE/TIME: 06/07/2017 09:46 [facility] COMPARISON: CHEST SINGLE AP, June 06, 2017, 3:37. INDICATIONS : Short of breath. MEDICAL HISTORY : Uterine/ovarian carcinoma SURGICAL HISTORY : Infusaport. ENCOUNTER: Subsequent ACUITY: 1 day PAIN SCORE: 0/10 LOCATION: Bilateral chest FINDINGS: The cardiac silhouette is enlarged in transverse diameter. [id number] is in place via right internal audit director al jugular approach with its tip in the superior vena cava. A left sided subclavian vein catheter is in place without pneumothorax with its tip in the superior vena cava. There is perihilar opacity faith acteristic of edema. A small left sided effusion is present. CONCLUSION: 1. Perihilar pulmonary edema The findings are similar to the prior exam. Jani Rahman MD on June 07, 2017 at 10:19 Board Certified Radiologist. This report was verified electronically.
[2017-06-07] MEDS: HEPARIN SODIUM - SQ 10,000 UNITS/ML VIAL SQ SCH ×2 (11:46→22:15)
[2017-06-07] MEDS: SODIUM CHLORIDE 0.9% FLUSH 10 ML FLUSH IV FLUSH SCH ×2 (11:47→21:00)
--- NOTE | 2017-06-07 13:57 | HHI.HCPN ---
Reason for visit a. To assist with evaluation and management of symptoms including: nausea, pain, malnutrition b. To assist medical decision maker(s) with: better understanding of current medical conditions; weighing benefits/burdens of medical treatment options; making medical treatment decisions. . Subjective/Interval History Patient examined in room 716 today, she currently has a transfer order to [facility] due to tachycardia and tachypnea. She is post op day 2 exploratory laparotomy with loop ileostomy. Patient is very tachypneic and utilizing accessory muscles , when stimulated she is able to converse intermittently, she is oriented x 3. Pending arrival of family at 1400 for further discussion, patient's sister was called and updated on patient's clinical status and plane to transfer. . Family/friend interactions Bedside meeting with patient and her family at 1430. Family updated on patient' s current clinical status and prognosis. Advance Directives Living Will: Never completed Health Care Surrogate: Copy in medical record Advance Directive Specifics Date completed: 05/25/17. . Health Care Surrogate(s): Jake Boston (mother) Alternate HCS Jessenia Ludy (sister) . Objective Vital Signs Date Time Temp Pulse Resp B/P (MAP) Pulse Ox O2 Delivery O2 Flow Rate FiO2 06/07/17 12:00 97.8 116 30 116/80 (92) 84 06/07/17 08:14 94 Nasal Cannula 4.00 06/07/17 08:00 97.9 120 20 133/93 (106) 93 06/07/17 04:05 96.9 112 18 129/94 (106) 94 06/07/17 04:00 112 06/07/17 01:44 97 Nasal Cannula 4.00 06/07/17 00:05 96.0 114 17 125/82 (96) 92 06/07/17 00:00 112 06/06/17 20:00 111 06/06/17 20:00 97.7 112 16 127/79 (95) 94 06/06/17 18:49 97.6 120 18 125/87 (100) 92 06/06/17 18:00 108 06/06/17 16:00 97.8 108 23 120/74 (89) 95 06/06/17 16:00 106 06/06/17 14:00 105 Intake & Output 06/07/17 06/07/17 07:00 19:00 Intake Total 1800 ml Output Total 450 ml 375 ml Balance -450 ml 1425 ml IV Total 1800 ml Output Urine Total 450 ml 375 ml # Bowel Movements 0 Physical Exam CONSTITUTIONAL/GENERAL: This is a thin, frail female patient, very pleasant, in no apparent distress. TUBES/LINES/DRAINS: CVL LIJ, Right subclavian port accessed SKIN: No jaundice, rashes, or lesions. No wounds seen anteriorly. Skin temperature appropriate. Not diaphoretic. EYES: Pupils equal and round and reactive. Extraocular motions intact. No scleral icterus. No injection or drainage. Fundi not examined. CARDIOVASCULAR: Tachycardic, without murmurs, gallops, or rubs. No JVD. Peripheral pulses symmetric. RESPIRATORY/CHEST: Symmetric, labored respirations. Diminished to auscultation. Breath sounds equal bilaterally. GASTROINTESTINAL: Abdomen soft, tender. Light palpitation secondary to tenderness. ileostomy with dark pink stoma. Bowel sounds hypoactive. MUSCULOSKELETAL: Extremities without clubbing, cyanosis, or edema. No mottling or clubbing. NEUROLOGICAL: Drowsy. Motor and sensory grossly within normal limits. Follows commands. Cognitively sharp. Moves all extremities. PSYCHIATRIC: No obvious anxiety/depression. no apparent hallucinations or other psychotic thought process. . Diagnostic Tests Laboratory Laboratory Tests Test 06/04/17 19:13 06/04/17 19:17 06/05/17 05:35 06/05/17 09:53 White Blood Count 18.2 TH/MM3 (4.0-11.0) 17.1 TH/MM3 (4.0-11.0) Red Blood Count 3.18 MIL/MM3 (4.00-5.30) 2.85 MIL/MM3 (4.00-5.30) Hemoglobin 7.3 GM/DL (11.6-15.3) 6.7 GM/DL (11.6-15.3) Hematocrit 24.0 % (35.0-46.0) 21.5 % (35.0-46.0) Mean Corpuscular Volume 75.4 FL (80.0-100.0) 75.3 FL (80.0-100.0) Mean Corpuscular Hemoglobin 22.9 PG (27.0-34.0) 23.4 PG (27.0-34.0) Mean Corpuscular Hemoglobin Concent 30.3 % (32.0-36.0) 31.1 % (32.0-36.0) Red Cell Distribution Width 20.2 % (11.6-17.2) 20.6 % (11.6-17.2) Platelet Count 194 TH/MM3 (150-450) 176 TH/MM3 (150-450) Mean Platelet Volume 9.2 FL (7.0-11.0) 9.2 FL (7.0-11.0) Neutrophils (%) (Auto) 83.9 % (16.0-70.0) 84.2 % (16.0-70.0) Lymphocytes (%) (Auto) 5.1 % (9.0-44.0) 6.0 % (9.0-44.0) Monocytes (%) (Auto) 10.5 % (0.0-8.0) 9.5 % (0.0-8.0) Eosinophils (%) (Auto) 0.2 % (0.0-4.0) 0.1 % (0.0-4.0) Basophils (%) (Auto) 0.3 % (0.0-2.0) 0.2 % (0.0-2.0) Neutrophils # (Auto) 15.3 TH/MM3 (1.8-7.7) 14.4 TH/MM3 (1.8-7.7) Lymphocytes # (Auto) 0.9 TH/MM3 (1.0-4.8) 1.0 TH/MM3 (1.0-4.8) Monocytes # (Auto) 1.9 TH/MM3 (0-0.9) 1.6 TH/MM3 (0-0.9) Eosinophils # (Auto) 0.0 TH/MM3 (0-0.4) 0.0 TH/MM3 (0-0.4) Basophils # (Auto) 0.1 TH/MM3 (0-0.2) 0.0 TH/MM3 (0-0.2) CBC Comment DIFF FINAL AUTO DIFF Differential Comment AUTO DIFF CONFIRMED Blood Urea Nitrogen 16 MG/DL (7-18) 18 MG/DL (7-18) Creatinine 0.70 MG/DL (0.50-1.00) 0.70 MG/DL (0.50-1.00) Random Glucose 111 MG/DL (74-106) 159 MG/DL (74-106) Calcium Level 8.6 MG/DL (8.5-10.1) 7.8 MG/DL (8.5-10.1) Phosphorus Level 2.0 MG/DL (2.5-4.9) Magnesium Level 1.9 MG/DL (1.5-2.5) Sodium Level 142 MEQ/L (136-145) 143 MEQ/L (136-145) Potassium Level 2.8 MEQ/L (3.5-5.1) 3.7 MEQ/L (3.5-5.1) Chloride Level 103 MEQ/L (98-107) 108 MEQ/L (98-107) Carbon Dioxide Level 28.9 MEQ/L (21.0-32.0) 27.0 MEQ/L (21.0-32.0) Anion Gap 10 MEQ/L (5-15) 8 MEQ/L (5-15) Estimat Glomerular Filtration Rate 103 ML/MIN (>89) 103 ML/MIN (>89) Lactic Acid Level 3.3 mmol/L (0.4-2.0) Prothrombin Time 11.4 SEC (9.8-11.6) Prothromb Time International Ratio 1.0 RATIO Test 06/05/17 15:40 06/05/17 18:45 06/05/17 22:00 06/06/17 04:00 Blood Gas Puncture Site RT BRACHIAL Blood Gas Patient Temperature 98.6 Blood Gas HCO3 20 mmol/L (22-26) Blood Gas Base Excess -4.3 mmol/L (-2-2) Blood Gas Oxygen Saturation 89 % (90-100) Arterial Blood pH 7.35 (7.380-7.420) Arterial Blood Partial Pressure CO2 38 mmHg (38-42) Arterial Blood Partial Pressure O2 68 mmHg (61-120) Arterial Blood Oxygen Content 15.4 Vol % (12.0-20.0) Arterial Blood Carboxyhemoglobin 1.6 % (0-4) Arterial Blood Methemoglobin 1.2 % (0-2) Blood Gas Hemoglobin 12.4 G/DL (12.0-16.0) Oxygen Delivery Device BiPAP Blood Gas Ventilator Setting IPAP10/EPAP+5 Blood Gas Inspired Oxygen 50 % Nasal Screen MRSA (PCR) MRSA NOT DETECTED (NOT White Blood Count 17.4 TH/MM3 (4.0-11.0) 17.0 TH/MM3 (4.0-11.0) Red Blood Count 4.70 MIL/MM3 (4.00-5.30) 4.45 MIL/MM3 (4.00-5.30) Hemoglobin 12.4 GM/DL (11.6-15.3) 11.9 GM/DL (11.6-15.3) Hematocrit 37.2 % (35.0-46.0) 35.1 % (35.0-46.0) Mean Corpuscular Volume 79.1 FL (80.0-100.0) 78.9 FL (80.0-100.0) Mean Corpuscular Hemoglobin 26.3 PG (27.0-34.0) 26.6 PG (27.0-34.0) Mean Corpuscular Hemoglobin Concent 33.2 % (32.0-36.0) 33.7 % (32.0-36.0) Red Cell Distribution Width 19.7 % (11.6-17.2) 19.8 % (11.6-17.2) Platelet Count 172 TH/MM3 (150-450) 151 TH/MM3 (150-450) Mean Platelet Volume 10.1 FL (7.0-11.0) 9.2 FL (7.0-11.0) Urine Color YELLOW (YELLW/STRAW) Urine Turbidity HAZY (CLEAR) Urine pH 6.0 (5.0-8.5) Urine Specific [place] 1.025 (1.002-1.035) Urine Protein 30 mg/dL (NEG-TRACE) Urine Glucose (UA) 70 mg/dL (NEG) Urine Ketones NEG mg/dL (NEG) Urine Occult Blood MOD (NEG) Urine Nitrite NEG (NEG) Urine Bilirubin NEG (NEG) Urine Urobilinogen 2.0 MG/DL (LESS THAN Urine Leukocyte Esterase LARGE (NEG) Urine RBC 6 /hpf (0-3) Urine WBC 43 /hpf (0-5) Urine WBC Clumps RARE (NONE) Urine Squamous Epithelial Cells <1 /hpf (0-5) Urine Mucus FEW /lpf (OCC) Microscopic Urinalysis Comment CULTURE INDICATED Blood Urea Nitrogen 19 MG/DL (7-18) 19 MG/DL (7-18) Creatinine 0.78 MG/DL (0.50-1.00) 0.86 MG/DL (0.50-1.00) Random Glucose 201 MG/DL (74-106) 218 MG/DL (74-106) Calcium Level 7.5 MG/DL (8.5-10.1) 7.5 MG/DL (8.5-10.1) Phosphorus Level 3.3 MG/DL (2.5-4.9) 2.6 MG/DL (2.5-4.9) Magnesium Level 1.8 MG/DL (1.5-2.5) 1.7 MG/DL (1.5-2.5) Sodium Level 142 MEQ/L (136-145) 141 MEQ/L (136-145) Potassium Level 4.2 MEQ/L (3.5-5.1) 4.0 MEQ/L (3.5-5.1) Chloride Level 109 MEQ/L (98-107) 107 MEQ/L (98-107) Carbon Dioxide Level 23.1 MEQ/L (21.0-32.0) 24.6 MEQ/L (21.0-32.0) Anion Gap 10 MEQ/L (5-15) 9 MEQ/L (5-15) Estimat Glomerular Filtration Rate 91 ML/MIN (>89) 81 ML/MIN (>89) Test 06/07/17 05:00 White Blood Count 18.1 TH/MM3 (4.0-11.0) Red Blood Count 4.20 MIL/MM3 (4.00-5.30) Hemoglobin 10.9 GM/DL (11.6-15.3) Hematocrit 33.3 % (35.0-46.0) Mean Corpuscular Volume 79.3 FL (80.0-100.0) Mean Corpuscular Hemoglobin 26.0 PG (27.0-34.0) Mean Corpuscular Hemoglobin Concent 32.8 % (32.0-36.0) Red Cell Distribution Width 19.9 % (11.6-17.2) Platelet Count 144 TH/MM3 (150-450) Mean Platelet Volume 9.5 FL (7.0-11.0) Blood Urea Nitrogen 17 MG/DL (7-18) Creatinine 0.77 MG/DL (0.50-1.00) Random Glucose 171 MG/DL (74-106) Calcium Level 8.1 MG/DL (8.5-10.1) Sodium Level 140 MEQ/L (136-145) Potassium Level 3.4 MEQ/L (3.5-5.1) Chloride Level 106 MEQ/L (98-107) Carbon Dioxide Level 25.5 MEQ/L (21.0-32.0) Anion Gap 9 MEQ/L (5-15) Estimat Glomerular Filtration Rate 93 ML/MIN (>89) Result Diagram: 06/07/17 0500 06/07/17 0500 Microbiology Microbiology Date/Time Source Procedure Growth Status 06/05/17 10:00 Blood Peripheral Aerobic Blood Culture - Preliminary NO GROWTH IN 2 DAYS Resulted 06/05/17 10:00 Blood Peripheral Anaerobic Blood Culture - Preliminary NO GROWTH IN 2 DAYS Resulted 06/05/17 09:53 Blood Peripheral Aerobic Blood Culture - Preliminary NO GROWTH IN 2 DAYS Resulted 06/05/17 09:53 Blood Peripheral Anaerobic Blood Culture - Preliminary NO GROWTH IN 2 DAYS Resulted 06/05/17 22:00 Urine Random Urine Urine Culture - Final NO GROWTH Complete Procedures 06/05/17: Exploratory laparotomy with loop ileostomy . Assessment and Plan Disease Oriented Problem List: (1) Carcinosarcoma of uterus (2) Small bowel obstruction, partial (3) Renal insufficiency (4) UTI (urinary tract infection) Symptom Scale: (1) Pain (2) Nausea (3) Malnutrition Pertinent Non-Medical Issues Psychosocial: Patient was born and raised in [place], [place]. She is unmarried, no children. 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 She lives with a room mate but states she is essentially alone and does not have a good support system locally as all of her family still live in [place]. Spiritual: Orthodoxy. Legal: None known. Ethical issues impacting care: None known. . Important Contacts Jake Boston (mother): [phone], Jessenia Boston (sister) [phone] Roger Sanchez (friend): [phone] . Prognosis Patient diagnosed with uterine sarcoma status post resection, hysterectomy, and bilateral salpingo-oophorectomy in 2013. Despite recent outpatient chemotherapy for uterine CA recurrence the patient CT Abd/Pelvis during this hospitalization revealed liver and widespread peritoneal/omental/serosal metastatic disease, early or partial small bowel obstruction, obstruction of distal right ureter. Due to her advanced disease and debilitated status she is at ongoing risk for setbacks and complications. Hospice is appropriate if goals compatible. Code Status: No Code Plan * Legal decision maker: Patient currently has the capacity to make her own health care decisions. She designated her mother Jake Boston: [phone], as her HCS and her sister Jessenia Boston: [phone] as her alternate HCS today. * CODE STATUS: DNR. * GOALS: AGGRESSIVE short of cardiopulmonary resuscitation. Palliative will continue to provide ongoing discussions/clarification of treatment goals and support. * Bedside meeting with patient's family who just arrived from [place], [place] today. Multiple conversations with patient throughout this hospitalization regarding prognosis and limited treatment options, unfortunately Ms. Boston has struggled with this information and has not grasped the gravity of the situation. Present at bedside meeting with patient was her two sisters, her mother, and nephews. Conversation regarding patient's current clinical status, prognosis, and limited treatment options were explained in great detail again to the patient and now to her family. The patient's family seems to be somewhat surprised by the extent of her illness and this seems to be the first instance in which they are truly aware of how ill she is. * Case discussed with ANDREW Diaz and ANDREW Arcos. * SYMPTOM MANAGEMENT: * --pain: Likely secondary to widespread metastatic disease. Morphine 2mg IV q 3hr PRN for pain ordered, 5 doses utilized in the past 24 hours, percocet 10/ 325 q 6 hours PRN for pain ordered. Of note percocet 10/325 is equivalent to 15mg po morphine which is equivalent to 5mg IV morphine, patient would benefit from an increased dose of IV morphine. * --nausea: Resolved. Last dose of ondansetron IV q 6hr PRN for nausea utilized 05/25/17. * --malnutrition: Patient at ongoing risk for malnutrition secondary to clinical condition. Patient still NPO following surgery. No further recommendations at this time. * Palliative care will continue to follow during hospital course as condition evolves, to assist patient/family/decision-maker with understanding of medical conditions, weighing benefit/burdens of treatment options, for clarification of goals of treatment. Additionally will assist with symptoms of palliative concern. Attestation To help prompt me to consider important information that might be impacting today's encounter and assessment, information from prior notes written by myself or my colleagues may have been "brought forward" into today's note. My signature on this note, however, is an attestation that I personally performed the exam, history, and/or decision-making noted today, and, unless otherwise indicated, the interactions with patient, family, and staff as well as the review of records all occurred today. I also attest that the listed assessment and stated plan reflect my best clinical judgment today based on the combination of historical information, prior notes, and today's exam/ interactions. When time spent is documented, it refers only to time spent today by the signer, or if indicated, combined time spent today by collaborating physician/nurse practitioner. Lucila Muse Jun 07, 2017 13:57
[2017-06-07 14:07] LABS: BLOOD GAS BASE EXCESS -1.8 mmol/L (-2-2); BLOOD GAS CARBOXYHEMOGLOBIN 1.5 % (0-4); BLOOD GAS HCO3 21 mmol/L (22-26); BLOOD GAS METHEMOGLOBIN 1.2 % (0-2); BLOOD GAS O2 HGB SATURATION 85 % (90-100); BLOOD GAS PCO2 30 mmHg (38-42); BLOOD GAS PO2 52 mmHg (61-120); BLOOD GAS TOTAL HGB 11.7 G/DL (12.0-16.0); TEMP CORR TO 98.6
[2017-06-07 14:08] LABS: CRITICAL VALUE YES; DRAW SITE LT RADIAL; LITER FLOW 5 L/M; NUMBER OF ARTERIAL PUNCTURES 1; OXYGEN DEVICE NASAL CANNULA; ULNAR PULSE PRESENT
[2017-06-07 14:09] LABS: STAT YES
[2017-06-07] MEDS ORDERED: DILTIAZEM 125 MG/NS 100 ML IV PRN ×2 (14:15)
--- NOTE | 2017-06-07 14:55 | PD.CONS ---
HPI Consult Requested By Primary Care Physician Reymundo Black, DO History of Present Illness 61-year-old female with a PMHx of Metastatic Uterine CA admiited with abdominal pain, nausea and vomiting diagnosed with partial small bowel obstruction and obstruction of distal right ureter. She has been consulted to cardiology because of A. fib with RVR. Patient had an epsidoe of hypotension with a hemoglobin of 6.8 and was emergently taken to OR for exploratory laparotomy. Patient is a DNR. Review of Systems Consitutional: COMPLAINS OF: Fatigue Eyes: DENIES: Amaurosis [place], Change in vision HEENT: DENIES: Lightheadedness, Change in hearing Respiratory: COMPLAINS OF: Shortness of breath Cardiovascular: DENIES: See HPI, Chest pain, Palpitations, Syncope, Tachycardia Gastrointestinal: DENIES: Nausea, Vomiting, Change in bowel habits, Reflux, Bloody stools, Melena Genitourinary: DENIES: Urinary incontinence, Difficulty voiding Integumentary: DENIES: Rash Neurologic: DENIES: Tingling or numbness, Memory problems, Poor Balance, Stroke symptoms Musculoskeletal: DENIES: Joint pain, Muscle pain, Limited range of motion, Back pain Psychiatric: DENIES: Anxiety, Depression, Sleep disturbances Hematologic: DENIES: Bruising tendencies, Bleeding tendencies Endocrine: DENIES: Weight gain, Weight loss, Thyroid disease Past Family Social History Allergies: Coded Allergies: No Known Allergies (Verified , 12/08/16) Reported Medications Reported Meds & Active Scripts Active Reported Potassium Chloride ER (Potassium Chloride) 20 Meq Tab 20 Meq PO DAILY [place] (Hydrocodone-Acetaminophen) 10-325 Mg Tab 1 Tab PO Q4H PRN Tramadol (Tramadol HCl) 50 Mg Tab 50 Mg PO Q8H PRN Miralax Powder (Polyethylene Glycol 3350 Powder) 17 Gm Powd 17 Gm PO DAILY Mix and dissolve one measuring cap-ful (17 grams) in water or juice. Active Ordered Medications Current Medications Medications (Trade) Dose Ordered Sig/Rena Route Start Time Stop Time Status Last Admin (NS Flush) 2 ml UNSCH PRN IV FLUSH 05/21/17 20:15 (NS Flush) 2 ml BID IV FLUSH 05/21/17 21:00 06/07/17 11:47 (Morphine Inj) 1 mg Q3H PRN IV PUSH 05/21/17 20:15 05/27/17 08:59 (Morphine Inj) 2 mg Q3H PRN IV PUSH 05/21/17 20:15 06/07/17 06:38 (Ofirmev 1000 Mg/ 100 ml Inj) 1,000 mg Q6H PRN IV 05/21/17 20:15 06/03/17 23:44 (Senokot) 17.2 mg Q12H PRN PO 05/21/17 20:15 05/23/17 10:48 (Chloraseptic [place]) 2 spray Q2H PRN OROPHARYNG 05/26/17 09:30 Fat Emulsion Intravenous 250 ml @ 31.25 mls/ hr Q24H IV-CENTRAL 06/01/17 20:00 06/06/17 21:33 Sodium Chloride 11 meq/Sodium Acetate 59 meq/ Potassium Chloride 80 meq/ Sodium Phosphate 40 meq/Magnesium Chloride 10 meq/ Calcium Chloride 9 meq/ Multivitamins 10 ml/Folic Acid 1 mg/Insulin Human Regular 6 units/ Amino Acids/ Dextrose 2,104.2037 ml @ 83 mls/hr Q24H IV-CENTRAL 06/03/17 20:00 06/06/17 21:32 (Pill Splitter) 1 ea UNSCH PRN OTHER 06/04/17 09:15 Piperacillin Sod/ Tazobactam Sod 50 ml @ 100 mls/hr Q6H IV 06/05/17 06:00 06/07/17 11:45 Lactated Ringer's 1,000 ml @ 125 mls/hr Q8H IV 06/05/17 17:00 06/07/17 11:45 (Pepcid Inj) 20 mg Q12HR IV PUSH 06/05/17 21:00 06/07/17 08:48 (Zofran Inj) 4 mg Q6H PRN IV PUSH 06/05/17 17:00 (Duoneb Neb) 1 ampule Q4HR NEB PRN INH 06/05/17 17:00 06/06/17 10:40 Miscellaneous Information 1 Q361D XX 06/05/17 17:00 (Chlorhexidine 2% Cloth) 3 pack Taper DAILY@04 TOP 06/06/17 04:00 06/02/18 03:59 06/07/17 04:00 (Chlorhexidine 2% Cloth) 3 pack UNSCH PRN TOP 06/05/17 17:00 (Milk Of Magnesia Liq) 30 ml Q12H PRN PO 06/05/17 17:00 (Dulcolax Supp) 10 mg DAILY PRN RECTAL 06/05/17 17:00 (Lactulose Liq) 30 ml DAILY PRN PO 06/05/17 17:00 (D50w (Vial) Inj) 50 ml UNSCH PRN IV PUSH 06/05/17 17:15 (Glucagon Inj) 1 mg UNSCH PRN OTHER 06/05/17 17:15 (NovoLOG SUPPLEMENTAL SCALE) 1 ACHS SLIDING SCALE SQ 06/05/17 21:00 06/06/17 17:00 (Percocet 10-325 Mg) 1 tab Q6H PRN PO 06/05/17 23:30 06/06/17 15:04 (Ativan Inj) 1 mg Q6H PRN IV 06/06/17 01:45 06/07/17 08:48 (Lopressor) 50 mg Q8HR PO 06/07/17 14:00 (Heparin Inj) 5,000 units Q12H SQ 06/07/17 11:00 06/07/17 11:46 Diltiazem HCl 125 mg/Sodium Chloride 125 ml @ 5 mls/hr TITRATE PRN IV 06/07/17 14:15 Family History Unable to obtain secondary to patient's clinical condition of tachypnea and postoperative pain Social History Unable to obtain Physical Exam Vital Signs Vital Signs Date Time Temp Pulse Resp B/P (MAP) Pulse Ox O2 Delivery O2 Flow Rate FiO2 06/07/17 12:00 97.8 116 30 116/80 (92) 84 06/07/17 08:30 114 06/07/17 08:14 94 Nasal Cannula 4.00 06/07/17 08:00 97.9 120 20 133/93 (106) 93 06/07/17 04:05 96.9 112 18 129/94 (106) 94 06/07/17 04:00 112 06/07/17 01:44 97 Nasal Cannula 4.00 06/07/17 00:05 96.0 114 17 125/82 (96) 92 06/07/17 00:00 112 06/06/17 20:00 111 06/06/17 20:00 97.7 112 16 127/79 (95) 94 06/06/17 18:49 97.6 120 18 125/87 (100) 92 06/06/17 18:00 108 06/06/17 16:00 97.8 108 23 120/74 (89) 95 06/06/17 16:00 106 Physical Exam GENERAL: Well-nourished, well-developed patient. SKIN: Warm and dry. HEAD: Normocephalic. EYES: No scleral icterus. No injection or drainage. NECK: Supple, trachea midline. No JVD or lymphadenopathy. CARDIOVASCULAR: tachycardic, irr irr R no murmurs, gallops, or rubs. RESPIRATORY: Breath sounds equal bilaterally. No accessory muscle use. GASTROINTESTINAL: Abdomen soft, non-tender, nondistended. EXTREMITIES: No cyanosis, or edema. Laboratory Laboratory Tests Test 06/07/17 05:00 06/07/17 13:44 White Blood Count 18.1 Red Blood Count 4.20 Hemoglobin 10.9 Hematocrit 33.3 Mean Corpuscular Volume 79.3 Mean Corpuscular Hemoglobin 26.0 Mean Corpuscular Hemoglobin Concent 32.8 Red Cell Distribution Width 19.9 Platelet Count 144 Mean Platelet Volume 9.5 Blood Urea Nitrogen 17 Creatinine 0.77 Random Glucose 171 Calcium Level 8.1 Sodium Level 140 Potassium Level 3.4 Chloride Level 106 Carbon Dioxide Level 25.5 Anion Gap 9 Estimat Glomerular Filtration Rate 93 Blood Gas Puncture Site LT RADIAL Blood Gas Patient Temperature 98.6 Blood Gas HCO3 21 Blood Gas Base Excess -1.8 Blood Gas Oxygen Saturation 85 Arterial Blood pH 7.47 Arterial Blood Partial Pressure CO2 30 Arterial Blood Partial Pressure O2 52 Arterial Blood Oxygen Content 14.0 Arterial Blood Carboxyhemoglobin 1.5 Arterial Blood Methemoglobin 1.2 Blood Gas Hemoglobin 11.7 Oxygen Delivery Device NASAL CANNULA Blood Gas Liter Flow 5 Date/Time Source Procedure Growth Status 06/05/17 10:00 Blood Peripheral Aerobic Blood Culture - Preliminary NO GROWTH IN 2 DAYS Resulted 06/05/17 10:00 Blood Peripheral Anaerobic Blood Culture - Preliminary NO GROWTH IN 2 DAYS Resulted 06/05/17 22:00 Urine Random Urine Urine Culture - Final NO GROWTH Complete Result Diagram: 06/07/17 0500 06/07/17 0500 Imaging Last Impressions Chest X-Ray 06/07/17 0000 Signed Impressions: Service Date/Time: Wednesday, June 07, 2017 09:46 - CONCLUSION: 1. Perihilar pulmonary edema The findings are similar to the prior exam. Jani Rahman MD Abdomen X-Ray 05/25/17 0000 Signed Impressions: Service Date/Time: May 16:15 - CONCLUSION: 1. Air distention of small bowel loops in the midabdomen may be slightly improved. Diagnostic considerations include a hypodynamic ileus versus partial obstruction. 2. Stable position of the nasogastric tube, curled in the gastric fundus Mario Alberto Brumfield MD Small Bowel X-Ray 05/24/17 0000 Signed Impressions: Service Date/Time: Wednesday, May 24, 2017 11:55 - CONCLUSION: Continued continued disparity in proximal small bowel compared to distal. Site of obstruction is not identified. There is no complete obstruction. Garcia Grubbs MD FACR Abdomen/Pelvis CT 05/21/17 1800 Signed Impressions: Service Date/Time: Sunday, May 21, 2017 18:51 - CONCLUSION: 1. Liver and widespread peritoneal/omental/serosal metastatic disease. 2. Apparent early or partial distal small bowel obstruction. 3. Obstruction of the distal right ureter. 4. Clear lung bases. Estiven Boyd MD Assessment and Plan Problem List: (1) Atrial fibrillation with rapid ventricular response ICD Codes: I48.91 - Unspecified atrial fibrillation Status: Resolved Plan: No CV complaints. Hemodynamically stable. Still in Afib with RVR. Not candidate for OAC given recent abd procedure and severe anemia. DNR. Recommendations 1. 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 (3) Abdominal pain ICD Codes: R10.9 - Unspecified abdominal pain Status: Acute (4) History of uterine cancer ICD Codes: Z85.42 - Personal history of malignant neoplasm of other parts of uterus Status: Chronic (5) Small bowel obstruction, partial ICD Codes: K56.69 - Other intestinal obstruction Status: Acute (6) Nausea & vomiting ICD Codes: R11.2 - Nausea with vomiting, unspecified Status: Acute Problem Qualifiers (1) Abdominal pain: Qualified Codes: R10.30 - Lower abdominal pain, unspecified (2) Nausea & vomiting: Qualified Codes: R11.2 - Nausea with vomiting, unspecified Paddy Brady MD Jun 07, 2017 14:55
--- NOTE | 2017-06-07 15:31 | RADRPT ---
EXAM DATE/TIME: 06/07/2017 13:59 [place] COMPARISON: No previous studies available for comparison. INDICATIONS : Short of breath and chest pain. MEDICAL HISTORY : uterine/ovarian cancer. SURGICAL HISTORY : Hysterectomy. Open heart surgery for congenital defect. Ileostomy. ENCOUNTER: Subsequent ACUITY: 3 weeks PAIN SCORE: 10/10 LOCATION: Bilateral chest FINDINGS: A left neck central line is stable with tip overlying SVC. Right chest port is stable in position and is accessed. There is persistent consolidation in the left lung base obscured and the left diaphragm . Portions of the right lung base are now obscured by overlying electronic control unit of some type. There is mild central vascular congestion and central interstitial prominence. CONCLUSION: No significant interval changes. Estiven Mcallister MD on June 07, 2017 at 15:28 Board Certified Radiologist. This report was verified electronically.
--- NOTE | 2017-06-07 16:06 | HHI.PR ---
Subjective Subjective Notes Patient seen around 0830 this AM Very tachypneic while talking Reports no pain Looks very fatigue Objective Vitals/I&O Vital Signs Date Time Temp Pulse Resp B/P (MAP) Pulse Ox O2 Delivery O2 Flow Rate FiO2 06/07/17 12:00 97.8 116 30 116/80 (92) 84 06/07/17 08:14 Nasal Cannula 4.00 06/05/17 18:35 35 Labs Laboratory Tests Test 06/07/17 05:00 06/07/17 13:44 White Blood Count 18.1 Red Blood Count 4.20 Hemoglobin 10.9 Hematocrit 33.3 Mean Corpuscular Volume 79.3 Mean Corpuscular Hemoglobin 26.0 Mean Corpuscular Hemoglobin Concent 32.8 Red Cell Distribution Width 19.9 Platelet Count 144 Mean Platelet Volume 9.5 Blood Urea Nitrogen 17 Creatinine 0.77 Random Glucose 171 Calcium Level 8.1 Sodium Level 140 Potassium Level 3.4 Chloride Level 106 Carbon Dioxide Level 25.5 Anion Gap 9 Estimat Glomerular Filtration Rate 93 Blood Gas Puncture Site LT RADIAL Blood Gas Patient Temperature 98.6 Blood Gas HCO3 21 Blood Gas Base Excess -1.8 Blood Gas Oxygen Saturation 85 Arterial Blood pH 7.47 Arterial Blood Partial Pressure CO2 30 Arterial Blood Partial Pressure O2 52 Arterial Blood Oxygen Content 14.0 Arterial Blood Carboxyhemoglobin 1.5 Arterial Blood Methemoglobin 1.2 Blood Gas Hemoglobin 11.7 Oxygen Delivery Device NASAL CANNULA Blood Gas Liter Flow 5 Date/Time Source Procedure Growth Status 06/05/17 10:00 Blood Peripheral Aerobic Blood Culture - Preliminary NO GROWTH IN 2 DAYS Resulted 06/05/17 10:00 Blood Peripheral Anaerobic Blood Culture - Preliminary NO GROWTH IN 2 DAYS Resulted 06/05/17 22:00 Urine Random Urine Urine Culture - Final NO GROWTH Complete Radiology Last Impressions Abdomen X-Ray 05/25/17 0000 Signed Impressions: Service Date/Time: May 16:15 - CONCLUSION: 1. Air distention of small bowel loops in the midabdomen may be slightly improved. Diagnostic considerations include a hypodynamic ileus versus partial obstruction. 2. Stable position of the nasogastric tube, curled in the gastric fundus Mario Alberto Brumfield MD Small Bowel X-Ray 05/24/17 0000 Signed Impressions: Service Date/Time: Wednesday, May 24, 2017 11:55 - CONCLUSION: Continued continued disparity in proximal small bowel compared to distal. Site of obstruction is not identified. There is no complete obstruction. Garcia Grubbs MD FACR Abdomen/Pelvis CT 05/21/17 1800 Signed Impressions: Service Date/Time: Sunday, May 21, 2017 18:51 - CONCLUSION: 1. Liver and widespread peritoneal/omental/serosal metastatic disease. 2. Apparent early or partial distal small bowel obstruction. 3. Obstruction of the distal right ureter. 4. Clear lung bases. 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 Pickard -Judi for sips of water and ice chips for now -Continue Zosyn -TPN -Continue to monitor labs -Spoke with Lucila MORALES with palliative care--- she will arrange for family meeting---General Surgery will be available if family wishes for us also to be at meeting Attending Statement patient seen at bedside raiza, sob will check cxr cardiology for HR control family meeting to discuss palliation and goals Attestation The exam, history, and the medical decision-making described in the above note were completed with the assistance of the mid-level provider. I reviewed and agree with the findings presented. I attest that I had a [id number] encounter with the patient on the same day, and personally performed and documented my assessment and findings in the medical record. Yumiko Bolaños Jun 07, 2017 16:06 Octaviano Arcos MD Jun 10, 2017 23:11
[2017-06-07] MEDS: METOPROLOL TARTRATE 50 MG TAB PO SCH ×2 (16:53→22:15)
[2017-06-07 17:22] LABS: AUTOMATED NEUTROPHIL # 17.7 TH/MM3 (1.8-7.7); BASOPHIL % 0.2 % (0.0-2.0); EOSINOPHIL % 0.1 % (0.0-4.0); HEMATOCRIT 34.5 % (35.0-46.0); LYMPH % 7.6 % (9.0-44.0); LYMPHOCYTE # 1.6 TH/MM3 (1.0-4.8); MEAN CELL VOLUME 80.2 FL (80.0-100.0); MEAN CORPUSCULAR HEMOGLOBIN 25.8 PG (27.0-34.0); MEAN CORPUSCULAR HGB CONC 32.2 % (32.0-36.0); MONO % 8.8 % (0.0-8.0); NEUT % 83.3 % (16.0-70.0); PLATELET COUNT 154 TH/MM3 (150-450); RED CELL DISTRIBUTION WIDTH 20.5 % (11.6-17.2); WHITE BLOOD COUNT 21.3 TH/MM3 (4.0-11.0)
[2017-06-07 17:28] LABS: HEMO FLAGS AUTO DIFF
[2017-06-07 17:35] LABS: APTT (PATIENT) 34.7 SEC (24.3-30.1); INTERNATIONAL NORMALIZED RATIO 1.1 RATIO; PROTHROMBIN TIME - PATIENT 12.1 SEC (9.8-11.6)
[2017-06-07 17:47] LABS: ALT (GPT) 32 U/L (10-53); ANION GAP 9 MEQ/L (5-15); AST (GOT) 66 U/L (15-37); BICARBONATE 23.6 MEQ/L (21.0-32.0); BLOOD UREA NITROGEN 20 MG/DL (7-18); CHLORIDE 107 MEQ/L (98-107); GLOMERULAR FILTRATION RATE 93 ML/MIN (>89); POTASSIUM 3.6 MEQ/L (3.5-5.1); SODIUM (NA) 140 MEQ/L (136-145)
[2017-06-07 17:52] LABS: BANDS 7 % (0-6); CORRECTED NUCLEATED RBC 4 /100 WBC (0-0); METAMYELOCYTES 2 % (0-1); MYELOCYTES 1 % (0-0); NEUTROPHIL # MANUAL DIFF 18.1 TH/MM3 (1.8-7.7); POLYS (SEG NEUTROPHILS) 75 % (16-70); WBC DIFF SAMPLE 100
[2017-06-07 17:55] LABS: PLATELET ESTIMATE SMEAR NORMAL (NORMAL); PLATELET MORPHOLOGY NORMAL (NORMAL); SCAN/DIFF FINAL DIFF MANUAL
[2017-06-07 17:56] LABS: HELMET CELLS OCC (NORMAL)
[2017-06-07 17:57] LABS: ACANTHOCYTES 1+ (NORMAL); TEARDROP RBCS 1+ (NORMAL)
[2017-06-07 18:00] LABS: ALKALINE PHOSPHATASE 100 U/L (45-117); TOTAL BILIRUBIN ADULT 0.7 MG/DL (0.2-1.0)
[2017-06-07] MEDS: SODIUM ACETATE IV-CENTRAL SCH ×10 (22:14)
[2017-06-07] MEDS: FAT EMULSION 20% INJ 250 ML (Daily over 8 hours) IV-CENTRAL SCH (22:14)
[2017-06-07] MEDS: SODIUM CHLORIDE IV-CENTRAL SCH ×10 (22:14)
[2017-06-07] MEDS: [UNRECOGNIZED DRUG - OTHER] IV-CENTRAL SCH ×10 (22:14)
[2017-06-08] VITALS (26 sets, daily range): BP systolic 114–139; BP diastolic 73–85; PULSE 84–101; RESP 22; TEMP 96.7–97.8; O2SAT 88–98
[2017-06-08] MEDS: oxyCODONE/ACETAMINOPHEN 10 MG/325 MG TAB PO PRN (00:07)
[2017-06-08] MEDS: PIPERACIL-TAZO 3.375 GM PREMIX 50 ML IV SCH ×4 (00:08→16:47)
[2017-06-08] MEDS: LACTATED RINGER'S 1000 ML INJ 1,000 ML IV SCH ×2 (03:10→09:11)
[2017-06-08] MEDS: CHLORHEXIDINE GLUCONATE 2 % 1 PACK (2 CLOTHS) TOP SCH ×2 (04:00→21:19)
[2017-06-08] MEDS: METOPROLOL TARTRATE 50 MG TAB PO SCH ×3 (05:32→21:17)
[2017-06-08] MEDS: MORPHINE SULFATE 4 MG/ML INJ IV PUSH PRN ×3 (05:32→19:44)
[2017-06-08 07:05] LABS: HEMATOCRIT 33.5 % (35.0-46.0); MEAN CELL VOLUME 80.1 FL (80.0-100.0); MEAN CORPUSCULAR HEMOGLOBIN 26.1 PG (27.0-34.0); MEAN CORPUSCULAR HGB CONC 32.6 % (32.0-36.0); PLATELET COUNT 162 TH/MM3 (150-450); RED BLOOD COUNT 4.19 MIL/MM3 (4.00-5.30); RED CELL DISTRIBUTION WIDTH 21.2 % (11.6-17.2); REVIEW FLAG FINAL; WHITE BLOOD COUNT 25.6 TH/MM3 (4.0-11.0)
[2017-06-08 07:12] LABS: BICARBONATE 21.4 MEQ/L (21.0-32.0); POTASSIUM 3.9 MEQ/L (3.5-5.1)
--- NOTE | 2017-06-08 08:34 | PD.ONC.PN ---
Subjective Subjective Remarks Ms. Boston is in bed with non-rebreather she can only talk in short sentences she tells me her family arrived yesterday about 4 and they stayed for a short time and left to go back to [place]. I encouraged her to consider Hospice. I explained that her health has been declining since her admission. I explained I am concerned that she is here alone and we feel she needs the best care possible, as she will not be able to return home. She is too weak and I am concerned that her roommate will not be able to provide the 24 hour care that she needs. If she were to agree to go to a Hospice house then she will have nurses caring for her 24 hours a day and giving her the support and comfort care that she needs. After extensive discussion Ms. Boston said she would have to think about what I have said. Objective Data Date Time Temp Pulse Resp B/P (MAP) Pulse Ox O2 Delivery O2 Flow Rate FiO2 06/08/17 06:21 91 Non-Rebreather 13.00 06/08/17 06:00 84 06/08/17 05:33 124/73 06/08/17 05:00 86 06/08/17 04:44 97.6 85 124/73 (90) 91 06/08/17 04:00 88 06/08/17 03:00 86 06/08/17 02:00 92 06/08/17 01:00 96 06/08/17 00:00 94 06/07/17 23:33 98.3 97 123/83 (96) 90 06/07/17 23:00 94 06/07/17 22:00 98 06/07/17 21:00 104 06/07/17 20:00 92 06/07/17 19:00 92 06/07/17 18:33 99 06/07/17 18:25 90 Non-Rebreather 13.00 06/07/17 17:27 98 06/07/17 16:16 28 06/07/17 16:14 131 06/07/17 15:30 97.8 136 28 116/79 (91) 93 06/07/17 15:30 136 06/07/17 12:00 97.8 116 30 116/80 (92) 84 06/07/17 08:30 114 06/07/17 08:14 94 Nasal Cannula 4.00 1006/08/17 06/08/17 07:00 15:00 23:00 Intake Total 1248 ml Output Total 300 ml Balance 948 ml Result Diagram: 06/08/17 0620 06/08/17619 Laboratory Results Laboratory Tests Test 06/07/17 13:44 06/07/17 15:38 06/08/17 06:20 Blood Gas Puncture Site LT RADIAL Blood Gas Patient Temperature 98.6 Blood Gas HCO3 21 mmol/L Blood Gas Base Excess -1.8 mmol/L Blood Gas Oxygen Saturation 85 % Arterial Blood pH 7.47 Arterial Blood Partial Pressure CO2 30 mmHg Arterial Blood Partial Pressure O2 52 mmHg Arterial Blood Oxygen Content 14.0 Vol % Arterial Blood Carboxyhemoglobin 1.5 % Arterial Blood Methemoglobin 1.2 % Blood Gas Hemoglobin 11.7 G/DL Oxygen Delivery Device NASAL CANNULA Blood Gas Liter Flow 5 L/M White Blood Count 21.3 TH/MM3 25.6 TH/MM3 Red Blood Count 4.30 MIL/MM3 4.19 MIL/MM3 Hemoglobin 11.1 GM/DL 10.9 GM/DL Hematocrit 34.5 % 33.5 % Mean Corpuscular Volume 80.2 FL 80.1 FL Mean Corpuscular Hemoglobin 25.8 PG 26.1 PG Mean Corpuscular Hemoglobin Concent 32.2 % 32.6 % Red Cell Distribution Width 20.5 % 21.2 % Platelet Count 154 TH/MM3 162 TH/MM3 Mean Platelet Volume 9.9 FL 10.1 FL Neutrophils (%) (Auto) 83.3 % Lymphocytes (%) (Auto) 7.6 % Monocytes (%) (Auto) 8.8 % Eosinophils (%) (Auto) 0.1 % Basophils (%) (Auto) 0.2 % Neutrophils # (Auto) 17.7 TH/MM3 Lymphocytes # (Auto) 1.6 TH/MM3 Monocytes # (Auto) 1.9 TH/MM3 Eosinophils # (Auto) 0.0 TH/MM3 Basophils # (Auto) 0.0 TH/MM3 CBC Comment AUTO DIFF Differential Total Cells Counted 100 Neutrophils % (Manual) 75 % Band Neutrophils % 7 % Lymphocytes % 10 % Monocytes % 5 % Neutrophils # (Manual) 18.1 TH/MM3 Metamyelocytes 2 % Myelocytes 1 % Nucleated Red Blood Cells 4 /100 WBC Differential Comment FINAL DIFF MANUAL Platelet Estimate NORMAL Platelet Morphology Comment NORMAL Tear Drop Cells 1+ Helmet Cells OCC [place] Cells Acanthocytes 1+ Prothrombin Time 12.1 SEC Prothromb Time International Ratio 1.1 RATIO Activated Partial Thromboplast Time 34.7 SEC Blood Urea Nitrogen 20 MG/DL 23 MG/DL Creatinine 0.77 MG/DL 1.01 MG/DL Random Glucose 190 MG/DL 201 MG/DL Total Protein 6.6 GM/DL Albumin 1.9 GM/DL Calcium Level 8.1 MG/DL 8.4 MG/DL Alkaline Phosphatase 100 U/L Aspartate Amino Transf (AST/SGOT) 66 U/L Alanine Aminotransferase (ALT/SGPT) 32 U/L Total Bilirubin 0.7 MG/DL Sodium Level 140 MEQ/L 139 MEQ/L Potassium Level 3.6 MEQ/L 3.9 MEQ/L Chloride Level 107 MEQ/L 106 MEQ/L Carbon Dioxide Level 23.6 MEQ/L 21.4 MEQ/L Anion Gap 9 MEQ/L 12 MEQ/L Estimat Glomerular Filtration Rate 93 ML/MIN 68 ML/MIN Culture Results Microbiology Date/Time Source Procedure Growth Status 06/05/17 10:00 Blood Peripheral Aerobic Blood Culture - Preliminary NO GROWTH IN 2 DAYS Resulted 06/05/17 10:00 Blood Peripheral Anaerobic Blood Culture - Preliminary NO GROWTH IN 2 DAYS Resulted 06/05/17 09:53 Blood Peripheral Aerobic Blood Culture - Preliminary NO GROWTH IN 2 DAYS Resulted 06/05/17 09:53 Blood Peripheral Anaerobic Blood Culture - Preliminary NO GROWTH IN 2 DAYS Resulted 06/05/17 22:00 Urine Random Urine Urine Culture - Final NO GROWTH Complete Administered Medications Medications (Trade) Dose Ordered Sig/Rena Route PRN Reason Start Time Stop Time Status Last Admin Dose Admin Sodium Chloride (NS Flush) 2 ml BID IV FLUSH 05/21/17 21:00 06/07/17 21:00 Morphine Sulfate (Morphine Inj) 1 mg Q3H PRN IV PUSH Pain 3-5 05/21/17 20:15 05/27/17 08:59 Morphine Sulfate (Morphine Inj) 2 mg Q3H PRN IV PUSH Pain 6-10, dyspnea 05/21/17 20:15 06/08/17 05:32 Acetaminophen (Ofirmev 1000 Mg/ 100 ml Inj) 1,000 mg Q6H PRN IV FEVER 05/21/17 20:15 06/03/17 23:44 Sennosides (Senokot) 17.2 mg Q12H PRN PO MODERATE - SEVERE CONSTIPATION 05/21/17 20:15 05/23/17 10:48 Fat Emulsion Intravenous 250 ml @ 31.25 mls/ hr Q24H IV-CENTRAL 06/01/17 20:00 06/07/17 22:14 Sodium Chloride 11 meq/Sodium Acetate 59 meq/ Potassium Chloride 80 meq/ Sodium Phosphate 40 meq/Magnesium Chloride 10 meq/ Calcium Chloride 9 meq/ Multivitamins 10 ml/Folic Acid 1 mg/Insulin Human Regular 6 units/ Amino Acids/ Dextrose 2,104.2037 ml @ 83 mls/hr Q24H IV-CENTRAL 06/03/17 20:00 06/07/17 22:14 Piperacillin Sod/ Tazobactam Sod 50 ml @ 100 mls/hr Q6H IV 06/05/17 06:00 06/08/17 05:32 Lactated Ringer's 1,000 ml @ 100 mls/hr Q10H IV 06/05/17 17:00 06/07/17 22:14 Famotidine (Pepcid Inj) 20 mg Q12HR IV PUSH 06/05/17 21:00 06/07/17 22:15 Albuterol/ Ipratropium (Duoneb Neb) 1 ampule Q4HR NEB PRN INH WHEEZING 06/05/17 17:00 06/06/17 10:40 Chlorhexidine Gluconate (Chlorhexidine 2% Cloth) 3 pack Taper DAILY@04 TOP 06/06/17 04:00 06/02/18 03:59 06/07/17 04:00 Insulin Aspart (NovoLOG SUPPLEMENTAL SCALE) 1 ACHS SLIDING SCALE SQ 06/05/17 21:00 06/07/17 22:15 Oxycodone/ Acetaminophen (Percocet 10-325 Mg) 1 tab Q6H PRN PO PAIN SCALE 1-5 06/05/17 23:30 06/08/17 00:07 Metoprolol Tartrate (Lopressor) 50 mg Q8HR PO 06/07/17 14:00 06/08/17 05:32 Heparin Sodium (Porcine) (Heparin Inj) 5,000 units Q12H SQ 06/07/17 11:00 06/07/17 22:15 Diltiazem HCl 125 mg/Sodium Chloride 125 ml @ 5 mls/hr TITRATE PRN IV Tachycardia 06/07/17 14:15 06/08/17 05:33 Objective Remarks GENERAL: frail and ill SKIN: Warm and dry. HEAD: Normocephalic. EYES: No scleral icterus. No injection or drainage. NECK: Supple, trachea midline. with left sided central line CARDIOVASCULAR: tachycardia RESPIRATORY: pt with non rebreather, distress with accessory muscle, tachypneic GASTROINTESTINAL: Abdomen firm, ileostomy to right quad EXTREMITIES: no edema MUSCULOSKELETAL: deconditioned NEUROLOGICAL: No obvious focal deficit. Awake, alert, and oriented x3. Assessment/Plan Problem List: (1) Uterine cancer ICD Codes: C55 - Malignant neoplasm of uterus, part unspecified Status: Chronic Plan: POD #3 patient transferred yesterday to cardiac unit for afib with RVR advancement of disease despite treatment pt not improving medically family drove down from [place] for brief visit and have returned home recommend Hospice but patient is not understanding the severity of her disease and feels that she wants to return home where her roommate can care for her. will continue to give supportive care and appreciate Palliative Care assistance. addendum: At aprox 1315 I had the opportunity to speak with Ms. Boston's family. I explained the aggressive and unpredictable nature of sarcomas. I explained that these type of tumors readily reoccurs and spread despite treatments. This is the situation that we have found ourself in with Ms. Boston, I explained that we were able to initially get her into remission but she reoccurred and seemed to be responding to treatment for a short time. Unfortunately, despite treatment her disease has spread thought out her abdomen. Her family inquired about trying to get her back to [place], I stated that in the current condition she is in, she would most likely not survive the the trip. Her family tells me that another doctor has told them the same. I then explained that our recommendation is for Hospice care and if we can get her to a care center she could get the 24 hour supportive care that she requires. Her family stated understanding and were thankful for all the information. They are leaving today but her sister will return on Monday. I gave them our office number and said that we are available if the have any questions. (2) Partial small bowel obstruction ICD Codes: K56.69 - Other intestinal obstruction Status: Acute Plan: POD #3 X lap for resection of bowel obstruction and ileostomy general surgery continues to follow patient is healing well pain controlled ileostomy patent (3) Atrial fibrillation with rapid ventricular response ICD Codes: I48.91 - Unspecified atrial fibrillation Status: Acute Plan: patient transferred to cardiac unit Melodie jordan on non-rebreather DNR Attending Statement Discussed with Dr. Saravia and he is in agreement. Problem Qualifiers (1) Uterine cancer: Qualified Codes: C55 - Malignant neoplasm of uterus, part unspecified Michael Roche Jun 08, 2017 08:34
--- NOTE | 2017-06-08 08:58 | PD.CARD.PN ---
Subjective Subjective Remarks back in SR Objective Medications Current Medications Medications (Trade) Dose Ordered Sig/Rena Route Start Time Stop Time Status Last Admin (NS Flush) 2 ml UNSCH PRN IV FLUSH 05/21/17 20:15 (NS Flush) 2 ml BID IV FLUSH 05/21/17 21:00 06/07/17 21:00 (Morphine Inj) 1 mg Q3H PRN IV PUSH 05/21/17 20:15 05/27/17 08:59 (Morphine Inj) 2 mg Q3H PRN IV PUSH 05/21/17 20:15 06/08/17 05:32 (Ofirmev 1000 Mg/ 100 ml Inj) 1,000 mg Q6H PRN IV 05/21/17 20:15 06/03/17 23:44 (Senokot) 17.2 mg Q12H PRN PO 05/21/17 20:15 05/23/17 10:48 (Chloraseptic [place]) 2 spray Q2H PRN OROPHARYNG 05/26/17 09:30 Fat Emulsion Intravenous 250 ml @ 31.25 mls/ hr Q24H IV-CENTRAL 06/01/17 20:00 06/07/17 22:14 Sodium Chloride 11 meq/Sodium Acetate 59 meq/ Potassium Chloride 80 meq/ Sodium Phosphate 40 meq/Magnesium Chloride 10 meq/ Calcium Chloride 9 meq/ Multivitamins 10 ml/Folic Acid 1 mg/Insulin Human Regular 6 units/ Amino Acids/ Dextrose 2,104.2037 ml @ 83 mls/hr Q24H IV-CENTRAL 06/03/17 20:00 06/07/17 22:14 (Pill Splitter) 1 ea UNSCH PRN OTHER 06/04/17 09:15 Piperacillin Sod/ Tazobactam Sod 50 ml @ 100 mls/hr Q6H IV 06/05/17 06:00 06/08/17 05:32 Lactated Ringer's 1,000 ml @ 100 mls/hr Q10H IV 06/05/17 17:00 06/07/17 22:14 (Pepcid Inj) 20 mg Q12HR IV PUSH 06/05/17 21:00 06/07/17 22:15 (Zofran Inj) 4 mg Q6H PRN IV PUSH 06/05/17 17:00 (Duoneb Neb) 1 ampule Q4HR NEB PRN INH 06/05/17:00 06/06/17 10:40 Miscellaneous Information 1 Q361D XX 06/05/17 17:00 (Chlorhexidine 2% Cloth) 3 pack Taper DAILY@04 TOP 06/06/17 04:00 06/02/18 03:59 06/07/17 04:00 (Chlorhexidine 2% Cloth) 3 pack UNSCH PRN TOP 06/05/17 17:00 (Milk Of Magnesia Liq) 30 ml Q12H PRN PO 06/05/17 17:00 (Dulcolax Supp) 10 mg DAILY PRN RECTAL 06/05/17 17:00 (Lactulose Liq) 30 ml DAILY PRN PO 06/05/17 17:00 (D50w (Vial) Inj) 50 ml UNSCH PRN IV PUSH 06/05/17 17:15 (Glucagon Inj) 1 mg UNSCH PRN OTHER 06/05/17 17:15 (NovoLOG SUPPLEMENTAL SCALE) 1 ACHS SLIDING SCALE SQ 06/05/17 21:00 06/07/17 22:15 (Percocet 10-325 Mg) 1 tab Q6H PRN PO 06/05/17 23:30 06/08/17 00:07 (Lopressor) 50 mg Q8HR PO 06/07/17 14:00 06/08/17 05:32 (Heparin Inj) 5,000 units Q12H SQ 06/07/17 11:00 06/07/17 22:15 Diltiazem HCl 125 mg/Sodium Chloride 125 ml @ 5 mls/hr TITRATE PRN IV 06/07/17 14:15 06/08/17 05:33 (Ativan Inj) 1 mg Q4HR PRN IV 06/07/17 15:00 Vital Signs / I&O Vital Signs Date Time Temp Pulse Resp B/P (MAP) Pulse Ox O2 Delivery O2 Flow Rate FiO2 06/08/17 06:21 91 Non-Rebreather 13.00 06/08/17 06:00 84 06/08/17 05:33 124/73 06/08/17 05:00 86 06/08/17 04:44 97.6 85 124/73 (90) 91 06/08/17 04:00 88 06/08/17 03:00 86 06/08/17 02:00 92 06/08/17 01:00 96 06/08/17 00:00 94 06/07/17 23:33 98.3 97 123/83 (96) 90 06/07/17 23:00 94 06/07/17 22:00 98 06/07/17 21:00 104 06/07/17 20:00 92 06/07/17 19:00 92 06/07/17 18:33 99 06/07/17 18:25 90 Non-Rebreather 13.00 06/07/17 17:27 98 06/07/17 16:16 28 06/07/17 16:14 131 06/07/17 15:30 97.8 136 28 116/79 (91) 93 06/07/17 15:30 136 06/07/17 12:00 97.8 116 30 116/80 (92) 84 I/O 06/07/17 06/07/17 06/07/17 06/08/17 06/08/17 06/08/17 07:00 15:00 23:00 07:00 15:00 23:00 Intake Total 1800 ml 240 ml 1248 ml Output Total 450 ml 375 ml 450 ml 300 ml Balance -450 ml 1425 ml -210 ml 948 ml Intake Oral 240 ml 120 ml IV Total 1800 ml 1128 ml Output Urine Total 450 ml 375 ml 450 ml 300 ml # Bowel Movements 0 0 Physical Exam GENERAL: Well-nourished, well-developed patient. SKIN: Warm and dry. HEAD: Normocephalic. EYES: No scleral icterus. No injection or drainage. NECK: Supple, trachea midline. No JVD or lymphadenopathy. CARDIOVASCULAR: Regular rate and rhythm without murmurs, gallops, or rubs. RESPIRATORY: Breath sounds equal bilaterally. No accessory muscle use. GASTROINTESTINAL: Abdomen soft, non-tender, nondistended. EXTREMITIES: No cyanosis, or edema. Laboratory Laboratory Tests Test 06/07/17 13:44 06/07/17 15:38 06/08/17 06:20 Blood Gas Puncture Site LT RADIAL Blood Gas Patient Temperature 98.6 Blood Gas HCO3 21 mmol/L Blood Gas Base Excess -1.8 mmol/L Blood Gas Oxygen Saturation 85 % Arterial Blood pH 7.47 Arterial Blood Partial Pressure CO2 30 mmHg Arterial Blood Partial Pressure O2 52 mmHg Arterial Blood Oxygen Content 14.0 Vol % Arterial Blood Carboxyhemoglobin 1.5 % Arterial Blood Methemoglobin 1.2 % Blood Gas Hemoglobin 11.7 G/DL Oxygen Delivery Device NASAL CANNULA Blood Gas Liter Flow 5 L/M White Blood Count 21.3 TH/MM3 25.6 TH/MM3 Red Blood Count 4.30 MIL/MM3 4.19 MIL/MM3 Hemoglobin 11.1 GM/DL 10.9 GM/DL Hematocrit 34.5 % 33.5 % Mean Corpuscular Volume 80.2 FL 80.1 FL Mean Corpuscular Hemoglobin 25.8 PG 26.1 PG Mean Corpuscular Hemoglobin Concent 32.2 % 32.6 % Red Cell Distribution Width 20.5 % 21.2 % Platelet Count 154 TH/MM3 162 TH/MM3 Mean Platelet Volume 9.9 FL 10.1 FL Neutrophils (%) (Auto) 83.3 % Lymphocytes (%) (Auto) 7.6 % Monocytes (%) (Auto) 8.8 % Eosinophils (%) (Auto) 0.1 % Basophils (%) (Auto) 0.2 % Neutrophils # (Auto) 17.7 TH/MM3 Lymphocytes # (Auto) 1.6 TH/MM3 Monocytes # (Auto) 1.9 TH/MM3 Eosinophils # (Auto) 0.0 TH/MM3 Basophils # (Auto) 0.0 TH/MM3 CBC Comment AUTO DIFF Differential Total Cells Counted 100 Neutrophils % (Manual) 75 % Band Neutrophils % 7 % Lymphocytes % 10 % Monocytes % 5 % Neutrophils # (Manual) 18.1 TH/MM3 Metamyelocytes 2 % Myelocytes 1 % Nucleated Red Blood Cells 4 /100 WBC Differential Comment FINAL DIFF MANUAL Platelet Estimate NORMAL Platelet Morphology Comment NORMAL Tear Drop Cells 1+ Helmet Cells OCC [place] Cells Acanthocytes 1+ Prothrombin Time 12.1 SEC Prothromb Time International Ratio 1.1 RATIO Activated Partial Thromboplast Time 34.7 SEC Blood Urea Nitrogen 20 MG/DL 23 MG/DL Creatinine 0.77 MG/DL 1.01 MG/DL Random Glucose 190 MG/DL 201 MG/DL Total Protein 6.6 GM/DL Albumin 1.9 GM/DL Calcium Level 8.1 MG/DL 8.4 MG/DL Alkaline Phosphatase 100 U/L Aspartate Amino Transf (AST/SGOT) 66 U/L Alanine Aminotransferase (ALT/SGPT) 32 U/L Total Bilirubin 0.7 MG/DL Sodium Level 140 MEQ/L 139 MEQ/L Potassium Level 3.6 MEQ/L 3.9 MEQ/L Chloride Level 107 MEQ/L 106 MEQ/L Carbon Dioxide Level 23.6 MEQ/L 21.4 MEQ/L Anion Gap 9 MEQ/L 12 MEQ/L Estimat Glomerular Filtration Rate 93 ML/MIN 68 ML/MIN Assessment and Plan Problem List: (1) Atrial fibrillation with rapid ventricular response ICD Codes: I48.91 - Unspecified atrial fibrillation Status: Acute Plan: d/c Cardizem drip start Cardizem 30mg PO QID (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 (3) Abdominal pain ICD Codes: R10.9 - Unspecified abdominal pain Status: Acute (4) History of uterine cancer ICD Codes: Z85.42 - Personal history of malignant neoplasm of other parts of uterus Status: Chronic (5) Small bowel obstruction, partial ICD Codes: K56.69 - Other intestinal obstruction Status: Acute (6) Nausea & vomiting ICD Codes: R11.2 - Nausea with vomiting, unspecified Status: Acute Problem Qualifiers (1) Abdominal pain: Qualified Codes: R10.30 - Lower abdominal pain, unspecified (2) Nausea & vomiting: Qualified Codes: R11.2 - Nausea with vomiting, unspecified Paddy Brady MD Jun 08, 2017 08:58
[2017-06-08] MEDS: SODIUM CHLORIDE 0.9% FLUSH 10 ML FLUSH IV FLUSH SCH ×2 (09:10→21:00)
[2017-06-08] MEDS: INSULIN ASPART SUPPLEMENTAL SCALE SQ SCH ×4 (09:10→21:17)
[2017-06-08] MEDS: FAMOTIDINE 20 MG/2 ML VIAL IV PUSH SCH ×2 (09:11→21:18)
--- NOTE | 2017-06-08 10:03 | HHI.PR ---
Subjective Remarks Patient is still very tachypneic. Hypoxemic requiring more oxygen. Back in sinus rhythm. She is intermittently confused. I talked to her about probability of declining and not surviving this hospitalization. She states she would want to at her home town in [place]. Family briefly visited yesterday and went back to [place]. Objective Vitals Vital Signs Date Time Temp Pulse Resp B/P (MAP) Pulse Ox O2 Delivery O2 Flow Rate FiO2 06/08/17 06:21 91 Non-Rebreather 13.00 06/08/17 06:00 84 06/08/17 05:33 124/73 06/08/17 05:00 86 06/08/17 04:44 97.6 85 124/73 (90) 91 06/08/17 04:00 88 06/08/17 03:00 86 06/08/17 02:00 92 06/08/17 01:00 96 06/08/17 00:00 94 06/07/17 23:33 98.3 97 123/83 (96) 90 06/07/17 23:00 94 06/07/17 22:00 98 06/07/17 21:00 104 06/07/17 20:00 92 06/07/17 19:00 92 06/07/17 18:33 99 06/07/17 18:25 90 Non-Rebreather 13.00 06/07/17 17:27 98 06/07/17 16:16 28 06/07/17 16:14 131 06/07/17 15:30 97.8 136 28 116/79 (91) 93 06/07/17 15:30 136 06/07/17 12:00 97.8 116 30 116/80 (92) 84 I/O 06/07/17 06/07/17 06/07/17 06/08/17 06/08/17 06/08/17 07:00 15:00 23:00 07:00 15:00 23:00 Intake Total 1800 ml 240 ml 1248 ml Output Total 450 ml 375 ml 450 ml 300 ml Balance -450 ml 1425 ml -210 ml 948 ml Intake Oral 240 ml 120 ml IV Total 1800 ml 1128 ml Output Urine Total 450 ml 375 ml 450 ml 300 ml # Bowel Movements 0 0 Result Diagram: 06/08/1761906/08/17619 Objective Remarks GENERAL: In respiratory distress, tachypneic. CARDIOVASCULAR: Normal rate, regular rate. RESPIRATORY: Tachypneic, shallow breathing. Coarse breath sounds bilaterally. GASTROINTESTINAL: Abdomen is mildly distended, ostomy appear clean. MUSCULOSKELETAL: Extremities without cyanosis, or edema. NEURO: Anxious. Procedures None. A/P Problem List: (1) Partial small bowel obstruction ICD Code: K56.69 - Other intestinal obstruction Status: Acute (2) Uterine cancer ICD Code: C55 - Malignant neoplasm of uterus, part unspecified Status: Chronic (3) UTI (urinary tract infection) ICD Code: N39.0 - Urinary tract infection, site not specified (4) Renal insufficiency ICD Code: N28.9 - Disorder of kidney and ureter, unspecified Status: Chronic Assessment and Plan 61-year-old female with history of uterine cancer, failed chemotherapy treatment admitted with small bowel obstruction with associated complications. Oncology recommended hospice. Patient has been refusing, her condition deteriorated. She is status post emergent laparotomy with ileostomy. Patient is still critically ill, she is a DNR. She is hospice appropriate if her goals changed to comfort care only. Persistent respiratory failure. I encouraged the patient to consider hospice. It appears that she is still in the now about her condition and prognosis but states she will think about it for another day. Respiratory failure/tachypnea: Persistent. - At high risk for PE. Obtain CTA to rule out PE. - On Zosyn. Chest x-ray yesterday had persistent, stable perihilar edema. - Continue support with supplemental oxygen. May need BiPAP. A. fib with RVR: -Cardiology following. Status post Cardizem drip. Transition to oral Cardizem today. - Increase metoprolol to 50 mg every 8 hours. Small bowel obstruction: Concern for perforation. Patient emergently taken to the OR. - Status post laparotomy with low ileostomy. Gen surgery following - DW surgical team today. - Continue TPN. - Nothing by mouth Acute renal failure: Probably related to hypoxemia, worsening condition. - Follow renal function. Avoid nephrotoxins. Continue IV fluid. Uterine cancer: Appreciate gynecologic oncology recommendations. Hospice recommended. Patient not ready to accept hospice care at this time. Severe malnutrition: Continue TPN. [employer] following. Diet as tolerated Acute on chronic anemia-monitor, no signs of active bleeding at this time. PPI. Follow H&H. Hypokalemia- replete and follow Hyperglycemia: adjustment to TPN; we'll continue monitor blood glucose levels closely. DVT prophylaxis: Heparin. Discharge Planning Patient remains critically ill and at risk for further decline and multi-organ failure. Goals are aggressive short of resuscitation. Appreciate follow-up from palliative care. Problem Qualifiers (1) Uterine cancer: Qualified Codes: C55 - Malignant neoplasm of uterus, part unspecified Elizabeth Pickard MD Jun 08, 2017 10:03
--- NOTE | 2017-06-08 11:27 | HHI.PR ---
Subjective Subjective Notes Resting in bed Fatigue Can only talk in very short sentences before becoming short of breath On NRB Asking to go to detention for rehab Objective Vitals/I&O Vital Signs Date Time Temp Pulse Resp B/P (MAP) Pulse Ox O2 Delivery O2 Flow Rate FiO2 06/08/17 06:21 91 Non-Rebreather 13.00 06/08/17 06:00 84 06/08/17 05:33 124/73 06/08/17 04:44 97.6 06/07/17 16:16 28 06/05/17 18:35 35 Labs Laboratory Tests Test 06/07/17 13:44 06/07/17 15:38 06/08/17 06:20 Blood Gas Puncture Site LT RADIAL Blood Gas Patient Temperature 98.6 Blood Gas HCO3 21 Blood Gas Base Excess -1.8 Blood Gas Oxygen Saturation 85 Arterial Blood pH 7.47 Arterial Blood Partial Pressure CO2 30 Arterial Blood Partial Pressure O2 52 Arterial Blood Oxygen Content 14.0 Arterial Blood Carboxyhemoglobin 1.5 Arterial Blood Methemoglobin 1.2 Blood Gas Hemoglobin 11.7 Oxygen Delivery Device NASAL CANNULA Blood Gas Liter Flow 5 White Blood Count 21.3 25.6 Red Blood Count 4.30 4.19 Hemoglobin 11.1 10.9 Hematocrit 34.5 33.5 Mean Corpuscular Volume 80.2 80.1 Mean Corpuscular Hemoglobin 25.8 26.1 Mean Corpuscular Hemoglobin Concent 32.2 32.6 Red Cell Distribution Width 20.5 21.2 Platelet Count 154 162 Mean Platelet Volume 9.9 10.1 Neutrophils (%) (Auto) 83.3 Lymphocytes (%) (Auto) 7.6 Monocytes (%) (Auto) 8.8 Eosinophils (%) (Auto) 0.1 Basophils (%) (Auto) 0.2 Neutrophils # (Auto) 17.7 Lymphocytes # (Auto) 1.6 Monocytes # (Auto) 1.9 Eosinophils # (Auto) 0.0 Basophils # (Auto) 0.0 CBC Comment AUTO DIFF Differential Total Cells Counted 100 Neutrophils % (Manual) 75 Band Neutrophils % 7 Lymphocytes % 10 Monocytes % 5 Neutrophils # (Manual) 18.1 Metamyelocytes 2 Myelocytes 1 Nucleated Red Blood Cells 4 Differential Comment FINAL DIFF MANUAL Platelet Estimate NORMAL Platelet Morphology Comment NORMAL Tear Drop Cells 1+ Helmet Cells OCC [place] Cells Acanthocytes 1+ Prothrombin Time 12.1 Prothromb Time International Ratio 1.1 Activated Partial Thromboplast Time 34.7 Blood Urea Nitrogen 20 23 Creatinine 0.77 1.01 Random Glucose 190 201 Total Protein 6.6 Albumin 1.9 Calcium Level 8.1 8.4 Alkaline Phosphatase 100 Aspartate Amino Transf (AST/SGOT) 66 Alanine Aminotransferase (ALT/SGPT) 32 Total Bilirubin 0.7 Sodium Level 140 139 Potassium Level 3.6 3.9 Chloride Level 107 106 Carbon Dioxide Level 23.6 21.4 Anion Gap 9 12 Estimat Glomerular Filtration Rate 93 68 Date/Time Source Procedure Growth Status 06/05/17 10:00 Blood Peripheral Aerobic Blood Culture - Preliminary NO GROWTH IN 2 DAYS Resulted 06/05/17 10:00 Blood Peripheral Anaerobic Blood Culture - Preliminary NO GROWTH IN 2 DAYS Resulted 06/05/17 22:00 Urine Random Urine Urine Culture - Final NO GROWTH Complete Radiology Last Impressions Abdomen X-Ray 05/25/17 0000 Signed Impressions: Service Date/Time: May 16:15 - CONCLUSION: 1. Air distention of small bowel loops in the midabdomen may be slightly improved. Diagnostic considerations include a hypodynamic ileus versus partial obstruction. 2. Stable position of the nasogastric tube, curled in the gastric fundus Mario Alberto Brumfield MD Small Bowel X-Ray 05/24/17 0000 Signed Impressions: Service Date/Time: Wednesday, May 24, 2017 11:55 - CONCLUSION: Continued continued disparity in proximal small bowel compared to distal. Site of obstruction is not identified. There is no complete obstruction. Garcia Grubbs MD FACR Abdomen/Pelvis CT 05/21/17 1800 Signed Impressions: Service Date/Time: Sunday, May 21, 2017 18:51 - CONCLUSION: 1. Liver and widespread peritoneal/omental/serosal metastatic disease. 2. Apparent early or partial distal small bowel obstruction. 3. Obstruction of the distal right ureter. 4. Clear lung bases. 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 Boston is; they have already returned to [place]. -Discussed the option of Hospice and [facility] for [facility] and support; not able to make that decision at this time -Discussed also with Dr. Pickard Addendum Spoke with family at bedside around noon today with Dr. Pickard; explained that the surgery on Monday was only palliative and not curative; General Surgery recommends transition to Hospice Care Attending Statement patient seen at bedside surgery assisted in palliation plan for end of life care as pt has extensive cancer burden and declining clinically Attestation The exam, history, and the medical decision-making described in the above note were completed with the assistance of the mid-level provider. I reviewed and agree with the findings presented. I attest that I had a [id number] encounter with the patient on the same day, and personally performed and documented my assessment and findings in the medical record. Yumiko Bolaños Jun 08, 2017 10:36 Octavaino Arcos MD Jun 10, 2017 23:20
[2017-06-08] MEDS: DILTIAZEM HCL 30 MG TAB PO SCH ×4 (12:09→21:17)
--- NOTE | 2017-06-08 12:15 | HHI.HCPN ---
Reason for visit a. To assist with evaluation and management of symptoms including: nausea, pain, malnutrition b. To assist medical decision maker(s) with: better understanding of current medical conditions; weighing benefits/burdens of medical treatment options; making medical treatment decisions. . (Lucila Muse) Subjective/Interval History Patient examined today, family at beside. Patient is very tachypneic and utilizing accessory muscles, she is unable to hold a conversation due to dyspnea , she is barely able to verbalize one word at a time. Worsening leukocytosis today, WBC:25.6 from 21.3 yesterday, BUN/Creatinine elevated 23/1.01 from 20/ 0.77. Discussion with family and patient at bedside again today regarding prognosis and limited treatment options. . Family/friend interactions Bedside meeting with patient and family. (Lucila Muse) Advance Directives Living Will: Never completed Health Care Surrogate: Copy in medical record (Lucila Muse) Advance Directive Specifics Date completed: 05/25/17. . Health Care Surrogate(s): Jake Ludy (mother) Alternate HCS Jessenia Ludy (sister) . (Lucila Muse) Objective Vital Signs Date Time Temp Pulse Resp B/P (MAP) Pulse Ox O2 Delivery O2 Flow Rate FiO2 06/08/17 11:00 97.1 99 22 139/83 (101) 88 06/08/17 08:00 97.1 86 22 130/80 (97) 90 06/08/17 06:21 91 Non-Rebreather 13.00 06/08/17 06:00 84 06/08/17 05:33 124/73 06/08/17 05:00 86 06/08/17 04:44 97.6 85 124/73 (90) 91 06/08/17 04:00 88 06/08/17 03:00 86 06/08/17 02:00 92 06/08/17 01:00 96 06/08/17 00:00 94 06/07/17 23:33 98.3 97 123/83 (96) 90 06/07/17 23:00 94 06/07/17 22:00 98 06/07/17 21:00 104 06/07/17 20:00 92 06/07/17 19:00 92 06/07/17 18:33 99 06/07/17 18:25 90 Non-Rebreather 13.00 06/07/17 17:27 98 06/07/17 16:16 28 06/07/17 16:14 131 06/07/17 15:30 97.8 136 28 116/79 (91) 93 06/07/17 15:30 136 Intake & Output 06/08/17 06/08/17 07:00 19:00 Intake Total 1248 ml Output Total 300 ml Balance 948 ml Intake Oral 120 ml IV Total 1128 ml Output Urine Total 300 ml Physical Exam CONSTITUTIONAL/GENERAL: This is a thin, frail female patient, very pleasant, in no apparent distress. TUBES/LINES/DRAINS: CVL LIJ, Right subclavian port accessed SKIN: No jaundice, rashes, or lesions. No wounds seen anteriorly. Skin temperature appropriate. Not diaphoretic. EYES: Pupils equal and round and reactive. Extraocular motions intact. No scleral icterus. No injection or drainage. Fundi not examined. CARDIOVASCULAR: Tachycardic, without murmurs, gallops, or rubs. No JVD. Peripheral pulses symmetric. RESPIRATORY/CHEST: Symmetric, labored respirations. Diminished to auscultation. Breath sounds equal bilaterally. GASTROINTESTINAL: Abdomen soft, tender. Light palpitation secondary to tenderness. ileostomy with dark pink stoma. Bowel sounds hypoactive. MUSCULOSKELETAL: Extremities without clubbing, cyanosis, or edema. No mottling or clubbing. NEUROLOGICAL: Drowsy. Limited exam due to patient's drowsiness and dyspnea. PSYCHIATRIC: No obvious anxiety/depression. no apparent hallucinations or other psychotic thought process. . ([facility],Lucila VASQUEZP) Diagnostic Tests Laboratory Laboratory Tests Test 06/05/17 15:40 06/05/17 18:45 06/05/17 22:00 06/06/17 04:00 Blood Gas Puncture Site RT BRACHIAL Blood Gas Patient Temperature 98.6 Blood Gas HCO3 20 mmol/L (22-26) Blood Gas Base Excess -4.3 mmol/L (-2-2) Blood Gas Oxygen Saturation 89 % (90-100) Arterial Blood pH 7.35 (7.380-7.420) Arterial Blood Partial Pressure CO2 38 mmHg (38-42) Arterial Blood Partial Pressure O2 68 mmHg (61-120) Arterial Blood Oxygen Content 15.4 Vol % (12.0-20.0) Arterial Blood Carboxyhemoglobin 1.6 % (0-4) Arterial Blood Methemoglobin 1.2 % (0-2) Blood Gas Hemoglobin 12.4 G/DL (12.0-16.0) Oxygen Delivery Device BiPAP Blood Gas Ventilator Setting IPAP10/EPAP+5 Blood Gas Inspired Oxygen 50 % Nasal Screen MRSA (PCR) MRSA NOT DETECTED (NOT White Blood Count 17.4 TH/MM3 (4.0-11.0) 17.0 TH/MM3 (4.0-11.0) Red Blood Count 4.70 MIL/MM3 (4.00-5.30) 4.45 MIL/MM3 (4.00-5.30) Hemoglobin 12.4 GM/DL (11.6-15.3) 11.9 GM/DL (11.6-15.3) Hematocrit 37.2 % (35.0-46.0) 35.1 % (35.0-46.0) Mean Corpuscular Volume 79.1 FL (80.0-100.0) 78.9 FL (80.0-100.0) Mean Corpuscular Hemoglobin 26.3 PG (27.0-34.0) 26.6 PG (27.0-34.0) Mean Corpuscular Hemoglobin Concent 33.2 % (32.0-36.0) 33.7 % (32.0-36.0) Red Cell Distribution Width 19.7 % (11.6-17.2) 19.8 % (11.6-17.2) Platelet Count 172 TH/MM3 (150-450) 151 TH/MM3 (150-450) Mean Platelet Volume 10.1 FL (7.0-11.0) 9.2 FL (7.0-11.0) Urine Color YELLOW (YELLW/STRAW) Urine Turbidity HAZY (CLEAR) Urine pH 6.0 (5.0-8.5) Urine Specific [place] 1.025 (1.002-1.035) Urine Protein 30 mg/dL (NEG-TRACE) Urine Glucose (UA) 70 mg/dL (NEG) Urine Ketones NEG mg/dL (NEG) Urine Occult Blood MOD (NEG) Urine Nitrite NEG (NEG) Urine Bilirubin NEG (NEG) Urine Urobilinogen 2.0 MG/DL (LESS THAN Urine Leukocyte Esterase LARGE (NEG) Urine RBC 6 /hpf (0-3) Urine WBC 43 /hpf (0-5) Urine WBC Clumps RARE (NONE) Urine Squamous Epithelial Cells <1 /hpf (0-5) Urine Mucus FEW /lpf (OCC) Microscopic Urinalysis Comment CULTURE INDICATED Blood Urea Nitrogen 19 MG/DL (7-18) 19 MG/DL (7-18) Creatinine 0.78 MG/DL (0.50-1.00) 0.86 MG/DL (0.50-1.00) Random Glucose 201 MG/DL (74-106) 218 MG/DL (74-106) Calcium Level 7.5 MG/DL (8.5-10.1) 7.5 MG/DL (8.5-10.1) Phosphorus Level 3.3 MG/DL (2.5-4.9) 2.6 MG/DL (2.5-4.9) Magnesium Level 1.8 MG/DL (1.5-2.5) 1.7 MG/DL (1.5-2.5) Sodium Level 142 MEQ/L (136-145) 141 MEQ/L (136-145) Potassium Level 4.2 MEQ/L (3.5-5.1) 4.0 MEQ/L (3.5-5.1) Chloride Level 109 MEQ/L (98-107) 107 MEQ/L (98-107) Carbon Dioxide Level 23.1 MEQ/L (21.0-32.0) 24.6 MEQ/L (21.0-32.0) Anion Gap 10 MEQ/L (5-15) 9 MEQ/L (5-15) Estimat Glomerular Filtration Rate 91 ML/MIN (>89) 81 ML/MIN (>89) Test 06/07/17 05:00 06/07/17 13:44 06/07/17 15:38 06/08/17 06:20 White Blood Count 18.1 TH/MM3 (4.0-11.0) 21.3 TH/MM3 (4.0-11.0) 25.6 TH/MM3 (4.0-11.0) Red Blood Count 4.20 MIL/MM3 (4.00-5.30) 4.30 MIL/MM3 (4.00-5.30) 4.19 MIL/MM3 (4.00-5.30) Hemoglobin 10.9 GM/DL (11.6-15.3) 11.1 GM/DL (11.6-15.3) 10.9 GM/DL (11.6-15.3) Hematocrit 33.3 % (35.0-46.0) 34.5 % (35.0-46.0) 33.5 % (35.0-46.0) Mean Corpuscular Volume 79.3 FL (80.0-100.0) 80.2 FL (80.0-100.0) 80.1 FL (80.0-100.0) Mean Corpuscular Hemoglobin 26.0 PG (27.0-34.0) 25.8 PG (27.0-34.0) 26.1 PG (27.0-34.0) Mean Corpuscular Hemoglobin Concent 32.8 % (32.0-36.0) 32.2 % (32.0-36.0) 32.6 % (32.0-36.0) Red Cell Distribution Width 19.9 % (11.6-17.2) 20.5 % (11.6-17.2) 21.2 % (11.6-17.2) Platelet Count 144 TH/MM3 (150-450) 154 TH/MM3 (150-450) 162 TH/MM3 (150-450) Mean Platelet Volume 9.5 FL (7.0-11.0) 9.9 FL (7.0-11.0) 10.1 FL (7.0-11.0) Blood Urea Nitrogen 17 MG/DL (7-18) 20 MG/DL (7-18) 23 MG/DL (7-18) Creatinine 0.77 MG/DL (0.50-1.00) 0.77 MG/DL (0.50-1.00) 1.01 MG/DL (0.50-1.00) Random Glucose 171 MG/DL (74-106) 190 MG/DL (74-106) 201 MG/DL (74-106) Calcium Level 8.1 MG/DL (8.5-10.1) 8.1 MG/DL (8.5-10.1) 8.4 MG/DL (8.5-10.1) Sodium Level 140 MEQ/L (136-145) 140 MEQ/L (136-145) 139 MEQ/L (136-145) Potassium Level 3.4 MEQ/L (3.5-5.1) 3.6 MEQ/L (3.5-5.1) 3.9 MEQ/L (3.5-5.1) Chloride Level 106 MEQ/L (98-107) 107 MEQ/L (98-107) 106 MEQ/L (98-107) Carbon Dioxide Level 25.5 MEQ/L (21.0-32.0) 23.6 MEQ/L (21.0-32.0) 21.4 MEQ/L (21.0-32.0) Anion Gap 9 MEQ/L (5-15) 9 MEQ/L (5-15) 12 MEQ/L (5-15) Estimat Glomerular Filtration Rate 93 ML/MIN (>89) 93 ML/MIN (>89) 68 ML/MIN (>89) Blood Gas Puncture Site LT RADIAL Blood Gas Patient Temperature 98.6 Blood Gas HCO3 21 mmol/L (22-26) Blood Gas Base Excess -1.8 mmol/L (-2-2) Blood Gas Oxygen Saturation 85 % (90-100) Arterial Blood pH 7.47 (7.380-7.420) Arterial Blood Partial Pressure CO2 30 mmHg (38-42) Arterial Blood Partial Pressure O2 52 mmHg (61-120) Arterial Blood Oxygen Content 14.0 Vol % (12.0-20.0) Arterial Blood Carboxyhemoglobin 1.5 % (0-4) Arterial Blood Methemoglobin 1.2 % (0-2) Blood Gas Hemoglobin 11.7 G/DL (12.0-16.0) Oxygen Delivery Device NASAL CANNULA Blood Gas Liter Flow 5 L/M Neutrophils (%) (Auto) 83.3 % (16.0-70.0) Lymphocytes (%) (Auto) 7.6 % (9.0-44.0) Monocytes (%) (Auto) 8.8 % (0.0-8.0) Eosinophils (%) (Auto) 0.1 % (0.0-4.0) Basophils (%) (Auto) 0.2 % (0.0-2.0) Neutrophils # (Auto) 17.7 TH/MM3 (1.8-7.7) Lymphocytes # (Auto) 1.6 TH/MM3 (1.0-4.8) Monocytes # (Auto) 1.9 TH/MM3 (0-0.9) Eosinophils # (Auto) 0.0 TH/MM3 (0-0.4) Basophils # (Auto) 0.0 TH/MM3 (0-0.2) CBC Comment AUTO DIFF Differential Total Cells Counted 100 Neutrophils % (Manual) 75 % (16-70) Band Neutrophils % 7 % (0-6) Lymphocytes % 10 % (9-44) Monocytes % 5 % (0-8) Neutrophils # (Manual) 18.1 TH/MM3 (1.8-7.7) Metamyelocytes 2 % (0-1) Myelocytes 1 % (0-0) Nucleated Red Blood Cells 4 /100 WBC (0-0) Differential Comment FINAL DIFF MANUAL Platelet Estimate NORMAL (NORMAL) Platelet Morphology Comment NORMAL (NORMAL) Tear Drop Cells 1+ (NORMAL) Helmet Cells OCC (NORMAL) Brian Cells (NORMAL) Acanthocytes 1+ (NORMAL) Prothrombin Time 12.1 SEC (9.8-11.6) Prothromb Time International Ratio 1.1 RATIO Activated Partial Thromboplast Time 34.7 SEC (24.3-30.1) Total Protein 6.6 GM/DL (6.4-8.2) Albumin 1.9 GM/DL (3.4-5.0) Alkaline Phosphatase 100 U/L (45-117) Aspartate Amino Transf (AST/SGOT) 66 U/L (15-37) Alanine Aminotransferase (ALT/SGPT) 32 U/L (10-53) Total Bilirubin 0.7 MG/DL (0.2-1.0) . (Lucila Muse) Result Diagram: 06/08/1761906/08/17619 Microbiology Microbiology Date/Time Source Procedure Growth Status 06/05/17 22:00 Urine Random Urine Urine Culture - Final NO GROWTH Complete Procedures 06/05/17: Exploratory laparotomy with loop ileostomy . (Lucila Muse) Assessment and Plan Disease Oriented Problem List: (1) Carcinosarcoma of uterus (2) Small bowel obstruction, partial (3) Renal insufficiency (4) UTI (urinary tract infection) Symptom Scale: (1) Pain (2) Nausea (3) Malnutrition Pertinent Non-Medical Issues Psychosocial: Patient was born and raised in [place], [place]. She is unmarried, no children. 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 She lives with a room mate but states she is essentially alone and does not have a good support system locally as all of her family still live in [place]. Spiritual: Nondenominational. Legal: None known. Ethical issues impacting care: None known. . Important Contacts Jake Boston (mother): [phone], Jessenia Boston (sister) [phone] Roger Sanchez (friend): [phone] . Prognosis Patient diagnosed with uterine sarcoma status post resection, hysterectomy, and bilateral salpingo-oophorectomy in 2014. Despite recent outpatient chemotherapy for uterine CA recurrence the patient CT Abd/Pelvis during this hospitalization revealed liver and widespread peritoneal/omental/serosal metastatic disease, early or partial small bowel obstruction, obstruction of distal right ureter. Due to her advanced disease and debilitated status she is at ongoing risk for setbacks and complications. Hospice is appropriate if goals compatible. Code Status: No Code Plan * Legal decision maker: Patient currently has the capacity to make her own health care decisions. She designated her mother Jake Boston: [phone], as her HCS and her sister Jessenia Boston: [phone] as her alternate HCS today. * CODE STATUS: DNR. * GOALS: AGGRESSIVE short of cardiopulmonary resuscitation. * Bedside meeting again today with patient and family, both patient and family seem to have limited insight into the severity of her illness/prognosis along with an element of denial. Palliative will continue to provide ongoing discussions/clarification of treatment goals and support. * Case discussed with Dr. Pickard, ANDREW Diaz and ANDREW Arcos, notified of family at bedside to provide ongoing discussion/support for patient and family regarding poor prognosis/limited treatment options. * SYMPTOM MANAGEMENT: * --pain: Likely secondary to widespread metastatic disease. Morphine 2mg IV q 3hr PRN for pain ordered, 5 doses utilized in the past 24 hours, percocet 10/ 325 q 6 hours PRN for pain ordered. Of note percocet 10/325 is equivalent to 15mg po morphine which is equivalent to 5mg IV morphine, patient would benefit from an increased dose of IV morphine. * --nausea: Resolved. Last dose of ondansetron IV q 6hr PRN for nausea utilized 05/25/17. * --malnutrition: Patient at ongoing risk for malnutrition secondary to clinical condition. Patient still NPO following surgery. No further recommendations at this time. * Palliative care will continue to follow during hospital course as condition evolves, to assist patient/family/decision-maker with understanding of medical conditions, weighing benefit/burdens of treatment options, for clarification of goals of treatment. Additionally will assist with symptoms of palliative concern. (Lucila Muse) Attestation To help prompt me to consider important information that might be impacting today's encounter and assessment, information from prior notes written by myself or my colleagues may have been "brought forward" into today's note. My signature on this note, however, is an attestation that I personally performed the exam, history, and/or decision-making noted today, and, unless otherwise indicated, the interactions with patient, family, and staff as well as the review of records all occurred today. I also attest that the listed assessment and stated plan reflect my best clinical judgment today based on the combination of historical information, prior notes, and today's exam/ interactions. When time spent is documented, it refers only to time spent today by the signer, or if indicated, combined time spent today by collaborating physician/nurse practitioner. (Lucila Muse) Collaborating MD Comments Chart reviewed. Case discussed with palliative care STEVEDORE DOCK. Above ANDREW note reviewed and I concur. . (Elias Douglas MD) Lucila Muse Jun 08, 2017 12:15 Elias Douglas MD Jun 11, 2017 18:25
[2017-06-08] MEDS: HEPARIN SODIUM - SQ 10,000 UNITS/ML VIAL SQ SCH (12:30)
[2017-06-08] MEDS ORDERED: IOHEXOL 350 MG/ML 10 ML VIAL (for RAD DIAG) IVCONTRAST ONE (15:55)
--- NOTE | 2017-06-08 16:21 | RADRPT ---
EXAM DATE/TIME: 06/08/2017 15:37 [facility] COMPARISON: No previous studies available for comparison. INDICATIONS : Dyspnea, decreased O2 saturation IV CONTRAST: 67 cc Omnipaque 350 (iohexol) IV RADIATION DOSE: 3.90 CTDIvol (mGy) MEDICAL HISTORY : Cardiovascular disease. Uterine cancer SURGICAL HISTORY : Hysterectomy. ENCOUNTER: Initial ACUITY: 1 day PAIN SCALE: 0/10 LOCATION: chest TECHNIQUE: Volumetric scanning of the chest was performed using a pulmonary embolism protocol MIP images were re constructed. Using automated exposure control and adjustment of the mA and/or kV according to patien t size, radiation dose was kept as low as reasonably achievable to obtain optimal diagnostic quality images. DICOM format image data is available electronically for review and comparison. Follow-up recommendations for detected pulmonary nodules are based at a minimum on nodule size and pa tient risk factors according to Fleischner Society Guidelines. FINDINGS: PULMONARY ARTERIES: No filling defects are seen in the pulmonary arteries through the segmental level. LUNGS: Bibasilar atelectatic changes associated with regional effusions. There is some pleural-parenchymal s carring or early infiltrate anteriorly in the right upper lobe. PLEURAE: Moderate right and small left pleural effusion and concomitant atelectatic changes. MEDIASTINUM: There is good visualization of the great vessels of the middle mediastinum. No evidence of mediastin al or hilar adenopathy/mass. MUSCULOSKELETAL: Generalized anasarca with edema in the regional soft tissues. MISCELLANEOUS: The visualized upper abdominal organs demonstrate no acute abnormality. Right IJ port. CONCLUSION: 1. Moderate right and a small left pleural effusion with concomitant atelectatic changes. In associat ed with generalized anasarca, findings may be indicative of right heart insufficiency. 2. Patchy pleural-parenchymal airspace process anteriorly in the right upper lobe is nonspecific and may represent regional scarring or early infiltrate. 3. No pulmonary embolus. Mario Alberto Brumfield MD on June 08, 2017 at 16:09 Board Certified Radiologist. This report was verified electronically.
[2017-06-08] MEDS ORDERED: FUROSEMIDE 40 MG/4 ML VIAL IV PUSH ONE (18:30)
[2017-06-08] MEDS: [UNRECOGNIZED DRUG - OTHER] IV-CENTRAL SCH ×10 (21:18)
[2017-06-08] MEDS: FAT EMULSION 20% INJ 250 ML (Daily over 8 hours) IV-CENTRAL SCH (21:18)
[2017-06-08] MEDS: SODIUM CHLORIDE IV-CENTRAL SCH ×10 (21:18)
[2017-06-08] MEDS: SODIUM ACETATE IV-CENTRAL SCH ×10 (21:18)
[2017-06-09] VITALS (20 sets, daily range): BP systolic 114–130; BP diastolic 75–92; PULSE 79–100; RESP 19–20; TEMP 96.6–98.5; O2SAT 84–94
[2017-06-09] MEDS: HEPARIN SODIUM - SQ 10,000 UNITS/ML VIAL SQ SCH ×2 (00:14→09:15)
[2017-06-09] MEDS: MORPHINE SULFATE 4 MG/ML INJ IV PUSH PRN (00:15)
[2017-06-09] MEDS: PIPERACIL-TAZO 3.375 GM PREMIX 50 ML IV SCH ×3 (00:15→13:07)
[2017-06-09] MEDS: LORazepam 2 MG/ML VIAL IV PRN ×2 (05:38→10:30)
[2017-06-09] MEDS: METOPROLOL TARTRATE 50 MG TAB PO SCH (05:38)
[2017-06-09 06:41] LABS: HEMATOCRIT 33.8 % (35.0-46.0); MEAN CELL VOLUME 81.1 FL (80.0-100.0); MEAN CORPUSCULAR HEMOGLOBIN 26.4 PG (27.0-34.0); MEAN CORPUSCULAR HGB CONC 32.5 % (32.0-36.0); PLATELET COUNT 187 TH/MM3 (150-450); RED BLOOD COUNT 4.17 MIL/MM3 (4.00-5.30); RED CELL DISTRIBUTION WIDTH 21.8 % (11.6-17.2); REVIEW FLAG FINAL; WHITE BLOOD COUNT 27.6 TH/MM3 (4.0-11.0)
[2017-06-09 07:03] LABS: BICARBONATE 22.8 MEQ/L (21.0-32.0); POTASSIUM 3.8 MEQ/L (3.5-5.1)
[2017-06-09] MEDS: INSULIN ASPART SUPPLEMENTAL SCALE SQ SCH ×2 (08:00→13:07)
[2017-06-09] MEDS: SODIUM CHLORIDE 0.9% FLUSH 10 ML FLUSH IV FLUSH SCH ×3 (09:00→22:14)
[2017-06-09] MEDS: FAMOTIDINE 20 MG/2 ML VIAL IV PUSH SCH (09:15)
[2017-06-09] MEDS: DILTIAZEM HCL 30 MG TAB PO SCH ×2 (09:15→13:07)
--- NOTE | 2017-06-09 10:39 | HHI.HCPN ---
Reason for visit a. To assist with evaluation and management of symptoms including: nausea, pain, malnutrition b. To assist medical decision maker(s) with: better understanding of current medical conditions; weighing benefits/burdens of medical treatment options; making medical treatment decisions. . Subjective/Interval History Patient seen and examined today, friend/coworker at the bedside. Patient's friend stated she present yesterday evening when the conversation regarding transitioning to Hospice was broached again, she stated herself, the bedside RN , and another friend were present when the patient Ms. Boston finally arrived at the decision to accept Hospice. The patient is lethargic today, only able to verbalize a few words, she remains tachypneic and utilizing accessory muscles. Yesterday's CT angiography of the chest revealed moderate right and a small left pleural effusion with concomitant atelectatic changes. In associated with generalized anasarca, findings may be indicative of right heart infussiciencey. Patchy pleural-parenchymal airspace process anteriorly in the right upper lobe is nonspecific and may represent regional scarring or early infiltrate. No PE. WBCs continue to increase from 25.6 yesterday to 27.6 today. . Family/friend interactions Telephone conference with patient's sister Mami Boston, further discussion and education regarding patient's prognosis, as well as the patient's decision to transition to comfort focused goals with Hospice. Ms. Mami Boston agrees with her sister's decision to transition to Hospice. All of Ms. Boston' s questions were answered to the best of my ability. Ms. Mami Boston stated she understands her sister is ready to transition to comfort focused goals and "it is in God's hands". Bedside meeting with patient's friend/coworker, she is available her locally and has been visiting the patient throughout this hospitalization. She is aware of the patient's decision to transition to comfort focused goals with Hospice and was present during the conversation when the patient made the decision. She stated she understands it is the patient's sister's decision but she would like to see the patient transferred to a Hospice care center if possible as she has had previous positive experiences with end of life care in that setting. If the patient's sister is amenable to a care center the patient's friend stated that the [facility] is closest to her house and would allow her ease to visit more frequently as she is the only local support the patient has because the patient's family are located in [place], [place]. Advance Directives Living Will: Never completed Health Care Surrogate: Copy in medical record Advance Directive Specifics Date completed: 05/25/17. . Health Care Surrogate(s): Jake Boston (mother) Alternate HCS Mami Boston (sister) . Significant change in goals: Patient has decided to transition to comfort focused goals and is agrees to Hospice. Patient's family supports her in this decision. . Objective Vital Signs Date Time Temp Pulse Resp B/P (MAP) Pulse Ox O2 Delivery O2 Flow Rate FiO2 06/09/17 10:00 97 06/09/17 09:00 94 06/09/17 08:00 97.2 97 128/92 (104) 94 06/09/17 08:00 95 06/09/17 06:00 94 06/09/17 05:00 90 06/09/17 04:34 94 Non-Rebreather 15.00 06/09/17 04:23 96.7 94 123/86 (98) 94 06/09/17 04:00 92 06/09/17 03:00 79 06/09/17 02:00 94 06/09/17 01:00 90 06/09/17 00:00 96.9 96 127/87 (100) 92 06/09/17 00:00 96 06/08/17 23:00 101 06/08/17 22:00 92 06/08/17 21:00 92 06/08/17 21:00 96.7 91 114/75 (88) 98 06/08/17 20:00 90 06/08/17 19:00 98 06/08/17 18:00 94 06/08/17 17:00 96 06/08/17 16:00 97 06/08/17 15:00 97.8 92 22 123/85 (98) 89 06/08/17 15:00 93 06/08/17 14:06 91 06/08/17 13:00 94 06/08/17 12:00 94 06/08/17 11:00 88 06/08/17 11:00 97.1 99 22 139/83 (101) 88 Intake & Output 06/09/17 06/09/17 07:00 19:00 Intake Total 930 ml Output Total 1650 ml Balance -720 ml IV Total 930 ml Output Urine Total 1650 ml . Physical Exam CONSTITUTIONAL/GENERAL: This is a thin, frail female patient, very pleasant, in no apparent distress. TUBES/LINES/DRAINS: CVL LIJ, Right subclavian port accessed SKIN: No jaundice, rashes, or lesions. No wounds seen anteriorly. Skin temperature appropriate. Not diaphoretic. EYES: Pupils equal and round and reactive. Extraocular motions intact. No scleral icterus. No injection or drainage. Fundi not examined. CARDIOVASCULAR: Tachycardic, without murmurs, gallops, or rubs. No JVD. Peripheral pulses symmetric. RESPIRATORY/CHEST: Tachypneic, labored respirations. Diminished to auscultation. Breath sounds equal bilaterally. GASTROINTESTINAL: Abdomen soft, tender. Light palpitation secondary to tenderness. Ileostomy with dark pink stoma. Bowel sounds hypoactive. MUSCULOSKELETAL: Extremities without clubbing, cyanosis, or edema. No mottling or clubbing. NEUROLOGICAL: Drowsy. Limited exam due to patient's drowsiness and dyspnea. PSYCHIATRIC: No obvious anxiety/depression. no apparent hallucinations or other psychotic thought process. . Diagnostic Tests Laboratory Laboratory Tests Test 06/07/17 05:00 06/07/17 13:44 06/07/17 15:38 06/08/17 06:20 White Blood Count 18.1 TH/MM3 (4.0-11.0) 21.3 TH/MM3 (4.0-11.0) 25.6 TH/MM3 (4.0-11.0) Red Blood Count 4.20 MIL/MM3 (4.00-5.30) 4.30 MIL/MM3 (4.00-5.30) 4.19 MIL/MM3 (4.00-5.30) Hemoglobin 10.9 GM/DL (11.6-15.3) 11.1 GM/DL (11.6-15.3) 10.9 GM/DL (11.6-15.3) Hematocrit 33.3 % (35.0-46.0) 34.5 % (35.0-46.0) 33.5 % (35.0-46.0) Mean Corpuscular Volume 79.3 FL (80.0-100.0) 80.2 FL (80.0-100.0) 80.1 FL (80.0-100.0) Mean Corpuscular Hemoglobin 26.0 PG (27.0-34.0) 25.8 PG (27.0-34.0) 26.1 PG (27.0-34.0) Mean Corpuscular Hemoglobin Concent 32.8 % (32.0-36.0) 32.2 % (32.0-36.0) 32.6 % (32.0-36.0) Red Cell Distribution Width 19.9 % (11.6-17.2) 20.5 % (11.6-17.2) 21.2 % (11.6-17.2) Platelet Count 144 TH/MM3 (150-450) 154 TH/MM3 (150-450) 162 TH/MM3 (150-450) Mean Platelet Volume 9.5 FL (7.0-11.0) 9.9 FL (7.0-11.0) 10.1 FL (7.0-11.0) Blood Urea Nitrogen 17 MG/DL (7-18) 20 MG/DL (7-18) 23 MG/DL (7-18) Creatinine 0.77 MG/DL (0.50-1.00) 0.77 MG/DL (0.50-1.00) 1.01 MG/DL (0.50-1.00) Random Glucose 171 MG/DL (74-106) 190 MG/DL (74-106) 201 MG/DL (74-106) Calcium Level 8.1 MG/DL (8.5-10.1) 8.1 MG/DL (8.5-10.1) 8.4 MG/DL (8.5-10.1) Sodium Level 140 MEQ/L (136-145) 140 MEQ/L (136-145) 139 MEQ/L (136-145) Potassium Level 3.4 MEQ/L (3.5-5.1) 3.6 MEQ/L (3.5-5.1) 3.9 MEQ/L (3.5-5.1) Chloride Level 106 MEQ/L (98-107) 107 MEQ/L (98-107) 106 MEQ/L (98-107) Carbon Dioxide Level 25.5 MEQ/L (21.0-32.0) 23.6 MEQ/L (21.0-32.0) 21.4 MEQ/L (21.0-32.0) Anion Gap 9 MEQ/L (5-15) 9 MEQ/L (5-15) 12 MEQ/L (5-15) Estimat Glomerular Filtration Rate 93 ML/MIN (>89) 93 ML/MIN (>89) 68 ML/MIN (>89) Blood Gas Puncture Site LT RADIAL Blood Gas Patient Temperature 98.6 Blood Gas HCO3 21 mmol/L (22-26) Blood Gas Base Excess -1.8 mmol/L (-2-2) Blood Gas Oxygen Saturation 85 % (90-100) Arterial Blood pH 7.47 (7.380-7.420) Arterial Blood Partial Pressure CO2 30 mmHg (38-42) Arterial Blood Partial Pressure O2 52 mmHg (61-120) Arterial Blood Oxygen Content 14.0 Vol % (12.0-20.0) Arterial Blood Carboxyhemoglobin 1.5 % (0-4) Arterial Blood Methemoglobin 1.2 % (0-2) Blood Gas Hemoglobin 11.7 G/DL (12.0-16.0) Oxygen Delivery Device NASAL CANNULA Blood Gas Liter Flow 5 L/M Neutrophils (%) (Auto) 83.3 % (16.0-70.0) Lymphocytes (%) (Auto) 7.6 % (9.0-44.0) Monocytes (%) (Auto) 8.8 % (0.0-8.0) Eosinophils (%) (Auto) 0.1 % (0.0-4.0) Basophils (%) (Auto) 0.2 % (0.0-2.0) Neutrophils # (Auto) 17.7 TH/MM3 (1.8-7.7) Lymphocytes # (Auto) 1.6 TH/MM3 (1.0-4.8) Monocytes # (Auto) 1.9 TH/MM3 (0-0.9) Eosinophils # (Auto) 0.0 TH/MM3 (0-0.4) Basophils # (Auto) 0.0 TH/MM3 (0-0.2) CBC Comment AUTO DIFF Differential Total Cells Counted 100 Neutrophils % (Manual) 75 % (16-70) Band Neutrophils % 7 % (0-6) Lymphocytes % 10 % (9-44) Monocytes % 5 % (0-8) Neutrophils # (Manual) 18.1 TH/MM3 (1.8-7.7) Metamyelocytes 2 % (0-1) Myelocytes 1 % (0-0) Nucleated Red Blood Cells 4 /100 WBC (0-0) Differential Comment FINAL DIFF MANUAL Platelet Estimate NORMAL (NORMAL) Platelet Morphology Comment NORMAL (NORMAL) Tear Drop Cells 1+ (NORMAL) Helmet Cells OCC (NORMAL) Mcrae [place]ena Cells (NORMAL) Acanthocytes 1+ (NORMAL) Prothrombin Time 12.1 SEC (9.8-11.6) Prothromb Time International Ratio 1.1 RATIO Activated Partial Thromboplast Time 34.7 SEC (24.3-30.1) Total Protein 6.6 GM/DL (6.4-8.2) Albumin 1.9 GM/DL (3.4-5.0) Alkaline Phosphatase 100 U/L (45-117) Aspartate Amino Transf (AST/SGOT) 66 U/L (15-37) Alanine Aminotransferase (ALT/SGPT) 32 U/L (10-53) Total Bilirubin 0.7 MG/DL (0.2-1.0) Test 06/09/17 06:02 06/09/17 06:20 White Blood Count 27.6 TH/MM3 (4.0-11.0) Red Blood Count 4.17 MIL/MM3 (4.00-5.30) Hemoglobin 11.0 GM/DL (11.6-15.3) Hematocrit 33.8 % (35.0-46.0) Mean Corpuscular Volume 81.1 FL (80.0-100.0) Mean Corpuscular Hemoglobin 26.4 PG (27.0-34.0) Mean Corpuscular Hemoglobin Concent 32.5 % (32.0-36.0) Red Cell Distribution Width 21.8 % (11.6-17.2) Platelet Count 187 TH/MM3 (150-450) Mean Platelet Volume 9.8 FL (7.0-11.0) Blood Urea Nitrogen 28 MG/DL (7-18) Creatinine 0.89 MG/DL (0.50-1.00) Random Glucose 224 MG/DL (74-106) Calcium Level 8.8 MG/DL (8.5-10.1) Sodium Level 140 MEQ/L (136-145) Potassium Level 3.8 MEQ/L (3.5-5.1) Chloride Level 106 MEQ/L (98-107) Carbon Dioxide Level 22.8 MEQ/L (21.0-32.0) Anion Gap 11 MEQ/L (5-15) Estimat Glomerular Filtration Rate 78 ML/MIN (>89) . Result Diagram: 06/09/17 0602 06/09/17 0620 Imaging Last [address] Angiography 06/08/17 0000 Signed Impressions: Service Date/Time: June 15:37 - CONCLUSION: 1. Moderate right and a small left pleural effusion with concomitant atelectatic changes. In associated with generalized anasarca, findings may be indicative of right heart insufficiency. 2. Patchy pleural-parenchymal airspace process anteriorly in the right upper lobe is nonspecific and may represent regional scarring or early infiltrate. 3. No pulmonary embolus. Mario Alberto Brumfield MD Chest X-Ray 06/07/17 0000 Signed Impressions: Service Date/Time: Wednesday, June 07, 2017 13:59 - CONCLUSION: No significant interval changes. Estiven Mcallister MD Chest X-Ray 06/07/17 0000 Signed Impressions: Service Date/Time: Wednesday, June 07, 2017 09:46 - CONCLUSION: 1. Perihilar pulmonary edema The findings are similar to the prior exam. Jani Rahman MD . Procedures 06/05/17: Exploratory laparotomy with loop ileostomy . Assessment and Plan Disease Oriented Problem List: (1) Carcinosarcoma of uterus (2) Small bowel obstruction, partial (3) Renal insufficiency (4) UTI (urinary tract infection) Symptom Scale: (1) Pain (2) Nausea (3) Malnutrition Pertinent Non-Medical Issues Psychosocial: Patient was born and raised in [place], [place]. She is unmarried, no children. 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 She lives with a room mate but states she is essentially alone and does not have a good support system locally as all of her family still live in [place]. Spiritual: Druze. Legal: None known. Ethical issues impacting care: None known. . Important Contacts Jake Boston (mother): [phone], Jessenia Boston (sister) [phone] Roger Sanchez (friend): [phone] . Prognosis Patient diagnosed with uterine sarcoma status post resection, hysterectomy, and bilateral salpingo-oophorectomy in 2014. Despite recent outpatient chemotherapy for uterine CA recurrence the patient CT Abd/Pelvis during this hospitalization revealed liver and widespread peritoneal/omental/serosal metastatic disease, early or partial small bowel obstruction, obstruction of distal right ureter. Due to her advanced disease and debilitated status she is at ongoing risk for setbacks and complications. Patient has decided to transition to Hospice. Code Status: No Code Plan * Legal decision maker: Unfortunately the patient has experienced a decline, yesterday evening she was able to verbalize her decision to transition to comfort focused goals with Hospice. Currently she does not have the capacity to make informed health care decisions on her own and needs the support of her family. She has previously designated her mother Jake Boston: [phone], as her HCS and her sister Mami Boston: [phone] as her alternate HCS. * CODE STATUS: DNR. * GOALS: Comfort focused goals, transition to Hospice. * Palliative will continue to provide ongoing discussions/clarification of treatment goals and support. * Telephone conference with patient's sister Mami Boston, further discussion and education regarding patient's prognosis, as well as the patient's decision to transition to comfort focused goals with Hospice. Ms. Mami Boston agrees with her sister's decision to transition to Hospice. All of Ms. Boston's questions were answered to the best of my ability. Ms. Mami Boston stated she understands her sister is ready to transition to comfort focused goals and "it is in God's hands". * Bedside meeting with patient's friend/coworker, she is available her locally and has been visiting the patient throughout this hospitalization. She is aware of the patient's decision to transition to comfort focused goals with Hospice and was present during the conversation when the patient made the decision. She stated she understands it is the patient's sister's decision but she would like to see the patient transferred to a Hospice care center if possible as she has had previous positive experiences with end of life care in that setting. If the patient's sister is amenable to a care center the patient's friend stated that the [facility] is closest to her house and would allow her ease to visit more frequently as she is the only local support the patient has because the patient's family are located in [place], [place]. Palliative contact information provided to the patient's friend as well. . * Palliative care will continue to follow during hospital course as condition evolves, to assist patient/family/decision-maker with understanding of medical conditions, weighing benefit/burdens of treatment options, for clarification of goals of treatment. Additionally will assist with symptoms of palliative concern. Attestation To help prompt me to consider important information that might be impacting today's encounter and assessment, information from prior notes written by myself or my colleagues may have been "brought forward" into today's note. My signature on this note, however, is an attestation that I personally performed the exam, history, and/or decision-making noted today, and, unless otherwise indicated, the interactions with patient, family, and staff as well as the review of records all occurred today. I also attest that the listed assessment and stated plan reflect my best clinical judgment today based on the combination of historical information, prior notes, and today's exam/ interactions. When time spent is documented, it refers only to time spent today by the signer, or if indicated, combined time spent today by collaborating physician/nurse practitioner. Lucila Muse Jun 09, 2017 10:38
--- NOTE | 2017-06-09 14:49 | HHI.PR ---
Subjective Remarks Patient seen earlier this morning. Family agreed to Hospice overnight but upon further discussion between then and Hospice nurse, sister still cannot make up her mind. Patient is confused this morning. Refusing to keep bipap on. Objective Vitals Vital Signs Date Time Temp Pulse Resp B/P (MAP) Pulse Ox O2 Delivery O2 Flow Rate FiO2 06/09/17 11:00 95 06/09/17 10:00 97 06/09/17 09:00 94 06/09/17 08:00 97.2 97 128/92 (104) 94 06/09/17 08:00 95 06/09/17 06:00 94 06/09/17 05:00 90 06/09/17 04:34 94 Non-Rebreather 15.00 06/09/17 04:23 96.7 94 123/86 (98) 94 06/09/17 04:00 92 06/09/17 03:00 79 06/09/17 02:00 94 06/09/17 01:00 90 06/09/17 00:00 96.9 96 127/87 (100) 92 06/09/17 00:00 96 06/08/17 23:00 101 06/08/17 22:00 92 06/08/17 21:00 92 06/08/17 21:00 96.7 91 114/75 (88) 98 06/08/17 20:00 90 06/08/17 19:00 98 06/08/17 18:00 94 06/08/17 17:00 96 06/08/17 16:00 97 06/08/17 15:00 97.8 92 22 123/85 (98) 89 06/08/17 15:00 93 I/O 06/08/17 06/08/17 06/08/17 06/09/17 06/09/17 06/09/17 07:00 15:00 23:00 07:00 15:00 23:00 Intake Total 1248 ml 50 ml 930 ml Output Total 300 ml 750 ml 1650 ml Balance 948 ml -700 ml -720 ml Intake Oral 120 ml 50 ml IV Total 1128 ml 930 ml Output Urine Total 300 ml 300 ml 1650 ml Stool Total 450 ml Result Diagram: 06/09/1702 06/09/17 0620 Objective Remarks GENERAL: In respiratory distress, tachypneic. CARDIOVASCULAR: Normal rate, regular rate. RESPIRATORY: Tachypneic, shallow breathing. Coarse breath sounds bilaterally. GASTROINTESTINAL: Abdomen is mildly distended, ostomy appear clean. MUSCULOSKELETAL: Extremities without cyanosis, or edema. NEURO: Anxious. Procedures None. A/P Problem List: (1) Partial small bowel obstruction ICD Code: K56.69 - Other intestinal obstruction Status: Acute (2) Uterine cancer ICD Code: C55 - Malignant neoplasm of uterus, part unspecified Status: Chronic (3) UTI (urinary tract infection) ICD Code: N39.0 - Urinary tract infection, site not specified (4) Renal insufficiency ICD Code: N28.9 - Disorder of kidney and ureter, unspecified Status: Chronic Assessment and Plan 61-year-old female with history of uterine cancer, failed chemotherapy treatment admitted with small bowel obstruction with associated complications. Oncology recommended hospice. Patient has been refusing, her condition deteriorated. She is status post emergent laparotomy with ileostomy. Patient is still critically ill, she is a DNR. She is hospice appropriate, she has evidence of anasarca. Persistent respiratory failure. Very poor prognosis. Family now agreeable to hospice. Awaiting for them to sign paperwork. L[facility] Davidson from Hospice. Respiratory failure/tachypnea: Persistent. Anasarca with pleural effusion - On Zosyn. Chest x-ray yesterday had persistent, stable perihilar edema. - Continue support with supplemental oxygen. May need BiPAP. - S/P IV Lasix A. fib with RVR: -Cardiology following. Status post Cardizem drip. On oral Cardizem - metoprolol 50 mg every 8 hours. Small bowel obstruction: There were concerns for perforation. Patient emergently taken to the OR. - Status post laparotomy with low ileostomy. Gen surgery following - L[facility] surgical team today. - Continue TPN. - Nothing by mouth Acute renal failure: Probably related to hypoxemia, worsening condition. Stable today - Follow renal function. Avoid nephrotoxins. Uterine cancer: Appreciate gynecologic oncology recommendations. Hospice recommended. Severe malnutrition: On TPN. Acute on chronic anemia-monitor, no signs of active bleeding at this time. PPI. Follow H&H. Hypokalemia- replete and follow DVT prophylaxis: Heparin. Discharge Planning Family choosing Hospice. Awaiting completion of paperwork. Once done, patient can be transitioned to comfort care with Dr. Douglas as attending. Problem Qualifiers (1) Uterine cancer: Qualified Codes: C55 - Malignant neoplasm of uterus, part unspecified Elizabeth Pickard MD Jun 09, 2017 14:49
[2017-06-09] MEDS ORDERED: MORPHINE SULFATE 4 MG/ML INJ IV PUSH PRN (15:45)
[2017-06-09] MEDS ORDERED: MORPHINE SULFATE 8 MG/ML INJ IV PUSH PRN (15:45)
[2017-06-09] MEDS ORDERED: LORazepam 1 MG TAB NG PRN (15:45)
[2017-06-09] MEDS ORDERED: HYOSCYAMINE 0.125 MG TAB PO/SL PRN (15:45)
[2017-06-09] MEDS ORDERED: SODIUM CHLORIDE 0.9% FLUSH 10 ML FLUSH IV FLUSH PRN (15:45)
--- NOTE | 2017-06-09 16:27 | ECHRPT ---
Indication: SHORTNESS OF BREATH CONCLUSIONS Normal left ventricular size. Wall thickness is normal. The left ventricular systolic function is severely reduced with an estimated ejection fraction in th e range of 25-30%. The right ventricular systoilc function is mildly decreased. The right ventricle is mildly dilated. The left atrial size is igppgpvv-fc-yfccheyp dilated. The right atrial size is padguqvk-vg-tgzdcuml dilated. Yhrqmhms-wp-jgysmb mitral valve regurgitation. Aortic valve sclerosis is present. Moderate aortic valve regurgitation. There is moderate to severe tricuspid valve regurgitation. There is estimated mild pulmonary hypertension present (range 40-50 mmHg). Moderate pulmonary valve regurgitation. BP: 123 / 86 HR: Rhythm: Sinus MEASUREMENTS (Male / Female) Normal Values Technical Quality:Fair 2D ECHO LV Diastolic Diameter PLAX 4.7 cm 4.2 - 5.9 / 3.9 - 5.3 cm LV Systolic Diameter PLAX 4.1 cm IVS Diastolic Thickness 0.8 cm 0.6 - 1.0 / 0.6 - 0.9 cm LVPW Diastolic Thickness 0.9 cm 0.6 - 1.0 / 0.6 - 0.9 cm LV Relative Wall Thickness 0.4 LVOT Diameter 1.8 cm Aortic Root Diameter 3.4 cm LA Systolic Diameter LX 3.6 cm 3.0 - 4.0 / 2.7 - 3.8 cm M-MODE AV Cusp Separation MM 1.9 cm DOPPLER AV Peak Velocity 112.0 cm/s AV Peak Gradient 5.0 mmHg AV Mean Gradient 3.0 mmHg AV Velocity Time Integral 16.2 cm AI Peak Velocity 453.0 cm/s AI Peak Gradient 82.1 mmHg AI Pressure Half Time 519.0 ms LVOT Peak Velocity 66.9 cm/s LVOT Peak Gradient 1.8 mmHg LVOT Velocity Time Integral 9.9 cm AV Area Cont Eq vti 1.5 cm AV Area Cont Eq pk 1.5 cm Mitral E Point Velocity 65.6 cm/s Mitral A Point Velocity 43.4 cm/s Mitral E to A Ratio 1.5 LV E' Lateral Velocity 12.6 cm/s Mitral E to LV E' Lateral Ratio 5.2 TR Peak Velocity 296.0 cm/s TR Peak Gradient 35.0 mmHg Right Atrial Pressure 10.0 mmHg Pulmonary Artery Systolic Pressu 45.0 mmHg Right Ventricular Systolic Press 45.0 mmHg PV Peak Velocity 57.1 cm/s PV Peak Gradient 1.3 mmHg FINDINGS LEFT VENTRICLE Normal left ventricular size. Wall thickness is normal. The left ventricular systolic function is severely reduced with an estimated ejection fraction in th e range of 30-35%. RIGHT VENTRICLE The right ventricular systoilc function is mildly decreased. The right ventricle is mildly dilated. LEFT ATRIUM The left atrial size is tattixfd-vp-ypspajak dilated. RIGHT ATRIUM The right atrial size is vhuicpvr-aj-nxpfophl dilated. MITRAL VALVE Ewubarfc-dz-bhbxmv mitral valve regurgitation. AORTIC VALVE Aortic valve sclerosis is present. Moderate aortic valve regurgitation. TRICUSPID VALVE There is moderate to severe tricuspid valve regurgitation. There is estimated mild pulmonary hypertension present (range 40-50 mmHg). PULMONARY VALVE Moderate pulmonary valve regurgitation. Paddy Brady MD (Electronically Signed) Final Date:09 June 2017 16:26
[2017-06-09] MEDS: MORPHINE SULFATE 4 MG/ML INJ IV PUSH SCH (22:13)
[2017-06-09] MEDS: LORazepam 2 MG/ML VIAL IV PUSH SCH (22:13)
[2017-06-10] VITALS (9 sets, daily range): BP systolic 97–119; BP diastolic 71–81; PULSE 98–156; RESP 15–33; TEMP 96.5–97.6; O2SAT 62–94
[2017-06-10] MEDS: MORPHINE SULFATE 4 MG/ML INJ IV PUSH SCH ×7 (03:27→22:09)
[2017-06-10] MEDS: LORazepam 2 MG/ML VIAL IV PUSH SCH ×4 (03:27→11:49)
[2017-06-10] MEDS: SODIUM CHLORIDE 0.9% FLUSH 10 ML FLUSH IV FLUSH SCH ×3 (08:15→22:08)
--- NOTE | 2017-06-10 11:49 | HHI.PR ---
Subjective Remarks Pt w labored breathing. Removed non rebreather. Doesn't speak to me, moans. appears very uncomfortable. Objective Vitals Vital Signs Date Time Temp Pulse Resp B/P (MAP) Pulse Ox O2 Delivery O2 Flow Rate FiO2 06/10/17 11:06 62 Non-Rebreather 15.00 06/10/17 08:20 22 06/10/17 08:00 97.6 103 15 119/81 (94) 90 06/10/17 00:00 96.5 98 20 118/76 (90) 94 06/09/17 20:00 96.7 98 20 120/75 (90) 88 06/09/17 18:03 96.6 100 19 114/81 (92) 84 06/09/17 16:00 96 06/09/17 15:00 95 06/09/17 14:00 92 06/09/17 13:00 94 06/09/17 12:00 92 06/09/17 12:00 98.5 96 130/80 (97) 94 I/O 06/09/17 06/09/17 06/09/17 06/10/17 06/10/17 06/10/17 06:59 14:59 22:59 06:59 14:59 22:59 Intake Total 930 ml 885 ml 0 ml 0 ml Output Total 1650 ml 2500 ml 200 ml Balance -720 ml -1615 ml -200 ml 0 ml Intake Oral 0 ml 0 ml 0 ml IV Total 930 ml 885 ml Output Urine Total 1650 ml 1100 ml 200 ml Stool Total 1400 ml # Bowel Movements 1 Result Diagram: 06/09/17 0602 06/09/17 [address] Angiography 06/08/17 0000 Signed Impressions: Service Date/Time: June 15:37 - CONCLUSION: 1. Moderate right and a small left pleural effusion with concomitant atelectatic changes. In associated with generalized anasarca, findings may be indicative of right heart insufficiency. 2. Patchy pleural-parenchymal airspace process anteriorly in the right upper lobe is nonspecific and may represent regional scarring or early infiltrate. 3. No pulmonary embolus. Mario Alberto Brumfield MD Chest X-Ray 06/07/17 0000 Signed Impressions: Service Date/Time: Wednesday, June 07, 2017 13:59 - CONCLUSION: No significant interval changes. Estiven Mcallister MD Abdomen X-Ray 05/25/17 0000 Signed Impressions: Service Date/Time: May 16:15 - CONCLUSION: 1. Air distention of small bowel loops in the midabdomen may be slightly improved. Diagnostic considerations include a hypodynamic ileus versus partial obstruction. 2. Stable position of the nasogastric tube, curled in the gastric fundus Mario Alberto Brumfield MD Small Bowel X-Ray 05/24/17 0000 Signed Impressions: Service Date/Time: Wednesday, May 24, 2017 11:55 - CONCLUSION: Continued continued disparity in proximal small bowel compared to distal. Site of obstruction is not identified. There is no complete obstruction. Garcia Grubbs MD FACR Abdomen/Pelvis CT 05/21/17 1800 Signed Impressions: Service Date/Time: Sunday, May 21, 2017 18:51 - CONCLUSION: 1. Liver and widespread peritoneal/omental/serosal metastatic disease. 2. Apparent early or partial distal small bowel obstruction. 3. Obstruction of the distal right ureter. 4. Clear lung bases. Estiven Boyd MD Objective Remarks GENERAL: In respiratory distress, tachypneic. appears uncomfortable. CARDIOVASCULAR: Normal rate, regular rate. RESPIRATORY: Tachypneic, shallow breathing. Coarse breath sounds bilaterally. GASTROINTESTINAL: Abdomen is mildly distended, ostomy appear clean. NEURO: Anxious. Procedures None. A/P Problem List: (1) Partial small bowel obstruction ICD Code: K56.69 - Other intestinal obstruction Status: Acute (2) Uterine cancer ICD Code: C55 - Malignant neoplasm of uterus, part unspecified Status: Chronic (3) UTI (urinary tract infection) ICD Code: N39.0 - Urinary tract infection, site not specified (4) Renal insufficiency ICD Code: N28.9 - Disorder of kidney and ureter, unspecified Status: Chronic Assessment and Plan 61-year-old female with history of uterine cancer, failed chemotherapy treatment admitted with small bowel obstruction with associated complications. Oncology recommended hospice. Patient has been refusing, her condition deteriorated. She is status post emergent laparotomy with ileostomy. Patient is still critically ill, she is a DNR. She is hospice appropriate, she has evidence of anasarca. Persistent respiratory failure. Very poor prognosis. Family now agreeable to hospice. Awaiting for them to sign paperwork. LULÚ Davidson from Hospice. I personally called sister Jessenia Boston and have updated her of patient's condition. She is on her way to a center where she can try to print the hospice form and fax back to us. I have notified RN as well. Respiratory failure/tachypnea: Persistent. Anasarca with pleural effusion - On Zosyn. Chest x-ray yesterday had persistent, stable perihilar edema. - Continue support with supplemental oxygen however pt keeps removing mask. Pt' s sats are dropping. information operator notified. has reached out to pt's sister. Pt's sister tells me that she is waiting on someone for hospice office to call her back once she gets to the center to help her print paperwork from email over the phone. - S/P IV Lasix A. fib with RVR: -Cardiology following. Status post Cardizem drip. On oral Cardizem - metoprolol 50 mg every 8 hours. Small bowel obstruction: There were concerns for perforation. Patient emergently taken to the OR. - Status post laparotomy with low ileostomy. Gen surgery following - Continue TPN. - Nothing by mouth Acute renal failure: Probably related to hypoxemia, worsening condition. Stable today - Follow renal function. Avoid nephrotoxins. Uterine cancer: Appreciate gynecologic oncology recommendations. Hospice recommended. Severe malnutrition: On TPN. Acute on chronic anemia-monitor, no signs of active bleeding at this time. PPI. Follow H&H. Hypokalemia- replete and follow DVT prophylaxis: Heparin. Discharge Planning awaiting on sister to print paperwork and fax hospice consent back to us. Once that is done, patient can be transitioned to comfort care with Dr. Douglas as attending. Pt does have comfort orders placed by palliative care. Problem Qualifiers (1) Uterine cancer: Qualified Codes: C55 - Malignant neoplasm of uterus, part unspecified Malina Padilla MD Jun 10, 2017 11:49
[2017-06-10] MEDS: SODIUM CHLORIDE 0.9% FLUSH 10 ML FLUSH IV FLUSH PRN ×4 (11:52→17:55)
[2017-06-10] MEDS ORDERED: MORPHINE SULFATE 4 MG/ML INJ IV PUSH SCH (14:00)
[2017-06-10] MEDS ORDERED: BISACODYL 10 MG SUPP RECTAL PRN (14:00)
[2017-06-10] MEDS ORDERED: HYOSCYAMINE 0.125 MG TAB PO/SL PRN (14:00)
[2017-06-10] MEDS ORDERED: MORPHINE SULFATE 8 MG/ML INJ IV PUSH PRN ×2 (14:00)
[2017-06-10] MEDS ORDERED: MORPHINE SULFATE 4 MG/ML INJ IV PUSH PRN (14:00)
[2017-06-10] MEDS ORDERED: ACETAMINOPHEN 650 MG SUPP RECTAL PRN (14:00)
[2017-06-10] MEDS ORDERED: LORazepam 2 MG/ML VIAL IV PRN ×3 (14:00)
[2017-06-10] MEDS ORDERED: MORPHINE SULFATE 8 MG/ML INJ IV PUSH SCH (14:00)
[2017-06-10] MEDS ORDERED: ONDANSETRON HCL 4 MG/2 ML VIAL IV PUSH PRN (14:00)
[2017-06-10] MEDS: LORazepam 2 MG/ML VIAL IV SCH ×3 (14:38→22:08)
[2017-06-11] MEDS: MORPHINE SULFATE 4 MG/ML INJ IV PUSH SCH ×6 (02:00→22:00)
[2017-06-11] MEDS: LORazepam 2 MG/ML VIAL IV SCH ×6 (02:00→22:08)
[2017-06-11 05:57] VITALS: BP 110/68; PULSE 110; RESP 24; TEMP 97.2; O2SAT 87
[2017-06-11 09:05] VITALS: PULSE 109; RESP 23; O2SAT 93
[2017-06-11] MEDS: SODIUM CHLORIDE 0.9% FLUSH 10 ML FLUSH IV FLUSH SCH ×2 (09:16→22:08)
[2017-06-11 12:00] VITALS: BP 109/60; PULSE 112; RESP 27; TEMP 96.9; O2SAT 100
[2017-06-11 13:47] VITALS: RESP 22
[2017-06-11] MEDS: SODIUM CHLORIDE 0.9% FLUSH 10 ML FLUSH IV FLUSH PRN (14:13)
--- NOTE | 2017-06-11 14:36 | HHI.HCPN ---
Reason for visit a. To assist with evaluation and management of symptoms including: nausea, pain, malnutrition b. To assist medical decision maker(s) with: better understanding of current medical conditions; weighing benefits/burdens of medical treatment options; making medical treatment decisions. . Subjective/Interval History Patient now in Room 1702 and under hospice care. Goals are now "comfort measures only." Nurse is at bedside. There has been no use of PRNs. Nurse reports patient had been tachypnic, but respiratory rate now down to around 20. Patient opens eyes briefly to voice and exam but quickly drifts off to sleep. No signs of pain. Non-rebreather mask in place. Family expecting to arrive later. . . Family/friend interactions No family/friends at bedside. ,. Advance Directives Living Will: Never completed Health Care Surrogate: Copy in medical record Advance Directive Specifics Date completed: 05/25/17. . Health Care Surrogate(s): Jake Ludy (mother) Alternate HCS Mami Boston (sister) . Objective Vital Signs Date Time Temp Pulse Resp B/P (MAP) Pulse Ox O2 Delivery O2 Flow Rate FiO2 06/11/17 13:47 22 06/11/17 12:00 96.9 112 27 109/60 (76) 100 06/11/17 09:20 22 06/11/17 09:05 109 23 93 06/11/17 05:57 97.2 110 24 110/68 (82) 87 06/10/17 20:46 24 06/10/17 15:07 150 25 78 Intake & Output 06/11/17 06/11/17 07:00 19:00 Intake Total 0 ml 0 ml Output Total 350 ml Balance -350 ml 0 ml Intake Oral 0 ml 0 ml Output Urine Total 150 ml Stool Total 200 ml . Physical Exam CONSTITUTIONAL/GENERAL: This is a thin, frail female patient in a med surg bed with non-rebreather mask in place. Awakens briefly to voice/exam, but quickly drifts back to sleep. Non-verbla. TUBES/LINES/DRAINS: peripehral IV; Right subclavian port accessed SKIN: No jaundice, rashes, or lesions. No wounds seen anteriorly. Skin temperature appropriate. Not diaphoretic. EYES: Sclerae and conjunctivae clear. Pupils equal. Fundi not examined. CARDIOVASCULAR: Tachycardic, without murmurs, gallops, or rubs. No JVD. Peripheral pulses symmetric. RESPIRATORY/CHEST: Tachypneic, unlabored respirations. Diminished to auscultation. Breath sounds equal bilaterally. GASTROINTESTINAL: Abdomen soft, but distended. Ileostomy with dark pink stoma. Bowel sounds hypoactive. MUSCULOSKELETAL: Extremities without clubbing, cyanosis, or edema. No mottling. NEUROLOGICAL: Drowsy. Opens eyes briefly to exam but quickly drifts off and is not answering questions or following commands. PSYCHIATRIC: Difficult to assess due to level of responsiveness. . . Diagnostic Tests Laboratory Laboratory Tests Test 06/09/17 06:02 06/09/17 06:20 White Blood Count 27.6 TH/MM3 (4.0-11.0) Red Blood Count 4.17 MIL/MM3 (4.00-5.30) Hemoglobin 11.0 GM/DL (11.6-15.3) Hematocrit 33.8 % (35.0-46.0) Mean Corpuscular Volume 81.1 FL (80.0-100.0) Mean Corpuscular Hemoglobin 26.4 PG (27.0-34.0) Mean Corpuscular Hemoglobin Concent 32.5 % (32.0-36.0) Red Cell Distribution Width 21.8 % (11.6-17.2) Platelet Count 187 TH/MM3 (150-450) Mean Platelet Volume 9.8 FL (7.0-11.0) Blood Urea Nitrogen 28 MG/DL (7-18) Creatinine 0.89 MG/DL (0.50-1.00) Random Glucose 224 MG/DL (74-106) Calcium Level 8.8 MG/DL (8.5-10.1) Sodium Level 140 MEQ/L (136-145) Potassium Level 3.8 MEQ/L (3.5-5.1) Chloride Level 106 MEQ/L (98-107) Carbon Dioxide Level 22.8 MEQ/L (21.0-32.0) Anion Gap 11 MEQ/L (5-15) Estimat Glomerular Filtration Rate 78 ML/MIN (>89) . Result Diagram: 06/09/1760106/09/17619 Microbiology Microbiology Date/Time Source Procedure Growth Status 06/05/17 10:00 Blood Peripheral Aerobic Blood Culture - Final NO GROWTH IN 5 DAYS Complete 06/05/17 10:00 Blood Peripheral Anaerobic Blood Culture - Final NO GROWTH IN 5 DAYS Complete 06/05/17 22:00 Urine Random Urine Urine Culture - Final NO GROWTH Complete . Imaging Last Impressions CT Angiography 06/08/17 0000 Signed Impressions: Service Date/Time: June 15:37 - CONCLUSION: 1. Moderate right and a small left pleural effusion with concomitant atelectatic changes. In associated with generalized anasarca, findings may be indicative of right heart insufficiency. 2. Patchy pleural-parenchymal airspace process anteriorly in the right upper lobe is nonspecific and may represent regional scarring or early infiltrate. 3. No pulmonary embolus. Mario Alberto Brumfield MD Chest X-Ray 06/07/17 0000 Signed Impressions: Service Date/Time: Wednesday, June 07, 2017 13:59 - CONCLUSION: No significant interval changes. Estiven Macllister MD Abdomen X-Ray 05/25/17 0000 Signed Impressions: Service Date/Time: May 16:15 - CONCLUSION: 1. Air distention of small bowel loops in the midabdomen may be slightly improved. Diagnostic considerations include a hypodynamic ileus versus partial obstruction. 2. Stable position of the nasogastric tube, curled in the gastric fundus Mario Alberto Brumfield MD Small Bowel X-Ray 05/24/17 0000 Signed Impressions: Service Date/Time: Wednesday, May 24, 2017 11:55 - CONCLUSION: Continued continued disparity in proximal small bowel compared to distal. Site of obstruction is not identified. There is no complete obstruction. Garcia Grubbs MD FACR Abdomen/Pelvis CT 05/21/17 1800 Signed Impressions: Service Date/Time: Sunday, May 21, 2017 18:51 - CONCLUSION: 1. Liver and widespread peritoneal/omental/serosal metastatic disease. 2. Apparent early or partial distal small bowel obstruction. 3. Obstruction of the distal right ureter. 4. Clear lung bases. Estiven Boyd MD . Procedures 06/05/17: Exploratory laparotomy with loop ileostomy . Assessment and Plan Disease Oriented Problem List: (1) Carcinosarcoma of uterus (2) Small bowel obstruction, partial (3) Renal insufficiency (4) UTI (urinary tract infection) Symptom Scale: (1) Pain 0-10 Scale: Unable to quantify Comment: Appears reasonably comfortable on scheduled morphine. . (2) Nausea 0-10 Scale: Unable to quantify (3) Malnutrition 0-10 Scale: Unable to quantify (4) Dyspnea 0-10 Scale: 8 Comment: Patient still requiring non-rebreather mask and still with periodic tachypnea. Has known pleural effusion. . Pertinent Non-Medical Issues Psychosocial: Patient was born and raised in [place], [place]. She is unmarried, no children. 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 She lives with a room mate but states she is essentially alone and does not have a good support system locally as all of her family still live in [place]. Spiritual: Roman Catholic. Legal: None known. Ethical issues impacting care: None known. . Important Contacts Jake Boston (mother): [phone], Jessenia Boston (sister) [phone] Roger Sanchez (friend): [phone] . Prognosis Patient diagnosed with uterine sarcoma status post resection, hysterectomy, and bilateral salpingo-oophorectomy in 2013. Despite recent outpatient chemotherapy for uterine CA recurrence the patient's CT Abd/Pelvis during this hospitalization revealed liver and widespread peritoneal/omental/serosal metastatic disease, early or partial small bowel obstruction, obstruction of distal right ureter. Due to her advanced disease and debilitated status she is at ongoing risk for setbacks and complications. Patient has transitioned to "comfort measures only" and is now under Hospice care. . Code Status: No Code Plan * Legal decision maker: Patient is incapacitated to make her own health care decisions and will not regain capacity. She has designated her mother Jake Boston: [phone], as her HCS and her sister Mami Boston: [phone] as her alternate HCS. * CODE STATUS: DNR. * GOALS: Patient has opted for Hospice care and Comfort focused goals. Currently enrolled with [facility]. * Palliative care team had bedside meeting with patient's friend/coworker on 02/18 .She is available here locally and has been visiting the patient throughout this hospitalization. She is aware of the patient's decision to transition to comfort focused goals with Hospice and was present during the conversation when the patient made the decision. She stated she understands it is the patient's sister's decision but she would like to see the patient transferred to a Hospice care center if possible as she has had previous positive experiences with end of life care in that setting. If the patient's sister is amenable to a care center the patient's friend stated that the [facility] center is closest to her house and would allow her ease to visit more frequently as she is the only local support the patient has because the patient's family are located in [place], [place]. Palliative contact information provided to the patient's friend as well. . * Collaborated with primary nurse and urged that she use the PRN opiates and benzos for tachypnea/sob as ordered and not just for pain. * With appropriate use of the ordered PRN's , current orders appear adequate. No further recommendations at this time. . Attestation To help prompt me to consider important information that might be impacting today's encounter and assessment, information from prior notes written by myself or my colleagues may have been "brought forward" into today's note. My signature on this note, however, is an attestation that I personally performed the exam, history, and/or decision-making noted today, and, unless otherwise indicated, the interactions with patient, family, and staff as well as the review of records all occurred today. I also attest that the listed assessment and stated plan reflect my best clinical judgment today based on the combination of historical information, prior notes, and today's exam/ interactions. When time spent is documented, it refers only to time spent today by the signer, or if indicated, combined time spent today by collaborating physician/nurse practitioner. . Elias Douglas MD Jun 11, 2017 14:36
[2017-06-12] MEDS: LORazepam 2 MG/ML VIAL IV SCH ×5 (02:04→17:49)
[2017-06-12] MEDS: MORPHINE SULFATE 4 MG/ML INJ IV PUSH SCH ×5 (02:04→17:49)
[2017-06-12 06:00] VITALS: BP 104/66; PULSE 129; RESP 28; TEMP 101.7; O2SAT 82
[2017-06-12 08:00] VITALS: BP 113/69; PULSE 122; RESP 20; TEMP 99.6; O2SAT 78
[2017-06-12] MEDS: SODIUM CHLORIDE 0.9% FLUSH 10 ML FLUSH IV FLUSH SCH (10:08)
[2017-06-12 12:00] VITALS: BP 106/59; PULSE 116; RESP 22; TEMP 97.6; O2SAT 75
--- NOTE | 2017-06-12 15:49 | HHI.HCPN ---
Palliative care, ANDREW Langford and myself, met with Ms. Boston's sister/HCS and mother per their request. spa associate and SW also present. Further discussed goals of care. Reviewed Ms. Boston's medical condition. Jessenia verbalizes understanding. Jessenia inquires about care in care center vs hospital. Discussed care would be the same in the care center as it currently is in the hospital setting. She inquires about Ms. Boston getting more frequent blood pressure checks, appears this is desired for her piece of mind to have an idea of Ms. Boston's ongoing decline. Clearly reviewed there had been no further aggressive treatment being offered. Medical team recommending continued comfort care for peaceful . It was made clear to family Ms. Boston is imminently dying due to her medical condition. Answered questions and concerns to the best of palliative care ability. Jessenia continues to verbalize desire for aggressive measures "that can be done" but unable to quantify exactly what measures desired. Reviewed aggressive measures to keep patient comfortable are currently in place. Jessenia verbalizes appreciation for ongoing comfort of Ms. Boston. To conclude meeting, family appears to still be resistant to transfer to [facility]. Encouraged her to visit [facility] to get a better idea of facility and be able to ask questions and address concerns with staff. She is currently in route to visit the [facility]. Staff notified by hospice director of admissions. Palliative care contact provided. Mona Smart, FIRE CONTROL TECHNICIAN Jun 12, 2017 15:49
[2017-06-12 16:00] VITALS: BP 98/60; PULSE 104; RESP 21; TEMP 97.1; O2SAT 83
--- NOTE | 2017-06-12 17:26 | HHI.DS ---
Discharge Summary Admission Date May 21, 2017 at 19:59 Discharge Date: Jun 12, 2017 Admitting Diagnosis Partial SBO, recurrence of gynecologic CA on chemotherapy (1) Partial small bowel obstruction Diagnosis: Principal ICD Codes: K56.69 - Other intestinal obstruction Status: Acute (2) Uterine cancer Diagnosis: Principal ICD Codes: C55 - Malignant neoplasm of uterus, part unspecified Status: Chronic (3) UTI (urinary tract infection) Diagnosis: Secondary ICD Codes: N39.0 - Urinary tract infection, site not specified (4) Renal insufficiency Diagnosis: Secondary ICD Codes: N28.9 - Disorder of kidney and ureter, unspecified Status: Chronic Procedures 06/05/17 -- diagnostic laparoscopy; lysis of adhesions; diverting loop ileostomy 06/08/17 -- CT angiography . CBC/BMP: 06/09/17 0602 06/09/17 0620 Significant Findings Microbiology Date/Time Source Procedure Growth Status 06/05/17 10:00 Blood Peripheral Aerobic Blood Culture - Final NO GROWTH IN 5 DAYS Complete 06/05/17 10:00 Blood Peripheral Anaerobic Blood Culture - Final NO GROWTH IN 5 DAYS Complete 06/05/17 22:00 Urine Random Urine Urine Culture - Final NO GROWTH Complete . Laboratory Tests Test 05/21/17 17:25 05/21/17 17:40 05/25/17 13:23 06/05/17 05:35 Urine Transitional Epithelial Cells <1 /hpf Urine Bacteria OCC /hpf Urine Hyaline Casts 10 /lpf Red Cell Morphology Comment NORMAL Lipase 87 U/L Prealbumin 6 MG/DL Lactic Acid Level 3.3 mmol/L Test 06/05/17 15:40 06/05/17 18:45 06/05/17 22:00 06/06/17 04:00 Blood Gas Ventilator Setting IPAP10/EPAP+5 Blood Gas Inspired Oxygen 50 % Nasal Screen MRSA (PCR) MRSA NOT DETECTED Urine Color YELLOW Urine Turbidity HAZY Urine pH 6.0 Urine Specific [place] 1.025 Urine Protein 30 mg/dL Urine Glucose (UA) 70 mg/dL Urine Ketones NEG mg/dL Urine Occult Blood MOD Urine Nitrite NEG Urine Bilirubin NEG Urine Urobilinogen 2.0 MG/DL Urine Leukocyte Esterase LARGE Urine RBC 6 /hpf Urine WBC 43 /hpf Urine WBC Clumps RARE Urine Squamous Epithelial Cells <1 /hpf Urine Mucus FEW /lpf Microscopic Urinalysis Comment CULTURE INDICATED Blood Urea Nitrogen 19 MG/DL Creatinine 0.86 MG/DL Random Glucose 218 MG/DL Calcium Level 7.5 MG/DL Phosphorus Level 2.6 MG/DL Magnesium Level 1.7 MG/DL Sodium Level 141 MEQ/L Potassium Level 4.0 MEQ/L Chloride Level 107 MEQ/L Carbon Dioxide Level 24.6 MEQ/L Test 06/07/17 13:44 06/07/17 15:38 06/09/17 06:02 06/09/17 06:20 Blood Gas Puncture Site LT RADIAL Blood Gas Patient Temperature 98.6 Blood Gas HCO3 21 mmol/L Blood Gas Base Excess -1.8 mmol/L Blood Gas Oxygen Saturation 85 % Arterial Blood pH 7.47 Arterial Blood Partial Pressure CO2 30 mmHg Arterial Blood Partial Pressure O2 52 mmHg Arterial Blood Oxygen Content 14.0 Vol % Arterial Blood Carboxyhemoglobin 1.5 % Arterial Blood Methemoglobin 1.2 % Blood Gas Hemoglobin 11.7 G/DL Oxygen Delivery Device NASAL CANNULA Blood Gas Liter Flow 5 L/M Neutrophils (%) (Auto) 83.3 % Lymphocytes (%) (Auto) 7.6 % Monocytes (%) (Auto) 8.8 % Eosinophils (%) (Auto) 0.1 % Basophils (%) (Auto) 0.2 % Neutrophils # (Auto) 17.7 TH/MM3 Lymphocytes # (Auto) 1.6 TH/MM3 Monocytes # (Auto) 1.9 TH/MM3 Eosinophils # (Auto) 0.0 TH/MM3 Basophils # (Auto) 0.0 TH/MM3 CBC Comment AUTO DIFF Differential Total Cells Counted 100 Neutrophils % (Manual) 75 % Band Neutrophils % 7 % Lymphocytes % 10 % Monocytes % 5 % Neutrophils # (Manual) 18.1 TH/MM3 Metamyelocytes 2 % Myelocytes 1 % Nucleated Red Blood Cells 4 /100 WBC Differential Comment FINAL DIFF MANUAL Platelet Estimate NORMAL Platelet Morphology Comment NORMAL Tear Drop Cells 1+ Helmet Cells OCC [place] Cells Acanthocytes 1+ Prothrombin Time 12.1 SEC Prothromb Time International Ratio 1.1 RATIO Activated Partial Thromboplast Time 34.7 SEC Blood Urea Nitrogen 20 MG/DL 28 MG/DL Creatinine 0.77 MG/DL 0.89 MG/DL Random Glucose 190 MG/DL 224 MG/DL Total Protein 6.6 GM/DL Albumin 1.9 GM/DL Calcium Level 8.1 MG/DL 8.8 MG/DL Alkaline Phosphatase 100 U/L Aspartate Amino Transf (AST/SGOT) 66 U/L Alanine Aminotransferase (ALT/SGPT) 32 U/L Total Bilirubin 0.7 MG/DL Sodium Level 140 MEQ/L 140 MEQ/L Potassium Level 3.6 MEQ/L 3.8 MEQ/L Chloride Level 107 MEQ/L 106 MEQ/L Carbon Dioxide Level 23.6 MEQ/L 22.8 MEQ/L White Blood Count 27.6 TH/MM3 Red Blood Count 4.17 MIL/MM3 Hemoglobin 11.0 GM/DL Hematocrit 33.8 % Mean Corpuscular Volume 81.1 FL Mean Corpuscular Hemoglobin 26.4 PG Mean Corpuscular Hemoglobin Concent 32.5 % Red Cell Distribution Width 21.8 % Platelet Count 187 TH/MM3 Mean Platelet Volume 9.8 FL Anion Gap 11 MEQ/L Estimat Glomerular Filtration Rate 78 ML/MIN . Peritoneal / omentum pathology: FINAL DIAGNOSIS: #1- PERITONEAL MASS, EXCISION: - POORLY DIFFERENTIATED NON-SMALL CELL CARCINOMA IN FIBROADIPOSE TISSUE, MORPHOLOGICALLY SIMILAR TO THE EPITHELIAL COMPONENT OF THE PATIENTS PREVIOUS CARCINOSARCOMA ([id number]). #2- OMENTAL MASS, EXCISION: - POORLY DIFFERENTIATED ADENOCARCINOMA IN FIBROADIPOSE TISSUE, MORPHOLOGICALLY SIMILAR TO THE EPITHELIAL COMPONENT OF THE PATIENTS PREVIOUS CARCINOSARCOMA ([id number]). . Imaging Last Impressions CT Angiography 06/08/17 0000 Signed Impressions: Service Date/Time: June 15:37 - CONCLUSION: 1. Moderate right and a small left pleural effusion with concomitant atelectatic changes. In associated with generalized anasarca, findings may be indicative of right heart insufficiency. 2. Patchy pleural-parenchymal airspace process anteriorly in the right upper lobe is nonspecific and may represent regional scarring or early infiltrate. 3. No pulmonary embolus. Mario Alberto Brumfield MD Chest X-Ray 06/07/17 0000 Signed Impressions: Service Date/Time: Wednesday, June 07, 2017 13:59 - CONCLUSION: No significant interval changes. Estiven Mcallister MD Abdomen X-Ray 05/25/17 0000 Signed Impressions: Service Date/Time: May 16:15 - CONCLUSION: 1. Air distention of small bowel loops in the midabdomen may be slightly improved. Diagnostic considerations include a hypodynamic ileus versus partial obstruction. 2. Stable position of the nasogastric tube, curled in the gastric fundus Mario Alberto Brumfield MD Small Bowel X-Ray 05/24/17 0000 Signed Impressions: Service Date/Time: Wednesday, May 24, 2017 11:55 - CONCLUSION: Continued continued disparity in proximal small bowel compared to distal. Site of obstruction is not identified. There is no complete obstruction. Garcia Grubbs MD FACR Abdomen/Pelvis CT 05/21/17 1800 Signed Impressions: Service Date/Time: Sunday, May 21, 2017 18:51 - CONCLUSION: 1. Liver and widespread peritoneal/omental/serosal metastatic disease. 2. Apparent early or partial distal small bowel obstruction. 3. Obstruction of the distal right ureter. 4. Clear lung bases. Estiven Boyd MD PE at Discharge Physical Exam CONSTITUTIONAL/GENERAL: This is a thin, frail female patient in a med surg bed with non-rebreather mask in place. Awakens briefly to voice/exam, but quickly drifts back to sleep. Non-verbla. TUBES/LINES/DRAINS: peripehral IV; Right subclavian port accessed SKIN: No jaundice, rashes, or lesions. No wounds seen anteriorly. Skin temperature appropriate. Not diaphoretic. EYES: Sclerae and conjunctivae clear. Pupils equal. Fundi not examined. CARDIOVASCULAR: Tachycardic, without murmurs, gallops, or rubs. No JVD. Peripheral pulses symmetric. RESPIRATORY/CHEST: Tachypneic, unlabored respirations. Diminished to auscultation. Breath sounds equal bilaterally. GASTROINTESTINAL: Abdomen soft, but distended. Ileostomy with dark pink stoma. Bowel sounds hypoactive. MUSCULOSKELETAL: Extremities without clubbing, cyanosis, or edema. No mottling. NEUROLOGICAL: Drowsy. Opens eyes briefly to exam but quickly drifts off and is not answering questions or following commands. PSYCHIATRIC: Difficult to assess due to level of responsiveness. . Transfer Summary Patient was under hospice care in the hospital. Family has opted to have her transferred to a hospice care center. She has been accepted at the [facility]. Hospice has arranged for transportation. . Hospital Course Patient is a 61 year old female with a past medical history significant for recurrent uterine cancer who presented to the ED on 05/21/17 for abdominal pain and nausea. She reported vomiting following eating with associated abdominal pain. On presentation patient denied any fevers, chills, dysuria, or frequency. Patient is status post hysterectomy, she denied any vaginal bleeding or discharge. * ED workup: Significant laboratory data: BUN:22, creatinine:1.02, GFR:67, albumin:3.2, UA: Pos UTI. CT abdomen: Liver and widespread peritoneal/omental/ serosal metastatic disease. Apparent early or partial distal small bowel obstruction. Obstruction of distal right ureter. IV fluids ordered and antibiotics. Patient admitted for evaluation, patient known to as outpatient, surgery consulted for evaluation of SBO. * 05/22/17: Abd XR: Hydronephrosis right kidney. Nonspecific bowel gas pattern. Surgery evaluated patient, no NGT indicated unless N/V occurrence, monitor bowel function, possible diagnostic lap if no improvement. * 05/23/17: Dr. Saravia consulted, plan to continue supportive care, consult urology to determine if ureteral stent is indicated. * 05/23/17: Urology evaluated patient, plan to monitor patient, increased flank pain and/or renal function worsens will plan cystoscopy and stent placement. * 05/24/17: Patient has had waxing and waning nausea, declines NGT at this time. Small Bowel XR: Continued disparity in proximal small bowel compared to distal. Site of obstruction is not identified. There is no complete obstruction. * 05/25/17: Palliative care consulted to assist with clarifying goals, establish code status, and assist with completing health care surrogate. The patient initially declined surgical intervention for her apparent small bowel onbstruction. On 06/06/17 she developed A fib with RVR. She was hypotensive with a Hg of 6.8. She went emergently to the OR and underwent a diverting ileostomy and received several units of PRBCs. The patient continued to decline in spite of the aggressive care. Ultimately, she decided to transition to "comfort measures only." Hospice services were offered and accepted. She was enrolled with hospice on 06/09/17 . Family arrived in [place] [facility] and agreed on a transfer to the [facility]. Patient has become non-verbal. . Pt Condition on Discharge: Guarded Discharge Disposition: Hospice/Med Facility Discharge Instructions DIET: Follow Instructions for: Nothing By Mouth Speech Therapy-Diet Recommenda: Other Additional Diet Instructions: Patient is actively dying. Not eating. Fluid Restrictions: None Activities you can perform: See Additionl Instruction Additional Activity Instructio: Patient is actively dying. Will be at bedrest until her demise. Additional Information Hospice physician is opting to write orders for patient who will be arriving at his care center. . Elias Douglas MD Jun 12, 2017 17:26
== END 2017-06-12 18:51 | disposition hospice, inpatient (51) | DRG 329 ==
LOC: NEPE 16:46 → NEDA 19:59 → HCIN 22:05 → HOCB 05-23 16:40 → HCPC 06-05 08:10 → N03B 06-05 11:39 → N03A 06-05 18:25 → HOCB 06-06 18:42 → HCIN 06-07 13:41 → N07A 06-09 17:53
PROVIDERS: ADMIT Hospitalist; ATTEND Family Medicine
PROC: 0DBW0ZX Excision of Peritoneum, Open Approach, Diagnostic (ICD-10-PCS; 2017-06-05)
PROC: 0WJG4ZZ Inspection of Peritoneal Cavity, Percutaneous Endoscopic Approach (ICD-10-PCS; 2017-06-05)
PROC: 0DNW0ZZ Release Peritoneum, Open Approach (ICD-10-PCS; 2017-06-05)
PROC: 30233N1 Transfusion of Nonautologous Red Blood Cells into Peripheral Vein, Percutaneous Approach (ICD-10-PCS; 2017-06-05)
PROC: 5A09357 Assistance with Respiratory Ventilation, Less than 24 Consecutive Hours, Continuous Positive Airway Pressure (ICD-10-PCS; 2017-06-05)
PROC: 0D1B0Z4 Bypass Ileum to Cutaneous, Open Approach (ICD-10-PCS; principal; 2017-06-05 10:42)
PROC: 0DBU0ZX Excision of Omentum, Open Approach, Diagnostic (ICD-10-PCS; 2017-06-05 10:42)
DX: C78.6 Secondary malignant neoplasm of retroperitoneum and peritoneum (principal); E43 Unspecified severe protein-calorie malnutrition; R57.1 Hypovolemic shock; J96.91 Respiratory failure, unspecified with hypoxia; J90 Pleural effusion, not elsewhere classified; K56.690 Other partial intestinal obstruction; I95.9 Hypotension, unspecified; N17.9 Acute kidney failure, unspecified; N13.1 Hydronephrosis with ureteral stricture, not elsewhere classified; C78.7 Secondary malignant neoplasm of liver and intrahepatic bile duct; N39.0 Urinary tract infection, site not specified; D62 Acute posthemorrhagic anemia; E86.0 Dehydration; I48.91 Unspecified atrial fibrillation; E86.1 Hypovolemia; Z51.5 Encounter for palliative care; Z53.31 Laparoscopic surgical procedure converted to open procedure; M06.9 Rheumatoid arthritis, unspecified; E87.6 Hypokalemia; Z68.23 Body mass index [BMI] 23.0-23.9, adult; D64.9 Anemia, unspecified; R62.7 Adult failure to thrive; R00.0 Tachycardia, unspecified; R73.9 Hyperglycemia, unspecified; K66.0 Peritoneal adhesions (postprocedural) (postinfection); Z85.42 Personal history of malignant neoplasm of other parts of uterus; Z92.21 Personal history of antineoplastic chemotherapy
CPT/HCPCS: 36430; 36600; 71010; 71275; 74000; 74177; 74250; 76937; 80048; 80053; 81001; 82805; 82948; 83605; 83690; 83735; 84100; 84134; 85007; 85025; 85027; 85610; 85730; 86850; 86900; 86901; 86920; 87040; 87086; 87641; 88305; 93005; 93306; 94002; 94664; 96374; 96375; C9290; J0131; J0744; J1160; J1170; J1450; J1644; J1815; J1940; J2060; J2270; J2370; J2405; J2543; J2997; J3010; J3475; J3480; J7030; J7040; J7050; J7120; P9016; Q9963; Q9967